=== PATIENT | male | born 1990 | race Caucasian/White ===

== ENCOUNTER 2016-08-05 19:54 | Emergency (ER) | payer MEDICARE ==
[~2016-08-05] VITALS: Ht 188 cm; Wt 111.1 kg
[2016-08-05] MEDS ORDERED: ACETAMINOPH W/CODEINE #3 TAB UD As Ordered ONE (20:20)
[2016-08-05] MEDS ORDERED: NEBIVOLOL 5 MG TAB (BYSTOLIC) PO SCH (20:30)
--- NOTE | 2016-08-05 21:33 | EDDOCDS ---
Physician Documentation [facility] Name: Yves Bentley Age: 26 yrs Sex: Male : 1990 Arrival Date: 08/05/2016 Time: 19:54 Bed PR Private MD: Disposition: 08/05/16 21:09 Discharged to Home/Self Care. Impression: Sprain of ankle - LEFT, Other sprain of foot - LEFT, Hypertension secondary to other renal disorders. - Condition is Stable. - Discharge Instructions: Foot Sprain, Hypertension. - Prescriptions for Tylenol- Codeine #3 300-30 mg Oral Tablet - take 2 tablets by ORAL route every 6 hours As needed MDD: 4 tabs; 20 tablet. - Medication Reconciliation, Local Pharmacy Hours form. - Follow up: Private Physician; When: Tomorrow; Reason: Recheck today's complaints, Continuance of care. Follow up: [facility]; When: 2 - 3 days; Reason: Recheck today's complaints, Continuance of care. - Problem is new. - Symptoms have improved. - Notes: USE MEDICATION INSTRUCTED, ADDRESS YOUR HYPERTENSION AT DIALYSIS TOMORROW, FOLLOW UP WITH [facility], RETURN TO THE ER IF THE SYMPTOMS WORSEN OR BECOME CONCERNING Historical: - Allergies: no known allergies; - Home Meds: 1. Bystolic 40 mg oral tab 1 tab twice a day 2. fluoxetine 10 mg Oral tab nightly 3. Headache Relief (CZB-yndm-yqx) 250-250-65 mg oral tab 4. losartan 50 mg oral tab three times a day 5. minoxidil 5 mg Oral tab 1 tab 2 times per day - PMHx: Headaches; Hypertension; Renal Failure with Dialysis; - PSHx: Left arm dialysis graft; Thyroidectomy; - Social history: Smoking status: Patient uses tobacco products, light tobacco smoker. No barriers to communication noted, The patient speaks fluent Maltese. - Family history: Not pertinent. - : The pt / caregiver states he / she is not on anticoagulants. Home medication list is obtained from the patient. - Exposure Risk Screening:: None identified. Vital Signs: 08/05 19:56 BP 215 / 98; Pulse 82; Resp 18; Temp 98.2; Pulse Ox 99% on R/A; Weight 111.13 kg / 245 bnb lbs; Height 6 ft. 2 in. (187.96 cm); Pain 9/10; 20:16 BP 196 / 98 RA (man/); kc3 21:27 Pulse 76; Resp 20; Temp 99.6(TE); Pulse Ox 98% on R/A; Pain 1/10; ar3 21:32 BP 190 / 96; kc3 21:32 kc3 19:56 Body Mass Index 31.46 (111.13 kg, 187.96 cm) bnb 21:32 provider aware of BP at discharge and approved. kc3 Procedures: 21:01 Fracture care/splinting: Splint applied to left lateral ankle and lateral aspect of ck7 left foot using nikko wrap, Air Cast, applied by nurse. Examined by me, post splint application: neurovascular intact, 2+ distal pulses palpable, brisk capillary refill noted, Patient tolerated well. MDM: 20:05 Recheck B/P ordered. ck7 20:18 Acetaminophen-Codeine 300 mg-30 mg 2 tabs PO once ordered. ck7 20:18 Bystolic 40 mg PO once ordered. ck7 20:19 Foot, Complete Ordered. EDMS 20:19 Ankle, Complete Ordered. EDMS 20:30 [facility] Payment Agreement was scanned into [employer] and attached to record. jp5 20:31 Financial registration complete. jp5 21:00 Nikko Wrap ordered. ck7 21:00 Apply Air Cast to Patient. ordered. ck7 21:00 Crutches ordered. ck7 Administered Medications: 20:29 Drug: Acetaminophen-Codeine 2 tabs [acetaminophen 300 mg-codeine 30 mg tablet (2 tabs)] 3 Route: PO; 21:01 Drug: Bystolic 40 mg Route: PO; kc3 Signatures: Dispatcher [employer] EDMS Courtney Robb,RN RN rs3 Quirino Lima, RPA-C RPA-Cck7 Raquel Alvarado jp5 Pat Madrigal,RN RN kc3 The chart was reviewed and I authenticate all verbal orders and agree with the evaluation and treatment provided.Attachments: 20:30 [facility] Payment Agreement jp5 MTDD
--- NOTE | 2016-08-05 21:33 | EDDOCDS ---
Nurse's Notes [facility] Name: Yves Bentley Age: 26 yrs Sex: Male : 1990 Arrival Date: 08/05/2016 Time: 19:54 Bed PR / Private MD: Diagnosis: Sprain of ankle-LEFT;Other sprain of foot-LEFT;Hypertension secondary to other renal disorders Presentation: 08/05 19:59 Presenting complaint: Patient states: twisted L foot last week, re injured it again rs3 yesterday coming down the stairs carrying weight. L foot swelling and pain. Adult Sepsis Screening: The patient does not have new or worsening altered mentation. Patient's respiratory rate is less than 22. Systolic blood pressure is greater than 100. Patient has a qSOFA score of 0- Negative Sepsis Screen. Suicide/Homicide risk assessment- the patient denies having any suicidal and/or homicidal ideations and does not present with any other emotional, behavioral or mental health complaints. 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 Transition of care: patient was not received from another setting of care. 19:59 Acuity: [place] Level 4 rs3 19:59 Method Of Arrival: Walkin/Carried/Asstd rs3 Triage Assessment: 20:02 General: Appears in no apparent distress. Pain: Location: left foot. HIV screening NA rs3 for this visit Offered previously. Musculoskeletal: Parent/caregiver report the patient having Pain is 8 out of 10 on a pain scale. Historical: - Allergies: no known allergies; - Home Meds: 1. Bystolic 40 mg oral tab 1 tab twice a day 2. fluoxetine 10 mg Oral tab nightly 3. Headache Relief (HBN-xtos-rmv) 250-250-65 mg oral tab 4. losartan 50 mg oral tab three times a day 5. minoxidil 5 mg Oral tab 1 tab 2 times per day - PMHx: Headaches; Hypertension; Renal Failure with Dialysis; - PSHx: Left arm dialysis graft; Thyroidectomy; - Social history: Smoking status: Patient uses tobacco products, light tobacco smoker. No barriers to communication noted, The patient speaks fluent Yoruba. - Family history: Not pertinent. - : The pt / caregiver states he / she is not on anticoagulants. Home medication list is obtained from the patient. - Exposure Risk Screening:: None identified. Screenin:31 Screening information is obtained from the patient. Fall risk: At risk due to injury, kc3 The following interventions are performed due to a positive Fall Risk Screen: Fall Risk is added to Special Handling on the patient Summary Screen. A Fall Risk Bracelet was applied to the patient. Side Rails are placed in the up position. A Call Syed is given with instruction to call for help when getting out of bed. Fall Alert bracelet is placed on the patient. Assistance ADL's: requires no assistance with activities of daily living. Abuse/DV Screen: The patient / caregiver reports he/she is: not in a situation that causes fear, pain or injury. Nutritional screening: No deficits noted. Advance Directives: Currently, there is no health care proxy. home support is adequate. Assessment: 20:29 General: Appears in no apparent distress, comfortable, Behavior is appropriate for age, kc3 cooperative. Pain: Location: left foot. Neurological: No deficits noted. Respiratory: Respiratory effort is even, unlabored. Derm: Swollen area noted on left foot. Musculoskeletal: Circulation, motion, and sensation intact. 21:31 General: Appears in no apparent distress, comfortable, Behavior is appropriate for age, kc3 cooperative. Pain: Denies pain. Neurological: No deficits noted. Respiratory: Respiratory effort is even, unlabored. Derm: Skin is pink, warm & dry. Vital Signs: 19:56 BP 215 / 98; Pulse 82; Resp 18; Temp 98.2; Pulse Ox 99% on R/A; Weight 111.13 kg; bnb Height 6 ft. 2 in. (187.96 cm); Pain 9/10; 20:16 BP 196 / 98 RA (man/); kc3 21:27 Pulse 76; Resp 20; Temp 99.6(TE); Pulse Ox 98% on R/A; Pain 1/10; ar3 21:32 BP 190 / 96; kc3 21:32 kc3 19:56 Body Mass Index 31.46 (111.13 kg, 187.96 cm) bnb 21:32 provider aware of BP at discharge and approved. kc3 Vitals: 19:56 Log In Time: August 05, 2016 at 19:55. bnb ED Course: 19:56 Patient visited by Roxanna Tineo PCA. bnb 19:56 Patient moved to Waiting bnb 19:57 Patient visited by Roxanna Tineo PCA. bnb 20:01 Triage Initiated rs3 20:03 Patient moved to Triage 2 rs3 20:11 Quirino Lima RPA-C is PHCP. ck7 20:11 Guicho Rivera DO is Attending Physician. ck7 20:14 Patient visited by Quirino Lima RPA-C. ck7 20:28 Patient moved to TR3 kc3 20:30 [facility] Payment Agreement was scanned into [employer] and attached to record. jp5 20:31 The patient / caregiver is instructed regarding the plan of care and ED course. kc3 20:36 Patient moved to Radiology jeimy 21:00 Patient moved to TR3 jeimy 21:01 Patient visited by Quirino Lima RPA-C. ck7 21:08 [facility] is Referral Physician. ck7 21:13 Pat Madrigal,CONCHA is Primary Nurse. kc3 21:13 Patient moved to PR1 / 25 ttb 21:27 Patient visited by Ratna Kennedy PCA. ar3 21:32 No IV's were initiated during this patient's visit. No procedures done that require kc3 assistance. Administered Medications: 20:29 Drug: Acetaminophen-Codeine 2 tabs [acetaminophen 300 mg-codeine 30 mg tablet (2 tabs)] kc3 Route: PO; 21:01 Drug: Bystolic 40 mg Route: PO; kc3 Order Results: There are currently no results for this order. Outcome: 21:09 Discharge ordered by Provider. ck7 21:32 Discharge Assessment: Patient awake, alert and oriented x 3. No cognitive and/or kc3 functional deficits noted. Patient verbalized understanding of disposition instructions. patient administered narcotics - yes. Pt provided with safe discharge. The following High Risk Discharge criteria are identified: None. Discharged to home ambulatory, with crutches. Condition: stable. Discharge instructions given to patient, Instructed on discharge instructions, follow up and referral plans. medication usage, crutch walking, Demonstrated understanding of instructions, crutch walking, medications, Pt was receptive of discharge instructions/ teaching. Prescriptions given X 1. No special radiology studies were completed. Property :Personal belongings accompany Pt. 21:33 Patient left the ED. kc3 Signatures: Link Youssef Rosemary, RN RN rs3 Ratna Kennedy, TOWER ERECTOR HELPER TOWER ERECTOR HELPER ar3 Janie, Quirino, RPA-C RPA-Cck7 Wilda Spaulding, RN RN ttb Raquel Alvarado jp5 Pat Madrigal,RN RN kc3 Roxanna Tineo, TOWER ERECTOR HELPER TOWER ERECTOR HELPER bnb MTDD
--- NOTE | 2016-08-06 07:53 | REP ---
Clinical: Trauma. Technique: AP, lateral, bilateral oblique views left foot . Findings: The osseous structures and joint spaces are intact and normal. There is no evidence for acute fracture or dislocation. Surrounding soft tissues are unremarkable. No subcutaneous emphysema or radiodense foreign body. Impression: Normal examination. No acute fracture or dislocation. Signed by Renny Zaragoza MD 08/06/2016 07:44 A
--- NOTE | 2016-08-06 07:57 | REP ---
Clinical: Deformity and swelling. Technique: AP, lateral, bilateral oblique views of the left ankle. Findings: Diffuse soft tissue swelling is appreciated. No obvious acute fracture or dislocation is appreciated. Widening along the lateral aspect of the ankle mortise may represent ligamentous injury. Impression: Mild widening to the lateral aspect of the ankle mortise may reflect injury to the lateral collateral ligament complex. No fracture or dislocation. Signed by Renny Zaragoza MD 08/06/2016 07:48 A
--- NOTE | 2016-08-07 22:34 | EDDOCDS ---
Physician Documentation [facility] Name: Yves Bentley Age: 26 yrs Sex: Male : 1990 Arrival Date: 08/05/2016 Time: 19:54 Bed PR Private MD: Disposition: 08/05/16 21:09 Discharged to Home/Self Care. Impression: Sprain of ankle - LEFT, Other sprain of foot - LEFT, Hypertension secondary to other renal disorders. - Condition is Stable. - Discharge Instructions: Foot Sprain, Hypertension. - Prescriptions for Tylenol- Codeine #3 300-30 mg Oral Tablet - take 2 tablets by ORAL route every 6 hours As needed MDD: 4 tabs; 20 tablet. - Medication Reconciliation, Local Pharmacy Hours form. - Follow up: Private Physician; When: Tomorrow; Reason: Recheck today's complaints, Continuance of care. Follow up: [facility]; When: 2 - 3 days; Reason: Recheck today's complaints, Continuance of care. - Problem is new. - Symptoms have improved. - Notes: USE MEDICATION INSTRUCTED, ADDRESS YOUR HYPERTENSION AT DIALYSIS TOMORROW, FOLLOW UP WITH [facility], RETURN TO THE ER IF THE SYMPTOMS WORSEN OR BECOME CONCERNING Historical: - Allergies: no known allergies; - Home Meds: 1. Bystolic 40 mg oral tab 1 tab twice a day 2. fluoxetine 10 mg Oral tab nightly 3. Headache Relief (NFE-nbon-sxa) 250-250-65 mg oral tab 4. losartan 50 mg oral tab three times a day 5. minoxidil 5 mg Oral tab 1 tab 2 times per day - PMHx: Headaches; Hypertension; Renal Failure with Dialysis; - PSHx: Left arm dialysis graft; Thyroidectomy; - Social history: Smoking status: Patient uses tobacco products, light tobacco smoker. No barriers to communication noted, The patient speaks fluent Vietnamese. - Family history: Not pertinent. - : The pt / caregiver states he / she is not on anticoagulants. Home medication list is obtained from the patient. - Exposure Risk Screening:: None identified. Vital Signs: 08/05 19:56 BP 215 / 98; Pulse 82; Resp 18; Temp 98.2; Pulse Ox 99% on R/A; Weight 111.13 kg / 245 bnb lbs; Height 6 ft. 2 in. (187.96 cm); Pain 9/10; 20:16 BP 196 / 98 RA (man/); kc3 21:27 Pulse 76; Resp 20; Temp 99.6(TE); Pulse Ox 98% on R/A; Pain 1/10; ar3 21:32 BP 190 / 96; kc3 21:32 kc3 19:56 Body Mass Index 31.46 (111.13 kg, 187.96 cm) bnb 21:32 provider aware of BP at discharge and approved. kc3 Procedures: 21:01 Fracture care/splinting: Splint applied to left lateral ankle and lateral aspect of ck7 left foot using nikko wrap, Air Cast, applied by nurse. Examined by me, post splint application: neurovascular intact, 2+ distal pulses palpable, brisk capillary refill noted, Patient tolerated well. MDM: 20:05 Recheck B/P ordered. ck7 20:18 Acetaminophen-Codeine 300 mg-30 mg 2 tabs PO once ordered. ck7 20:18 Bystolic 40 mg PO once ordered. ck7 20:19 Foot, Complete Ordered. EDMS 20:19 Ankle, Complete Ordered. EDMS 20:30 [facility] Payment Agreement was scanned into [employer] and attached to record. jp5 20:31 Financial registration complete. jp5 21:00 Nikko Wrap ordered. ck7 21:00 Apply Air Cast to Patient. ordered. ck7 21:00 Crutches ordered. ck7 08/06 14:11 T-Sheet-- Draft Copy was scanned into [employer] and attached to record. gb Administered Medications: 08/05 20:29 Drug: Acetaminophen-Codeine 2 tabs [acetaminophen 300 mg-codeine 30 mg tablet (2 tabs)] 3 Route: PO; 21:01 Drug: Bystolic 40 mg Route: PO; kc3 Signatures: Dispatcher [employer] EDMS Brigette Ames, Reg Reg gb Courtney Robb,RN RN rs3 Quirino Lima RPA-C RPA-Cck7 Raquel Alvarado jp5 Pat Madrigal,CONCHA RN kc3 The chart was reviewed and I authenticate all verbal orders and agree with the evaluation and treatment provided.Attachments: 20:30 [facility] Payment Agreement 5 08/06 14:11 T-Sheet-- Draft Copy gb Chart Complete MTDD
--- NOTE | 2016-08-07 22:34 | EDDOCDS ---
Physician Documentation [facility] Name: Yves Bentley Age: 26 yrs Sex: Male : 1990 Arrival Date: 08/05/2016 Time: 19:54 Bed PR Private MD: Disposition: 08/05/16 21:09 Discharged to Home/Self Care. Impression: Sprain of ankle - LEFT, Other sprain of foot - LEFT, Hypertension secondary to other renal disorders. - Condition is Stable. - Discharge Instructions: Foot Sprain, Hypertension. - Prescriptions for Tylenol- Codeine #3 300-30 mg Oral Tablet - take 2 tablets by ORAL route every 6 hours As needed MDD: 4 tabs; 20 tablet. - Medication Reconciliation, Local Pharmacy Hours form. - Follow up: Private Physician; When: Tomorrow; Reason: Recheck today's complaints, Continuance of care. Follow up: [facility]; When: 2 - 3 days; Reason: Recheck today's complaints, Continuance of care. - Problem is new. - Symptoms have improved. - Notes: USE MEDICATION INSTRUCTED, ADDRESS YOUR HYPERTENSION AT DIALYSIS TOMORROW, FOLLOW UP WITH [facility], RETURN TO THE ER IF THE SYMPTOMS WORSEN OR BECOME CONCERNING Historical: - Allergies: no known allergies; - Home Meds: 1. Bystolic 40 mg oral tab 1 tab twice a day 2. fluoxetine 10 mg Oral tab nightly 3. Headache Relief (ZOD-tnen-pcg) 250-250-65 mg oral tab 4. losartan 50 mg oral tab three times a day 5. minoxidil 5 mg Oral tab 1 tab 2 times per day - PMHx: Headaches; Hypertension; Renal Failure with Dialysis; - PSHx: Left arm dialysis graft; Thyroidectomy; - Social history: Smoking status: Patient uses tobacco products, light tobacco smoker. No barriers to communication noted, The patient speaks fluent Chinese. - Family history: Not pertinent. - : The pt / caregiver states he / she is not on anticoagulants. Home medication list is obtained from the patient. - Exposure Risk Screening:: None identified. Vital Signs: 08/05 19:56 BP 215 / 98; Pulse 82; Resp 18; Temp 98.2; Pulse Ox 99% on R/A; Weight 111.13 kg / 245 bnb lbs; Height 6 ft. 2 in. (187.96 cm); Pain 9/10; 20:16 BP 196 / 98 RA (man/); kc3 21:27 Pulse 76; Resp 20; Temp 99.6(TE); Pulse Ox 98% on R/A; Pain 1/10; ar3 21:32 BP 190 / 96; kc3 21:32 kc3 19:56 Body Mass Index 31.46 (111.13 kg, 187.96 cm) bnb 21:32 provider aware of BP at discharge and approved. kc3 Procedures: 21:01 Fracture care/splinting: Splint applied to left lateral ankle and lateral aspect of ck7 left foot using nikko wrap, Air Cast, applied by nurse. Examined by me, post splint application: neurovascular intact, 2+ distal pulses palpable, brisk capillary refill noted, Patient tolerated well. MDM: 20:05 Recheck B/P ordered. ck7 20:18 Acetaminophen-Codeine 300 mg-30 mg 2 tabs PO once ordered. ck7 20:18 Bystolic 40 mg PO once ordered. ck7 20:19 Foot, Complete Ordered. EDMS 20:19 Ankle, Complete Ordered. EDMS 20:30 [facility] Payment Agreement was scanned into [employer] and attached to record. jp5 20:31 Financial registration complete. jp5 21:00 Nikko Wrap ordered. ck7 21:00 Apply Air Cast to Patient. ordered. ck7 21:00 Crutches ordered. ck7 08/06 14:11 T-Sheet-- Draft Copy was scanned into [employer] and attached to record. gb Administered Medications: 08/05 20:29 Drug: Acetaminophen-Codeine 2 tabs [acetaminophen 300 mg-codeine 30 mg tablet (2 tabs)] 3 Route: PO; 21:01 Drug: Bystolic 40 mg Route: PO; kc3 Signatures: Dispatcher [employer] EDMS Brigette Ames, Reg Reg gb Courtney Robb,RN RN rs3 Quirino Lima RPA-C RPA-Cck7 Raquel Alvarado jp5 Pat Madrigal,CONCHA RN kc3 The chart was reviewed and I authenticate all verbal orders and agree with the evaluation and treatment provided.Attachments: 20:30 [facility] Payment Agreement 5 08/06 14:11 T-Sheet-- Draft Copy gb Chart Complete MTDD
--- NOTE | 2016-08-07 22:34 | EDDOCDS ---
Nurse's Notes [facility] Name: Yves Bentley Age: 26 yrs Sex: Male : 1990 Arrival Date: 08/05/2016 Time: 19:54 Bed PR / Private MD: Diagnosis: Sprain of ankle-LEFT;Other sprain of foot-LEFT;Hypertension secondary to other renal disorders Presentation: 08/05 19:59 Presenting complaint: Patient states: twisted L foot last week, re injured it again rs3 yesterday coming down the stairs carrying weight. L foot swelling and pain. Adult Sepsis Screening: The patient does not have new or worsening altered mentation. Patient's respiratory rate is less than 22. Systolic blood pressure is greater than 100. Patient has a qSOFA score of 0- Negative Sepsis Screen. Suicide/Homicide risk assessment- the patient denies having any suicidal and/or homicidal ideations and does not present with any other emotional, behavioral or mental health complaints. 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 Transition of care: patient was not received from another setting of care. 19:59 Acuity: [place] Level 4 rs3 19:59 Method Of Arrival: Walkin/Carried/Asstd rs3 Triage Assessment: 20:02 General: Appears in no apparent distress. Pain: Location: left foot. HIV screening NA rs3 for this visit Offered previously. Musculoskeletal: Parent/caregiver report the patient having Pain is 8 out of 10 on a pain scale. Historical: - Allergies: no known allergies; - Home Meds: 1. Bystolic 40 mg oral tab 1 tab twice a day 2. fluoxetine 10 mg Oral tab nightly 3. Headache Relief (JZU-lsfa-fjc) 250-250-65 mg oral tab 4. losartan 50 mg oral tab three times a day 5. minoxidil 5 mg Oral tab 1 tab 2 times per day - PMHx: Headaches; Hypertension; Renal Failure with Dialysis; - PSHx: Left arm dialysis graft; Thyroidectomy; - Social history: Smoking status: Patient uses tobacco products, light tobacco smoker. No barriers to communication noted, The patient speaks fluent Hebrew. - Family history: Not pertinent. - : The pt / caregiver states he / she is not on anticoagulants. Home medication list is obtained from the patient. - Exposure Risk Screening:: None identified. Screenin:31 Screening information is obtained from the patient. Fall risk: At risk due to injury, kc3 The following interventions are performed due to a positive Fall Risk Screen: Fall Risk is added to Special Handling on the patient Summary Screen. A Fall Risk Bracelet was applied to the patient. Side Rails are placed in the up position. A Call Syed is given with instruction to call for help when getting out of bed. Fall Alert bracelet is placed on the patient. Assistance ADL's: requires no assistance with activities of daily living. Abuse/DV Screen: The patient / caregiver reports he/she is: not in a situation that causes fear, pain or injury. Nutritional screening: No deficits noted. Advance Directives: Currently, there is no health care proxy. home support is adequate. Assessment: 20:29 General: Appears in no apparent distress, comfortable, Behavior is appropriate for age, kc3 cooperative. Pain: Location: left foot. Neurological: No deficits noted. Respiratory: Respiratory effort is even, unlabored. Derm: Swollen area noted on left foot. Musculoskeletal: Circulation, motion, and sensation intact. 21:31 General: Appears in no apparent distress, comfortable, Behavior is appropriate for age, kc3 cooperative. Pain: Denies pain. Neurological: No deficits noted. Respiratory: Respiratory effort is even, unlabored. Derm: Skin is pink, warm & dry. Vital Signs: 19:56 BP 215 / 98; Pulse 82; Resp 18; Temp 98.2; Pulse Ox 99% on R/A; Weight 111.13 kg; bnb Height 6 ft. 2 in. (187.96 cm); Pain 9/10; 20:16 BP 196 / 98 RA (man/); kc3 21:27 Pulse 76; Resp 20; Temp 99.6(TE); Pulse Ox 98% on R/A; Pain 1/10; ar3 21:32 BP 190 / 96; kc3 21:32 kc3 19:56 Body Mass Index 31.46 (111.13 kg, 187.96 cm) bnb 21:32 provider aware of BP at discharge and approved. kc3 Vitals: 19:56 Log In Time: August 05, 2016 at 19:55. bnb ED Course: 19:56 Patient visited by Roxanna Tineo PCA. bnb 19:56 Patient moved to Waiting bnb 19:57 Patient visited by Roxanna Tineo PCA. bnb 20:01 Triage Initiated rs3 20:03 Patient moved to Triage 2 rs3 20:11 Quirino Lima RPA-C is PHCP. ck7 20:11 Guicho Rivera DO is Attending Physician. ck7 20:14 Patient visited by Quirino Lima RPA-C. ck7 20:28 Patient moved to TR3 kc3 20:30 [facility] Payment Agreement was scanned into [employer] and attached to record. jp5 20:31 The patient / caregiver is instructed regarding the plan of care and ED course. kc3 20:36 Patient moved to Radiology jeimy 21:00 Patient moved to TR3 jeimy 21:01 Patient visited by Quirino Lima RPA-C. ck7 21:08 [facility] is Referral Physician. ck7 21:13 Pat Madrigal,RN is Primary Nurse. kc3 21:13 Patient moved to PR1 / 25 ttb 21:27 Patient visited by Ratna Kennedy PCA. ar3 21:32 No IV's were initiated during this patient's visit. No procedures done that require kc3 assistance. 23:05 Patient name changed from Yves\S\L\S\Tamblin\S\ to Yves\S\Mellissa\S\Tamblin. EDMS 0213 08:10 Foot, Complete Returned. EDMS 08:10 Ankle, Complete Returned. EDMS 14:11 T-Sheet-- Draft Copy was scanned into [employer] and attached to record. gb Administered Medications: 08/05 20:29 Drug: Acetaminophen-Codeine 2 tabs [acetaminophen 300 mg-codeine 30 mg tablet (2 tabs)] kc3 Route: PO; 21:01 Drug: Bystolic 40 mg Route: PO; kc3 Order Results: Radiology Order: Foot, Complete Test: Foot, Complete REASON FOR EXAMINATION: Deformity/Swelling; Clinical: Trauma.; ; Technique: AP, lateral, bilateral oblique views left foot .; ; Findings: The osseous structures and joint spaces are intact and normal. There; is no evidence for acute fracture or dislocation. Surrounding soft tissues are; unremarkable. No subcutaneous emphysema or radiodense foreign body.; ; Impression:; Normal examination. No acute fracture or dislocation.; ; ; Signed by; Renny Zaragoza MD 08/06/2016 07:44 A; Radiology Order: Ankle, Complete Test: Ankle, Complete REASON FOR EXAMINATION: Deformity/Swelling; Clinical: Deformity and swelling.; ; Technique: AP, lateral, bilateral oblique views of the left ankle.; ; Findings:; Diffuse soft tissue swelling is appreciated. No obvious acute fracture or; dislocation is appreciated. Widening along the lateral aspect of the ankle; mortise may represent ligamentous injury.; ; Impression:; Mild widening to the lateral aspect of the ankle mortise may reflect injury to; the lateral collateral ligament complex.; No fracture or dislocation.; ; ; Signed by; Renny Zaragoza MD 08/06/2016 07:48 A; Outcome: 21:09 Discharge ordered by Provider. ck7 21:32 Discharge Assessment: Patient awake, alert and oriented x 3. No cognitive and/or kc3 functional deficits noted. Patient verbalized understanding of disposition instructions. patient administered narcotics - yes. Pt provided with safe discharge. The following High Risk Discharge criteria are identified: None. Discharged to home ambulatory, with crutches. Condition: stable. Discharge instructions given to patient, Instructed on discharge instructions, follow up and referral plans. medication usage, crutch walking, Demonstrated understanding of instructions, crutch walking, medications, Pt was receptive of discharge instructions/ teaching. Prescriptions given X 1. No special radiology studies were completed. Property :Personal belongings accompany Pt. 21:33 Patient left the ED. kc3 Signatures: Dispatcher [employer] EDMS Link Youssef Gloria, Reg Reg Courtney DavidsonRN RN rs3 Ratna Kennedy, CYTOLOGY TECHNOLOGIST CYTOLOGY TECHNOLOGIST ar3 Quirino Lima, RPA-C RPA-Cck7 Wilda Spaulding RN RN ttb Raquel Alvarado jp5 Pat Madrigal,CONCHA RN kc3 Roxanna Tineo, CYTOLOGY TECHNOLOGIST CYTOLOGY TECHNOLOGIST bnb Chart Complete MTDD
--- NOTE | 2016-08-08 15:57 | EDDOCDS ---
Physician Documentation [facility] Name: Yves Bentley Age: 26 yrs Sex: Male : 1990 Arrival Date: 08/05/2016 Time: 19:54 Bed PR Private MD: Disposition: 08/05/16 21:09 Discharged to Home/Self Care. Impression: Sprain of ankle - LEFT, Other sprain of foot - LEFT, Hypertension secondary to other renal disorders. - Condition is Stable. - Discharge Instructions: Foot Sprain, Hypertension. - Prescriptions for Tylenol- Codeine #3 300-30 mg Oral Tablet - take 2 tablets by ORAL route every 6 hours As needed MDD: 4 tabs; 20 tablet. - Medication Reconciliation, Local Pharmacy Hours form. - Follow up: Private Physician; When: Tomorrow; Reason: Recheck today's complaints, Continuance of care. Follow up: [facility]; When: 2 - 3 days; Reason: Recheck today's complaints, Continuance of care. - Problem is new. - Symptoms have improved. - Notes: USE MEDICATION INSTRUCTED, ADDRESS YOUR HYPERTENSION AT DIALYSIS TOMORROW, FOLLOW UP WITH [facility], RETURN TO THE ER IF THE SYMPTOMS WORSEN OR BECOME CONCERNING Historical: - Allergies: no known allergies; - Home Meds: 1. Bystolic 40 mg oral tab 1 tab twice a day 2. fluoxetine 10 mg Oral tab nightly 3. Headache Relief (LEA-enss-zea) 250-250-65 mg oral tab 4. losartan 50 mg oral tab three times a day 5. minoxidil 5 mg Oral tab 1 tab 2 times per day - PMHx: Headaches; Hypertension; Renal Failure with Dialysis; - PSHx: Left arm dialysis graft; Thyroidectomy; - Social history: Smoking status: Patient uses tobacco products, light tobacco smoker. No barriers to communication noted, The patient speaks fluent Faroese. - Family history: Not pertinent. - : The pt / caregiver states he / she is not on anticoagulants. Home medication list is obtained from the patient. - Exposure Risk Screening:: None identified. Vital Signs: 08/05 19:56 BP 215 / 98; Pulse 82; Resp 18; Temp 98.2; Pulse Ox 99% on R/A; Weight 111.13 kg / 245 bnb lbs; Height 6 ft. 2 in. (187.96 cm); Pain 9/10; 20:16 BP 196 / 98 RA (man/); kc3 21:27 Pulse 76; Resp 20; Temp 99.6(TE); Pulse Ox 98% on R/A; Pain 1/10; ar3 21:32 BP 190 / 96; kc3 21:32 kc3 19:56 Body Mass Index 31.46 (111.13 kg, 187.96 cm) bnb 21:32 provider aware of BP at discharge and approved. kc3 Procedures: 21:01 Fracture care/splinting: Splint applied to left lateral ankle and lateral aspect of ck7 left foot using nikko wrap, Air Cast, applied by nurse. Examined by me, post splint application: neurovascular intact, 2+ distal pulses palpable, brisk capillary refill noted, Patient tolerated well. MDM: 20:05 Recheck B/P ordered. ck7 20:18 Acetaminophen-Codeine 300 mg-30 mg 2 tabs PO once ordered. ck7 20:18 Bystolic 40 mg PO once ordered. ck7 20:19 Foot, Complete Ordered. EDMS 20:19 Ankle, Complete Ordered. EDMS 20:30 [facility] Payment Agreement was scanned into [employer] and attached to record. jp5 20:31 Financial registration complete. jp5 21:00 Nikko Wrap ordered. ck7 21:00 Apply Air Cast to Patient. ordered. ck7 21:00 Crutches ordered. ck7 08/06 14:11 T-Sheet-- Draft Copy was scanned into [employer] and attached to record. gb Administered Medications: 08/05 20:29 Drug: Acetaminophen-Codeine 2 tabs [acetaminophen 300 mg-codeine 30 mg tablet (2 tabs)] kc3 Route: PO; 21:01 Drug: Bystolic 40 mg Route: PO; kc3 Addendum: 08/08/2016 15:56 Radiology Callback: Radiology results faxed to primary care physician/provider. ncog ml faxed formarl report of left ankle fiml for fu mlg. Signatures: Dispatcher [employer] EDMD Etta Lainez MD MD ml Brigette Ames, Reg Reg gb Courtney Robb RN RN rs3 Quirino Lima RPA-C RPA-Cck7 Raquel Alvarado jp5 Pat Madrigal,RN RN kc3 The chart was reviewed and I authenticate all verbal orders and agree with the evaluation and treatment provided.Attachments: 08/05 20:30 [facility] jp5 08/06 14:11 T-Sheet-- Draft Copy gb MTDD
--- NOTE | 2016-08-08 15:57 | EDDOCDS ---
Nurse's Notes [facility] Name: Yves Bentley Age: 26 yrs Sex: Male : 1990 Arrival Date: 08/05/2016 Time: 19:54 Bed PR / Private MD: Diagnosis: Sprain of ankle-LEFT;Other sprain of foot-LEFT;Hypertension secondary to other renal disorders Presentation: 08/05 19:59 Presenting complaint: Patient states: twisted L foot last week, re injured it again rs3 yesterday coming down the stairs carrying weight. L foot swelling and pain. Adult Sepsis Screening: The patient does not have new or worsening altered mentation. Patient's respiratory rate is less than 22. Systolic blood pressure is greater than 100. Patient has a qSOFA score of 0- Negative Sepsis Screen. Suicide/Homicide risk assessment- the patient denies having any suicidal and/or homicidal ideations and does not present with any other emotional, behavioral or mental health complaints. 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 Transition of care: patient was not received from another setting of care. 19:59 Acuity: [place] Level 4 rs3 19:59 Method Of Arrival: Walkin/Carried/Asstd rs3 Triage Assessment: 20:02 General: Appears in no apparent distress. Pain: Location: left foot. HIV screening NA rs3 for this visit Offered previously. Musculoskeletal: Parent/caregiver report the patient having Pain is 8 out of 10 on a pain scale. Historical: - Allergies: no known allergies; - Home Meds: 1. Bystolic 40 mg oral tab 1 tab twice a day 2. fluoxetine 10 mg Oral tab nightly 3. Headache Relief (HRN-gpjb-lds) 250-250-65 mg oral tab 4. losartan 50 mg oral tab three times a day 5. minoxidil 5 mg Oral tab 1 tab 2 times per day - PMHx: Headaches; Hypertension; Renal Failure with Dialysis; - PSHx: Left arm dialysis graft; Thyroidectomy; - Social history: Smoking status: Patient uses tobacco products, light tobacco smoker. No barriers to communication noted, The patient speaks fluent Kyrgyz. - Family history: Not pertinent. - : The pt / caregiver states he / she is not on anticoagulants. Home medication list is obtained from the patient. - Exposure Risk Screening:: None identified. Screenin:31 Screening information is obtained from the patient. Fall risk: At risk due to injury, kc3 The following interventions are performed due to a positive Fall Risk Screen: Fall Risk is added to Special Handling on the patient Summary Screen. A Fall Risk Bracelet was applied to the patient. Side Rails are placed in the up position. A Call Syed is given with instruction to call for help when getting out of bed. Fall Alert bracelet is placed on the patient. Assistance ADL's: requires no assistance with activities of daily living. Abuse/DV Screen: The patient / caregiver reports he/she is: not in a situation that causes fear, pain or injury. Nutritional screening: No deficits noted. Advance Directives: Currently, there is no health care proxy. home support is adequate. Assessment: 20:29 General: Appears in no apparent distress, comfortable, Behavior is appropriate for age, kc3 cooperative. Pain: Location: left foot. Neurological: No deficits noted. Respiratory: Respiratory effort is even, unlabored. Derm: Swollen area noted on left foot. Musculoskeletal: Circulation, motion, and sensation intact. 21:31 General: Appears in no apparent distress, comfortable, Behavior is appropriate for age, kc3 cooperative. Pain: Denies pain. Neurological: No deficits noted. Respiratory: Respiratory effort is even, unlabored. Derm: Skin is pink, warm & dry. Vital Signs: 19:56 BP 215 / 98; Pulse 82; Resp 18; Temp 98.2; Pulse Ox 99% on R/A; Weight 111.13 kg; bnb Height 6 ft. 2 in. (187.96 cm); Pain 9/10; 20:16 BP 196 / 98 RA (man/); kc3 21:27 Pulse 76; Resp 20; Temp 99.6(TE); Pulse Ox 98% on R/A; Pain 1/10; ar3 21:32 BP 190 / 96; kc3 21:32 kc3 19:56 Body Mass Index 31.46 (111.13 kg, 187.96 cm) bnb 21:32 provider aware of BP at discharge and approved. kc3 Vitals: 19:56 Log In Time: August 05, 2016 at 19:55. bnb ED Course: 19:56 Patient visited by Roxanna Tineo PCA. bnb 19:56 Patient moved to Waiting bnb 19:57 Patient visited by Roxanna Tineo PCA. bnb 20:01 Triage Initiated rs3 20:03 Patient moved to Triage 2 rs3 20:11 Quirino Lima RPA-C is PHCP. ck7 20:11 Guicho Rivera DO is Attending Physician. ck7 20:14 Patient visited by Quirino Lima RPA-C. ck7 20:28 Patient moved to TR3 kc3 20:30 [facility] [place] Agreement was scanned into [employer] and attached to record. jp5 20:31 The patient / caregiver is instructed regarding the plan of care and ED course. kc3 20:36 Patient moved to Radiology jeimy 21:00 Patient moved to TR3 jeimy 21:01 Patient visited by Quirino Lima RPA-C. ck7 21:08 [facility] is Referral Physician. ck7 21:13 Pat Madrigal,RN is Primary Nurse. kc3 21:13 Patient moved to PR1 / 25 ttb 21:27 Patient visited by Ratna Kennedy PCA. ar3 21:32 No IV's were initiated during this patient's visit. No procedures done that require kc3 assistance. 23:05 Patient name changed from Yves\S\L\S\Tamblin\S\ to Yves\S\Mellissa\S\Tamblin. EDMS 0213 08:10 Foot, Complete Returned. EDMS 08:10 Ankle, Complete Returned. EDMS 14:11 T-Sheet-- Draft Copy was scanned into [employer] and attached to record. gb Administered Medications: 08/05 20:29 Drug: Acetaminophen-Codeine 2 tabs [acetaminophen 300 mg-codeine 30 mg tablet (2 tabs)] kc3 Route: PO; 21:01 Drug: Bystolic 40 mg Route: PO; kc3 Order Results: Radiology Order: Foot, Complete Test: Foot, Complete REASON FOR EXAMINATION: Deformity/Swelling; Clinical: Trauma.; ; Technique: AP, lateral, bilateral oblique views left foot .; ; Findings: The osseous structures and joint spaces are intact and normal. There; is no evidence for acute fracture or dislocation. Surrounding soft tissues are; unremarkable. No subcutaneous emphysema or radiodense foreign body.; ; Impression:; Normal examination. No acute fracture or dislocation.; ; ; Signed by; Renny Zaragoza MD 08/06/2016 07:44 A; Radiology Order: Ankle, Complete Test: Ankle, Complete REASON FOR EXAMINATION: Deformity/Swelling; Clinical: Deformity and swelling.; ; Technique: AP, lateral, bilateral oblique views of the left ankle.; ; Findings:; Diffuse soft tissue swelling is appreciated. No obvious acute fracture or; dislocation is appreciated. Widening along the lateral aspect of the ankle; mortise may represent ligamentous injury.; ; Impression:; Mild widening to the lateral aspect of the ankle mortise may reflect injury to; the lateral collateral ligament complex.; No fracture or dislocation.; ; ; Signed by; Renny Zaragoza MD 08/06/2016 07:48 A; Outcome: 21:09 Discharge ordered by Provider. ck7 21:32 Discharge Assessment: Patient awake, alert and oriented x 3. No cognitive and/or kc3 functional deficits noted. Patient verbalized understanding of disposition instructions. patient administered narcotics - yes. Pt provided with safe discharge. The following High Risk Discharge criteria are identified: None. Discharged to home ambulatory, with crutches. Condition: stable. Discharge instructions given to patient, Instructed on discharge instructions, follow up and referral plans. medication usage, crutch walking, Demonstrated understanding of instructions, crutch walking, medications, Pt was receptive of discharge instructions/ teaching. Prescriptions given X 1. No special radiology studies were completed. Property :Personal belongings accompany Pt. 21:33 Patient left the ED. kc3 Signatures: Dispatcher [employer] EDMS Link Youssef Gloria, Reg Reg Courtney DavidsonRN RN rs3 Ratna Kennedy, MANAGER MBA MANAGER MBA ar3 Quirino Lima, RPA-C RPA-Cck7 Wilda Spaulding RN RN ttb Rqauel Alvarado jp5 Pat Madrigal,CONCHA RN kc3 Roxanna Tineo, MANAGER MBA MANAGER MBA bnb MTDD
--- NOTE | 2016-08-08 15:58 | EDDOCDS ---
Physician Documentation [facility] Name: Yves Bentley Age: 26 yrs Sex: Male : 1990 Arrival Date: 08/05/2016 Time: 19:54 Bed PR Private MD: Disposition: 08/05/16 21:09 Discharged to Home/Self Care. Impression: Sprain of ankle - LEFT, Other sprain of foot - LEFT, Hypertension secondary to other renal disorders. - Condition is Stable. - Discharge Instructions: Foot Sprain, Hypertension. - Prescriptions for Tylenol- Codeine #3 300-30 mg Oral Tablet - take 2 tablets by ORAL route every 6 hours As needed MDD: 4 tabs; 20 tablet. - Medication Reconciliation, Local Pharmacy Hours form. - Follow up: Private Physician; When: Tomorrow; Reason: Recheck today's complaints, Continuance of care. Follow up: [facility]; When: 2 - 3 days; Reason: Recheck today's complaints, Continuance of care. - Problem is new. - Symptoms have improved. - Notes: USE MEDICATION INSTRUCTED, ADDRESS YOUR HYPERTENSION AT DIALYSIS TOMORROW, FOLLOW UP WITH [facility], RETURN TO THE ER IF THE SYMPTOMS WORSEN OR BECOME CONCERNING Historical: - Allergies: no known allergies; - Home Meds: 1. Bystolic 40 mg oral tab 1 tab twice a day 2. fluoxetine 10 mg Oral tab nightly 3. Headache Relief (SOF-lrdq-fkt) 250-250-65 mg oral tab 4. losartan 50 mg oral tab three times a day 5. minoxidil 5 mg Oral tab 1 tab 2 times per day - PMHx: Headaches; Hypertension; Renal Failure with Dialysis; - PSHx: Left arm dialysis graft; Thyroidectomy; - Social history: Smoking status: Patient uses tobacco products, light tobacco smoker. No barriers to communication noted, The patient speaks fluent Nepali. - Family history: Not pertinent. - : The pt / caregiver states he / she is not on anticoagulants. Home medication list is obtained from the patient. - Exposure Risk Screening:: None identified. Vital Signs: 08/05 19:56 BP 215 / 98; Pulse 82; Resp 18; Temp 98.2; Pulse Ox 99% on R/A; Weight 111.13 kg / 245 bnb lbs; Height 6 ft. 2 in. (187.96 cm); Pain 9/10; 20:16 BP 196 / 98 RA (man/); kc3 21:27 Pulse 76; Resp 20; Temp 99.6(TE); Pulse Ox 98% on R/A; Pain 1/10; ar3 21:32 BP 190 / 96; kc3 21:32 kc3 19:56 Body Mass Index 31.46 (111.13 kg, 187.96 cm) bnb 21:32 provider aware of BP at discharge and approved. kc3 Procedures: 21:01 Fracture care/splinting: Splint applied to left lateral ankle and lateral aspect of ck7 left foot using nikko wrap, Air Cast, applied by nurse. Examined by me, post splint application: neurovascular intact, 2+ distal pulses palpable, brisk capillary refill noted, Patient tolerated well. MDM: 20:05 Recheck B/P ordered. ck7 20:18 Acetaminophen-Codeine 300 mg-30 mg 2 tabs PO once ordered. ck7 20:18 Bystolic 40 mg PO once ordered. ck7 20:19 Foot, Complete Ordered. EDMS 20:19 Ankle, Complete Ordered. EDMS 20:30 [facility] Payment Agreement was scanned into [employer] and attached to record. jp5 20:31 Financial registration complete. jp5 21:00 Nikko Wrap ordered. ck7 21:00 Apply Air Cast to Patient. ordered. ck7 21:00 Crutches ordered. ck7 08/06 14:11 T-Sheet-- Draft Copy was scanned into [employer] and attached to record. gb Administered Medications: 08/05 20:29 Drug: Acetaminophen-Codeine 2 tabs [acetaminophen 300 mg-codeine 30 mg tablet (2 tabs)] kc3 Route: PO; 21:01 Drug: Bystolic 40 mg Route: PO; kc3 Addendum: 08/08/2016 15:56 Radiology Callback: Radiology results faxed to primary care physician/provider. ncog ml faxed formarl report of left ankle fiml for fu mlg. Signatures: Dispatcher [employer] EDCA Etta Lainez MD MD ml Brigette Ames, Reg Reg gb Courtney Robb RN RN rs3 Quirino Lima RPA-C RPA-Cck7 Raquel Alvarado jp5 Pat Madrigal,RN RN kc3 The chart was reviewed and I authenticate all verbal orders and agree with the evaluation and treatment provided.Attachments: 08/05 20:30 [facility] [place] jp5 08/06 14:11 T-Sheet-- Draft Copy gb Chart Complete MTDD
--- NOTE | 2016-08-08 15:58 | EDDOCDS ---
Physician Documentation [employer] Name: Yves Bentley Age: 26 yrs Sex: Male : 1990 Arrival Date: 08/05/2016 Time: 19:54 Bed PR Private MD: Disposition: 08/05/16 21:09 Discharged to Home/Self Care. Impression: Sprain of ankle - LEFT, Other sprain of foot - LEFT, Hypertension secondary to other renal disorders. - Condition is Stable. - Discharge Instructions: Foot Sprain, Hypertension. - Prescriptions for Tylenol- Codeine #3 300-30 mg Oral Tablet - take 2 tablets by ORAL route every 6 hours As needed MDD: 4 tabs; 20 tablet. - Medication Reconciliation, Local Pharmacy Hours form. - Follow up: Private Physician; When: Tomorrow; Reason: Recheck today's complaints, Continuance of care. Follow up: [facility]; When: 2 - 3 days; Reason: Recheck today's complaints, Continuance of care. - Problem is new. - Symptoms have improved. - Notes: USE MEDICATION INSTRUCTED, ADDRESS YOUR HYPERTENSION AT DIALYSIS TOMORROW, FOLLOW UP WITH [facility], RETURN TO THE ER IF THE SYMPTOMS WORSEN OR BECOME CONCERNING Historical: - Allergies: no known allergies; - Home Meds: 1. Bystolic 40 mg oral tab 1 tab twice a day 2. fluoxetine 10 mg Oral tab nightly 3. Headache Relief (WHN-fvpl-pkl) 250-250-65 mg oral tab 4. losartan 50 mg oral tab three times a day 5. minoxidil 5 mg Oral tab 1 tab 2 times per day - PMHx: Headaches; Hypertension; Renal Failure with Dialysis; - PSHx: Left arm dialysis graft; Thyroidectomy; - Social history: Smoking status: Patient uses tobacco products, light tobacco smoker. No barriers to communication noted, The patient speaks fluent Turkish. - Family history: Not pertinent. - : The pt / caregiver states he / she is not on anticoagulants. Home medication list is obtained from the patient. - Exposure Risk Screening:: None identified. Vital Signs: 08/05 19:56 BP 215 / 98; Pulse 82; Resp 18; Temp 98.2; Pulse Ox 99% on R/A; Weight 111.13 kg / 245 bnb lbs; Height 6 ft. 2 in. (187.96 cm); Pain 9/10; 20:16 BP 196 / 98 RA (man/); kc3 21:27 Pulse 76; Resp 20; Temp 99.6(TE); Pulse Ox 98% on R/A; Pain 1/10; ar3 21:32 BP 190 / 96; kc3 21:32 kc3 19:56 Body Mass Index 31.46 (111.13 kg, 187.96 cm) bnb 21:32 provider aware of BP at discharge and approved. kc3 Procedures: 21:01 Fracture care/splinting: Splint applied to left lateral ankle and lateral aspect of ck7 left foot using nikko wrap, Air Cast, applied by nurse. Examined by me, post splint application: neurovascular intact, 2+ distal pulses palpable, brisk capillary refill noted, Patient tolerated well. MDM: 20:05 Recheck B/P ordered. ck7 20:18 Acetaminophen-Codeine 300 mg-30 mg 2 tabs PO once ordered. ck7 20:18 Bystolic 40 mg PO once ordered. ck7 20:19 Foot, Complete Ordered. EDMS 20:19 Ankle, Complete Ordered. EDMS 20:30 [facility] Payment Agreement was scanned into [employer] and attached to record. jp5 20:31 Financial registration complete. jp5 21:00 Nikko Wrap ordered. ck7 21:00 Apply Air Cast to Patient. ordered. ck7 21:00 Crutches ordered. ck7 08/06 14:11 T-Sheet-- Draft Copy was scanned into [employer] and attached to record. gb Administered Medications: 08/05 20:29 Drug: Acetaminophen-Codeine 2 tabs [acetaminophen 300 mg-codeine 30 mg tablet (2 tabs)] kc3 Route: PO; 21:01 Drug: Bystolic 40 mg Route: PO; kc3 Addendum: 08/08/2016 15:56 Radiology Callback: Radiology results faxed to primary care physician/provider. ncog ml faxed formarl report of left ankle fiml for fu mlg. Signatures: Dispatcher [employer] EDVT Etta Lainez MD MD ml Brigette Ames, Reg Reg gb Courtney Robb RN RN rs3 Quirino Lima RPA-C RPA-Cck7 Raquel Alvarado jp5 Pat Madrigal,RN RN kc3 The chart was reviewed and I authenticate all verbal orders and agree with the evaluation and treatment provided.Attachments: 08/05 20:30 [facility] Payment Agreement jp5 08/06 14:11 T-Sheet-- Draft Copy gb Chart Complete MTDD
--- NOTE | 2016-08-08 15:58 | EDDOCDS ---
Physician Documentation [facility] Name: Yves Bentley Age: 26 yrs Sex: Male : 1990 Arrival Date: 08/05/2016 Time: 19:54 Bed PR Private MD: Disposition: 08/05/16 21:09 Discharged to Home/Self Care. Impression: Sprain of ankle - LEFT, Other sprain of foot - LEFT, Hypertension secondary to other renal disorders. - Condition is Stable. - Discharge Instructions: Foot Sprain, Hypertension. - Prescriptions for Tylenol- Codeine #3 300-30 mg Oral Tablet - take 2 tablets by ORAL route every 6 hours As needed MDD: 4 tabs; 20 tablet. - Medication Reconciliation, Local Pharmacy Hours form. - Follow up: Private Physician; When: Tomorrow; Reason: Recheck today's complaints, Continuance of care. Follow up: [facility]; When: 2 - 3 days; Reason: Recheck today's complaints, Continuance of care. - Problem is new. - Symptoms have improved. - Notes: USE MEDICATION INSTRUCTED, ADDRESS YOUR HYPERTENSION AT DIALYSIS TOMORROW, FOLLOW UP WITH [facility], RETURN TO THE ER IF THE SYMPTOMS WORSEN OR BECOME CONCERNING Historical: - Allergies: no known allergies; - Home Meds: 1. Bystolic 40 mg oral tab 1 tab twice a day 2. fluoxetine 10 mg Oral tab nightly 3. Headache Relief (JQH-aqwx-ymf) 250-250-65 mg oral tab 4. losartan 50 mg oral tab three times a day 5. minoxidil 5 mg Oral tab 1 tab 2 times per day - PMHx: Headaches; Hypertension; Renal Failure with Dialysis; - PSHx: Left arm dialysis graft; Thyroidectomy; - Social history: Smoking status: Patient uses tobacco products, light tobacco smoker. No barriers to communication noted, The patient speaks fluent Ukrainian. - Family history: Not pertinent. - : The pt / caregiver states he / she is not on anticoagulants. Home medication list is obtained from the patient. - Exposure Risk Screening:: None identified. Vital Signs: 08/05 19:56 BP 215 / 98; Pulse 82; Resp 18; Temp 98.2; Pulse Ox 99% on R/A; Weight 111.13 kg / 245 bnb lbs; Height 6 ft. 2 in. (187.96 cm); Pain 9/10; 20:16 BP 196 / 98 RA (man/); kc3 21:27 Pulse 76; Resp 20; Temp 99.6(TE); Pulse Ox 98% on R/A; Pain 1/10; ar3 21:32 BP 190 / 96; kc3 21:32 kc3 19:56 Body Mass Index 31.46 (111.13 kg, 187.96 cm) bnb 21:32 provider aware of BP at discharge and approved. kc3 Procedures: 21:01 Fracture care/splinting: Splint applied to left lateral ankle and lateral aspect of ck7 left foot using nikko wrap, Air Cast, applied by nurse. Examined by me, post splint application: neurovascular intact, 2+ distal pulses palpable, brisk capillary refill noted, Patient tolerated well. MDM: 20:05 Recheck B/P ordered. ck7 20:18 Acetaminophen-Codeine 300 mg-30 mg 2 tabs PO once ordered. ck7 20:18 Bystolic 40 mg PO once ordered. ck7 20:19 Foot, Complete Ordered. EDMS 20:19 Ankle, Complete Ordered. EDMS 20:30 [facility] Payment Agreement was scanned into [employer] and attached to record. jp5 20:31 Financial registration complete. jp5 21:00 Nikko Wrap ordered. ck7 21:00 Apply Air Cast to Patient. ordered. ck7 21:00 Crutches ordered. ck7 08/06 14:11 T-Sheet-- Draft Copy was scanned into [employer] and attached to record. gb Administered Medications: 08/05 20:29 Drug: Acetaminophen-Codeine 2 tabs [acetaminophen 300 mg-codeine 30 mg tablet (2 tabs)] kc3 Route: PO; 21:01 Drug: Bystolic 40 mg Route: PO; kc3 Addendum: 08/08/2016 15:56 Radiology Callback: Radiology results faxed to primary care physician/provider. ncog ml faxed formarl report of left ankle fiml for fu mlg. Signatures: Dispatcher [employer] EDMD Etta Lainez MD MD ml Brigette Ames, Reg Reg gb Courtney Robb RN RN rs3 Quirino Lima RPA-C RPA-Cck7 Raquel Alvarado jp5 Pat Madrigal,RN RN kc3 The chart was reviewed and I authenticate all verbal orders and agree with the evaluation and treatment provided.Attachments: 08/05 20:30 [facility] [place] Payment Agreement jp5 08/06 14:11 T-Sheet-- Draft Copy gb MTDD
--- NOTE | 2016-08-08 15:59 | EDDOCDS ---
Nurse's Notes [facility] Name: Yves Bentley Age: 26 yrs Sex: Male : 1990 Arrival Date: 08/05/2016 Time: 19:54 Bed PR / Private MD: Diagnosis: Sprain of ankle-LEFT;Other sprain of foot-LEFT;Hypertension secondary to other renal disorders Presentation: 08/05 19:59 Presenting complaint: Patient states: twisted L foot last week, re injured it again rs3 yesterday coming down the stairs carrying weight. L foot swelling and pain. Adult Sepsis Screening: The patient does not have new or worsening altered mentation. Patient's respiratory rate is less than 22. Systolic blood pressure is greater than 100. Patient has a qSOFA score of 0- Negative Sepsis Screen. Suicide/Homicide risk assessment- the patient denies having any suicidal and/or homicidal ideations and does not present with any other emotional, behavioral or mental health complaints. 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 Transition of care: patient was not received from another setting of care. 19:59 Acuity: [place] Level 4 rs3 19:59 Method Of Arrival: Walkin/Carried/Asstd rs3 Triage Assessment: 20:02 General: Appears in no apparent distress. Pain: Location: left foot. HIV screening NA rs3 for this visit Offered previously. Musculoskeletal: Parent/caregiver report the patient having Pain is 8 out of 10 on a pain scale. Historical: - Allergies: no known allergies; - Home Meds: 1. Bystolic 40 mg oral tab 1 tab twice a day 2. fluoxetine 10 mg Oral tab nightly 3. Headache Relief (JVN-xyhk-dsm) 250-250-65 mg oral tab 4. losartan 50 mg oral tab three times a day 5. minoxidil 5 mg Oral tab 1 tab 2 times per day - PMHx: Headaches; Hypertension; Renal Failure with Dialysis; - PSHx: Left arm dialysis graft; Thyroidectomy; - Social history: Smoking status: Patient uses tobacco products, light tobacco smoker. No barriers to communication noted, The patient speaks fluent Sinhala. - Family history: Not pertinent. - : The pt / caregiver states he / she is not on anticoagulants. Home medication list is obtained from the patient. - Exposure Risk Screening:: None identified. Screenin:31 Screening information is obtained from the patient. Fall risk: At risk due to injury, kc3 The following interventions are performed due to a positive Fall Risk Screen: Fall Risk is added to Special Handling on the patient Summary Screen. A Fall Risk Bracelet was applied to the patient. Side Rails are placed in the up position. A Call Syed is given with instruction to call for help when getting out of bed. Fall Alert bracelet is placed on the patient. Assistance ADL's: requires no assistance with activities of daily living. Abuse/DV Screen: The patient / caregiver reports he/she is: not in a situation that causes fear, pain or injury. Nutritional screening: No deficits noted. Advance Directives: Currently, there is no health care proxy. home support is adequate. Assessment: 20:29 General: Appears in no apparent distress, comfortable, Behavior is appropriate for age, kc3 cooperative. Pain: Location: left foot. Neurological: No deficits noted. Respiratory: Respiratory effort is even, unlabored. Derm: Swollen area noted on left foot. Musculoskeletal: Circulation, motion, and sensation intact. 21:31 General: Appears in no apparent distress, comfortable, Behavior is appropriate for age, kc3 cooperative. Pain: Denies pain. Neurological: No deficits noted. Respiratory: Respiratory effort is even, unlabored. Derm: Skin is pink, warm & dry. Vital Signs: 19:56 BP 215 / 98; Pulse 82; Resp 18; Temp 98.2; Pulse Ox 99% on R/A; Weight 111.13 kg; bnb Height 6 ft. 2 in. (187.96 cm); Pain 9/10; 20:16 BP 196 / 98 RA (man/); kc3 21:27 Pulse 76; Resp 20; Temp 99.6(TE); Pulse Ox 98% on R/A; Pain 1/10; ar3 21:32 BP 190 / 96; kc3 21:32 kc3 19:56 Body Mass Index 31.46 (111.13 kg, 187.96 cm) bnb 21:32 provider aware of BP at discharge and approved. kc3 Vitals: 19:56 Log In Time: August 05, 2016 at 19:55. bnb ED Course: 19:56 Patient visited by Roxanna Tineo PCA. bnb 19:56 Patient moved to Waiting bnb 19:57 Patient visited by Roxanna Tineo PCA. bnb 20:01 Triage Initiated rs3 20:03 Patient moved to Triage 2 rs3 20:11 Quirino Lima RPA-C is PHCP. ck7 20:11 Guicho Rivera DO is Attending Physician. ck7 20:14 Patient visited by Quirino Lima RPA-C. ck7 20:28 Patient moved to TR3 kc3 20:30 [facility] Payment Agreement was scanned into [employer] and attached to record. jp5 20:31 The patient / caregiver is instructed regarding the plan of care and ED course. kc3 20:36 Patient moved to Radiology jeimy 21:00 Patient moved to TR3 jeimy 21:01 Patient visited by Quirino Lima RPA-C. ck7 21:08 [facility] is Referral Physician. ck7 21:13 Pat Madrigal,RN is Primary Nurse. kc3 21:13 Patient moved to PR1 / 25 ttb 21:27 Patient visited by Ratna Kennedy PCA. ar3 21:32 No IV's were initiated during this patient's visit. No procedures done that require kc3 assistance. 23:05 Patient name changed from Yves\S\L\S\Tamblin\S\ to Yves\S\Mellissa\S\Tamblin. EDMS 0213 08:10 Foot, Complete Returned. EDMS 08:10 Ankle, Complete Returned. EDMS 14:11 T-Sheet-- Draft Copy was scanned into [employer] and attached to record. gb Administered Medications: 08/05 20:29 Drug: Acetaminophen-Codeine 2 tabs [acetaminophen 300 mg-codeine 30 mg tablet (2 tabs)] kc3 Route: PO; 21:01 Drug: Bystolic 40 mg Route: PO; kc3 Order Results: Radiology Order: Foot, Complete Test: Foot, Complete REASON FOR EXAMINATION: Deformity/Swelling; Clinical: Trauma.; ; Technique: AP, lateral, bilateral oblique views left foot .; ; Findings: The osseous structures and joint spaces are intact and normal. There; is no evidence for acute fracture or dislocation. Surrounding soft tissues are; unremarkable. No subcutaneous emphysema or radiodense foreign body.; ; Impression:; Normal examination. No acute fracture or dislocation.; ; ; Signed by; Renny Zaragoza MD 08/06/2016 07:44 A; Radiology Order: Ankle, Complete Test: Ankle, Complete REASON FOR EXAMINATION: Deformity/Swelling; Clinical: Deformity and swelling.; ; Technique: AP, lateral, bilateral oblique views of the left ankle.; ; Findings:; Diffuse soft tissue swelling is appreciated. No obvious acute fracture or; dislocation is appreciated. Widening along the lateral aspect of the ankle; mortise may represent ligamentous injury.; ; Impression:; Mild widening to the lateral aspect of the ankle mortise may reflect injury to; the lateral collateral ligament complex.; No fracture or dislocation.; ; ; Signed by; Renny Zaragoza MD 08/06/2016 07:48 A; Outcome: 21:09 Discharge ordered by Provider. ck7 21:32 Discharge Assessment: Patient awake, alert and oriented x 3. No cognitive and/or kc3 functional deficits noted. Patient verbalized understanding of disposition instructions. patient administered narcotics - yes. Pt provided with safe discharge. The following High Risk Discharge criteria are identified: None. Discharged to home ambulatory, with crutches. Condition: stable. Discharge instructions given to patient, Instructed on discharge instructions, follow up and referral plans. medication usage, crutch walking, Demonstrated understanding of instructions, crutch walking, medications, Pt was receptive of discharge instructions/ teaching. Prescriptions given X 1. No special radiology studies were completed. Property :Personal belongings accompany Pt. 21:33 Patient left the ED. kc3 Signatures: Dispatcher [employer] EDMS Link Youssef Gloria, Reg Reg Courtney DavidsonRN RN rs3 Ratna Kennedy, HOSEMAN HOSEMAN ar3 Quirino Lima, RPA-C RPA-Cck7 Wilda Spaulding RN RN ttb Raquel Alvarado jp5 Pat Madrigal,CONCHA RN kc3 Roxanna Tineo, HOSEMAN HOSEMAN bnb Chart Complete MTDD
== END 2016-08-05 21:33 | disposition home or self-care (01) ==
LOC: M ED 19:54
DX: I12.9 Hypertensive chronic kidney disease with stage 1 through stage 4 chronic kidney disease, or unspecified chronic kidney disease (principal); S93.402A Sprain of unspecified ligament of left ankle, initial encounter; S93.602A Unspecified sprain of left foot, initial encounter; X58.XXXA Exposure to other specified factors, initial encounter; Y92.019 Unspecified place in single-family (private) house as the place of occurrence of the external cause; Y93.89 Activity, other specified; Y99.8 Other external cause status; N19 Unspecified kidney failure; R51 Headache; Z99.2 Dependence on renal dialysis; F17.200 Nicotine dependence, unspecified, uncomplicated; Z79.899 Other long term (current) drug therapy

== ENCOUNTER 2016-08-26 12:54 | Inpatient (IN) | payer MEDICARE ==
[2016-08-26] VITALS (18 sets, daily range): BP systolic 114–201; BP diastolic 61–116
[~2016-08-26] VITALS: Ht 188 cm; Wt 110.9 kg
[2016-08-26] MEDS ORDERED: FLUO10CA9 (13:12)
[2016-08-26] MEDS ORDERED: LOSA50TA20 (13:12)
[2016-08-26] MEDS ORDERED: METO50TA2 (13:12)
[2016-08-26] MEDS ORDERED: BYST20TA2 (13:12)
[2016-08-26] MEDS ORDERED: RENV2TAB (13:12)
[2016-08-26] MEDS ORDERED: CARV25TA (13:12)
[2016-08-26] MEDS ORDERED: ACETAMINOPHEN-COD (13:12)
[2016-08-26] MEDS ORDERED: MINO25TA (13:12)
[2016-08-26] MEDS ORDERED: LABETALOL HCL 100 MG/20 ML VIAL IV STA ×2 (13:21→15:01)
[2016-08-26 14:10] LABS: BASO % 0.6 % (0.0-1.0); EOS # 0.2 K/mm3 (0.0-0.50); EOS % 2.7 % (0.0-3.0); LARGE UNSTAINED CELL # 0.1 K/mm3 (0.0-0.4); LARGE UNSTAINED CELL % 1.1 % (0.0-4.0); LYMPH # 0.8 K/mm3 (1.5-6.5); LYMPH % 10.8 % (24.0-44.0); MEAN CORPUSCULAR HEMOGLOBIN 29.8 pg (27.0-33.0); MEAN CORPUSCULAR VOLUME 87.4 fl (80.0-96.0); MONO # 0.3 K/mm3 (0.0-0.8); MONO % 5.1 % (0.0-5.0); NEUTROPHILS # 5.2 K/mm3 (1.8-7.7); NEUTROPHILS % 79.8 % (36.0-66.0); PLATELET COUNT, AUTOMATED 161 k/mm3 (150-450); WHITE BLOOD COUNT 6.5 K/mm3 (4.0-10.0)
--- NOTE | 2016-08-26 14:21 | REP ---
CT BRAIN WITHOUT IV CONTRAST: CT brain is performed without IV contrast. Comparison 06/23/2016. The ventricular system is normal in size and configuration with no hydrocephalus. There is no midline shift or mass effect. Blood-white differentiation is well maintained. No abnormal densities are seen in the brain. There is no acute hemorrhage or extra-axial fluid collection. Bone window examination is unremarkable. IMPRESSION: Negative noncontrast CT brain. Signed by Robin Blood MD 08/26/2016 06:21 P
--- NOTE | 2016-08-26 14:22 | REP ---
CHEST, SINGLE VIEW: Single view of the chest is performed and compared to prior study of 04/15/2016. There is cardiomegaly with vascular congestion. There is a small right pleural effusion, with a small amount of fluid in the minor fissure. Infiltrate is seen in the right lower lobe. IMPRESSION: Cardiomegaly and vascular congestion. Right lower lobe infiltrate with small right effusion. Signed by Robin Blood MD 08/26/2016 06:21 P
[2016-08-26 14:28] LABS: ANION GAP 13 MEQ/L (8-16); BLOOD UREA NITROGEN 46 MG/DL (7-18); CALCIUM LEVEL 8.4 MG/DL (8.5-10.1); CARBON DIOXIDE LEVEL 27 MEQ/L (21-32); CHLORIDE LEVEL 100 MEQ/L (98-107); GLOMERULAR FILTRATION RATE 4.9 (>60); GLUCOSE, FASTING 90 MG/DL (70-105); POTASSIUM SERUM 4.3 MEQ/L (3.5-5.1); SODIUM LEVEL 140 MEQ/L (136-145)
[2016-08-26] MEDS ORDERED: LOSA100T36 PO (15:23)
[2016-08-26] MEDS ORDERED: FLUO10CA8 PO (15:23)
[2016-08-26] MEDS ORDERED: RENV2TAB PO (15:23)
[2016-08-26] MEDS ORDERED: METO50TA2 PO (15:23)
[2016-08-26] MEDS ORDERED: CARV25TA PO (15:23)
[2016-08-26] MEDS ORDERED: LOSA50TA20 PO (15:23)
[2016-08-26] MEDS ORDERED: MINO25TA PO (15:23)
[2016-08-26] MEDS ORDERED: MORPHINE 2 MG/ML 1ML SYRINGE IV ONE (16:15)
[2016-08-26] MEDS ORDERED: hydrALAZINE INJ 20 MG/ML VIAL IV STA (16:43)
--- NOTE | 2016-08-26 17:59 | HPE ---
DATE OF ADMISSION: 08/26/2016 This is a patient of Dr. Villanueva. CHIEF COMPLAINT: Trouble breathing. SUMMARY OF PRESENTATION: This is a 26-year-old who felt well until yesterday afternoon. Last night he started with increasing shortness of breath, some cough which is nonproductive. No pain. He has increasing dyspnea on exertion. He gets short of breath after walking appropriately [address] in from the parking garage to the emergency department, he had to stop several times to catch his breath. He did have one episode of diarrhea today. No abdominal pain. No fever, no chills. No cough. He says that he has a fluid restriction at home, but he is not aware of what it is. He has end-stage renal disease so he is on hemodialysis Saturday, Saturday, Saturday. PAST SURGICAL HISTORY: Notable for left arm fistula placement, peritoneal dialysis catheter remotely. In 2013, he had parathyroid surgery. He also has a history of a temporary dialysis catheter placed in the right chest remotely. PAST MEDICAL HISTORY: 1. Notable for dialysis status post end-stage renal disease. 2. Status post vesicoureteral reflux as a child. SOCIAL HISTORY: He is originally from [place]. He moved up here following his female partner who was at the time. He quit smoking two weeks ago as he has a preemie at home who was born at 33 weeks. He denies any alcohol use. FAMILY HISTORY: Notable for a mother who is 54 with asthma and bronchitis, a father who is 53 with hypertension and diabetes. REVIEW OF SYSTEMS: Notable for headache today. No visual changes. No runny nose. He did have some sore throat, cough which is nonproductive. No chest pain. He does not describe orthopnea or paroxysmal nocturnal dyspnea. He does have lower extremity swelling somewhat chronically. No abdominal pain. No change in bowel or bladder habits. No focal weakness. No history of seizures. Otherwise, unremarkable. PHYSICAL EXAMINATION: VITAL SIGNS: Blood pressure is 204/112 with a heart rate of 70, temperature most recently of 98, pulse oximetry 95% on room air. GENERAL: He is awake, appropriately interactive. Pleasantly conversant. HEENT: Head is normocephalic. Sinuses are nontender. Pupils equal, round, and reactive. Anicteric. Sclerae are injected. Mucous membranes moist. NECK: Thick, short, supple. LUNGS: Breathing is symmetrically diminished. I to E ratio of 1:4. There is relatively poor aeration. HEART: Distant sounding, normal S1, S2. Not tachycardic. Radial pulses are 2+. Capillary refill is less than two seconds. He does have a fistula noted in the left arm with a good bruit. ABDOMEN: Soft, doughy, nontender. EXTREMITIES: There is trace bilateral lower extremity edema. There is no sacral edema. Strength is symmetrical in the upper and lower extremities. NECK: Cranial nerves II through XII are grossly intact. He has a somewhat flattened affect. LABORATORY DATA: White cell count 6.5, hemoglobin 11.3, and platelets of 161. Sodium is 140, BUN 46, creatinine 13. Lactic acid is 0.5, calcium is 8.4. BNP is 3900. MICROBIOLOGY: Influenza swab is negative. Group B strep screen negative. Blood culture times one is pending. IMAGING: Chest x-ray shows right lower lobe infiltrate with small right-sided effusion. Chest CT is reviewed in person with the radiologist, shows evidence of vascular congestion, scattered patchy alveolar infiltrates and interstitial infiltrates, right greater than left, tiny left effusion, small right effusion, small pericardial fluid inferiorly, suspected pulmonary edema. Head CT was remarkably unremarkable. EKG shows sinus rhythm with left ventricular hypertrophy by aVL criteria, possible left atrial enlargement. ASSESSMENT: This is a 26-year-old with end-stage renal disease on hemodialysis with shortness of breath and hypertensive urgency, most likely as a result of pulmonary edema and need for dialysis. The patient will be admitted to the intensive care unit for renal consultation and likely dialysis. PLAN: 1. Hypertensive urgency. The patient has received hydralazine and labetalol in the emergency department. I believe the best overall therapy for this patient's hypertensive urgency is likely going to be dialysis, as he has evidence of pulmonary edema. I consulted Dr. Schmid, who will see the patient in consultation and arrange for dialysis if deemed clinically necessary. 2. The patient has anemia with normal mean corpuscular volume (MCV). This likely represents anemia of chronic kidney disease. 3. Deep venous thrombosis (DVT) prophylaxis will be ordered. 4. The patient has a recent left ankle sprain and still has some pain at that area.
[2016-08-26] MEDS ORDERED: METOPROLOL TART 25 MG TABLET PO SCH (18:00)
[2016-08-26] MEDS ORDERED: NITROGLYCERIN 0.2 MG/HR PATCH TD SCH (18:55)
[2016-08-26] MEDS ORDERED: HEPARIN SOD (PORCINE) 5000 UNITS/ML VIAL IV ONE (19:30)
[2016-08-26] MEDS ORDERED: SLF 3 ML SYR IV PRN (19:30)
[2016-08-26] MEDS ORDERED: LIDOCAINE 1% MDV 20ML VIAL SQ SCH (19:30)
[2016-08-26] MEDS: (RENVELA) SEVELAMER **CARBONate** 800 MG TAB PO SCH (19:36)
--- NOTE | 2016-08-26 20:20 | ECGEPIP ---
Stationary ECG Study [facility] - ED Test Date: 2016-08-26 Pat Name: MIRZA GRUBER Department: Room: - Gender: M [employer] Supervisor: kenya : 1990 Requested By: MICHAEL Díaz Order Number: [id number] Reading MD: Camilla Ervin Measurements Intervals [place] Rate: 72 P: 41 HI: 192 QRS: -10 QRSD: 90 T: 36 QT: 405 QTc: 444 Interpretive Statements SINUS RHYTHM POSSIBLE LEFT ATRIAL ENLARGEMENT POSSIBLE LEFT VENTRICULAR HYPERTROPHY SIMILAR 06/23/16 Electronically Signed On 08-26-2016 20:20:24 EST by Camilla Ervin
[2016-08-26] MEDS ORDERED: ACETAMINOPHEN TAB 650MG DOSE (2X325MG) PO ONE (21:30)
[2016-08-26] MEDS: hydrALAZINE INJ 20 MG/ML VIAL IV SCH (21:34)
[2016-08-26] MEDS: SLF 3 ML SYR IV SCH (21:35)
[2016-08-26] MEDS: LOSARTAN 50 MG TAB PO SCH (22:31)
[2016-08-26] MEDS: MINOXIDIL 2.5 MG TAB PO SCH (22:32)
[2016-08-26] MEDS: HEPARIN SOD (PORCINE) 5000 UNITS/ML VIAL SQ SCH ×2 (22:32→22:34)
[2016-08-26] MEDS: CARVedilol 12.5 MG TAB PO SCH (23:03)
--- NOTE | 2016-08-26 23:50 | CR ---
DATE OF CONSULTATION: 08/26/2016 REQUESTING PHYSICIAN: Huy Mendoza MD CONSULTING PHYSICIAN: South Schmid MD REASON FOR CONSULTATION: Management of end-stage renal disease and fluid overload. CHIEF COMPLAINT: Progressive shortness of breath. HISTORY OF PRESENT ILLNESS: Mr. Yves Bentley is a 26-year-old male with past medical history of end-stage renal disease on hemodialysis every Saturday, Saturday, Saturday, well known to nephrology service from previous admissions and from outpatient dialysis center. He was dialyzed on Saturday, but he admits to drinking excessively and from Saturday night he became short of breath with dyspnea on mild exertion, orthopnea. He could not sleep all night last night. He kept on having progressive shortness of breath, which did not improve by his medications. The patient reports that he does not make much urine. When his symptoms did not improve, he presented to the emergency room today in the afternoon. The patient was found to have elevated blood pressures with systolic blood pressures close to 200 and chest x-ray showed evidence of pulmonary edema. Nephrology service was called for further management of fluid overload, accelerated hypertension in a patient with history of end-stage renal disease. 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 PAST SURGICAL HISTORY: Status post left forearm arteriovenous (AV) fistula placement, status post PD catheter placement in the past, status post parathyroidectomy. ALLERGIES: No known drug allergies. CURRENT HOME MEDICATIONS: The patient's home medications include Coreg 25 mg by mouth twice a day, fluoxetine 10 mg by mouth daily, losartan 50 mg in the morning and 100 mg in the evening, metoprolol 50 mg by mouth twice a day, minoxidil 7.5 mg by mouth twice a day and Renvela 3.2 grams by mouth with meals. FAMILY HISTORY: No significant family history of end-stage renal disease requiring hemodialysis. There is a positive history of asthma and bronchitis in the mother and hypertension and diabetes in the father. SOCIAL HISTORY: The patient is currently unemployed. He reports that he quit smoking a few weeks ago. He denies any alcohol abuse or recreational drug abuse. The patient recently moved to [place], [place]. He is originally from [place]. He is living with a female partner at this time and they recently had a daughter one month ago. REVIEW OF SYSTEMS: CONSTITUTIONAL: The patient denies any fevers, chills, rigors. EYES: He denies any double vision or blurry vision. ENT: He denies any ear discharge, dysphagia, odynophagia, but he does complain of headache. CARDIOVASCULAR: He denies any chest pain or palpitations, but he does report orthopnea, lower extremity edema. RESPIRATORY: The patient reports progressive shortness of breath, dyspnea on mild exertion, some cough. GASTROINTESTINAL (GI): He denies any constipation, nausea, vomiting or diarrhea. GENITOURINARY: He denies any dysuria or hematuria. He reports history of urinary reflux nephropathy in the past. MUSCULOSKELETAL: He denies any muscle aches and pains. CENTRAL NERVOUS SYSTEM: He denies any history of seizures or strokes. PSYCHIATRIC: He reports depression in the past. SKIN: He denies any rashes or ulcers. ENDOCRINE: He reports history of hyperparathyroidism in the past, status post parathyroidectomy. He denies any history of diabetes. HEMATOLOGIC/ONCOLOGIC: He reports history of anemia secondary to end-stage renal disease. All other review of system is negative. PHYSICAL EXAMINATION: GENERAL: The patient is awake, alert, oriented times three, sitting in the bed in the intensive care unit (ICU) in moderate respiratory distress. VITAL SIGNS: Temperature is 98.2 degrees Fahrenheit. Blood pressure is 176/107 , pulse is 82, respiratory rate of 24, saturating 95% on nasal cannula at 4 liters. HEAD AND NECK EXAM: Extraocular muscles intact. Pupils equally round and reactive to light. Mucous membranes are moist. Neck is supple. There is mildly elevated jugular venous distension (JVD). CARDIOVASCULAR: S1, S2 regular rate. No murmur, rub or gallop. RESPIRATORY: Decreased breath sounds at the bases. Moderate expiratory rhonchi bilaterally at the bases and diffuse palpitations at the bases on deep inspiration. ABDOMEN: Soft, positive bowel sounds, nontender, no ascites, no organomegaly. EXTREMITIES: No clubbing or cyanosis. Pulses are 2+. He has 1+ pitting edema at the bilateral lower extremities. CENTRAL NERVOUS SYSTEM: No focal neurological deficits. Power is 5/5 in all extremities. SKIN: No rashes or ulcers. PSYCHIATRIC: Normal mood and affect. LYMPH NODES: There is no significant cervical, axillary or inguinal lymphadenopathy. LABORATORY REVIEW: Complete blood count (CBC) showed a white blood count (WBC) 6.5, hemoglobin 11.3, platelets are 161. Basic metabolic panel (BMP) showed sodium 140, potassium 4.3, chloride 100, bicarbonate 27, BUN 46, creatine is 13, lactic acid is 0.5, calcium is 8.4, BNP is 3900. MICROBIOLOGY: Influenza screening is negative. IMAGING: A chest x-ray done today afternoon showed cardiomegaly with vascular congestion and pulmonary edema. CURRENT INPATIENT MEDICATIONS: The patient is currently on Coreg 25 mg by mouth twice a day, fluoxetine 10 mg by mouth daily, hydralazine 10 mg IV every 4 hours , losartan 100 mg by mouth at bedtime (q.h.s.), 50 mg by mouth every morning, minoxidil 7.5 mg by mouth twice a day, Renvela 3.2 grams by mouth with meals. ASSESSMENT: 26-year-old male with past medical history of end-stage renal disease on hemodialysis admitted at this time with accelerated hypertension and acute pulmonary edema. PLAN: 1. Hypertensive urgency. It is secondary to fluid overload and acute pulmonary edema. The patient already got IV labetalol, IV hydralazine in the emergency room. Continue current antihypertensive regimen. I have stopped the metoprolol and I am going to start the patient on nitroglycerin 0.2 mg per hour patch as well. Continue hydralazine 10 mg IV every 4 hours as well. If the patient's blood pressure does improve, then we might have to start the patient on IV Cardene drip. 2. Acute pulmonary edema and fluid overload. It is secondary to the patient's noncompliance with fluid restriction. I have arranged the urgent hemodialysis. We shall try to remove 4 liters of fluid with hemodialysis today in the intensive care unit (ICU). 3. Chronic kidney disease, mineral bone disease. Continue current dose of Renvela 3.2 mg by mouth with meals. 4. Anemia and end-stage renal disease. The patient's hemoglobin is more than 11 at this time. No need of Aranesp at this time with hemodialysis. 5. History of anxiety and depression. Continue current dose of Prozac 10 mg by mouth daily. Thank you for involving us in the care of this patient. We shall be happy to follow the patient along with you tomorrow morning. Plan of care was discussed with the hospitalist team, Dr. Mendoza and with the patient's RN at the bedside. Emergency hemodialysis was arranged and was started in my presence in the intensive care unit (ICU). CHAYITO
[2016-08-27] VITALS (14 sets, daily range): BP systolic 131–195; BP diastolic 59–105
[2016-08-27] MEDS: hydrALAZINE INJ 20 MG/ML VIAL IV SCH ×3 (00:46→09:03)
[2016-08-27 04:39] LABS: MEAN CORPUSCULAR HEMOGLOBIN 29.5 pg (27.0-33.0); MEAN CORPUSCULAR HGB CONC 33.5 g/dl (32.0-36.5); MEAN CORPUSCULAR VOLUME 88.2 fl (80.0-96.0); RED CELL DISTRIBUTION WIDTH 15.2 % (11.5-14.5); WHITE BLOOD COUNT 7.8 K/mm3 (4.0-10.0)
[2016-08-27 05:02] LABS: ALBUMIN 3.5 GM/DL (3.2-5.2); CALCIUM LEVEL 8.7 MG/DL (8.5-10.1); CREATININE FOR GFR 8.87 MG/DL (0.70-1.30); GLOMERULAR FILTRATION RATE 7.7 (>60); PHOSPHORUS LEVEL 4.9 MG/DL (2.5-4.9); POTASSIUM SERUM 4.1 MEQ/L (3.5-5.1)
[2016-08-27] MEDS: SLF 3 ML SYR IV SCH ×3 (06:10→22:00)
[2016-08-27] MEDS ORDERED: **NOTE PATIENT COMMENT** MISC XX ONE (07:00)
--- NOTE | 2016-08-27 08:04 | REP ---
CT CHEST WITHOUT IV CONTRAST: CT chest is performed without IV contrast. Sagittal and coronal reconstruction images are performed. There are diffuse patchy alveolar infiltrates throughout the right lung. To a lesser extent, there are patchy alveolar infiltrates in the left lung mainly inferiorly. There are mild diffuse interstitial infiltrates. There appears to be mild cardiomegaly and vascular congestion. There is a small right effusion. There is a tiny left effusion. Findings are likely on the basis of congestive heart failure and pulmonary edema. Mildly enlarged subcarinal lymph node measures 1.4 cm in short axis dimension. There are other scattered subcentimeter mediastinal nodes present. There is no evidence of aneurysm of the thoracic aorta. Small amount of pericardial fluid is seen inferiorly. There are mild diffuse degenerative changes of the spine. IMPRESSION: Mild cardiomegaly. Scattered hazy and patchy alveolar infiltrates as well as scattered interstitial infiltrates and peribronchial thickening bilaterally, small right effusions, with all findings greater on the right side than on the left side. Findings are likely on the basis of congestive heart failure and pulmonary edema. There is mild pericardial fluid inferiorly. Signed by Robin Blood MD 08/27/2016 04:10 P
[2016-08-27] MEDS: HEPARIN SOD (PORCINE) 5000 UNITS/ML VIAL SQ SCH ×2 (09:00→20:57)
[2016-08-27] MEDS: MINOXIDIL 2.5 MG TAB PO SCH ×2 (09:01→20:56)
[2016-08-27] MEDS: FLUoxetine 10 MG CAP PO SCH (09:01)
[2016-08-27] MEDS: CARVedilol 12.5 MG TAB PO SCH ×2 (09:02→20:55)
[2016-08-27] MEDS: LOSARTAN 50 MG TAB PO SCH ×2 (09:02→20:56)
[2016-08-27] MEDS: (RENVELA) SEVELAMER **CARBONate** 800 MG TAB PO SCH ×3 (09:14→17:46)
[2016-08-27] MEDS ORDERED: LIDOCAINE 1% SDV 5 ML VIAL ONE (10:09)
[2016-08-27] MEDS ORDERED: HEPARIN 1,000 UNITS/ML 10ML VIAL (FOR RADIOLOGY& DIALYSIS ONLY) ONE (10:09)
--- NOTE | 2016-08-27 12:08 | REP ---
PORTABLE CHEST: AP portable view of the chest is performed and compared to the prior study of 08/26/2016. There is persistent cardiomegaly and vascular congestion. There is diffuse interstitial infiltrate and hazy alveolar infiltrate bilaterally. There is mild improvement in the right lung base. Previously noted fluid in the minor fissure is no longer visualized. IMPRESSION: Cardiomegaly, vascular congestion with mild diffuse interstitial and alveolar infiltrates. There is no change in the left lung. There is mild improvement in the right lung base. Signed by Robin Blood MD 08/27/2016 04:15 P
[2016-08-27] MEDS: LABETALOL HCL 100 MG/20 ML VIAL IV SCH ×2 (12:30→17:46)
[2016-08-27] MEDS: **hydrALAZINE** 10 MG TAB PO SCH ×3 (12:33→20:55)
--- NOTE | 2016-08-27 19:55 | IPN ---
DATE: 08/27/2016 SUBJECTIVE: The patient is seen and examined in the room today. The patient states his difficulty breathing has improved. He just feels tired because that was a very busy night yesterday. However, his symptoms show significant improvement. The patient had an urgent dialysis in the intensive care unit (ICU) yesterday evening time. No overnight events are reported. OBJECTIVE: VITAL SIGNS: Temperature is 97.8, pulse 96, respirations 18, blood pressure is 178/91, pulse oximetry 95% on room air. GENERAL: No sign of acute distress. Alert and oriented times three. HEENT: Normocephalic, atraumatic. Extraocular motor grossly intact. CARDIOVASCULAR: Positive S1, S2. Regular rate. LUNGS: Clear to auscultation bilaterally. Diminished breath sounds. ABDOMEN: Soft, nontender, nondistended. Bowel sounds present. EXTREMITIES: Trace edema. No sign of cyanosis. LABORATORY DATA: WBC is 7.8, hemoglobin 11.4, hematocrit 34, platelet count 185. Sodium is 139, potassium 4.1, chloride 102, carbon dioxide 26, BUN 22, creatinine 8.87, GFR is 7.7 , fasting glucose 87, lactic acid 0.5, calcium 8.7, phosphorus 4.9, albumin 3.5. ASSESSMENT AND PLAN: 1. End-stage renal disease on hemodialysis. 2. Noncompliant with fluid restriction. 3. Hypertensive urgency. 4. Acute pulmonary edema and fluid overload. 5. Anxiety/depression. PLAN: The patient has end-stage renal disease. The patient had four years of hemodialysis history. However, the patient has been very noncompliant. He does not know his fluid restriction limit. The patient continues being noncompliant with medical advice by drinking excessive fluid. The patient had urgent hemodialysis by Dr. Schmid yesterday evening. The patient may be brought back to dialysis suite for additional session of dialysis today. Will follow with nephrology recommendations. The patient has been evaluated. The patient does not require ICU level of care. Patient was downgraded to the progressive care unit (PCU) for now. The patient may be discharged in the next 1-2 days. At baseline, the patient has Cozaar, Coreg, and minoxidil for the blood pressure. In addition , the patient will also have IV labetalol and oral hydralazine for the patient's hypertensive urgency. The patient will have heparin for deep venous thrombosis (DVT) prophylaxis. MTDD
[2016-08-27] MEDS ORDERED: ONDANSETRON 4MG/2ML VIAL (J2405) IV PRN (20:45)
[2016-08-28] VITALS: BP 141/66
[2016-08-28 04:00] VITALS: BP 134/60
[2016-08-28 05:02] LABS: MEAN CORPUSCULAR HEMOGLOBIN 29.2 pg (27.0-33.0); MEAN CORPUSCULAR HGB CONC 33.1 g/dl (32.0-36.5); MEAN CORPUSCULAR VOLUME 88.3 fl (80.0-96.0); RED CELL DISTRIBUTION WIDTH 15.1 % (11.5-14.5); WHITE BLOOD COUNT 5.8 K/mm3 (4.0-10.0)
[2016-08-28 05:17] LABS: ALBUMIN 3.3 GM/DL (3.2-5.2); CALCIUM LEVEL 8.6 MG/DL (8.5-10.1); CREATININE FOR GFR 9.23 MG/DL (0.70-1.30); GLOMERULAR FILTRATION RATE 7.3 (>60); POTASSIUM SERUM 3.7 MEQ/L (3.5-5.1)
[2016-08-28] MEDS: LABETALOL HCL 100 MG/20 ML VIAL IV SCH ×2 (06:00)
[2016-08-28] MEDS: SLF 3 ML SYR IV SCH ×2 (06:00→12:14)
[2016-08-28 08:00] VITALS: BP 146/70
--- NOTE | 2016-08-28 08:55 | IPN ---
DATE: 08/28/2016 Patient seen and examined at the bedside. Chart has been reviewed. Per registered nurse (RN), no significant issues overnight. Patient's blood pressure has been maintained at 134-166. He currently denies any complaints of chest pain, pressure, or tightness, lightheadedness, dizziness, headaches, changes in vision. No trouble breathing or shortness of breath. No nausea, vomiting, epigastric pain, tolerating his diet well. Temperature 98.9, pulse 96, respiratory rate 18, blood pressure is 142/66, 94% on room air. Generally, alert, and oriented times three, answering questions appropriately. No respiratory distress or use of respiratory accessory muscles. LUNGS: Clear to auscultation. No wheezing, rales, or rhonchi. HEART: S1, S2, sinus rhythm. No murmurs, rubs, or gallops. ABDOMEN: Soft, nontender, nondistended. Positive bowel sounds. EXTREMITIES: No pitting edema. LABORATORY DATA: White count 5.8, hemoglobin 11, hematocrit 34, platelet count 166. Sodium 140, potassium 3.7, chloride 102, bicarbonate 29, BUN 24, creatinine 1.23, glucose of 86. ASSESSMENT AND PLAN: This is a 26-year-old male with history of end-stage renal disease on hemodialysis, history of medical noncompliance with his medications, reflux nephropathy, hypertension, obesity, hyperparathyroidism, status post left forearm AV fistula and peritoneal dialysis catheter in the past, status post parathyroidectomy, presents to the emergency room with worsening shortness of breath and fluid overload. Patient was seen by Dr. 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 He was being treated for hypertensive urgency with IV labetalol and hydralazine that was continued in the intensive care unit (ICU), nitroglycerin patch. CURRENT ISSUES: 1. Hypertensive urgency, controlled. Changed to oral medications. Will determine patient's oral beta blockade as an outpatient by calling his pharmacy, [facility]. I have instructed our inpatient pharmacy to resume his home medications. He is also on a new medicine, minoxidil. We will continue on losartan 50 and 100 as previously taken. 2. Acute pulmonary edema and fluid overload secondary to noncompliance with fluid restriction. Patient had an undergone hemodialysis with output of 3.8 liters by dialysis yesterday. Currently, has no signs of fluid overload and no complaints of shortness of breath. 3. End-stage renal disease on maintenance hemodialysis with mineral bone disease , currently continued on Renvela and maintenance hemodialysis needs per nephrology was consulted. Appreciate Dr. Schmid's management of patient's acute issues. 4. Anemia secondary to end-stage renal disease. No need for Aranesp for now. Hemoglobin is more than 11 at this time. 5. History of anxiety and depression on Prozac. Disposition: if stable on oral anti-hypertensive meds, may dc home later today or in am. GARCIAD
[2016-08-28] MEDS: HEPARIN SOD (PORCINE) 5000 UNITS/ML VIAL SQ SCH (09:00)
[2016-08-28] MEDS ORDERED: OMEPRAZOLE 20 MG CAP PO SCH (09:00)
[2016-08-28] MEDS ORDERED: CARVedilol 12.5 MG TAB PO SCH (09:00)
[2016-08-28] MEDS: FLUoxetine 10 MG CAP PO SCH (09:01)
[2016-08-28] MEDS: (RENVELA) SEVELAMER **CARBONate** 800 MG TAB PO SCH ×3 (09:02→17:02)
[2016-08-28] MEDS: **hydrALAZINE** 10 MG TAB PO SCH ×2 (09:02→17:03)
[2016-08-28] MEDS: MINOXIDIL 2.5 MG TAB PO SCH (09:03)
[2016-08-28] MEDS: LOSARTAN 50 MG TAB PO SCH (09:03)
--- NOTE | 2016-08-28 09:09 | IPN ---
DATE OF VISIT: 08/27/2016 SUBJECTIVE: This is a 26-year-old male who is seen and examined at bedside. Last night, he underwent urgent hemodialysis. His blood pressure was elevated and initially was placed on Nitrobid; however, this was later discontinued. Denies any chest pain, shortness of breath, nausea, vomiting, diarrhea. States that his baseline dry weight is usually 112 kg. Knows that he is supposed to be on fluid restriction but does not follow recommendations at home. REVIEW OF SYSTEMS: Denies dizziness, lightheadedness, fevers, chills, rigors, headaches, vomiting, chest pain, worsening of shortness of breath, abdominal pain, constipation, diarrhea. Has not gotten out of bed. The rest of the review of system is otherwise negative OBJECTIVE: VITAL SIGNS: Blood pressure 145/85, heart rate 99, temperature 97.6, respiration rate 17, pulse oximetry 98% on room air. Intake and output the last 24 hours 240 and 3800, net negative of 3560. His measured weight in the chair was 113.5 kg this morning. GENERAL: Patient was lying in bed, comfortable, obese, in no acute distress. He is alert, awake, oriented times three, pleasant, cooperative. HEENT: Normocephalic, atraumatic. NECK: Supple. Trachea midline. Large neck, could not appreciate JVD due to neck size. CHEST: Symmetric chest rise. No accessory muscle use. Breath sounds were clear sounding bilateral though somewhat diminished in the bases. Cardiovascular: Distant but regular rate and rhythm. Normal S1 and S2. Could not appreciate any murmurs, rubs or gallops. ABDOMEN: Is soft, obese, nontender, nondistended. Bowel sounds present. EXTREMITY: With trace pedal edema. Pedal pulses present bilaterally. SKIN: No obvious rashes appreciated. PSYCHIATRIC: Pleasant, cooperative. Normal affect. MEDICATION LIST: - Coreg 25 mg by mouth twice a day - hydralazine 10 every 4 IV - heparin 5000 unit twice a day - Renvela 3200 with meals - minoxidil 7.5 twice a day - Cozaar 50 mg in the morning and 100 nightly - Nitro-Dur was discontinued as mentioned. LABORATORY DATA: WBC 7.8, hemoglobin 11.4, hematocrit 34, unchanged from yesterday, platelets 185. Sodium 138, potassium 4.1, chloride 102, carbon dioxide 26, BUN 22, creatinine 8.87, yesterday 4.6 and 13. Glucose 87, calcium 8.7, phosphorus 12.9, albumin 3.5. Group A streptococcus negative for streptococcus pyogenes. Influenza negative. Blood culture: One set is pending. Chest x-ray on admission reported cardiomegaly and vascular congestion, right lower lobe infiltrate with small effusion. CT of head without contrast was negative. CT chest reported mild cardiomegaly, scattered hazy and patchy alveolar infiltrates as well as scattered interstitial infiltrates and peribronchial thickening, small right effusions likely on the basis of congestive heart failure (CHF) and pulmonary edema. Chest x-ray from this morning reported cardiovascular, vascular congestion with mild diffuse interstitial and alveolar infiltrates. No change in left lung. Mild improvement in the right lung base. IMPRESSION AND PLAN: Mr. Bentley is a 26-year-old male with history of end- stage renal dialysis admitted for hypertensive urgency and acute pulmonary edema. PLAN: 1. Hypertensive urgency. Secondary to fluid overload and pulmonary edema. His blood pressure remains somewhat high prior to dialysis but it improved after dialysis. However, upon evaluation this morning, his systolic was in the 180s, 190s. Therefore, we have added labetalol with hold parameters. We will switch his hydralazine from intravenous to oral. Continue Coreg, minoxidil. Chest x-ray still showed cardiomegaly with vascular congestion. He might require ultrafiltration later today, if not, early tomorrow. 2. Acute pulmonary edema and fluid overload. He does report a history of noncompliance with fluid restriction. He will be placed on 1.5 liters fluid restriction while in the hospital. Underwent urgent dialysis last night and tolerated that well. Recommend staff checking his weight using chair scale. 3. End stage renal disease on hemodialysis. Was emergently dialysed last night. 4. Mineral bone disease. He is on Renvela with meals. 5. Anemia of chronic disease. Hemoglobin does not show significant worsening compared to yesterday. No need for Aranesp at this time. 6. History of anxiety/depression. He is on Prozac daily. My preceptor for this patient encounter was South Schmid MD. The preceptor was physically present in the building during the encounter and was fully available. As needed, all aspects of the patient interview, examination, medical decision making process, and medical care plan development were reviewed and approved by the preceptor. The preceptor is aware and concurs with the plan as stated in the body of this note and will attest to such by his/her co-signature. CHAYITO
[2016-08-28] MEDS ORDERED: OMEP20CA3 PO (11:43)
[2016-08-28] MEDS ORDERED: MINO10TAB PO (11:43)
[2016-08-28] MEDS ORDERED: HYDR10TAB PO (11:43)
[2016-08-28 12:00] VITALS: BP 158/76
[2016-08-28] MEDS: CALCIUM ACETATE 667 MG GELCAP PO SCH ×2 (12:12→17:02)
[2016-08-28 14:00] VITALS: BP 142/67
[2016-08-28 17:03] VITALS: BP 142/67
[2016-08-28] MEDS ORDERED: MINOXIDIL 10 MG TAB PO SCH (21:00)
[2016-08-28] MEDS ORDERED: METOPROLOL TART 50 MG TAB PO SCH (21:00)
--- NOTE | 2016-08-28 21:04 | IPN ---
DATE: 08/28/2016 SUBJECTIVE: This is a 26-year-old male who is seen and examined at bedside. Overnight he had episodes of tachycardia with highest 104; therefore, he had Lopressor added overnight. He underwent ultrafiltration yesterday with approximately 3 liters removed. His Coreg was discontinued this morning. Otherwise feels well without any complaints this morning. REVIEW OF SYSTEMS: Denies any chest pain, shortness of breath, nausea, vomiting, diarrhea, constipation, fevers, chills, headache. Currently there is plan for him to be transferred to progressive care unit (PCU). The rest of the review of systems is otherwise negative. OBJECTIVE: VITAL SIGNS: Blood pressure 146/70, heart rate 86, temperature 97, respiration rate 18, pulse oximetry 94% on room air. Intake and output last 24 hours: 820 and 3940. Weight yesterday was 113.5 kg, however, this morning was documented as 110.9 kg; question accuracy. PHYSICAL EXAMINATION: GENERAL: Patient was sitting in bed comfortable in no acute distress. He is alert, awake, oriented times three. Pleasant cooperative. NECK: Supple. Trachea midline. Large neck. Could not appreciate neck vein distention due to size. CARDIOVASCULAR: Regular rate and rhythm, S1, S2, normal. Did not appreciate murmurs, rubs, or gallops. PULMONARY: Breath sounds are decreased in the lung bases without rhonchi or wheezing. ABDOMEN: Obese but nontender, nondistended. Bowel sounds present. Could not appreciate organomegaly secondary to body habitus. EXTREMITIES: Very trace edema. Pedal pulses present bilaterally. NEUROLOGIC: No focal deficits appreciated. SKIN: No obvious rashes. No lesions. PSYCHIATRIC: Normal mood and affect. MEDICATIONS: - Prozac 10 mg by mouth daily - Cozaar 50 mg morning and 100 at bedtime - Renvela 3200 with meals - heparin 5000 twice a day - hydralazine 20 mg three times a day - minoxidil 7.5 twice a day - Prilosec 20 mg daily - PhosLo LABORATORY DATA: WBC 5.8, hemoglobin 11.5, hematocrit 34.8, platelets 166. Sodium 140, potassium 3.7, chloride 102, carbon dioxide 29, BUN 24, creatinine 9.27, glucose 86, calcium 8.6, phosphorus 4, albumin 3.3. Streptococcus screen negative. IMPRESSION: Mr. Bentley is a 26-year-old male with end-stage renal disease, admitted for hypertensive urgency and acute pulmonary edema. PLAN: 1. Hypertensive urgency. Secondary to fluid overload and noncompliant to fluid restriction, leading him to have pulmonary edema. Blood pressure has been improving, though he had episodes of tachycardia last night, and Lopressor added and Coreg removed by primary team. His tachycardia could be due to hydralazine. We have increased minoxidil dose from 7.5 mg by mouth twice a day to 10 mg by mouth twice a day. Continue hydralazine current dose by mouth of 20 three times a day, losartan morning and nighttime, and Lopressor 50 twice a day. He will receive his first dose of Lopressor tonight. 2. Acute pulmonary edema, fluid overload. Unfortunately is not compliant with fluid restriction at home. Would recommend patient be continued with 1.5 liter fluid restriction whenever he is amenable to be discharged. Had an extra dose of ultrafiltration yesterday and since admission had approximately 6.3 liters removed. Again, discussed with patient the importance of following fluid restriction to prevent recurrence of fluid overload. 3. Chronic kidney disease (CKD) due to mineral bone disease. Continue Renvela with meals. 4. Anemia of chronic disease. Hemoglobin and hematocrit did not show significant drop compared to yesterday. No need for Aranesp at this time. 5. History of anxiety and depression. Continue Prozac. From a renal standpoint, if the patient continues to be doing well, he may be discharged sometime later today or early tomorrow. My preceptor for this patient encounter was Dr. South Schmid. The preceptor was physically present in the building during the encounter and was fully available as needed. All aspects of the patient interview, examination, medical decision making process, and medical care plan development were reviewed and approved by the preceptor. The preceptor is aware and concurs with the plan as stated in the body of this note and will attest to such by his/her co-signature. CHAYITO
--- NOTE | 2016-09-17 07:47 | DSES ---
DATE OF ADMISSION: 08/26/2016 DATE OF DISCHARGE: 08/28/2016 CONSULTANTS DURING ADMISSION: Nephrology, Dr. [place] Schmid. PRIMARY DISCHARGE DIAGNOSES: 1. Hypertensive urgency. 2. Acute pulmonary edema and fluid overload secondary to noncompliance with fluid restriction. 3. End stage renal disease on maintenance hemodialysis with mineral bone disease. 4. Anemia secondary to end stage renal disease. 5. History of anxiety and depression. DISCHARGE MEDICATIONS: - hydralazine 20 mg by mouth three times a day - minoxidil 10 mg twice a day - Prilosec 20 mg daily - fluoxetine 10 mg daily - losartan 50 mg every morning and 100 mg at bedtime - metoprolol 50 mg twice a day - Renvela 3200 mg by mouth with meals three times a day HOSPITAL COURSE: This is a 26-year-old male with history of end stage renal disease on hemodialysis, history of medical compliance with his medications, reflux, nephropathy, hypertension, obesity, hyperparathyroidism, status post left forearm AV fistula, peritoneal dialysis catheter and parathyroidectomy presented to the ER with worsening shortness of breath and fluid overload secondary to medical noncompliance. Newsroom Intern Dr. Schmid was consulted due to pulmonary edema and the patient was emergently dialyzed. He was being treated for hypertensive urgency with IV labetalol, hydralazine was continued in the ICU with nitroglycerin patch. The patient's Coreg was discontinued. The patient was started on minoxidil and hydralazine with significant improvement. He was dialyzed due to significant pulmonary edema and fluid overload secondary to noncompliance with fluid restriction with output of 3.8 liters via hemodialysis. Overnight, after dialysis, the patient had no significant respiratory complaints. The patient's anemia was stable at 11 and no intervention was required. He was continued on his home dose of Prozac. The patient passed a home safety evaluation and was safety discharged home with followup with Dr. Schmid for his dialysis needs. LABORATORIES ON DISCHARGE: White count 5.8, hemoglobin 11.5, hematocrit 34.8, platelet count 166, sodium 140, potassium 3.7, chloride 102, bicarb 29, BUN 24, creatinine 9.23, glucose of 86, BNP was 3900. Group A strep screen on 08/26 was negative. Influenza A and B were negative. Blood cultures showed no growth after five days. IMAGING STUDIES: Chest CT on 08/26/2016 mild cardiomegaly, patchy alveolar infiltrates and scattered infiltrates bilaterally, small right pleural effusions. Findings due to CHF and pulmonary edema with mild pericardial fluid inferiorly. CT of the head no acute cardiopulmonary process or intracranial process. Negative noncontrast CT of the brain. Repeat chest x-ray on 08/27/2016 showed mild improvement in the right lung base. No change in the left lung. Vascular congestion with mild diffuse interstitial alveolar infiltrates. Time spent on discharge 30 minutes. MTDD
== END 2016-08-28 18:46 | disposition home or self-care (01) | DRG 189 ==
LOC: M ED 13:45 → M ICU 17:44 → M MSPAV 08-28 11:40
PROVIDERS: ADMIT Internal Medicine; ATTEND General Practice
DX: J81.0 Acute pulmonary edema (principal); N18.6 End stage renal disease; N25.81 Secondary hyperparathyroidism of renal origin; I12.0 Hypertensive chronic kidney disease with stage 5 chronic kidney disease or end stage renal disease; F41.9 Anxiety disorder, unspecified; F32.9 Major depressive disorder, single episode, unspecified; D63.1 Anemia in chronic kidney disease; Z91.19 Patient's noncompliance with other medical treatment and regimen; Z79.899 Other long term (current) drug therapy; I16.0 Hypertensive urgency; E66.9 Obesity, unspecified

== ENCOUNTER 2016-10-09 14:49 | Inpatient (IN) | payer MEDICARE, MEDICAID ==
[~2016-10-09] VITALS: Ht 188 cm; Wt 115.9 kg
[~2016-10-09 14:49] MED LIST: ACETAMINOPHEN-COD; BYST20TA2; CARV25TA; CARV25TA PO; FLUO10CA8 PO; FLUO10CA9; HYDR10TAB PO; LOSA100T36 PO; LOSA50TA20; LOSA50TA20 PO; METO50TA2; METO50TA2 PO; MINO10TAB PO; MINO25TA; MINO25TA PO; OMEP20CA3 PO; RENV2TAB; RENV2TAB PO
[2016-10-09] MEDS ORDERED: MORPHINE 2 MG/ML 1ML SYRINGE IV ONE ×2 (15:45→18:00)
[2016-10-09] MEDS ORDERED: ONDANSETRON 4MG/2ML VIAL (J2405) IV ONE ×2 (15:45→22:45)
[2016-10-09] MEDS ORDERED: PANTOPRAZOLE 40MG INJ (PROTONIX) (C9113) IV ONE (15:45)
[2016-10-09 16:08] LABS: BASO % 0.9 % (0.0-1.0); EOS # 0.1 K/mm3 (0.0-0.50); EOS % 2.3 % (0.0-3.0); LARGE UNSTAINED CELL # 0.1 K/mm3 (0.0-0.4); LARGE UNSTAINED CELL % 1.2 % (0.0-4.0); LYMPH # 0.8 K/mm3 (1.5-6.5); LYMPH % 15.1 % (24.0-44.0); MEAN CORPUSCULAR HEMOGLOBIN 28.6 pg (27.0-33.0); MEAN CORPUSCULAR HGB CONC 33.1 g/dl (32.0-36.5); MEAN CORPUSCULAR VOLUME 86.5 fl (80.0-96.0); MONO # 0.3 K/mm3 (0.0-0.8); MONO % 7.3 % (0.0-5.0); NEUTROPHILS # 3.4 K/mm3 (1.8-7.7); NEUTROPHILS % 73.2 % (36.0-66.0); PLATELET COUNT, AUTOMATED 152 k/mm3 (150-450); RED CELL DISTRIBUTION WIDTH 14.6 % (11.5-14.5); WHITE BLOOD COUNT 4.7 K/mm3 (4.0-10.0)
[2016-10-09 16:20] LABS: ALBUMIN/GLOBULIN RATIO 1.25 (1.00-1.93); BILIRUBIN,DIRECT 0.1 MG/DL (0.0-0.2); BILIRUBIN,TOTAL 0.4 MG/DL (0.2-1.0); CALCIUM LEVEL 7.9 MG/DL (8.5-10.1); CREATININE FOR GFR 14.2 MG/DL (0.70-1.30); GLOMERULAR FILTRATION RATE 4.5 (>60); TOTAL PROTEIN 7.2 GM/DL (6.4-8.2)
--- NOTE | 2016-10-09 17:52 | REP ---
GALLBLADDER ULTRASOUND: HISTORY: Right upper quadrant pain. Sludge is present in the gallbladder. There is no cholelithiasis. The gallbladder wall is thickened measuring 6.1 mm. The common bile duct measures 3.4 mm. The liver is enlarged measuring 19.8 cm in cephalocaudal dimension. The liver is normal in echogenicity. The pancreas is not seen. The right kidney is atrophic. The right kidney measures 2.6 cm in transverse x 2.4 cm in AP x 8.5 cm in cephalocaudal dimensions. There is no hydronephrosis or mass. IMPRESSION: The gallbladder contains sludge with an associated thickened gallbladder wall. Atrophic right kidney. Signed by Bear Stallworth MD 10/09/2016 06:14 P
[2016-10-09] MEDS ORDERED: MORPHINE 4 MG/ML 1ML SYRINGE IV ONE (20:45)
[2016-10-09] MEDS ORDERED: ACETAMINOPHEN TAB 650MG DOSE (2X325MG) PO PRN (22:00)
[2016-10-09] MEDS ORDERED: AMPICILLIN SOD/SULBACTAM SOD 3 GM in D5W MINI-BAG PLUS 100 ML IV ONE (22:00)
--- NOTE | 2016-10-09 22:28 | HPE ---
DATE OF ADMISSION: 10/09/2016 ADMITTING DIAGNOSIS: Acute cholecystitis. HISTORY OF PRESENT ILLNESS: The patient is a pleasant 26-year-old man who is a chronic hemodialysis patient. He presented to the emergency department in the afternoon of October 09 complaining of abdominal pain, which had begun at about 3 o'clock in the morning. He described sudden onset with awakening of severe pain in the epigastrium. He had some associated nausea. The abdominal pain persisted during the course of the day and he presented at 14:49 for evaluation. He was found to have tenderness in the epigastrium. He had some lab work obtained that was not significantly abnormal other than showing elevated BUN and creatinine. He was medicated for pain. He did have a gallbladder ultrasound obtained which was interpreted by the radiologist as showing some sludge with a thickened gallbladder wall up to 6 mm in diameter. Because of his persistent pain, I was asked to evaluate the patient. He is now approximately 18 hours out from the onset of his pain with no resolution. He is still requiring doses of morphine periodically for discomfort. He continues to feel nauseated. On palpation, he has significant tenderness in the epigastrium and right subcostal area. His clinical picture is consistent with acute cholecystitis and he is now admitted for management of this, particularly in the face of his chronic renal failure at end-stage on dialysis. ALLERGIES: The patient denies any known drug allergies. MEDICATIONS: - hydralazine 20 mg by mouth three times daily - minoxidil 10 mg by mouth twice daily - omeprazole 20 mg by mouth daily - fluoxetine 10 mg by mouth daily - losartan 50 mg every morning and 100 mg by mouth daily at bedtime - metoprolol tartrate 50 mg by mouth twice daily - sevelamer carbonate 3200 mg by mouth with meals PAST SURGICAL HISTORY: Significant for placement of a CAPD catheter which was subsequently removed. He has a dialysis fistula in his left upper extremity. He is doing Saturday, Saturday, Saturday dialysis. PAST MEDICAL HISTORY: Significant only for his renal failure. This is apparently related to vesicoureteral reflux. He has been on dialysis for about 4 years. He reports that he had started with CAPD, but it did have some problems with infections and the CAPD catheter was removed. He now is doing hemodialysis via a fistula in the left upper extremity. He denies any other significant medical problems. SOCIAL HISTORY: The patient is accompanied to the emergency department by a significant other. He is a former smoker. He denies any alcohol use. Family history is noncontributory. REVIEW OF SYSTEMS: Reveals no history of chest pain or palpitations. He was apparently seen recently for significant hypertension and is currently on several medications for this. He denies any cough, wheezing or sputum production. He denies any melena or hematochezia. He denies any history of prior similar pains. He reports that he has had peptic ulcer disease in the distant past. He denies any history of hepatitis, pancreatitis or jaundice. He denies any history of deep venous thrombosis (DVT) or pulmonary embolus. He has no significant bone or joint issues. PHYSICAL EXAMINATION: Reveals a pleasant, perhaps mildly obese man sitting quietly on the hospital stretcher. He is alert, oriented and cooperative. His most recent vital signs show him to be afebrile with a pulse of 57, blood pressure of 168/102, respiratory rate of 18. Sclerae are anicteric. The mucous membranes are moist. Neck is supple. Heart: Exam shows a regular rate and rhythm. The lungs are clear. The abdomen is mildly obese. He has scars consistent with a previous peritoneal dialysis catheter. He has bowel sounds present. There is tenderness to percussion in the epigastrium, particularly centrally and also into the right subcostal area. There is moderate direct tenderness also across the upper abdomen from the mid epigastrium across the subcostal area on the right. No masses appreciated. No hernias identified. The extremities are without edema. He has palpable radial and pedal pulses with a fistula evident on the left. LABORATORY DATA: His laboratory studies include a CBC that shows a white count of 4.7 with a hemoglobin of 12, hematocrit of 35 and platelet count of 152,000. Differential count shows 73% neutrophils, 15% lymphocytes and 7% monocytes. Chemistry profile shows a sodium of 137, potassium 5.0, chloride 100, CO2 of 25, BUN of 47, creatinine 14.2 with a glucose of 104. His liver function tests are normal with a total protein of 7.2 and an albumin of 4.0. Amylase and lipase were normal. Gallbladder ultrasound was interpreted by the radiologist as showing sludge with associated gallbladder wall thickening up to 6.1 mm. The common bile duct was 3.4 mm. An atrophic right kidney was identified. IMPRESSION: 1. Acute cholecystitis. 2. End-stage renal disease on hemodialysis. 3. Hypertension. PLAN: The patient will be admitted to the hospital for management. I will try to contact the tea and spice supervisor on duty as the patient would be due for his usual dialysis tomorrow, that is SaturdayOctober 10. He will receive a dose of Unasyn 3 grams today and this can be adjusted by nephrology as necessary tomorrow. I would anticipate taking the patient for surgery tomorrow after dialysis has been accomplished. He was counseled regarding the need for treatment and desires to proceed. His antihypertensive medications will be continued. He will be kept nothing by mouth (npo) and will receive a minimal amount of IV fluid. He will also receive analgesic as necessary. CHAYITO
[2016-10-09] MEDS ORDERED: HYDR10TAB PO (23:04)
[2016-10-09] MEDS ORDERED: OMEP20CA3 PO (23:04)
[2016-10-09] MEDS ORDERED: MINO10TAB PO (23:04)
[2016-10-10] VITALS (7 sets, daily range): BP systolic 137–169; BP diastolic 68–95
[2016-10-10] MEDS: MORPHINE 4 MG/ML 1ML SYRINGE IV PRN ×5 (02:11→14:06)
[2016-10-10] MEDS: **hydrALAZINE** 10 MG TAB PO SCH ×4 (02:41→20:58)
[2016-10-10] MEDS: METOPROLOL TART 50 MG TAB PO SCH ×3 (02:41→20:59)
[2016-10-10] MEDS: NS 1,000 ML IV SCH ×2 (02:42→21:00)
[2016-10-10] MEDS: LOSARTAN 50 MG TAB PO SCH ×3 (02:42→20:59)
[2016-10-10] MEDS: MINOXIDIL 10 MG TAB PO SCH ×3 (02:43→20:59)
[2016-10-10 06:22] LABS: BASO % 0.6 % (0.0-1.0); EOS # 0.1 K/mm3 (0.0-0.50); EOS % 3.3 % (0.0-3.0); LARGE UNSTAINED CELL # 0.1 K/mm3 (0.0-0.4); LARGE UNSTAINED CELL % 1.5 % (0.0-4.0); LYMPH # 1.1 K/mm3 (1.5-6.5); LYMPH % 26.2 % (24.0-44.0); MEAN CORPUSCULAR HGB CONC 34.4 g/dl (32.0-36.5); MEAN CORPUSCULAR VOLUME 87.2 fl (80.0-96.0); MONO # 0.4 K/mm3 (0.0-0.8); MONO % 8.1 % (0.0-5.0); NEUTROPHILS # 2.6 K/mm3 (1.8-7.7); NEUTROPHILS % 60.2 % (36.0-66.0); PLATELET COUNT, AUTOMATED 109 k/mm3 (150-450); RED CELL DISTRIBUTION WIDTH 14.9 % (11.5-14.5); WHITE BLOOD COUNT 4.3 K/mm3 (4.0-10.0)
[2016-10-10] MEDS: OMEPRAZOLE 20 MG CAP PO SCH (08:18)
[2016-10-10] MEDS ORDERED: LIDOCAINE 1% SDV 5 ML VIAL SQ ONE (11:30)
--- NOTE | 2016-10-10 11:42 | CR ---
DATE OF CONSULTATION: 10/10/2016 CONSULTATION FOR TENZIN PERAZA MD REASON FOR CONSULTATION: To assist in the management of end-stage renal disease. HISTORY OF PRESENT ILLNESS: Mr. Bentley is a 26-year-old gentleman with known history of hypertension and end-stage renal disease. He presented to the emergency room yesterday with nausea and abdominal pain. He was diagnosed with acute cholecystitis and has been admitted. He has been receiving IV fluid and antibiotics. The patient is due for hemodialysis and Dr. Peraza called last evening for a nephrology consult. The patient is seen this morning. He is scheduled for a cholecystectomy later this afternoon. PAST MEDICAL HISTORY (Significant for): 1. Hypertension. 2. End-stage renal disease secondary to vesicoureteral reflux. 3. History of anemia of chronic renal failure. 4. Hyperlipidemia. PAST SURGICAL HISTORY (Significant for:) Continuous ambulatory peritoneal dialysis (CAPD) catheter placement and removal and AV fistula creation. MEDICATIONS (His home medications include:) - minoxidil 10 mg twice a day - losartan 50 mg in a.m. and 100 mg at bedtime - metoprolol 50 mg twice a day - Renvela 3200 mg three times a day with meals - omeprazole 20 mg daily - fluoxetine 10 mg daily - hydralazine 20 mg three times a day - Nephro-Bryce 1 tablet daily PERSONAL AND SOCIAL HISTORY: The patient lives with his significant other. He is a former smoker. He denies any alcohol or drug use. FAMILY HISTORY: Negative for end-stage renal disease. REVIEW OF SYSTEMS: The patient did not feel well for last 3 days. At present, he denies any shivering, chills, fever or headache. Ears, nose and throat are unremarkable. Cardiovascular system negative for dyspnea or chest pain. Respiratory system negative for cough or hemoptysis. Gastrointestinal (GI) system is significant for abdominal pain and nausea. He has been receiving morphine and symptoms are better now. He denies any rectal bleeding or black colored stools. Genitourinary () system is significant for end-stage renal disease secondary to ureteral reflux. There is no dysuria or hematuria. Endocrine system is negative for diabetes or thyroid problems. He does have secondary hyperparathyroidism. Hematological system is significant for anemia of chronic kidney disease. He is not on any long-term anticoagulation. Neurological system negative for seizures or stroke. Psychosocial system is significant for depression. Skin is negative for rash or ulcers. Other systems are reviewed and are unremarkable. PHYSICAL EXAMINATION: Temperature 98.9 degrees Fahrenheit, heart rate 52 per minute and respiratory rate 20 per minute. Blood pressure 159/95 mmHg earlier and now during dialysis his blood pressure is 120/68 mmHg. Oxygen saturation 96% on room air. Head is atraumatic. Ears, nose and throat are unremarkable. Neck is supple and without jugular venous distention (JVD) or thyroid enlargement. Pupils equal and reactive to light and sclera is anicteric. Heart sounds are regular and bradycardic. Lungs: Clear to auscultation. Abdomen: Soft and mildly tender in epigastric area. Bowel sounds are normal. Extremities have no cyanosis or clubbing. Left arm AV fistula is functioning well for dialysis. Neurologically: He is awake, alert and oriented times three. LABORATORY DATA: Today's WBC count is 4.3, hemoglobin 11.2 and hematocrit 32.6. Platelets 109. Sodium 137 and potassium 5.0 last evening. BUN 47 and creatinine 14.2. Calcium level was 7.9 and AST 10 with ALT 18 and total protein 7.2. Amylase level 53 and lipase 126. Urinalysis showed 2+ protein, 1+ glucose, only 15 WBCs and 2 RBCs noted. Gallbladder ultrasound showed sludge and thickened gallbladder wall with atrophic right kidney. PROBLEMS: 1. End-stage renal disease. The patient is dialyzed on Saturday, Saturday and Saturday schedule. He is due for dialysis and he is being dialyzed already this morning. I had given dialysis orders earlier and have signed them now. The patient is tolerating his dialysis treatment well. We are removing only 3 liters of fluid in view of later surgery today for his gallbladder. His volume status is reasonably well-compensated. 2. Hypertension. Blood pressure was high earlier; however, it is low now during dialysis. We have cut back on the ultrafiltration and also will put hold parameters on his antihypertensive meds. Blood pressure will need to be monitored closely. 3. Acute cholecystitis. The patient is scheduled for surgery later today. He is medically stable for the procedure. 4. Secondary hyperparathyroidism. At present, we will continue with Renvela 3200 mg with meals. He is currently nothing by mouth (n.p.o.), so we will hold his Renvela. Once his oral diet is resumed, then we can resume his phosphate binder. I thank you for involving me in the care of Mr. Dugan. I will follow him along with you.
--- NOTE | 2016-10-10 11:55 | IPN ---
DATE: 10/10/2016 Mr. Bentley is seen this morning during hemodialysis. He reports that his abdominal pain and nausea have improved since he was medicated. He is currently nothing by mouth and is receiving IV fluid. He is scheduled for cholecystectomy later today. He denies any dyspnea or chest pain. There is no fever or chills at present. PHYSICAL EXAMINATION: He is awake, alert and oriented times three. Temperature is 98.8 degrees Fahrenheit. Heart rate 50 per minute and respiratory rate of 16 per minute. Head is atraumatic. Ears, nose, throat unremarkable. Pupils are equal and reactive to light. Sclerae anicteric. Neck is supple and without jugular venous distention or thyroid enlargement. Heart sounds bradycardic and regular. Lungs are clear to auscultation. Abdomen is minimally tender in the epigastric area. Bowel sounds are normal. Extremities are without any cyanosis or clubbing. Skin has no rash or ulcers. Neurologically, he has no focal deficits. He is awake, alert and oriented times three. His laboratories have already been reviewed. PROBLEMS: 1. End stage renal disease. The patient is currently being dialyzed and he is tolerating dialysis treatment very well. No heparin is being used today as he is scheduled for surgery later today. We have removed only 3 liters of fluid out of 5 liters that he has gained since his last treatment. His volume status is reasonably well compensated and we are trying not to remove fluid aggressively due to risk of hypotension with anesthesia. He can be given another liter or two during surgery if needed. 2. Hypertension. Blood pressure is very well controlled and in fact it is on the low side during dialysis. We are putting hold parameters on his antihypertensive medications and they will be held for a systolic blood pressure less than 130 mmHg. 3. Anemia. His anemia is mild and stable and does not need any intervention at this point. 4. Acute cholecystitis. The patient is scheduled for surgery later today. He is medically stable for the procedure.
[2016-10-10] MEDS ORDERED: BUPIVACAINE HCL 0.25% 30 ML VIAL As Ordered ONE (15:21)
[2016-10-10] MEDS ORDERED: UNASYN 1.5 GM VIAL As Ordered ONE (15:51)
[2016-10-10] MEDS ORDERED: AMPICILLIN SOD/SULBACTAM SOD 3 GM in D5W MINI-BAG PLUS 100 ML IV ONE (16:00)
[2016-10-10] MEDS ORDERED: NEOSTIGMINE 1MG/ML 5 ML SYRINGE (J2710) As Ordered ONE (16:39)
[2016-10-10] MEDS ORDERED: ONDANSETRON 4MG/2ML VIAL (J2405) As Ordered ONE ×2 (16:39→18:58)
[2016-10-10] MEDS ORDERED: MIDAZOLAM INJ 2 MG/2 ML VIAL (J2250) As Ordered ONE (16:39)
[2016-10-10] MEDS ORDERED: GLYCOPYRROLATE INJ 0.2 MG/ML 2 ML VIAL As Ordered ONE (16:39)
[2016-10-10] MEDS ORDERED: dexameTHASONE 4 MG/ML 1ML VIAL (J1100) As Ordered ONE (16:39)
[2016-10-10] MEDS ORDERED: fentaNYL 250 MCG/5 ML INJECTION (J3010) As Ordered ONE (16:39)
[2016-10-10] MEDS ORDERED: PROPOFOL 200 MG/20 ML VIAL As Ordered ONE (16:39)
[2016-10-10] MEDS ORDERED: ePHEDrine SULFATE 25 MG/5 ML(5MG/ML) SYRINGE As Ordered ONE (16:49)
[2016-10-10] MEDS ORDERED: fentaNYL 100 MCG/2 ML INJECTION (J3010) As Ordered ONE (17:32)
[2016-10-10] MEDS ORDERED: ESMOLOL INJ 100MG/10ML VIAL As Ordered ONE (17:46)
[2016-10-10] MEDS ORDERED: HYDROmorphone HCL 1 MG/ML SYRINGE (J1170) IV PRN (18:00)
[2016-10-10] MEDS ORDERED: PERCOCET 5MG/325MG TAB PO PRN (18:00)
[2016-10-10] MEDS ORDERED: ONDANSETRON 4MG/2ML VIAL (J2405) IV PRN (18:00)
[2016-10-10] MEDS ORDERED: LR 1,000 ML IV SCH (18:00)
[2016-10-10] MEDS ORDERED: fentaNYL 100 MCG/2 ML INJECTION (J3010) IV PRN (18:00)
--- NOTE | 2016-10-10 23:13 | RO ---
DATE OF PROCEDURE: 10/10/2016 PREOPERATIVE DIAGNOSIS: Acute cholecystitis. POSTOPERATIVE DIAGNOSIS: Acute cholecystitis. OPERATIVE PROCEDURE: Laparoscopic cholecystectomy. SURGEON: Robert Peraza MD PASSENGER INTERLINE CLERK: ANESTHESIA: General. INDICATIONS FOR PROCEDURE: The patient is a 26-year-old man who presented to the emergency department with a severe epigastric and right upper quadrant pain that began at about 3 o'clock in the morning of the . It persisted during the morning and he presented to the emergency department for evaluation. His laboratory studies were without significant alteration and a gallbladder ultrasound was obtained, which showed some gallbladder wall thickening with some sludge. He remains tender in the right upper quadrant. His clinical picture was felt to be consistent with acute cholecystitis and he is now for a laparoscopic cholecystectomy. OPERATIVE PROCEDURE: The patient was placed under general endotracheal anesthesia. The patient's abdomen was prepped and draped in a sterile fashion. 0.25% Marcaine was infiltrated at the trocar sites as needed. A short incision was made in the left upper quadrant and a Veress needle was inserted without difficulty. The abdomen was insufflated with carbon dioxide gas. A 5-mm port was placed over a 5 mm scope and this was advanced through the abdominal wall without difficulty. Initial examination showed a normal-appearing liver. The gallbladder appeared fairly tensely distended and perhaps somewhat edematous. The visualized portions of the stomach and small and large bowel were normal. The patient did appear to have some stool within the colon. The patient was tilted to a reverse Trendelenburg position and rolled to the left. A Neeraj cannula was placed just above the umbilicus. Two 5 mm trocars were placed in the right upper quadrant. The gallbladder was aspirated to allow it to be grasped more easily. Clear dark bile was returned. The gallbladder was grasped and elevated. Dissection began in the area of the gallbladder neck. The peritoneum was opened widely. There appeared to be some inflammatory changes around the neck of the gallbladder with some edema. The cystic duct was clearly identified and this was doubly clipped with hemoclips and divided. The cholecystic artery was then identified and this was doubly clipped with hemoclips and divided. The gallbladder was then dissected free from the gallbladder bed using cautery dissection. The gallbladder was entered in the upper aspect of the fundus, but as the gallbladder had been drained, there was no spillage of bile. Once the gallbladder had been completely freed, it was placed in an Endopouch. The right upper quadrant was irrigated and inspected. Several small bleeding points in the gallbladder bed were controlled with electrocautery. Final inspection revealed no evidence of bleeding and no bile leak. The patient was returned to a flat position. The abdomen was deflated and the trocars were removed. The gallbladder was recovered through the Neeraj site. The fascia at the Neeraj site was closed with #2-0 Vicryl. The skin incisions were all closed with buried #5-0 Vicryl and Steri-Strips. Light dressings were applied. The patient tolerated the procedure well without apparent complication. He was awakened in the operating room, extubated and moved to the recovery room in stable condition.
[2016-10-11 00:08] VITALS: BP 147/69
[2016-10-11 04:08] VITALS: BP 134/64
[2016-10-11] MEDS: MORPHINE 2 MG/ML 1ML SYRINGE IV PRN ×3 (04:13→21:57)
[2016-10-11] MEDS: OMEPRAZOLE 20 MG CAP PO SCH (09:30)
[2016-10-11] MEDS: LOSARTAN 50 MG TAB PO SCH ×2 (09:30→20:55)
[2016-10-11] MEDS: MINOXIDIL 10 MG TAB PO SCH ×2 (09:31→20:57)
[2016-10-11] MEDS: METOPROLOL TART 50 MG TAB PO SCH ×2 (09:31→20:57)
[2016-10-11] MEDS: **hydrALAZINE** 10 MG TAB PO SCH ×3 (09:31→20:56)
[2016-10-11] MEDS: NORCO, ANEXSIA 5/325MG TABLET (HYDROcodone/ACETAMINOPHEN) PO PRN ×2 (09:32→16:13)
[2016-10-11 10:00] VITALS: BP 157/60
[2016-10-11] MEDS: MORPHINE 4 MG/ML 1ML SYRINGE IV PRN (11:49)
[2016-10-11] MEDS ORDERED: SENNA 8.6 MG TAB (SENOKOT) PO PRN (12:45)
[2016-10-11] MEDS: DOCUSATE SODIUM 100 MG CAP PO SCH ×2 (13:11→20:56)
[2016-10-11 14:00] VITALS: BP_SYST 119; BP_SYST 129; BP_DIAS 58; BP_DIAS 67
[2016-10-11] MEDS ORDERED: PERCOCET 5MG/325MG TAB PO PRN (17:15)
[2016-10-11] MEDS: PERCOCET 5MG/325MG TAB PO PRN (17:19)
[2016-10-11 18:00] VITALS: BP 144/68
[2016-10-11 20:25] VITALS: BP 137/68
[2016-10-12 02:00] VITALS: BP 119/55
[2016-10-12 05:15] VITALS: BP 128/62
[2016-10-12] MEDS: PERCOCET 5MG/325MG TAB PO PRN ×3 (05:20→21:24)
[2016-10-12 06:30] LABS: BASO % 0.6 % (0.0-1.0); EOS # 0.1 K/mm3 (0.0-0.50); LARGE UNSTAINED CELL % 0.7 % (0.0-4.0); LYMPH % 17.9 % (24.0-44.0); MEAN CORPUSCULAR HEMOGLOBIN 28.6 pg (27.0-33.0); MEAN CORPUSCULAR HGB CONC 33.4 g/dl (32.0-36.5); MEAN CORPUSCULAR VOLUME 85.7 fl (80.0-96.0); MONO # 0.4 K/mm3 (0.0-0.8); MONO % 6.3 % (0.0-5.0); NEUTROPHILS # 4.1 K/mm3 (1.8-7.7); NEUTROPHILS % 72.5 % (36.0-66.0); PLATELET COUNT, AUTOMATED 158 k/mm3 (150-450); RED CELL DISTRIBUTION WIDTH 14.6 % (11.5-14.5); WHITE BLOOD COUNT 5.6 K/mm3 (4.0-10.0)
[2016-10-12] MEDS: **hydrALAZINE** 10 MG TAB PO SCH ×3 (06:48→21:24)
[2016-10-12] MEDS: DOCUSATE SODIUM 100 MG CAP PO SCH ×2 (06:49→21:24)
[2016-10-12] MEDS: OMEPRAZOLE 20 MG CAP PO SCH (06:49)
[2016-10-12] MEDS: LOSARTAN 50 MG TAB PO SCH ×2 (06:52→21:25)
[2016-10-12] MEDS: MINOXIDIL 10 MG TAB PO SCH ×2 (06:52→21:25)
[2016-10-12] MEDS: METOPROLOL TART 50 MG TAB PO SCH ×2 (06:53→21:25)
[2016-10-12 06:57] LABS: ALBUMIN 3.5 GM/DL (3.2-5.2); ALBUMIN/GLOBULIN RATIO 1.13 (1.00-1.93); BILIRUBIN,TOTAL 0.3 MG/DL (0.2-1.0); CALCIUM LEVEL 8.5 MG/DL (8.5-10.1); CREATININE FOR GFR 14.2 MG/DL (0.70-1.30); GLOMERULAR FILTRATION RATE 4.5 (>60); POTASSIUM SERUM 4.4 MEQ/L (3.5-5.1); TOTAL PROTEIN 6.6 GM/DL (6.4-8.2)
[2016-10-12] MEDS: MORPHINE 2 MG/ML 1ML SYRINGE IV PRN ×2 (10:27→18:09)
--- NOTE | 2016-10-12 12:44 | IPN ---
DATE: 10/12/2016 Mr. Bentley is seen this morning on his bedside during hemodialysis. He underwent cholecystectomy on 10/10/2016. He is still sore and complains of severe pain at times. He denies any nausea or vomiting and is tolerating oral intake very well. There is no dyspnea or chest pain. On physical exam, temperature 98.7 degrees Fahrenheit, heart rate 64 per minute and respiratory rate 18 per minute. Blood pressure 128/62 mmHg and oxygen saturation 97% on room air. Head is atraumatic. Ears, nose and throat are unremarkable. Neck is supple and without jugular venous distention or thyroid enlargement. Heart sounds are regular and lungs clear to auscultation. Abdomen is minimally tender. Surgical dressings are intact. Bowel sounds are normal. Extremities have no cyanosis or clubbing. Skin has no rash or ulcers. Neurologically he has no focal deficit. He is awake, alert and oriented times three. Today's labs show WBC count 5.6, hemoglobin 10.8 and hematocrit 32.4. Platelets are normal at 158. Sodium 134 and potassium 4.4. BUN 51 and creatinine 14.2. PROBLEMS: 1. End-stage renal disease: The patient is being dialyzed today. He is tolerating dialysis treatment very well. We are removing only 2 liters of fluid today. 2. Hypertension: Blood pressure is very well controlled and his antihypertensives have been adjusted with holding parameters. At present we will continue to monitor closely. 3. Anemia: His anemia is stable and does not need any intervention. 4. Acute cholecystitis, status post cholecystectomy. The patient is improving gradually and is feeling much better today. I have advised him to walk in the hallway at least two three times a day. He is still requiring pain medications. Discharge plans are up to Dr. Peraza.
[2016-10-12 14:00] VITALS: BP_SYST 151; BP_SYST 156; BP_DIAS 72; BP_DIAS 78
[2016-10-12] MEDS: MIRALAX *UNIT DOSE* 17GM PACKET PO SCH (16:57)
[2016-10-12 20:50] VITALS: BP 150/64
[2016-10-13 02:00] VITALS: BP 162/70
[2016-10-13] MEDS: MORPHINE 2 MG/ML 1ML SYRINGE IV PRN (03:02)
[2016-10-13 06:30] VITALS: BP 137/72
[2016-10-13] MEDS: METOPROLOL TART 50 MG TAB PO SCH (09:00)
[2016-10-13] MEDS ORDERED: COLA100C3 PO (09:12)
[2016-10-13] MEDS ORDERED: PERCOCET PO (09:12)
[2016-10-13] MEDS: MIRALAX *UNIT DOSE* 17GM PACKET PO SCH (09:46)
[2016-10-13 09:47] VITALS: BP 137/62
[2016-10-13] MEDS: LOSARTAN 50 MG TAB PO SCH (09:47)
[2016-10-13] MEDS: **hydrALAZINE** 10 MG TAB PO SCH (09:48)
[2016-10-13] MEDS: MINOXIDIL 10 MG TAB PO SCH (09:48)
[2016-10-13] MEDS: DOCUSATE SODIUM 100 MG CAP PO SCH (09:48)
[2016-10-13] MEDS: OMEPRAZOLE 20 MG CAP PO SCH (09:49)
[2016-10-13] MEDS: PERCOCET 5MG/325MG TAB PO PRN (10:00)
--- NOTE | 2016-10-13 20:18 | IPN ---
DATE: 10/13/2016 Mr. Bentley is seen this morning on his bedside. He underwent hemodialysis yesterday, which he tolerated very well. He denies any nausea or vomiting; however, still has some pain at the surgical site. He had cholecystectomy on 10/10/2016. There is no dyspnea or chest pain. The patient has been ambulating well without any problems. PHYSICAL EXAMINATION: VITAL SIGNS: Temperature 100.5 degrees Fahrenheit, heart rate 88 per minute and respiratory rate 18 per minute. Blood pressure 137/62 mmHg and oxygen saturation 95% on room air. Head is atraumatic. Ears, nose and throat are unremarkable. Neck is supple and without jugular venous distention or thyroid enlargement. Heart sounds are regular and lungs clear to auscultation. Abdomen is soft and mild tenderness present. Bowel sounds are normal. Extremities have no cyanosis or clubbing. The patient has had no new laboratories done today. PROBLEMS: 1. Acute cholecystitis, status post cholecystectomy. The patient is doing well and the surgical service has decided to discharge him today. I agree for discharge plans. 2. End-stage renal disease. The patient is being dialyzed yesterday, which he tolerated very well. He will return for next hemodialysis treatment on Saturday at his usual scheduled time. 3. Hypertension: Blood pressure is very well controlled on current antihypertensives. The patient will continue with current medications at home. 4. Anemia. His anemia is mild and will be managed in dialysis. No intervention is indicated. DISPOSITION: The patient is cleared for discharge from a renal standpoint. I will followup next week in dialysis clinic.
[2016-10-14] MEDS ORDERED: OXYC1TAB23 PO (10:42)
== END 2016-10-13 13:25 | disposition home or self-care (01) | DRG 417 ==
LOC: M ED 16:26 → M ED INP 21:46 → M MSPAV 10-10 02:27
PROVIDERS: ADMIT Surgery; ATTEND Surgery
PROC: 5A1D00Z (ICD-10-PCS; 2016-10-10)
PROC: 0FT44ZZ Resection of Gallbladder, Percutaneous Endoscopic Approach (ICD-10-PCS; principal; 2016-10-10 18:00)
DX: K81.0 Acute cholecystitis (principal); N18.6 End stage renal disease; N25.81 Secondary hyperparathyroidism of renal origin; I12.0 Hypertensive chronic kidney disease with stage 5 chronic kidney disease or end stage renal disease; D64.9 Anemia, unspecified; Z79.899 Other long term (current) drug therapy; Z99.2 Dependence on renal dialysis; Z87.891 Personal history of nicotine dependence

== ENCOUNTER 2016-10-14 07:35 | Inpatient (IN) | payer MEDICARE, MEDICAID ==
[~2016-10-14] VITALS: Ht 188 cm; Wt 115.2 kg
[~2016-10-14 07:35] MED LIST changes: +COLA100C3 PO; +PERCOCET PO
[2016-10-14] MEDS ORDERED: ISOVUE-370 76% 100ML VIAL (Q9967) As Ordered ONE (08:07)
[2016-10-14] MEDS ORDERED: MORPHINE 4 MG/ML 1ML SYRINGE IV ONE ×2 (08:15→08:45)
[2016-10-14] MEDS ORDERED: ONDANSETRON 4MG/2ML VIAL (J2405) IV PRN (08:15)
[2016-10-14 08:29] LABS: BASO % 0.4 % (0.0-1.0); EOS # 0.1 K/mm3 (0.0-0.50); LARGE UNSTAINED CELL % 0.5 % (0.0-4.0); LYMPH # 0.5 K/mm3 (1.5-6.5); LYMPH % 9.7 % (24.0-44.0); MEAN CORPUSCULAR HGB CONC 32.4 g/dl (32.0-36.5); MEAN CORPUSCULAR VOLUME 86.4 fl (80.0-96.0); MONO # 0.2 K/mm3 (0.0-0.8); MONO % 5.2 % (0.0-5.0); NEUTROPHILS # 3.7 K/mm3 (1.8-7.7); NEUTROPHILS % 81.1 % (36.0-66.0); PLATELET COUNT, AUTOMATED 160 k/mm3 (150-450); RED CELL DISTRIBUTION WIDTH 14.8 % (11.5-14.5); WHITE BLOOD COUNT 4.5 K/mm3 (4.0-10.0)
[2016-10-14 08:36] LABS: INR 1.1
[2016-10-14] MEDS ORDERED: MORPHINE 10 MG/ML 1ML VIAL IV ONE (08:45)
[2016-10-14 08:49] LABS: ALBUMIN 3.7 GM/DL (3.2-5.2); BILIRUBIN,DIRECT 0.6 MG/DL (0.0-0.2); BILIRUBIN,TOTAL 1.1 MG/DL (0.2-1.0); CALCIUM LEVEL 8.5 MG/DL (8.5-10.1); CREATININE FOR GFR 13.5 MG/DL (0.70-1.30); GLOMERULAR FILTRATION RATE 4.7 (>60); POTASSIUM SERUM 4.9 MEQ/L (3.5-5.1); TOTAL PROTEIN 7.4 GM/DL (6.4-8.2)
--- NOTE | 2016-10-14 09:49 | REP ---
CT of the abdomen pelvis with IV contrast, without bowel contrast: The visualized lung peralta are unremarkable except for dependent atelectasis. The hepatic parenchyma is homogeneous. There is a surgical clip in the gallbladder fossa, however, there is a soft tissue mass-like density in the gallbladder fossa of uncertain significance. This could represent a hematoma or possibly residual gallbladder. There is no intrahepatic or extrahepatic biliary duct dilatation, the common duct measures 7 mm in diameter which is normal for post cholecystectomy patient. The pancreas is unremarkable. There is no CT evidence of pancreatitis. There is no CT evidence of common duct calculus. There are least three foci of induration in the anterior abdominal wall subcutaneous fat, likely postsurgical. The spleen is normal size, homogeneous and unremarkable. The adrenals are unremarkable. There is marked bilateral renal cortical atrophy. There is no bowel distension or obstruction. There are no inflammatory changes in the mesentery. Pelvis: There is a small volume of ascites. The appendix is unremarkable. There is a focal area of induration along the lateral margin of the distal ascending colon near the colonic hepatic flexure. There is no pneumoperitoneum. There is no pelvic adenopathy. The pelvic bowel loops are unremarkable. Impression: There is a surgical clip in the gallbladder fossa .There is a soft tissue density remaining in the gallbladder fossa of uncertain significance. The soft tissue density could represent residual gallbladder or hematoma. There is no biliary duct dilatation. No common duct dilatation. There is a small volume of ascites in the pelvis. There is a small focal area of induration along the lateral margin of distal ascending colon near the hepatic flexure. The appendix is unremarkable. There is no bowel distension or obstruction. There are at least three foci of induration in the subcutaneous fat of the anterior abdominal wall, likely postsurgical. There is marked bilateral renal atrophy. Signed by Robin Oneill MD 10/14/2016 09:41 A
[2016-10-14] MEDS ORDERED: CIPROFLOXACIN 400 MG in APPROPRIATE DILUENT 1 EA IV SCH (10:30)
[2016-10-14] MEDS ORDERED: NORCO, ANEXSIA 5/325MG TABLET (HYDROcodone/ACETAMINOPHEN) PO PRN (10:30)
[2016-10-14] MEDS ORDERED: OXYC1TAB23 PO (10:42)
[2016-10-14] MEDS: LR 1,000 ML IV SCH (11:00)
[2016-10-14] MEDS: MORPHINE 10 MG/ML 1ML VIAL IV PRN ×3 (11:23→22:08)
[2016-10-14] MEDS: metroNIDAZOLE 500 MG in APPROPRIATE DILUENT 1 EA IV SCH ×2 (12:00→17:53)
[2016-10-14] MEDS: NORCO, ANEXSIA 5/325MG TABLET (HYDROcodone/ACETAMINOPHEN) PO PRN (13:10)
[2016-10-14 13:35] VITALS: BP 140/60
[2016-10-14] MEDS: ONDANSETRON 4MG/2ML VIAL (J2405) IV PRN (13:56)
[2016-10-14] MEDS: KETOROLAC 30 MG/ML VIAL (J1885) IV SCH (17:52)
[2016-10-14] MEDS: CIPROFLOXACIN 200 MG in APPROPRIATE DILUENT 1 EA IV SCH (17:52)
[2016-10-14 22:00] VITALS: BP 139/72
[2016-10-14] MEDS: SENOKOT S TAB PO SCH (22:08)
[2016-10-15] MEDS: metroNIDAZOLE 500 MG in APPROPRIATE DILUENT 1 EA IV SCH ×4 (00:39→20:41)
[2016-10-15] MEDS: NORCO, ANEXSIA 5/325MG TABLET (HYDROcodone/ACETAMINOPHEN) PO PRN ×3 (00:42→18:17)
[2016-10-15] MEDS: ONDANSETRON 4MG/2ML VIAL (J2405) IV PRN ×2 (04:38→10:17)
[2016-10-15] MEDS: MORPHINE 10 MG/ML 1ML VIAL IV PRN ×3 (04:39→19:04)
[2016-10-15] MEDS: CIPROFLOXACIN 200 MG in APPROPRIATE DILUENT 1 EA IV SCH ×2 (04:42→18:17)
--- NOTE | 2016-10-15 05:09 | CR ---
DATE OF CONSULTATION: 10/14/2016 NEPHROLOGY CONSULTATION REPORT FOR: Volodymyr Agustin MD REASON FOR CONSULTATION: To assist in the management of end-stage renal disease. HISTORY OF PRESENT ILLNESS: Mr. Bentley is a 26-year-old male with known history of end-stage renal disease. He was recently admitted with acute cholecystitis and underwent cholecystectomy, I believe on 10/10/2016. He was discharged to home just yesterday, and at that time he was feeling well; however, later he developed severe abdominal pain and vomiting, due to which he came to the emergency room today and is being admitted by Dr. Agustin. Patient is regularly dialyzed on Saturday, Saturday, and Saturday schedule. He is due for hemodialysis tomorrow, due to which nephrology consultation was requested and patient is seen this afternoon. PAST MEDICAL AND SURGICAL HISTORY: Significant for: 1. End-stage renal disease secondary to vesicoureteral reflux, on maintenance hemodialysis three times a week. 2. Hypertension. 3. Hyperlipidemia. 4. Secondary hyperparathyroidism. 5. Depression. PAST SURGICAL HISTORY: Is significant for a history of peritoneal dialysis catheter placement and removal in the past and arteriovenous (AV) creation. He recently had cholecystectomy done, I believe on 10/10/2016. MEDICATIONS: His home medications include: - minoxidil 10 mg twice a day - losartan 50 mg in morning and 100 mg in evening - metoprolol 50 mg twice a day - Renvela 3200 mg three times a day with meals - omeprazole 20 mg daily - hydralazine 20 mg three times a day - Nephro-Bryce one tablet daily - fluoxetine 10 mg daily ALLERGIES: Patient has no known drug allergies. PERSONAL AND SOCIAL HISTORY: Patient denies any alcohol or drug use. He lives with his significant other. He is a former smoker. FAMILY HISTORY: Negative for end-stage renal disease. REVIEW OF SYSTEMS: Patient denies any fever or chills. He was feeling much better at the time of discharge. He developed sudden abdominal pain and vomiting. Head and neck is unremarkable. There is no history of nosebleeds or sinus problems. Cardiovascular system negative for dyspnea or chest pain. Respiratory system negative for cough or hemoptysis. Gastrointestinal (GI) system is as per history of present illness. Genitourinary () system is significant for end-stage renal disease. There is no history of kidney stones. Psychosocial system is significant for depression. Hematological system is significant for anemia due to acute blood loss and end-stage renal disease. Musculoskeletal system is unremarkable. Skin is negative for rash or ulcers. Neurological system is negative for seizures or stroke. PHYSICAL EXAM: Patient is awake and alert at the time of my visit. He is sitting in the bed. Temperature is 99.1 degrees Fahrenheit, heart rate 80 per minute, and respiratory rate 18 per minute. Blood pressure 140/60 mmHg, and oxygen saturation is 100% on room air. Head is atraumatic. Neck is supple and without jugular venous distention (JVD) or thyroid enlargement. Ears, nose, and throat are unremarkable. Pupils are equal and reactive to light, and sclerae are anicteric. Heart sounds are regular, and lungs clear to auscultation. Abdomen is somewhat tender. There is a large area of ecchymosis infraumbilical area. Surgical incision sites are covered with small dressings. Neurologically, he is awake, alert, and oriented times three. LAB DATA: WBC count is 4.5, hemoglobin 10.6, and hematocrit 32.7. INR is 1.10. Sodium 132 and potassium 4.9. BUN 46 and creatinine 13.5. Total bilirubin 1.1, AST 227, ALT 259, alkaline phosphatase 409, total protein 7.4, and albumin 3.7. Lipase level is 70. CAT scan of abdomen and pelvis done in the emergency room showed surgical clip in the gallbladder fossa. There is soft tissue density, possible hematoma. No evidence of a biliary duct stone. Kidneys are atrophic bilaterally. PROBLEMS: 1. End-stage renal disease. Patient has known history of end-stage renal disease and has been on maintenance hemodialysis three times a week. We will go ahead and schedule him for dialysis tomorrow. At present, his electrolytes are all within normal range and there is no evidence of volume overload. There is no emergent indication for dialysis today. 2. Abdominal pain and vomiting. This is most likely related to gallbladder surgery, and patient is likely to have another abdominal MRI or magnetic resonance cholangiopancreatography (MRCP). We will plan to dialyze him tomorrow , and we will coordinate with radiology about the procedure. 3. Anemia. Patient has some acute blood loss. However, anemia is mild and does not need any acute intervention. 4. Hypertension. At present, his blood pressure is very well controlled, and we will continue with current antihypertensive medications. 5. Depression. His chronic antidepressive medications should be continued. Thank you for involving me in the care of Mr. Bentley. I will follow him along with you. CHAYITO
[2016-10-15 06:00] VITALS: BP 161/76
[2016-10-15] MEDS: SENOKOT S TAB PO SCH ×2 (06:41→20:58)
[2016-10-15 06:53] LABS: BASO % 0.4 % (0.0-1.0); EOS # 0.2 K/mm3 (0.0-0.50); EOS % 4.1 % (0.0-3.0); LARGE UNSTAINED CELL # 0.1 K/mm3 (0.0-0.4); LARGE UNSTAINED CELL % 1.5 % (0.0-4.0); LYMPH # 0.6 K/mm3 (1.5-6.5); LYMPH % 15.5 % (24.0-44.0); MEAN CORPUSCULAR HEMOGLOBIN 28.6 pg (27.0-33.0); MEAN CORPUSCULAR HGB CONC 32.4 g/dl (32.0-36.5); MEAN CORPUSCULAR VOLUME 88.3 fl (80.0-96.0); MONO # 0.3 K/mm3 (0.0-0.8); MONO % 8.4 % (0.0-5.0); NEUTROPHILS # 2.5 K/mm3 (1.8-7.7); NEUTROPHILS % 70.1 % (36.0-66.0); PLATELET COUNT, AUTOMATED 128 k/mm3 (150-450); RED CELL DISTRIBUTION WIDTH 15.2 % (11.5-14.5); WHITE BLOOD COUNT 3.6 K/mm3 (4.0-10.0)
[2016-10-15 07:09] LABS: ALBUMIN 3.3 GM/DL (3.2-5.2); ALBUMIN/GLOBULIN RATIO 0.97 (1.00-1.93); BILIRUBIN,TOTAL 0.6 MG/DL (0.2-1.0); CALCIUM LEVEL 8.3 MG/DL (8.5-10.1); CREATININE FOR GFR 15.8 MG/DL (0.70-1.30); GLOMERULAR FILTRATION RATE 3.9 (>60); POTASSIUM SERUM 5.1 MEQ/L (3.5-5.1); TOTAL PROTEIN 6.7 GM/DL (6.4-8.2)
[2016-10-15] MEDS: (RENVELA) SEVELAMER **CARBONate** 800 MG TAB PO SCH ×4 (08:00→18:00)
[2016-10-15] MEDS ORDERED: FLUoxetine 10 MG CAP PO ONE (08:45)
--- NOTE | 2016-10-15 08:53 | REP ---
MRCP: MRCP is attempted. Limited coronal T2-weighted images are performed of the abdomen. The patient was in too much pain to complete the entire exam. The common bile duct could not be visualized. Incidental note is made of bilateral renal atrophy. Signed by Robin Blood MD 10/15/2016 08:05 P
[2016-10-15] MEDS: NEPHRO-VIT TAB (NEPHROCAPS) PO SCH (10:18)
[2016-10-15] MEDS: OMEPRAZOLE 20 MG CAP PO SCH (10:18)
[2016-10-15] MEDS: LOSARTAN 50 MG TAB PO SCH ×2 (10:18→20:59)
[2016-10-15] MEDS: MINOXIDIL 10 MG TAB PO SCH ×2 (10:19→20:59)
[2016-10-15] MEDS: LR 1,000 ML IV SCH (10:19)
[2016-10-15] MEDS: **hydrALAZINE** 10 MG TAB PO SCH ×3 (10:19→20:59)
--- NOTE | 2016-10-15 10:37 | REP ---
MRCP: MRCP exam is accomplished utilizing multiple heavily T2-weighted sequences in the axial and coronal planes. MIP reconstruction images are performed. Correlation made with prior CT 10/14/2016. The common hepatic and common bile duct are mildly dilated up to 8 mm. No definite intraluminal stone is seen. Pancreatic duct is normal in caliber. Patient has had a cholecystectomy. I do not see significant free fluid. Liver, spleen, adrenals and pancreas appear otherwise unremarkable. There is bilateral renal atrophy. IMPRESSION: Slight dilatation of the common bile duct at 8 mm. No definite evidence of common bile duct stone. Signed by Robin Blood MD 10/15/2016 08:07 P
[2016-10-15] MEDS: KETOROLAC 30 MG/ML VIAL (J1885) IV SCH (18:17)
--- NOTE | 2016-10-15 19:11 | IPN ---
DATE: 10/15/2016 Mr. Bentley is seen this afternoon during dialysis. He reports that he vomited three times during the day. He denies any dyspnea or chest pain. He continues to have abdominal pain. He did have his MRI of abdomen completed this morning which showed slight dilatation of the common bile duct at 8 mm. No evidence of on bile duct stone. PHYSICAL EXAMINATION: Temperature is 99 degrees Fahrenheit, heart rate 60 per minute and respiratory rate 18 per minute. Blood pressure 150/80 mmHg. Head is atraumatic. Ears, nose and throat are unremarkable. Pupils are equal and reactive to light and sclera is anicteric. Neck is supple and without jugular venous distension (JVD) or thyroid enlargement. Heart sounds are regular and lungs clear to auscultation. Abdomen soft. Bowel sounds are present. Tenderness is still noted. He has large area of ecchymosis anterior abdominal wall infraumbilical area. Extremities have no cyanosis or clubbing. Neurologically he is awake, alert and oriented times three. Today's labs show WBC count 3.6, hemoglobin 10.0, hematocrit 30.8. Platelets 128. Sodium 131 and potassium 5.1. BUN 54 and creatinine 15.8. AST 60, ALT 156 and alkaline phosphatase 316. Total protein 6.7 and albumin 3.3. PROBLEMS: 1. End-stage renal disease. The patient is dialyzed this afternoon. He has tolerated dialysis treatment very well. We removed about 2 liters of fluid. 2. Hyponatremia. This is related to ongoing gastrointestinal (GI) issues and end-stage renal disease. His sodium is expected to be improved after dialysis. His electrolytes will be checked again tomorrow morning. 3. Abdominal pain and recurrent vomiting. Most likely related to his recent gallbladder surgery and its complications. Plan as per surgical service. 4. Hypertension. Blood pressure is reasonably well-controlled. I suggest to continue with all his chronic antihypertensive meds. 5. Anemia. The patient just had gallbladder surgery last week. Anemia is related to end-stage renal disease and blood loss. We will monitor closely and treat him with Aranesp as needed. So far his hemoglobin has remained stable. CBC will be checked tomorrow morning.
[2016-10-15] MEDS ORDERED: FLUoxetine 10 MG CAP PO SCH (21:00)
[2016-10-15 22:00] VITALS: BP 135/56
[2016-10-16] MEDS: metroNIDAZOLE 500 MG in APPROPRIATE DILUENT 1 EA IV SCH ×3 (00:48→11:58)
[2016-10-16] MEDS: CIPROFLOXACIN 200 MG in APPROPRIATE DILUENT 1 EA IV SCH (05:24)
[2016-10-16] MEDS: LR 1,000 ML IV SCH (05:25)
[2016-10-16 06:00] VITALS: BP 128/60
[2016-10-16 07:26] LABS: BASO % 0.7 % (0.0-1.0); EOS # 0.1 K/mm3 (0.0-0.50); EOS % 2.9 % (0.0-3.0); LARGE UNSTAINED CELL % 1.1 % (0.0-4.0); LYMPH # 0.5 K/mm3 (1.5-6.5); LYMPH % 13.9 % (24.0-44.0); MEAN CORPUSCULAR HEMOGLOBIN 28.8 pg (27.0-33.0); MEAN CORPUSCULAR HGB CONC 33.3 g/dl (32.0-36.5); MEAN CORPUSCULAR VOLUME 86.6 fl (80.0-96.0); MONO # 0.3 K/mm3 (0.0-0.8); MONO % 7.9 % (0.0-5.0); NEUTROPHILS # 2.6 K/mm3 (1.8-7.7); NEUTROPHILS % 73.4 % (36.0-66.0); PLATELET COUNT, AUTOMATED 164 k/mm3 (150-450); RED CELL DISTRIBUTION WIDTH 14.6 % (11.5-14.5); WHITE BLOOD COUNT 3.6 K/mm3 (4.0-10.0)
[2016-10-16 07:45] LABS: ALBUMIN 3.3 GM/DL (3.2-5.2); ALBUMIN/GLOBULIN RATIO 1.1 (1.00-1.93); BILIRUBIN,TOTAL 0.7 MG/DL (0.2-1.0); CALCIUM LEVEL 8.4 MG/DL (8.5-10.1); CREATININE FOR GFR 10.2 MG/DL (0.70-1.30); GLOMERULAR FILTRATION RATE 6.5 (>60); POTASSIUM SERUM 4.4 MEQ/L (3.5-5.1); TOTAL PROTEIN 6.3 GM/DL (6.4-8.2)
[2016-10-16] MEDS: (RENVELA) SEVELAMER **CARBONate** 800 MG TAB PO SCH ×2 (08:00→11:59)
[2016-10-16 08:54] VITALS: BP 128/60
[2016-10-16] MEDS: LOSARTAN 50 MG TAB PO SCH (08:54)
[2016-10-16] MEDS: **hydrALAZINE** 10 MG TAB PO SCH ×2 (08:54→16:17)
[2016-10-16] MEDS: SENOKOT S TAB PO SCH (08:54)
[2016-10-16] MEDS: OMEPRAZOLE 20 MG CAP PO SCH (08:54)
[2016-10-16] MEDS: MINOXIDIL 10 MG TAB PO SCH (08:54)
[2016-10-16] MEDS: NEPHRO-VIT TAB (NEPHROCAPS) PO SCH (08:54)
[2016-10-16] MEDS ORDERED: BISACODYL 5 MG TAB PO ONE (11:45)
[2016-10-16] MEDS ORDERED: MOM 30ML SUSPENSION UDC PO ONE (11:45)
[2016-10-16] MEDS ORDERED: DARBEPOETIN 300 MCG/0.6 ML *DIALYSIS* SYRINGE (J0882) IV SCH (12:00)
--- NOTE | 2016-10-16 12:36 | IPN ---
DATE: 10/16/2016 Mr. Bentley is seen this morning on his bedside. He reports that he did not sleep well last night. He denies any abdominal pain or vomiting at present. He has no dyspnea or chest pain. He did have hemodialysis yesterday afternoon which he tolerated very well. He continues to receive IV fluids and antibiotics. PHYSICAL EXAMINATION: Temperature 98.5 degrees Fahrenheit, heart rate 78 per minute and respiratory rate 14 per minute. Blood pressure 128/60 mmHg and oxygen saturation 92% on room air. Head: Is atraumatic. Neck is supple and without JVD or thyroid enlargement. Heart: Sounds are regular and lungs clear to auscultation. Abdomen: Soft and bowel sounds are present. There is some tenderness present on deep palpation. Extremities: Have no cyanosis or clubbing. Skin has no rash or ulcers other than ecchymosis on his abdominal wall following his surgery. Neurologically he is awake, alert and oriented times three. Today's labs show WBC count 3.6, hemoglobin 10.0 and hematocrit 30.1. Platelets 164. Sodium 137 and potassium 4.4. BUN 28 and creatinine 10.20. AST is 36, ALT 107, alkaline phosphatase 276 and albumin 3.3. PROBLEMS: 1. End-stage renal disease: The patient had his regular hemodialysis treatment yesterday. We will schedule his next dialysis for tomorrow. His volume status is very well compensated and electrolytes are within normal range. There is no indication for further dialysis today. 2. Anemia: His anemia has been stable and will continue to monitor closely. We will give him a dose of Aranesp 100 mcg tomorrow with his hemodialysis. 3. Hypertension: Blood pressure is very well controlled on current antihypertensives. 4. Abdominal pain and vomiting: Most likely this is related to his operative procedure. He had and MRI of abdomen without IV contrast yesterday, which did not show any evidence of common bile duct stone. He remains on IV Cipro and Flagyl.
[2016-10-16 14:00] VITALS: BP 116/56
[2016-10-16] MEDS ORDERED: ZOFR4TAB3 PO (23:52)
--- NOTE | 2016-10-18 21:41 | IPN ---
DATE: 10/11/2016 Mr. Bentley is seen in the morning of 10/11/2016, on his bedside. He underwent laparoscopic cholecystectomy on 10/10/2016, by Dr. Robert Peraza. He feels quite sore and weak this morning. He denies any dyspnea or chest pain. He remains nothing by mouth except sips of clear liquids. Generally he is still not feeling very well. PHYSICAL EXAMINATION: Temperature 98.6 degrees Fahrenheit, heart rate 76 per minute and respiratory rate 18 per minute. Blood pressure 129/58 mmHg and oxygen saturation 94% on room air. Head is atraumatic. Pupils are equal and reactive to light and sclerae is anicteric. Ears, nose and throat are unremarkable. Heart exam reveals regular S1, S2. Lungs clear to auscultation. Abdomen is quite tender and bowel sounds are hypoactive. Surgical dressings intact and dry. Extremities have no cyanosis or clubbing. Neurologically he is awake, alert and oriented times three. He did not have any new labs drawn today. PROBLEMS: 1. End-stage renal disease. The patient underwent hemodialysis on 10/10/2016. We will schedule his next hemodialysis for 10/12/2016. At present his volume status is well-compensated and electrolytes are within normal range. There is no need for dialysis today. 2. Hypertension. Blood pressure has been very well controlled. All his antihypertensives should be continued at prior to admission home dose. 3. Anemia. He has mild anemia which does not need any intervention at present. 4. Recurrent vomiting and abdominal pain. The patient underwent laparoscopic cholecystectomy just yesterday. Now his vomiting has improved. His pain is being managed with analgesics.
--- NOTE | 2016-11-13 21:31 | DSES ---
DATE OF ADMISSION: 10/14/2016 DATE OF DISCHARGE: 10/16/2016 DISCHARGE DIAGNOSES: 1. Status post cholecystectomy for acute cholecystitis. 2. Acute elevation of his liver function tests (LFTs) probably transient passage of gallstone through the biliary tree, improved. 3. End-stage renal disease on dialysis. 4. Hypertension. 5. Anemia. DISCHARGE MEDICATIONS: Continued medications: - fluoxetine 10 mg by mouth nightly - hydralazine 20 mg by mouth three times a day - losartan 50 mg by mouth every morning, 100 mg by mouth nightly - metoprolol 50 mg twice a day - minoxidil 10 mg twice a day - omeprazole 20 mg twice a day - sevelamer 4800 mg three times a day - [place] 5/325 mg tablet 1-2 tablets every 4 hours as needed for pain DISCHARGE INSTRUCTIONS: 1. Diet renal diet. 2. Activity is light activity times 2 weeks. 3. Followup with Dr. Swanson in 2 weeks' time, scheduled. HOSPITAL COURSE: Mr. Bentley is a 26-year-old gentleman who underwent laparoscopic cholecystectomy on 10/10/2016, subsequently discharged on 10/13/2016. He had some significant postoperative pain mainly in the right upper quadrant area but his LFTs remained normal. This seems to have been getting better. On the day of discharge he did okay. On the morning after, which is on his day of readmission, he woke up with significant pain. He presented himself back to the emergency department. His white cell count is normal but his LFTs are elevated with AST of 227, ALT 259, total bilirubin of 1.1, direct fraction 0.6. CT of the abdomen and pelvis shows no real biliary ductal dilatation or colon duct dilatation. He continues to have significant pain. An MRCP was ordered but he could not stay still long enough due to the pain and discomfort. By the following morning he felt slightly better and MRCP was able to be done which did not show any evidence of bile duct stone nor evidence for bile leakage. His pain continues to get better. He received dialysis during the admission. He initially was placed on antibiotics. This was discontinued. It took a couple more days before his pain settled down enough that he can be discharged home. On discharge the patient was tolerating regular food, still has some bouts of nausea but has improved.
== END 2016-10-16 16:40 | disposition home or self-care (01) | DRG 947 ==
LOC: M ED 08:59 → M ED INP 10:21 → M MS5PR 13:24
PROVIDERS: ADMIT Surgery; ATTEND Surgery
DX: G89.18 Other acute postprocedural pain (principal); N18.6 End stage renal disease; N25.81 Secondary hyperparathyroidism of renal origin; E87.1 Hypo-osmolality and hyponatremia; D62 Acute posthemorrhagic anemia; R10.9 Unspecified abdominal pain; I12.9 Hypertensive chronic kidney disease with stage 1 through stage 4 chronic kidney disease, or unspecified chronic kidney disease; Z79.899 Other long term (current) drug therapy; R79.89 Other specified abnormal findings of blood chemistry; E78.5 Hyperlipidemia, unspecified; F32.9 Major depressive disorder, single episode, unspecified

== ENCOUNTER 2016-10-16 20:43 | Emergency (ER) | payer MEDICARE, MEDICAID ==
[~2016-10-16] VITALS: Ht 188 cm; Wt 112.0 kg
[~2016-10-16 20:43] MED LIST changes: +OXYC1TAB23 PO
[2016-10-16] MEDS ORDERED: MORPHINE 4 MG/ML 1ML SYRINGE IV PRN (21:15)
[2016-10-16] MEDS ORDERED: ONDANSETRON 4MG/2ML VIAL (J2405) IV ONE (21:15)
[2016-10-16 21:25] LABS: BASO % 0.4 % (0.0-1.0); EOS # 0.1 K/mm3 (0.0-0.50); EOS % 2.2 % (0.0-3.0); LARGE UNSTAINED CELL % 0.5 % (0.0-4.0); LYMPH # 0.5 K/mm3 (1.5-6.5); LYMPH % 9.5 % (24.0-44.0); MEAN CORPUSCULAR HEMOGLOBIN 29.1 pg (27.0-33.0); MEAN CORPUSCULAR HGB CONC 33.8 g/dl (32.0-36.5); MEAN CORPUSCULAR VOLUME 86.1 fl (80.0-96.0); MONO # 0.4 K/mm3 (0.0-0.8); MONO % 8.2 % (0.0-5.0); NEUTROPHILS # 4.1 K/mm3 (1.8-7.7); NEUTROPHILS % 79.2 % (36.0-66.0); PLATELET COUNT, AUTOMATED 197 k/mm3 (150-450); RED CELL DISTRIBUTION WIDTH 14.8 % (11.5-14.5); WHITE BLOOD COUNT 5.2 K/mm3 (4.0-10.0)
[2016-10-16 21:29] LABS: INR 1.25
[2016-10-16 21:50] LABS: ALBUMIN 3.6 GM/DL (3.2-5.2); ALBUMIN/GLOBULIN RATIO 1.03 (1.00-1.93); BILIRUBIN,DIRECT 0.2 MG/DL (0.0-0.2); BILIRUBIN,TOTAL 0.5 MG/DL (0.2-1.0); CALCIUM LEVEL 8.3 MG/DL (8.5-10.1); CREATININE FOR GFR 12.3 MG/DL (0.70-1.30); GLOMERULAR FILTRATION RATE 5.3 (>60); POTASSIUM SERUM 4.3 MEQ/L (3.5-5.1); TOTAL PROTEIN 7.1 GM/DL (6.4-8.2)
[2016-10-16] MEDS ORDERED: ISOVUE-370 76% 100ML VIAL (Q9967) As Ordered ONE (22:14)
--- NOTE | 2016-10-16 23:30 | REPUSA ---
CT of the abdomen and pelvis with contrast Clinical statement: Pain. Hematoma. Technique: Multiple axial CT images were obtained from the base of the lungs through the floor of the pelvis utilizing 5 mm axial slices after administration of nonionic intravenous contrast. Coronal an d sagittal reconstructions were also obtained. Comparison: 10/14/2016. Findings: Chest: The visualized lung bases are clear. Abdomen: The patient is status post recent cholecystectomy. The hyperdense material in the gallbladde r fossa is grossly unchanged since the prior study. This likely represents hematoma. Chronic atrophy of the kidneys is unchanged. There is no evidence of hydronephrosis or nephrolithiasis. The liver, sp haim, pancreas, and adrenal glands are unremarkable. The aorta is within normal limits. There is no e vidence of abdominal lymphadenopathy or ascites. A small hyperdense fluid density at the umbilicus at the surgical incision site is stable. Pelvis: The bowel is unremarkable, with no obstructive or inflammatory changes. The urinary bladder i s within normal limits. The other pelvic structures appear grossly intact. There is no evidence of pe lvic lymphadenopathy. Moderate amount of pelvic ascites is noted. Bones: There are no suspicious osseous abnormalities seen. Impression: 1. The hyperdense material in the gallbladder fossa is grossly stable, most consistent with postsurgi lia hematoma. 2. Moderate amount of pelvic ascites, slightly increased since the prior examination. 3. Small hematoma at the incision site at the umbilicus, grossly stable. 4. The other CT findings are grossly stable.
[2016-10-16 23:46] VITALS: BP 128/59
[2016-10-16] MEDS ORDERED: ZOFR4TAB3 PO (23:52)
== END 2016-10-16 23:59 | disposition home or self-care (01) ==
LOC: M ED 21:34
DX: R11.10 Vomiting, unspecified (principal); N18.6 End stage renal disease; L76.32 Postprocedural hematoma of skin and subcutaneous tissue following other procedure; R18.8 Other ascites; Z79.899 Other long term (current) drug therapy
CPT/HCPCS: 74177; 80048; 80076; 83690; 85025; 85610; 85730; 87040; 93041; 99284; J2405; Q9967

== ENCOUNTER 2016-10-27 16:24 | Emergency (ER) | payer MEDICARE, MEDICAID ==
[~2016-10-27] VITALS: Ht 188 cm; Wt 108.4 kg
[~2016-10-27 16:24] MED LIST changes: +ZOFR4TAB3 PO
[2016-10-27] MEDS ORDERED: NS 1,000 ML IV SCH (17:27)
[2016-10-27] MEDS ORDERED: MORPHINE 4 MG/ML 1ML SYRINGE IV ONE (17:30)
[2016-10-27] MEDS ORDERED: NS 500 ML IV ONE (17:30)
[2016-10-27] MEDS ORDERED: PROMETHAZINE INJ 25 MG/ML VIAL (J2550) IV ONE (17:30)
[2016-10-27 17:53] LABS: BASO % 1.3 % (0.0-1.0); EOS # 0.2 K/mm3 (0.0-0.50); EOS % 4.5 % (0.0-3.0); LARGE UNSTAINED CELL # 0.1 K/mm3 (0.0-0.4); LARGE UNSTAINED CELL % 1.3 % (0.0-4.0); LYMPH # 0.8 K/mm3 (1.5-6.5); LYMPH % 19.8 % (24.0-44.0); MEAN CORPUSCULAR HEMOGLOBIN 29.3 pg (27.0-33.0); MEAN CORPUSCULAR HGB CONC 33.5 g/dl (32.0-36.5); MEAN CORPUSCULAR VOLUME 87.5 fl (80.0-96.0); MONO # 0.3 K/mm3 (0.0-0.8); MONO % 7.6 % (0.0-5.0); NEUTROPHILS # 2.6 K/mm3 (1.8-7.7); NEUTROPHILS % 65.5 % (36.0-66.0); PLATELET COUNT, AUTOMATED 216 k/mm3 (150-450); RED CELL DISTRIBUTION WIDTH 15.4 % (11.5-14.5)
[2016-10-27] MEDS ORDERED: GASTROGRAFIN SOLUTION 30ML (Q9963) As Ordered ONE (17:54)
[2016-10-27 18:17] LABS: ALBUMIN 4.1 GM/DL (3.2-5.2); ALBUMIN/GLOBULIN RATIO 1.14 (1.00-1.93); BILIRUBIN,DIRECT 0.2 MG/DL (0.0-0.2); BILIRUBIN,TOTAL 0.7 MG/DL (0.2-1.0); CREATININE FOR GFR 10.7 MG/DL (0.70-1.30); GLOMERULAR FILTRATION RATE 6.2 (>60); POTASSIUM SERUM 4.1 MEQ/L (3.5-5.1); TOTAL PROTEIN 7.7 GM/DL (6.4-8.2)
--- NOTE | 2016-10-27 19:10 | REPUSA ---
CT of the abdomen and pelvis without contrast Clinical statement: Pain. Technique: Multiple axial CT images were obtained from the base of the lungs to the floor of the pelv is utilizing 5 mm axial slices without administration of contrast. Coronal and sagittal reconstructio ns were also obtained. Comparison: 10/16/2016. Findings: Chest: The visualized lung bases are clear. Abdomen: The kidneys are atrophic bilateral. There is no evidence of hydronephrosis or nephrolithias is. The patient is status post cholecystectomy. The hyperdense fluid collection in the gallbladder f roel slightly smaller in size when compared the prior study but does remain. The liver, spleen, pancr eas, and adrenal glands are unremarkable. The aorta demonstrates normal caliber and contour. There is no abdominal lymphadenopathy or ascites. Pelvis: The bowel is unremarkable, with no obstructive or inflammatory changes. The appendix is wallace l. The focal hematoma at the surgical site at the level the umbilicus has slightly decreased in size . The urinary bladder is within normal limits. There is no pelvic lymphadenopathy. Small amount of as cites remains in the pelvis, but has decreased. The other pelvic structures appear unremarkable. Bones: There are no suspicious osseous abnormalities seen. Impression: 1. Overall interval improvement. 2. Decreased volume of hyperdense material in the gallbladder fossa, likely representing postsurgical hemorrhage. 3. Decreasing pelvic ascites. 4. Diminished prominence of the postsurgical hematoma at the surgical site in the anterior abdominal wall.
[2016-10-27] MEDS ORDERED: PERCOCET 5MG/325MG TAB PO ONE (21:15)
[2016-10-27] MEDS ORDERED: REGL10TA6 PO (21:38)
[2016-10-27] MEDS ORDERED: PERC5TAB6 PO (21:38)
[2016-10-27 21:44] VITALS: BP 128/65
--- NOTE | 2016-10-28 09:19 | REP ---
CHEST, PA AND LATERAL: COMPARISON: Portable examination of 08/27/2016 obtained at 11:27 a.m. There is global cardiomegaly, status quo. The interstitial edema seen on the prior portable examination has cleared. The lung peralta are clear and the pleural angles are sharp. The osseous structures are within normal limits. IMPRESSION: Cardiomegaly without evidence of acute cardiopulmonary disease. Signed by Robert Roque DO 10/28/2016 09:59 A
--- NOTE | 2016-10-29 08:53 | ED PDOC ---
Post-Departure Follow-Up radiology report faxed to Dr. Meeks and Camilla Casper MD October 29, 2016 08:53
== END 2016-10-27 21:48 | disposition home or self-care (01) ==
LOC: M ED 17:08
DX: R10.11 Right upper quadrant pain (principal); R10.12 Left upper quadrant pain; I50.9 Heart failure, unspecified; I10 Essential (primary) hypertension; G43.909 Migraine, unspecified, not intractable, without status migrainosus; F41.9 Anxiety disorder, unspecified; F32.9 Major depressive disorder, single episode, unspecified; Z87.891 Personal history of nicotine dependence; I51.7 Cardiomegaly; Z79.899 Other long term (current) drug therapy

== ENCOUNTER → 2016-10-31 | Emergency (ER) | payer MEDICARE, MEDICAID ==
[~2016-10-31] VITALS: Ht 188 cm; Wt 108.4 kg
[~2016-10-31] MED LIST changes: +CLONI1TA PO; +ONDA4TAB6 PO; +PERC5TAB6 PO; +REGL10TA6 PO; +SERT50TA PO
[2016-10-31 21:54] VITALS: BP 141/63
== END | disposition left against medical advice (07) ==
LOC: M ED 22:56
DX: R50.9 Fever, unspecified (principal); Z53.21 Procedure and treatment not carried out due to patient leaving prior to being seen by health care provider

== ENCOUNTER 2016-11-09 18:26 | Inpatient (IN) | payer MEDICARE, MEDICAID ==
[~2016-11-09] VITALS: Ht 188 cm; Wt 99.8 kg
[~2016-11-09 18:26] MED LIST changes: -CLONI1TA PO; -ONDA4TAB6 PO; -SERT50TA PO
--- NOTE | 2016-11-09 19:33 | ECGEPIP ---
Stationary ECG Study [facility] - ED Test Date: 2016-11-09 Pat Name: MIRZA GRUBER Department: Room: - Gender: M [employer]: : 1990 Requested By: Etta Lainez Order Number: [id number] Reading MD: Braxton Rivera Measurements Intervals [place] Rate: 55 P: 49 AK: 192 QRS: -11 QRSD: 91 T: 50 QT: 439 QTc: 422 Interpretive Statements SINUS BRADYCARDIA POSSIBLE LEFT ATRIAL ENLARGEMENT POSSIBLE LEFT VENTRICULAR HYPERTROPHY SIMILAR TO 08/26/16 Electronically Signed On 11-09-2016 19:32:58 EDT by Braxton Rivera
[2016-11-09 19:37] LABS: EOS # 0.1 K/mm3 (0.0-0.50); EOS % 2.6 % (0.0-3.0); LARGE UNSTAINED CELL % 0.8 % (0.0-4.0); LYMPH # 0.7 K/mm3 (1.5-6.5); LYMPH % 13.1 % (24.0-44.0); MEAN CORPUSCULAR HEMOGLOBIN 29.8 pg (27.0-33.0); MEAN CORPUSCULAR HGB CONC 34.1 g/dl (32.0-36.5); MEAN CORPUSCULAR VOLUME 87.3 fl (80.0-96.0); MONO # 0.3 K/mm3 (0.0-0.8); MONO % 5.7 % (0.0-5.0); NEUTROPHILS % 76.9 % (36.0-66.0); PLATELET COUNT, AUTOMATED 164 k/mm3 (150-450); RED CELL DISTRIBUTION WIDTH 14.8 % (11.5-14.5); WHITE BLOOD COUNT 5.2 K/mm3 (4.0-10.0)
[2016-11-09 19:43] LABS: INR 1.26
[2016-11-09 19:57] LABS: ALBUMIN 3.7 GM/DL (3.2-5.2); CALCIUM LEVEL 8.8 MG/DL (8.5-10.1); CREATININE FOR GFR 7.56 MG/DL (0.70-1.30); GLOMERULAR FILTRATION RATE 9.2 (>60); PHOSPHORUS LEVEL 3.2 MG/DL (2.5-4.9); POTASSIUM SERUM 4.1 MEQ/L (3.5-5.1)
[2016-11-09] MEDS ORDERED: ONDANSETRON 4MG/2ML VIAL (J2405) As Ordered ONE (19:58)
[2016-11-09] MEDS ORDERED: MORPHINE 4 MG/ML 1ML SYRINGE IV ONE (20:00)
[2016-11-09 20:04] LABS: ALBUMIN 3.8 GM/DL (3.2-5.2); ALBUMIN/GLOBULIN RATIO 1.09 (1.00-1.93); ALKALINE PHOSPHATASE 122 U/L (45-117); ALT/SGPT 15 U/L (12-78); AMYLASE 63 U/L (25-115); AST/SGOT 9 U/L (15-37); BILIRUBIN,DIRECT 0.2 MG/DL (0.0-0.2); BILIRUBIN,TOTAL 0.7 MG/DL (0.2-1.0); TOTAL PROTEIN 7.3 GM/DL (6.4-8.2)
[2016-11-09] MEDS ORDERED: ONDANSETRON 4MG/2ML VIAL (J2405) IV ONE (20:30)
[2016-11-09] MEDS ORDERED: OMEPRAZOLE 20 MG CAP PO SCH (21:00)
[2016-11-09] MEDS ORDERED: hydrALAZINE INJ 20 MG/ML VIAL IV ONE (21:00)
[2016-11-09] MEDS ORDERED: MORPHINE 10 MG/ML 1ML VIAL IV ONE ×2 (21:30→22:30)
--- NOTE | 2016-11-09 22:00 | REPUSA ---
CT of the abdomen and pelvis without contrast Clinical statement: Pain. Technique: Multiple axial CT images were obtained from the base of the lungs to the floor of the pelv is utilizing 5 mm axial slices without administration of contrast. Coronal and sagittal reconstructio ns were also obtained. Comparison: 10/27/2016. Findings: Chest: The visualized lung bases are clear. Abdomen: The kidneys are atrophic bilaterally. There is no evidence of hydronephrosis or nephrolithi asis. The liver, spleen, pancreas, and adrenal glands are unremarkable. There is a new small amount o f perihepatic and perisplenic ascites appreciated. The aorta demonstrates normal caliber and contour. There is no abdominal lymphadenopathy. Pelvis: The bowel is unremarkable, with no obstructive or inflammatory changes. The appendix is wallace l. The urinary bladder is within normal limits. There is no pelvic lymphadenopathy. There is a modera te amount of ascites in the pelvis, which is new since the prior study. The other pelvic structures a ppear unremarkable. Bones: There are no suspicious osseous abnormalities seen. Impression: 1. Interval development of moderate amount of abdominal and pelvic ascites, of uncertain etiology, bu t likely are secondary to chronic end stage renal disease. 2. No obstructive or inflammatory bowel changes. 3. No evidence of hydronephrosis ornephrolithiasis. 4. The other CT findings are stable.
[2016-11-09] MEDS ORDERED: OMEPRAZOLE 20 MG CAP PO ONE (22:15)
[2016-11-09] MEDS: NITROGLYCERIN 2% OINT 1 GM *U/D* PKT TOP SCH (23:00)
[2016-11-09] MEDS ORDERED: ONDANSETRON 4MG/2ML VIAL (J2405) IV PRN (23:00)
[2016-11-09] MEDS ORDERED: PANTOPRAZOLE 40MG INJ (PROTONIX) (C9113) IV ONE (23:00)
[2016-11-09] MEDS ORDERED: METOCLOPRAMIDE INJ 10MG/2ML VIAL (J2765) IV ONE (23:00)
[2016-11-09] MEDS ORDERED: ONDA4TAB6 PO (23:14)
[2016-11-09] MEDS ORDERED: CARV25TA PO (23:16)
[2016-11-09] MEDS: SUCRALFATE 1 GM TAB PO SCH (23:38)
[2016-11-10] VITALS (10 sets, daily range): BP systolic 125–192; BP diastolic 56–98
[2016-11-10] MEDS ORDERED: LABETALOL HCL 100 MG/20 ML VIAL IV ONE (00:15)
[2016-11-10] MEDS ORDERED: hydrALAZINE INJ 20 MG/ML VIAL IV ONE ×2 (00:15)
[2016-11-10] MEDS ORDERED: MINOXIDIL 10 MG TAB PO ONE ×2 (00:15→06:45)
[2016-11-10] MEDS ORDERED: cloNIDine 0.1 MG TAB PO ONE (00:15)
[2016-11-10] MEDS ORDERED: METOPROLOL TART 50 MG TAB PO ONE (00:15)
[2016-11-10] MEDS: ONDANSETRON 4MG/2ML VIAL (J2405) IV SCH ×4 (00:51→21:30)
[2016-11-10] MEDS: FLUoxetine 10 MG CAP PO SCH ×2 (02:59→21:27)
[2016-11-10] MEDS: METOCLOPRAMIDE INJ 10MG/2ML VIAL (J2765) IV SCH ×4 (03:06→21:30)
[2016-11-10] MEDS: NITROGLYCERIN 2% OINT 1 GM *U/D* PKT TOP SCH (03:06)
--- NOTE | 2016-11-10 03:40 | REPUSA ---
CLINICAL HISTORY: Hypoxemia. COMMENTS: The cardiac silhouette is enlarged. There is evidence for pulmonary venous congestion compatible with CHF. There is no definite radiographic evidence for a lung mass or consolidation. Bony structures appear normal. IMPRESSION: 1. Enlarged cardiac silhouette. 2. Pulmonary venous congestion compatible with CHF. Thank you for your kind referral of this patient.
--- NOTE | 2016-11-10 04:46 | HPE ---
DATE OF ADMISSION: 11/09/2016 PRIMARY CARE PHYSICIAN: Dr. Villanueva. INPATIENT HOSPITALIST ATTENDING: Topher Flores MD. CHIEF COMPLAINT: Abdominal pain, intractable nausea, vomiting. HISTORY OF PRESENTING ILLNESS: 26-year-old male with history of end-stage renal disease on hemodialysis Saturday, Saturday, Saturday secondary to vesicoureteral reflux, hypertension, hyperlipidemia, secondary hyperparathyroidism, depression, history of peritoneal dialysis catheter placement, removal in the past, and arteriovenous (AV) creation with cholecystectomy done on 10/10/2016, presents to the emergency room with complaints of epigastric abdominal pain radiating to the back for the past 3 weeks with intractable nausea and vomiting and a 12-pound weight loss due to decrease in appetite. Patient had his usual dialysis on Saturday. Today, he developed severe pain prompting him to present to the emergency room. Lipase, amylase levels were within normal limits. Patient had intractable vomiting, but normal potassium and bicarbonate. Creatinine is unchanged. Hospitalist service was called for further evaluation of epigastric abdominal pain. No medications were taken at home. Aside from radiation to the back, patient has no other radiation. Described as sharp and crampy at times, constant and persistent. No diarrhea. No constipation. Some subjective fevers at home. Highest was 99 and complaints of chills. No dysuria, urgency, frequency, cough, shortness of breath. PAST MEDICAL HISTORY: 1. End-stage renal disease secondary to vesicoureteral reflux on maintenance dialysis three times a week. 2. Hypertension. 3. Hyperlipidemia. 4. Secondary hyperparathyroidism. 5. Depression. PAST SURGICAL HISTORY: 1. Laparoscopic cholecystectomy (LAP TONY) 10/10/2016. 2. Peritoneal dialysis catheter placement and removal in the past. 3. AV creation. HOME MEDICATIONS: - minoxidil 10 mg twice a day - losartan 50 mg every morning, 100 every evening - metoprolol 50 twice a day - Renvela 3200 mg three times a day with meals - omeprazole 20 daily - hydralazine 20 mg three times a day - Nephro-Bryce one tablet daily - fluoxetine 10 mg daily ALLERGIES: No known drug allergies. SOCIAL HISTORY: Denies alcohol, drug use. Lives with significant other. Former smoker, less than a pack a day, quit about 2 months ago. FAMILY HISTORY: Noncontributory. REVIEW OF SYSTEMS: 12-point systems negative except for positive findings in history of present illness (HPI). PHYSICAL EXAMINATION: VITAL SIGNS: Blood pressure 217/112, pulse 74 sinus, respiratory rate 18, 95% on room air, afebrile, temperature 99.1. GENERAL: Patient appears distressed. No use of respiratory accessory muscles. Able to speak in full sentences. HEENT: Face is symmetric. No jugular venous distention, thyromegaly. No cervical lymphadenopathy. LUNGS: Clear to auscultation. No wheezing, rales or rhonchi. HEART: S1, S2, sinus rhythm. ABDOMEN: Soft, tender in the epigastric region. No rebound, guarding. Positive bowel sounds times four quadrants. EXTREMITIES: Skin warm, dry, well perfused. Trace edema. LABORATORY DATA: White count 5.2, hemoglobin 10, hematocrit 30, platelet count 164. Sodium 139, potassium 4.1, chloride 99, bicarbonate 34, BUN 16, creatinine 0.56, glucose 84, calcium 8.8. Total bilirubin 0.7, direct bilirubin 0.2, AST 9, ALT 15, alkaline phosphatase 122, total CK 78, MB fraction 1, troponin less than 0.02, albumin of 3.7, amylase 63, lipase of 136. CT abdomen and pelvis 11/09/2016, moderate amount of abdominopelvic ascites, unknown etiology. Most likely secondary to chronic end-stage renal disease. No obstructive and inflammatory bowel changes. No evidence of hydronephrosis or nephrolithiasis. Other CT findings are stable. ASSESSMENT AND PLAN: 26-year-old male with history of end-stage renal disease on maintenance hemodialysis, status post laparoscopic cholecystectomy (LAP TONY) 10/10/2016, secondary hyperparathyroidism, hypertension, hyperlipidemia, depression, history of peritoneal dialysis catheter placement and removal, arteriovenous (AV) creation, presented to the emergency room with 3-week history of worsening abdominal pain, epigastric region, radiation to the back, being worked up for possible gastrointestinal (GI) etiology with upper GI series, with intractable nausea and vomiting and a 12-pound weight loss due to decrease in oral intake. The patient is admitted to the hospitalist service for observation for the following issues: 1. Intractable nausea, vomiting with epigastric abdominal pain. Rule out GI etiology with upper GI series. Nothing by mouth diet while patient is vomiting. Renal diet once upper GI series and vomiting subside. Symptomatic relief with Reglan and intravenous (IV) Zofran, Carafate and Protonix intravenously. 2. Uncontrolled hypertension, hypertensive urgency. Patient has severe pain and has not taken his oral medications due to intractable nausea and vomiting. Patient will be admitted to progressive care unit (PCU) for IV hydralazine, labetalol, nitroglycerin if needed. Once the patient's oral intake is resumed and patient has no vomiting, patient may be resumed on his home dose of metoprolol, minoxidil. 3. End-stage renal disease on maintenance hemodialysis Saturday, Saturday, Saturday. Dr. Schmid has been consulted. 4. Secondary hyperparathyroidism. Resume replacement. 5. Deep venous thrombosis (DVT) prophylaxis with compression stockings. MTDD
[2016-11-10] MEDS ORDERED: FUROSEMIDE 100 MG/10 ML VIAL (J1940) IV ONE (05:00)
[2016-11-10] MEDS: SUCRALFATE 1 GM TAB PO SCH ×4 (05:05→23:34)
[2016-11-10] MEDS: HEPARIN SOD (PORCINE) 5000 UNITS/ML VIAL SC SCH ×3 (05:05→21:30)
[2016-11-10 06:15] LABS: BASO % 0.7 % (0.0-1.0); EOS # 0.1 K/mm3 (0.0-0.50); EOS % 1.4 % (0.0-3.0); LARGE UNSTAINED CELL # 0.1 K/mm3 (0.0-0.4); LARGE UNSTAINED CELL % 0.9 % (0.0-4.0); LYMPH # 0.6 K/mm3 (1.5-6.5); MEAN CORPUSCULAR HEMOGLOBIN 29.7 pg (27.0-33.0); MEAN CORPUSCULAR HGB CONC 33.9 g/dl (32.0-36.5); MEAN CORPUSCULAR VOLUME 87.8 fl (80.0-96.0); MONO # 0.3 K/mm3 (0.0-0.8); MONO % 5.1 % (0.0-5.0); NEUTROPHILS # 5.3 K/mm3 (1.8-7.7); PLATELET COUNT, AUTOMATED 161 k/mm3 (150-450); RED CELL DISTRIBUTION WIDTH 15.1 % (11.5-14.5); WHITE BLOOD COUNT 6.2 K/mm3 (4.0-10.0)
[2016-11-10] MEDS: cloNIDine 0.1 MG TAB PO SCH ×4 (06:28→23:31)
[2016-11-10] MEDS ORDERED: **hydrALAZINE HCL** 25 MG TAB PO ONE (06:45)
[2016-11-10 06:54] LABS: ALBUMIN 3.5 GM/DL (3.2-5.2); ALBUMIN/GLOBULIN RATIO 0.97 (1.00-1.93); BILIRUBIN,TOTAL 0.6 MG/DL (0.2-1.0); CALCIUM LEVEL 8.4 MG/DL (8.5-10.1); CREATININE FOR GFR 8.89 MG/DL (0.70-1.30); GLOMERULAR FILTRATION RATE 7.7 (>60); TOTAL PROTEIN 7.1 GM/DL (6.4-8.2)
[2016-11-10] MEDS: **hydrALAZINE** 10 MG TAB PO SCH ×3 (07:02→21:27)
[2016-11-10] MEDS: MINOXIDIL 10 MG TAB PO SCH ×2 (07:02→21:27)
[2016-11-10] MEDS ORDERED: DARBEPOETIN 100 MCG/0.5 ML *DIALYSIS* SYRINGE (J0882) IV SCH (08:15)
[2016-11-10] MEDS: METOPROLOL TART 50 MG TAB PO SCH ×2 (08:44→21:27)
[2016-11-10] MEDS: CARVedilol 12.5 MG TAB PO SCH ×2 (08:45→21:28)
[2016-11-10] MEDS: ACETAMINOPHEN TAB 650MG DOSE (2X325MG) PO PRN (08:45)
[2016-11-10] MEDS ORDERED: (RENVELA) SEVELAMER **CARBONate** 800 MG TAB PO SCH (09:00)
[2016-11-10] MEDS ORDERED: LIDOCAINE 1% SDV 5 ML VIAL SQ ONE (13:30)
[2016-11-10] MEDS ORDERED: HEPARIN 1,000 UNITS/ML 10ML VIAL (FOR RADIOLOGY& DIALYSIS ONLY) IV ONE (13:30)
--- NOTE | 2016-11-10 17:00 | CR ---
DATE OF CONSULTATION: 11/10/2016 REQUESTING PHYSICIAN: Dr. Topher Flores. REASON FOR CONSULTATION: Management of end-stage renal disease and possible fluid overload. CHIEF COMPLAINT: The patient presented to the emergency room last night because of abdominal pain, intractable nausea and vomiting. HISTORY OF PRESENT ILLNESS: Mr. Yves Bentley is a 26-year-old male with past medical history of end-stage renal disease on hemodialysis every Saturday, Saturday, Saturday. His last hemodialysis session was yesterday. He also has a history of hypertension, congestive heart failure, multiple other comorbidities as mentioned below. He presented to the emergency room last night after epigastric abdominal pain radiating to his back which has been going on for almost three weeks. The patient also had severe nausea and vomiting. The patient also reports about 12-pound weight loss because of loss of appetite. The patient reports that he initially thought that hemodialysis and ultrafiltration would help with his abdominal pain, but after getting his hemodialysis, his pain did not improve, so he presented to the emergency room. Initial labs in the emergency room including lipase and amylase were found to be negative. The patient got a chest x-ray done in the emergency room which showed pulmonary venous congestion and possible congestive heart failure (CHF). Nephrology service was called for help in the management of end-stage renal disease and possible fluid overload. PAST MEDICAL HISTORY: 1. End-stage renal disease on hemodialysis. Cause of end-stage renal disease was vesicoureteral reflux. 2. Hypertension. 3. Hyperlipidemia. 4. Secondary hyperparathyroidism. 5. History of depression. PAST SURGICAL HISTORY: 1. Status post laparoscopic cholecystectomy in September 2016. 2. History of peritoneal dialysis catheter placement and removal in the past. 3. Status post placement of the left forearm arteriovenous (AV) fistula. ALLERGIES: The patient does not have any known allergies. HOME MEDICATIONS: The patient's home medications include: - minoxidil 10 mg by mouth twice a day - losartan 50 mg in the morning, 100 in the evening - metoprolol 50 mg by mouth twice a day - Renvela 3.2 grams by mouth three times a day with meals - omeprazole 20 mg by mouth daily - hydralazine 20 mg three times a day - Nephro-Bryce one tablet daily - fluoxetine 10 mg daily FAMILY HISTORY: No significant family history of end-stage renal disease requiring hemodialysis. SOCIAL HISTORY: The patient denies any alcohol abuse or drug abuse. He quit smoking about two months ago. REVIEW OF SYSTEMS: CONSTITUTIONAL: The patient denies any fevers, chills, rigors. He does report weight loss. EYES: Denies any double vision or blurry vision. ENT: He denies any dysphagia or odynophagia or ear discharge. CARDIOVASCULAR: He denies any chest pain or palpitations. RESPIRATORY: He denies any fever, cough, wheezing or shortness of breath. GASTROINTESTINAL (GI): The patient reports intractable abdominal pain and nausea and vomiting. GENITOURINARY: He denies any dysuria or hematuria. MUSCULOSKELETAL: He denies any muscle aches and pains. CENTRAL NERVOUS SYSTEM (FILM EXAMINER): He denies any seizures, strokes, or weakness. PSYCHIATRIC: The patient reports history of depression. SKIN: He denies any rashes or ulcers. All other review of systems is negative. PHYSICAL EXAMINATION: GENERAL: The patient is awake, alert, and oriented times three, sitting in the bed in no apparent distress. VITAL SIGNS: Blood pressure is 176/86, pulse is 67, respiratory rate of 14, saturating 94% on room air. Intake and output: Urine output is not recorded. Emesis output is 100 mL so far. HEAD/NECK: Extraocular muscles intact. Pupils equal, round, and reactive to light. Mucous membranes are moist. Neck is supple. There is no jugular venous distention (JVD). CARDIOVASCULAR: S1, S2, regular rate. No murmur, rub, or gallop. RESPIRATORY: Chest is clear to auscultation bilaterally. Bilateral equal air entry. No rales or rhonchi. ABDOMEN: Soft. Positive bowel sounds. Mild tenderness to deep palpation in the epigastric region. Otherwise there is no organomegaly. EXTREMITIES: No clubbing or cyanosis. Pulses are 2+. CENTRAL NERVOUS SYSTEM (FILM EXAMINER): No focal neurological deficit. Power is 5/5 in all extremities. AV ACCESS: The patient has a left forearm AV fistular with positive thrill and bruit. SKIN: No rashes or ulcers. LYMPHATIC: No cervical, axillary or inguinal lymphadenopathy. LABORATORY DATA: CBC showed a WBC of 6.2, hemoglobin 10.1, platelets of 161. BMP showed sodium 138, potassium 4, chloride 100, bicarbonate 30, BUN 23, creatinine 8.8, calcium 8.4. IMAGING: CT scan of the abdomen and pelvis done last night showed moderate amount of abdominal pelvic ascites. No obstructive or inflammatory bowel changes. A chest x-ray done today morning showed enlarged cardiac silhouette. Pulmonary venous congestion compatible with CHF. CURRENT INPATIENT MEDICATIONS: The patient's inpatient medications include: - Tylenol as needed - Coreg 25 mg by mouth twice a day - clonidine 0.3 mg by mouth every six hours - Aranesp 100 mcg intravenous (IV) with hemodialysis was started today - fluoxetine 10 mg at bedtime - Lasix 60 mg IV times one dose was give - hydralazine 25 mg by mouth three times a day - labetalol 10 mg IV one dose was given - losartan 100 mg by mouth at bedtime - metoprolol 10 mg IV one dose was also given last night - metoprolol 50 mg by mouth twice a day started - minoxidil 10 mg by mouth one dose was given, and he was also started on 10 mg by mouth twice a day - he was given morphine pain medication - he is on Prilosec 40 mg by mouth one dose - Zofran IV as needed - he was on Renvela 4.8 grams by mouth three times a day - Carafate 1 gram by mouth every six hours ASSESSMENT: A 26-year-old male with past medical history of end-stage renal disease on hemodialysis, status post laparoscopic cholecystectomy in the past, history of hypertension and depression, admitted this time with intractable abdominal pain and nausea and vomiting, along with weight loss. Nephrology service following the patient for management of end-stage renal disease. PLAN: 1. Intractable nausea and vomiting and epigastric abdominal pain. The patient has already been started on IV Zofran. He is on IV Protonix as patient gives history of peptic ulceration and gastrointestinal (GI) bleeding in the childhood. Continue current medications. I am going to hold Renvela. High-dose Renvela can sometimes cause abdominal pain and nausea and vomiting as well. The patient's phosphorus level is acceptable. If needed, the patient can be started on a lower dose or maybe alternative phosphorus binder. 2. Hypertensive urgency. The patient was found to have blood pressures in the 200s. Part of it might be secondary to intractable pain. The patient was given IV hydralazine, by mouth clonidine, and IV labetalol overnight. Blood pressures are acceptable at this time. Continue home dose of minoxidil, carvedilol, hydralazine, losartan, and metoprolol. 3. End-stage renal disease on hemodialysis. The patient's regular dialysis days are Saturday, Saturday, Saturday. He was dialyzed according to his regular schedule yesterday, but given high blood pressures and evidence of pulmonary venous congestion on the chest x-ray, the patient will be dialyzed again. We shall try to do an ultrafiltration of three liters as tolerated by his blood pressure. 4. Anemia in end-stage renal disease. The patient will be given a dose of Aranesp 100 mcg IV with hemodialysis. 5. Depression. Continue current dose of fluoxetine 10 mg by mouth at bedtime. 6. Chronic kidney disease , mineral bone disease. The is on Renvela for hyperphosphatemia. Phosphorus level is better now. He is having severe nausea and vomiting. Hold the phosphorus binders at this time. I would restart the phosphorus binders once the acute issues are over. Thank you for involving us in the care of this patient. We shall be happy to follow the patient along with you tomorrow morning.
[2016-11-10] MEDS: LOSARTAN 50 MG TAB PO SCH (21:26)
[2016-11-11] MEDS: METOCLOPRAMIDE INJ 10MG/2ML VIAL (J2765) IV SCH ×2 (03:42→08:42)
[2016-11-11] MEDS: ONDANSETRON 4MG/2ML VIAL (J2405) IV SCH ×2 (03:42→08:42)
[2016-11-11 06:00] VITALS: BP 132/60
[2016-11-11] MEDS: HEPARIN SOD (PORCINE) 5000 UNITS/ML VIAL SC SCH ×4 (06:00→20:15)
[2016-11-11] MEDS: cloNIDine 0.1 MG TAB PO SCH ×2 (06:09→21:39)
[2016-11-11] MEDS: SUCRALFATE 1 GM TAB PO SCH ×3 (06:09→17:37)
[2016-11-11 07:36] LABS: MEAN CORPUSCULAR HEMOGLOBIN 29.9 pg (27.0-33.0); MEAN CORPUSCULAR HGB CONC 33.6 g/dl (32.0-36.5); MEAN CORPUSCULAR VOLUME 88.9 fl (80.0-96.0); RED CELL DISTRIBUTION WIDTH 14.9 % (11.5-14.5); WHITE BLOOD COUNT 4.4 K/mm3 (4.0-10.0)
[2016-11-11 08:03] LABS: CALCIUM LEVEL 8.5 MG/DL (8.5-10.1); CREATININE FOR GFR 7.12 MG/DL (0.70-1.30); GLOMERULAR FILTRATION RATE 9.9 (>60)
[2016-11-11] MEDS: ACETAMINOPHEN TAB 650MG DOSE (2X325MG) PO PRN (08:42)
[2016-11-11] MEDS: METOPROLOL TART 50 MG TAB PO SCH ×2 (08:42→20:15)
[2016-11-11] MEDS: **hydrALAZINE** 10 MG TAB PO SCH ×3 (08:43→20:14)
[2016-11-11] MEDS: CARVedilol 12.5 MG TAB PO SCH ×2 (08:43→20:14)
[2016-11-11] MEDS: MINOXIDIL 10 MG TAB PO SCH ×2 (08:43→20:14)
[2016-11-11] MEDS ORDERED: MAALOX 30 ML SUSP *UDC PO PRN (10:30)
--- NOTE | 2016-11-11 11:38 | MHIPNPDOC ---
[facility] Progress Note Progress Note DATE OF SERVICE: 11/11/16 HISTORY: Evaluated pt. with with history of ESRD secondary to vesicoureteral reflux, hypertension, hyperlipidemia, secondary hyperparathyroidism, depression , history of peritoneal dialysis catheter placement and who according to his Attending Physician, stated that he wanted to . The patient states that " I'm fed up of telling everybody that I want to kill myself, I'm not gonna hang myself from the ceiling" and says: "I said that I felt I wanted to because I'm sick of coming into this hospital. I've been here 6 times in the last month, I've been throwing up, I can't hold any food in my stomach and they can't figure out what's wrong with me" The patient was evaluated in his room, sitting on his bed, with poor eye contact , normal speech, irritable/depressed mood and sad affect. His thought process is intact, his thought content is positive for hopelessness and helplessness. He is frustrated and angry but is not suicidal. He doesn't have any homicidal thoughts and he is not psychotic. His attention and concentration are poor, his abstract thinking and computation are fair, his recent and remote memory are intact. His judgment, insight and impulse control are fair. Assessment: The patient is depressed due to his medical condition but he is not suicidal. He is positive for symptoms of anxiety too and he has had episodes of pannick attacks in the past. He needs an SSRI to take care of his depression and anxiety. He could be started on Zoloft 50 mgs. PO QD and Ativan 1 mg.PO PRN for anxiety/agitation. He doesn't need to be on suicide precautions at this time. DIAGNOSES: 1. . 2. . 3. . ASSESSMENT: MANAGEMENT PLAN: . TIME SPENT: minutes. Vital Signs Vital Signs Date Time Temp Pulse Resp B/P (MAP) Pulse Ox O2 Delivery O2 Flow Rate FiO2 11/11/16 09:00 Room Air 11/11/16 08:43 113/54 11/11/16 08:43 72 11/11/16 06:00 98.5 18 95 11/10/16 09:00 Laboratory Data 24H Labs Laboratory Tests 2 11/11/16 07:25: Anion Gap 9, Glomerular Filtration Rate 9.9L, Blood Urea Nitrogen 14, Creatinine 7.12H, Sodium Level 137, Potassium Level 4.0, Chloride Level 98, Carbon Dioxide Level 30, Calcium Level 8.5 CBC/BMP Laboratory Tests 11/11/16 07:25 Red Blood Count 3.58 L, Mean Corpuscular Volume 88.9, Mean Corpuscular Hemoglobin 29.9, Mean Corpuscular Hemoglobin Concent 33.6, Red Cell Distribution Width 14.9 H, Calcium Level 8.5 Current Medications Current Medications Acetaminophen (Tylenol Tab) 650 mg Q4HP PRN PO MILD PAIN OR FEVER Last administered on 11/11/16 08:42; Start 11/09/16 at 23:00; Stop 12/09/16 at 22:59 Al Hydrox/Mg Hydrox/Simethicone (Mylanta) 30 ml Q4HP PRN PO HEARTBURN; Start at 10:30; Stop 12/11/16 at 10:29 Carvedilol (COReg) 25 mg BID PO Last administered on 11/10/16 21:28; Start at 09:00; Stop 12/10/16 at 08:59 Clonidine HCl (Catapres) 0.1 mg BID PO ; Start 11/11/16 at 21:00; Stop 12/11/16 at 20:59 Clonidine HCl (Catapres) 0.3 mg Q6H PO Last administered on 11/11/16 06:09; Start 11/10/16 at 06:00; Stop 11/11/16 at 11:08; Status DC Darbepoetin Aries (Aranesp (Dialysis Use)) 100 mcg HD IV ; Start 11/10/16 at 08: 15; Stop 12/10/16 at 08:14 Fluoxetine HCl (PROzac) 10 mg QHS PO Last administered on 11/10/16 21:27; Start 11/09/16 at 21:00; Stop 12/09/16 at 20:59 Heparin Sodium (Porcine) (Heparin) 5,000 units Q8H SC Last administered on 11/10 21:30; Start 11/10/16 at 06:00; Stop 11/15/16 at 05:59 Home Med (Med Rec Complete!) ASDIRECTED XX ; Start 11/09/16 at 23:30; Stop at 23:30; Status DC Hydralazine HCl (Apresoline) 20 mg TID PO Last administered on 11/10/16 21:27 ; Start 11/10/16 at 16:00; Stop 12/10/16 at 15:59 Losartan Potassium (Cozaar) 100 mg QHS PO Last administered on 11/10/16 21:26 ; Start 11/10/16 at 21:00; Stop 12/10/16 at 20:59 Metoclopramide HCl (REGLAN INJection) 10 mg Q6H IV Last administered on 08:42; Start 11/10/16 at 03:00; Stop 11/11/16 at 10:33; Status DC Metoclopramide HCl (REGLAN INJection) 10 mg Q6H PRN IV NAUSEA OR VOMITING; Start 11/11/16 at 15:00; Stop 12/11/16 at 14:59 Metoprolol Tartrate (Lopressor) 50 mg BID PO Last administered on 11/10/16 21: 27; Start 11/10/16 at 09:00; Stop 12/10/16 at 08:59 Minoxidil (Loniten) 10 mg BID PO Last administered on 11/10/16 21:27; Start at 21:00; Stop 12/10/16 at 20:59 Nitroglycerin (Nitrobid 2%) 1 INCH TOPICALLY Q4H H... DAILY@0300,1900,2300 TOP Last administered on 11/10/16 03:06; Start 11/09/16 at 23:00; Stop 11/10/16 at 17:35; Status DC Omeprazole (PriLOSEC) 20 mg BID PO ; Start 11/09/16 at 21:00; Stop 11/10/16 at 00:30; Status DC Ondansetron HCl (ZOFRAN INJection) 4 mg Q6HP PRN IV NAUSEA OR VOMITING; Start 11/09/16 at 23:00; Stop 11/10/16 at 00:30; Status DC Ondansetron HCl (ZOFRAN INJection) 8 mg Q6H IV Last administered on 11/11/16 08:42; Start 11/10/16 at 03:00; Stop 11/11/16 at 10:33; Status DC Ondansetron HCl (ZOFRAN INJection) 8 mg Q6H PRN IV NAUSEA OR VOMITING; Start at 15:00; Stop 12/11/16 at 14:59 Sevelamer Carbonate (Renvela) 4,800 mg TID PO ; Start 11/10/16 at 09:00; Stop at 11:33; Status DC Sucralfate (Carafate) 1 gm Q6H PO Last administered on 11/11/16t 06:09; Start 11/10/16 at 00:00; Stop 11/11/16 at 23:59 Allergies Coded Allergies: No Known Drug Allergy (Verified Allergy, Unknown, 04/15/16) NITHIN PANG MD November 11, 2016 11:38
[2016-11-11 14:00] VITALS: BP 138/65
[2016-11-11 14:01] VITALS: BP 141/68
[2016-11-11 14:02] VITALS: BP 147/67
[2016-11-11] MEDS ORDERED: ONDANSETRON 4MG/2ML VIAL (J2405) IV PRN (15:00)
[2016-11-11] MEDS ORDERED: METOCLOPRAMIDE INJ 10MG/2ML VIAL (J2765) IV PRN ×2 (15:00→16:45)
[2016-11-11] MEDS: SERTRALINE HCL 50 MG TAB PO SCH (15:45)
--- NOTE | 2016-11-11 16:34 | IPNPDOC ---
Subjective Date Seen The patient was seen on 11/11/16. Subjective Chief Complaint/HPI The patient is a 26-year-old male admitted with a reason for visit of Abd Pain. General: Denies: Chills, Night Sweats Constitutional: Denies: Chills, Fever Eyes: Denies: Pain, Vision change ENT: Denies: Head Aches, Ear Pain Skin: Denies: Rash, Lesions Pulmonary: Denies: Dyspnea, Cough Cardiovascular: Denies: Chest Pain, Palpitations Gastrointestinal: Reports: Nausea, Other Symptoms (epigastric pain), Denies: Vomiting Genitourinary: Denies: Dysuria, Frequency Hematologic: Denies: Bruising, Bleeding Excessively Endocrine: Denies: Polydipsia, Polyphagia Objective Physical Examination General Exam: Positive: Alert, Cooperative, No Acute Distress ENT Exam: Positive: Atraumatic, Mucous membr. moist/pink Neck Exam: Negative: JVD Chest Exam: Positive: Clear to auscultation, Normal air movement Heart Exam: Positive: Rate Normal, Normal S1, Normal S2 Abdomen Exam: Positive: Soft, Negative: Tenderness Extremity Exam: Negative: Tenderness, Swelling Assessment /Plan Plan/VTE VTE Prophylaxis Ordered?: Yes Plan Intractable nausea, vomiting with epigastric abdominal pain Possibly secondary to Renvela which can sometimes cause GI upset CT scan of the abdomen with no evidence of infectious or inflammatory process Continue Reglan, intravenous (IV) Zofran, Carafate and Protonix Mylanta when necessary Patient notes improvement of epigastric pain Patient advanced to a renal diet today We will continue to monitor the patient's progress Hypertensive urgency, resolved Continue current regimen as prescribed End-stage renal disease on Hemodialysis Saturday, Saturday, Saturday The patient did have an additional dialysis session on 11/10/16 for fluid overload, at which time 3.5 L of fluid was taken off Dr. Schmid of nephrology on board History of depression The patient did voice to one of our staff members that he "felt like dying because he is so sick of being in the hospital." The patient was then placed on suicidal precautions with a one-to-one sitter. Upon further questioning, the patient states that he has just been frustrated about being in the hospital and did not actually want to kill himself or or anyone else and he did not have any ideas of doing so. Psychiatry was consulted and has cleared the patient of having any suicidal precautions. The patient's Prozac has been discontinued, and he has been started on Zoloft as per the recommendations of our psychiatry team. We will continue to monitor the patient's progress Secondary hyperparathyroidism Deep venous thrombosis (DVT) prophylaxis Compression stockings. Disposition-we will continue to monitor the patient's progress and see how he tolerates a diet today. We will check orthostatics as well as the patient was complaining of dizziness today. Anticipate discharge in the next 24-48 hours. VS, I&O, 24H, Fishbone Vital Signs/I&O Vital Signs Date Time Temp Pulse Resp B/P (MAP) Pulse Ox O2 Delivery O2 Flow Rate FiO2 11/11/16 15:46 131/62 11/11/16 14:02 77 11/11/16 14:00 97.9 18 97 Room Air 11/10/16 09:00 I&O- Last 24 Hours up to 6 AM 11/11/16 05:59 Intake Total 660 ml Output Total 3500 ml Balance -2840 ml Laboratory Data 24H LABS Laboratory Tests 2 11/11/16 07:25: Anion Gap 9, Glomerular Filtration Rate 9.9L, Blood Urea Nitrogen 14, Creatinine 7.12H, Sodium Level 137, Potassium Level 4.0, Chloride Level 98, Carbon Dioxide Level 30, Calcium Level 8.5 CBC/BMP Laboratory Tests 11/11/16 07:25 Red Blood Count 3.58 L, Mean Corpuscular Volume 88.9, Mean Corpuscular Hemoglobin 29.9, Mean Corpuscular Hemoglobin Concent 33.6, Red Cell Distribution Width 14.9 H, Calcium Level 8.5 ZEV MARQUEZ MD November 11, 2016 16:34
--- NOTE | 2016-11-11 18:49 | IPN ---
DATE: 11/11/2016 SUBJECTIVE: The patient was seen and examined at the bedside today. He was actually getting ready to go to the restroom when I saw him, and the patient reported that he feels very dizzy when he stands up. He still is having upper abdominal pain. He is nauseated. The patient does not feel good. Otherwise, he tolerated the hemodialysis procedure well, and ultrafiltration was done. REVIEW OF SYSTEMS: The patient denies any fevers, chills, rigors, headaches, nausea, vomiting, or chest pain. He does report dizziness and lightheadedness. He does report pain epigastrium and decreased appetite. Rest of review of systems is negative. OBJECTIVE: VITAL SIGNS: Temperature is 97.9 degrees Fahrenheit, blood pressure 138/65, pulse 71, respiratory rate of 18, saturating 97% on room air. INTAKE AND OUTPUT: The patient got hemodialysis done yesterday, 3.5 liters of fluid was removed. Weight in the bed scale is 101.6 kg. PHYSICAL EXAMINATION: GENERAL: The patient is awake, alert, and oriented times three, sitting in the bed, mild painful distress. HEAD/NECK: Extraocular muscles intact. Pupils equal, round, and reactive to light. Mucous membranes are moist. Neck is supple. There is no jugular venous distention (JVD). CARDIOVASCULAR: S1, S2. Regular rate. No murmur, rub, or gallop. RESPIRATORY: Chest is clear to auscultation bilaterally. Bilateral equal air entry. No rales or rhonchi. ABDOMEN: Soft. Positive bowel sounds. Mild tenderness to deep palpation in the epigastrium. No organomegaly. EXTREMITIES: No clubbing or cyanosis. Pulses are 2+. CENTRAL NERVOUS SYSTEM (HEMODIALYSIS PATIENT CARE SPECIALIST): No focal neurological deficit. Power is 5/5 in all extremities. ARTERIOVENOUS (AV) ACCESS: The patient has a left forearm AV fistula with positive thrill and bruit. LABORATORY DATA: CBC showed a WBC of 4.4, hemoglobin is 10.7, platelets 175. BMP shows sodium 137, potassium 4, chloride 98, bicarbonate 30, BUN 14, creatinine 7.1. Calcium is 8.5. IMAGING: There is no new imaging available at this time. CURRENT MEDICATIONS: The patient's medications were all reviewed by me. Because the patient is complaining of dizziness and lightheadedness, I have decreased his clonidine dose to 0.1 mg by mouth twice a day. His fluoxetine has been stopped. Reglan has also been stopped, and dose will be decreased because of end-stage renal disease. The patient has been started on Mylanta every four hours for heartburn. ASSESSMENT: A 26-year-old male with past medical history of end-stage renal disease on hemodialysis, hypertension, and depression, admitted this time with intractable abdominal pain and nausea and vomiting, along with weight loss. Nephrology service following the patient for management of end-stage renal disease. PLAN: 1. Intractable nausea and vomiting and epigastric pain. The patient is already on intravenous (IV) Zofran. He was started on IV Reglan as well. I have decreased the dose of Reglan because of end-stage renal disease. Continue IV Protonix. I have held his Renvela because sometimes phosphorus binders can cause nausea, vomiting and pain abdomen as well. 2. Hypertensive urgency. The patient is on multiple antihypertensives. He was dialyzed yesterday as well, and fluid was removed even though yesterday was not his dialysis day. Blood pressure is acceptable now. He is actually feeling dizzy and lightheaded. I have decreased the dose of clonidine to 0.1 mg by mouth twice a day. 3. End-stage renal disease on hemodialysis. The patient's regular dialysis days are Saturday, Saturday, Saturday. He got extra session of dialysis yesterday. Next session of hemodialysis will be done tomorrow morning. 4. Anemia in end-stage renal disease. The patient's hemoglobin is 10.7 which is acceptable at this time. He got a dose of Aranesp 100 mcg IV with hemodialysis yesterday. 5. Depression. Management is as per psychiatry recommendations. 6. Chronic kidney disease, mineral bone disease. Patient came in with pain abdomen, nausea and vomiting. He was on high dose of Renvela which is being held at this time. Once his pain abdomen improves, he will be started on a lower dose of phosphorus binder. I will check the phosphorus level again tomorrow morning. His phosphorus level yesterday was within the acceptable limits. The patient will be given a low-phosphorus diet as well. The patient is not ready to be discharged at this time because he is still symptomatic. Plan of care was discussed with the hospitalist team, Dr. Topher Flores.
[2016-11-11 20:13] VITALS: BP 118/54
[2016-11-11] MEDS: LOSARTAN 50 MG TAB PO SCH (20:14)
[2016-11-11 21:40] VITALS: BP_SYST 123; BP_SYST 128; BP_DIAS 54; BP_DIAS 56; BP_DIAS 59
[2016-11-12 05:36] LABS: MEAN CORPUSCULAR HEMOGLOBIN 30.2 pg (27.0-33.0); RED CELL DISTRIBUTION WIDTH 14.9 % (11.5-14.5)
[2016-11-12 05:50] LABS: CALCIUM LEVEL 8.4 MG/DL (8.5-10.1); CREATININE FOR GFR 10.2 MG/DL (0.70-1.30); GLOMERULAR FILTRATION RATE 6.5 (>60); PHOSPHORUS LEVEL 3.3 MG/DL (2.5-4.9); POTASSIUM SERUM 3.7 MEQ/L (3.5-5.1)
[2016-11-12 06:00] VITALS: BP_SYST 135; BP_SYST 150; BP_SYST 151; BP_SYST 159; BP_DIAS 60; BP_DIAS 62; BP_DIAS 67; BP_DIAS 69
[2016-11-12] MEDS: HEPARIN SOD (PORCINE) 5000 UNITS/ML VIAL SC SCH ×3 (06:00→21:03)
[2016-11-12] MEDS: SERTRALINE HCL 50 MG TAB PO SCH (06:00)
[2016-11-12] MEDS: **hydrALAZINE** 10 MG TAB PO SCH ×3 (06:01→21:01)
[2016-11-12] MEDS: MINOXIDIL 10 MG TAB PO SCH ×2 (06:02→21:01)
[2016-11-12] MEDS: CARVedilol 12.5 MG TAB PO SCH ×2 (06:02→21:02)
[2016-11-12] MEDS: cloNIDine 0.1 MG TAB PO SCH ×2 (06:02→21:02)
[2016-11-12] MEDS: METOPROLOL TART 50 MG TAB PO SCH ×2 (06:03→21:03)
--- NOTE | 2016-11-12 07:18 | NOCOX ---
DATE OF PROCEDURE: ORDERED BY: Dr. Flores Nocturnal recording oximetry was performed on room air. The baseline saturation was 92%. Lowest oxygen saturation reliably recorded 90%. There was no significant pattern identified. IMPRESSION: Normal nocturnal recording oximetry on room air.
[2016-11-12] MEDS ORDERED: HEPARIN 1,000 UNITS/ML 10ML VIAL (FOR RADIOLOGY& DIALYSIS ONLY) IV ONE (12:30)
[2016-11-12] MEDS ORDERED: LIDOCAINE 1% SDV 5 ML VIAL SQ ONE (12:30)
--- NOTE | 2016-11-12 13:20 | IPN ---
DATE: 11/12/2016 Mr. Bentley is seen this morning during hemodialysis on his bedside. He is feeling better and denies any further vomiting or abdominal pain. He has been n.p.o. since last evening and is scheduled for upper GI series later this afternoon. The patient has no dyspnea or chest pain at present. PHYSICAL EXAMINATION: Temperature 99.1 degrees Fahrenheit, heart rate 65 per minute and respiratory rate 20 per minute. Blood pressure 150/70 mmHg and oxygen saturation 95% on room air. Head is atraumatic. Ears, nose and throat are unremarkable. Neck is supple and without JVD or thyroid enlargement at this time. Heart sounds are regular. Lungs sound clear to auscultation. Abdomen is soft, nondistended and nontender. Bowel sounds are present. Extremities have no cyanosis or clubbing. Skin has no rash or ulcers. Neurologically, he is awake, alert and oriented times three. Today's labs show WBC count 4.0, hemoglobin 10.6 and hematocrit 31.2. Platelets 195. Sodium 136 and potassium 3.7. BUN 23 and creatinine 10.20. Calcium level was 8.4 and phosphorus 3.3. PROBLEMS: 1. End-stage renal disease. The patient is being dialyzed today and he is tolerating his dialysis treatment very well. 2. Ascites. He was noticed to have some ascites on his CAT scan. We are trying to remove about 3 liters of fluid today. He has been n.p.o. 3. Recurrent vomiting. The patient is scheduled for upper GI series later this afternoone. His abdomen is nontender at this point. He has been seen by Dr. Peraza previously following his gallbladder surgery and will follow up with Dr. Peraza. 4. Anemia. His anemia is stable and does not need any intervention at this point. 5. Hypertension. Blood pressure seems to be reasonably well-controlled on current antihypertensive medications.
[2016-11-12 14:00] VITALS: BP 170/58
--- NOTE | 2016-11-12 16:28 | IPNPDOC ---
Subjective Date Seen The patient was seen on 11/12/16. Subjective Chief Complaint/HPI The patient is a 26-year-old male admitted with a reason for visit of Abd Pain. General: Denies: Chills, Night Sweats Constitutional: Denies: Chills, Fever Eyes: Denies: Pain, Vision change ENT: Denies: Head Aches, Ear Pain Skin: Denies: Rash, Lesions Pulmonary: Denies: Dyspnea, Cough Cardiovascular: Denies: Chest Pain, Palpitations Gastrointestinal: Reports: Nausea, Abdominal Pain, Denies: Vomiting Genitourinary: Denies: Dysuria, Frequency Hematologic: Denies: Bruising, Bleeding Excessively Objective Physical Examination General Exam: Positive: Alert, Cooperative, No Acute Distress ENT Exam: Positive: Atraumatic, Mucous membr. moist/pink Neck Exam: Negative: JVD Chest Exam: Positive: Clear to auscultation, Normal air movement Heart Exam: Positive: Rate Normal, Normal S1, Normal S2 Abdomen Exam: Positive: Soft, Negative: Tenderness Extremity Exam: Negative: Tenderness, Swelling Assessment /Plan Plan/VTE VTE Prophylaxis Ordered?: Yes Plan Intractable nausea, vomiting with epigastric abdominal pain Possibly secondary to Renvela which can sometimes cause GI upset CT scan of the abdomen with no evidence of infectious or inflammatory process Continue Reglan, intravenous (IV) Zofran, Carafate and Protonix Mylanta when necessary Patient notes improvement of epigastric pain Patient advanced to a renal diet today Upper GI Series scheduled for the AM We will continue to monitor the patient's progress Hypertensive urgency, resolved Continue current regimen as prescribed End-stage renal disease on Hemodialysis Saturday, Saturday, Saturday The patient did have an additional dialysis session on 11/10/16 for fluid overload, at which time 3.5 L of fluid was taken off Dr. Schmid of nephrology on board History of depression The patient did voice to one of our staff members that he "felt like dying because he is so sick of being in the hospital." The patient was then placed on suicidal precautions with a one-to-one sitter. Upon further questioning, the patient states that he has just been frustrated about being in the hospital and did not actually want to kill himself or or anyone else and he did not have any ideas of doing so. Psychiatry was consulted and has cleared the patient of having any suicidal precautions. The patient's Prozac has been discontinued, and he has been started on Zoloft as per the recommendations of our psychiatry team. We will continue to monitor the patient's progress Secondary hyperparathyroidism Deep venous thrombosis (DVT) prophylaxis Compression stockings. Disposition-we will continue to monitor the patient's progress and see how he tolerates a diet today. Upper GI Series scheduled for the AM. Anticipate D/C in the next 24-48hrs pending clinical improvement. VS, I&O, 24H, Fishbone Vital Signs/I&O Vital Signs Date Time Temp Pulse Resp B/P (MAP) Pulse Ox O2 Delivery O2 Flow Rate FiO2 11/12/16 14:54 170/58 11/12/16 14:00 97.7 81 20 96 Room Air 11/10/16 09:00 I&O- Last 24 Hours up to 6 AM 11/12/16 05:59 Intake Total 640 ml Output Total 0 ml Balance 640 ml Laboratory Data 24H LABS Laboratory Tests 2 11/12/16 05:17: Anion Gap 10, Glomerular Filtration Rate 6.5L, Blood Urea Nitrogen 23#H, Creatinine 10.20H, Sodium Level 136, Potassium Level 3.7, Chloride Level 98, Carbon Dioxide Level 28, Calcium Level 8.4L, Whole Blood Ionized Calcium 4.3L, Phosphorus Level 3.3 CBC/BMP Laboratory Tests 11/12/16 05:17 Red Blood Count 3.51 L, Mean Corpuscular Volume 89.0, Mean Corpuscular Hemoglobin 30.2, Mean Corpuscular Hemoglobin Concent 34.0, Red Cell Distribution Width 14.9 H, Calcium Level 8.4 L ZEV MARQUEZ MD November 12, 2016 16:28
[2016-11-12 18:27] VITALS: BP 142/58
[2016-11-12] MEDS ORDERED: diphenhydrAMINE 25 MG CAP PO PRN (18:45)
[2016-11-12] MEDS: LOSARTAN 50 MG TAB PO SCH (21:03)
[2016-11-12 22:00] VITALS: BP 130/59
[2016-11-13] MEDS: HEPARIN SOD (PORCINE) 5000 UNITS/ML VIAL SC SCH ×2 (05:00→13:43)
[2016-11-13 06:00] VITALS: BP 118/54
[2016-11-13 07:05] LABS: MEAN CORPUSCULAR HEMOGLOBIN 30.1 pg (27.0-33.0); MEAN CORPUSCULAR HGB CONC 34.2 g/dl (32.0-36.5); MEAN CORPUSCULAR VOLUME 87.9 fl (80.0-96.0); RED CELL DISTRIBUTION WIDTH 15.7 % (11.5-14.5); WHITE BLOOD COUNT 4.3 K/mm3 (4.0-10.0)
[2016-11-13 07:08] LABS: CALCIUM LEVEL 8.9 MG/DL (8.5-10.1); CREATININE FOR GFR 7.9 MG/DL (0.70-1.30); GLOMERULAR FILTRATION RATE 8.8 (>60); POTASSIUM SERUM 3.6 MEQ/L (3.5-5.1)
[2016-11-13] MEDS ORDERED: E-Z-HD 98% w/w 340GM SUSP BTL As Ordered ONE (08:12)
[2016-11-13] MEDS ORDERED: E-Z-PAQUE 96% w/w SUSP 176GM BTL As Ordered ONE (08:12)
[2016-11-13] MEDS ORDERED: E-Z-GAS II EFFERVESCENT PACKET (SODIUM BICARB./CITRIC ACID/SIMETHICONE) As Ordered ONE (08:12)
[2016-11-13] MEDS: cloNIDine 0.1 MG TAB PO SCH (08:58)
[2016-11-13] MEDS: METOPROLOL TART 50 MG TAB PO SCH (08:58)
[2016-11-13] MEDS: CARVedilol 12.5 MG TAB PO SCH (08:58)
[2016-11-13] MEDS: MINOXIDIL 10 MG TAB PO SCH (08:59)
[2016-11-13] MEDS: **hydrALAZINE** 10 MG TAB PO SCH ×2 (08:59→15:59)
[2016-11-13] MEDS: SERTRALINE HCL 50 MG TAB PO SCH (08:59)
[2016-11-13 14:00] VITALS: BP 119/56
[2016-11-13] MEDS ORDERED: SERT50TA PO (14:23)
[2016-11-13] MEDS ORDERED: CLONI1TA PO (14:23)
[2016-11-13] MEDS ORDERED: LOSA50TA20 PO (14:23)
--- NOTE | 2016-11-13 14:41 | DS.PDOC ---
Discharge Summary General Date of Admission November 09, 2016 at 22:48 Date of Discharge 11/13/16 Specialist/Consultants Involve Dr. Schmid, Dr. Villanueva of Nephrology Discharge Summary PROCEDURES PERFORMED DURING STAY: None. ADMITTING DIAGNOSES: 1. . Intractable nausea/vomiting with a epigastric/abdominal pain 2. . End-stage renal disease on hemodialysis 3. . Hypertensive urgency DISCHARGE DIAGNOSES: 1. . Intractable nausea/vomiting with a epigastric/abdominal pain 2. . End-stage renal disease on hemodialysis 3. . Hypertensive urgency COMPLICATIONS/CHIEF COMPLAINT: Abd Pain. HISTORY OF PRESENT ILLNESS: . 26-year-old male with history of end-stage renal disease on hemodialysis Saturday , Saturday, Saturday secondary to vesicoureteral reflux, hypertension, hyperlipidemia, secondary hyperparathyroidism, depression, history of peritoneal dialysis catheter placement, removal in the past, and arteriovenous ( AV) creation with cholecystectomy done on 10/10/2016, presented to the emergency room with complaints of epigastric abdominal pain radiating to the back for the past 3 weeks with intractable nausea and vomiting. Of note, the patient had followed up with surgery as an outpatient following the cholecystectomy and there were no acute findings noted. During this time, the patient states that he has had sharp and crampy pain which is constant and persistent in the epigastric area. He denies any constipation or associated diarrhea. In the ER, a CT scan of the abdomen revealed development of a moderate amount of abdominal and pelvic ascites attributable to the patient's underlying ESRD with no obstructive or inflammatory bowel changes noted. The patient was admitted to the hospitalist service for further evaluation and management. After his admission overnight the patient was noted to be increasingly short of breath and was noted to be desaturating into the 80s on room air with some respiratory distress. A Chest x-ray was done and revealed an increase in pulmonary venous congestion compatible with CHF. Nephrology was consulted and the patient did receive an extra session of dialysis on Saturday11/10/16. Following dialysis the patient appears to be breathing more comfortably and denies any respiratory complaints. The patient was also noted to be in hypertensive urgency with an elevated blood pressure. The patient's blood pressure medications were adjusted and his blood pressure has been reasonably controlled here on his new regimen. As for the patient's abdominal/epigastric pain. The patient's lab work including LFTs and amylase/lipase levels were noted to be within normal limits. An upper GI series was also ordered and revealed no acute findings. The patient was advanced to a renal diet and has been able to tolerate that without any episodes of vomiting. Of note, it appears that the patient's epigastric pain might have been triggered by the patient's phosphate binder Renvela, as that does have a side effect profile of GI discomfort. This has been discontinued for the time being, and will be restarted at a lower dose as an outpatient as per the patient's clinical professor. At this time, patient notes that he is feeling better and is eager to return home. I've advised the patient to follow-up with his primary care physician within 7 days. He has been advised to return to the ER if his symptoms return or persist. DISCHARGE MEDICATIONS: Please see below. ALLERGIES: Please see below. PHYSICAL EXAMINATION ON DISCHARGE: VITAL SIGNS: Please see below. General Exam: Positive: Alert, Cooperative, No Acute Distress ENT Exam: Positive: Atraumatic, Mucous membr. moist/pink Neck Exam: Negative: JVD Chest Exam: Positive: Clear to auscultation, Normal air movement Heart Exam: Positive: Rate Normal, Normal S1, Normal S2 Abdomen Exam: Positive: Soft, Negative: Tenderness Extremity Exam: Negative: Tenderness, Swelling LABORATORY DATA: Please see below. IMAGING: CLINICAL HISTORY: Hypoxemia. COMMENTS: The cardiac silhouette is enlarged. There is evidence for pulmonary venous congestion compatible with CHF. There is no definite radiographic evidence for a lung mass or consolidation. Bony structures appear normal. IMPRESSION: 1. Enlarged cardiac silhouette. 2. Pulmonary venous congestion compatible with CHF. CT of the abdomen and pelvis without contrast Clinical statement: Pain. Technique: Multiple axial CT images were obtained from the base of the lungs to the floor of the pelvis utilizing 5 mm axial slices without administration of contrast. Coronal and sagittal reconstructions were also obtained. Comparison: 10/27/2016. Findings: Chest: The visualized lung bases are clear. Abdomen: The kidneys are atrophic bilaterally. There is no evidence of hydronephrosis or nephrolithiasis. The liver, spleen, pancreas, and adrenal glands are unremarkable. There is a new small amount of perihepatic and perisplenic ascites appreciated. The aorta demonstrates normal caliber and contour. There is no abdominal lymphadenopathy. Pelvis: The bowel is unremarkable, with no obstructive or inflammatory changes. The appendix is normal. The urinary bladder is within normal limits. There is no pelvic lymphadenopathy. There is a moderate amount of ascites in the pelvis, which is new since the prior study. The other pelvic structures appear unremarkable. Bones: There are no suspicious osseous abnormalities seen. Impression: 1. Interval development of moderate amount of abdominal and pelvic ascites, of uncertain etiology, but likely are secondary to chronic end stage renal disease. 2. No obstructive or inflammatory bowel changes. 3. No evidence of hydronephrosis ornephrolithiasis. PROGNOSIS: Medically stable ACTIVITY: As tolerated. DIET: . Renal diet DISCHARGE PLAN: DISPOSITION: . Home DISCHARGE INSTRUCTIONS: 1. . Follow-up with primary care physician within one week 2. . Follow up with nephrology for dialysis on Mondays, Wednesdays, and Fridays 3. . Return to ER if symptoms return or worsen DISCHARGE CONDITION: Stable. TIME SPENT ON DISCHARGE: Greater than 30 minutes. Vital Signs/I&Os Vital Signs Date Time Temp Pulse Resp B/P (MAP) Pulse Ox O2 Delivery O2 Flow Rate FiO2 11/13/16 08:58 74 135/60 11/13/16 06:00 98.6 17 95 Room Air 11/10/16 09:00 I&O- Last 24 Hours up to 6 AM 11/13/16 06:00 Intake Total 840 ml Output Total 3000 ml Balance -2160 ml Laboratory Data Labs 24H Laboratory Tests 2 11/13/16 06:16: Anion Gap 8, Glomerular Filtration Rate 8.8L, Blood Urea Nitrogen 17, Creatinine 7.90H, Sodium Level 135L, Potassium Level 3.6, Chloride Level 98, Carbon Dioxide Level 29, Calcium Level 8.9 CBC/BMP Laboratory Tests 11/13/16 06:16 Red Blood Count 3.62 L, Mean Corpuscular Volume 87.9, Mean Corpuscular Hemoglobin 30.1, Mean Corpuscular Hemoglobin Concent 34.2, Red Cell Distribution Width 15.7 H, Calcium Level 8.9 Discharge Medications Scheduled Carvedilol (Carvedilol) 25 Mg Tab, 25 MG PO BID, (Reported) Clonidine Hcl (Catapres) 0.1 Mg Tab, 0.1 MG PO BID Fluoxetine Hcl (Fluoxetine) 10 Mg Cap, 10 MG PO QHS, (Reported) Hydralazine HCl (Hydralazine HCl) 10 Mg Tab, 20 MG PO TID, (Reported) Losartan Potassium (Losartan Potassium) 50 Mg Tab, 50 MG PO QAM, (Reported) Losartan Potassium (Losartan Potassium) 100 Mg Tab, 100 MG PO QHS, (Reported) Losartan Potassium (Losartan Potassium) 50 Mg Tab, 100 MG PO QHS Metoprolol Tartrate (Metoprolol Tartrate) 50 Mg Tab, 50 MG PO BID, (Reported) Minoxidil (Minoxidil) 10 Mg Tab, 10 MG PO BID, (Reported) Omeprazole (Omeprazole) 20 Mg Cap, 20 MG PO BID, (Reported) Sertraline Hcl (Sertraline HCl) 50 Mg Tab, 50 MG PO DAILY Sevelamer Carbonate (Renvela) 800 Mg Tab, 4,800 MG PO TID, (Reported) Scheduled PRN Ondansetron (Ondansetron Odt) 4 Mg Tab, 4 MG PO Q4H PRN for NAUSEA, (Reported) Allergies Coded Allergies: No Known Drug Allergy (Verified Allergy, Unknown, 04/15/16) ZEV MARQUEZ MD November 13, 2016 14:41
[2016-11-13 15:59] VITALS: BP 130/59
--- NOTE | 2016-11-13 16:19 | REP ---
UPPER GI, AIR CONTRAST: The procedure was performed under the direct supervision of Dr. Wayne. The images were reviewed with Dr. Wayne. The fire marshal refinery film shows no organomegaly or pathological masses. The intestinal gas pattern is nonspecific. Liquid barium and gas-producing granules were given in the erect position as well as liquid barium in the prone oblique position in order to perform a double contrast upper GI examination. The oral and pharyngeal stages of deglutition are unremarkable. Esophageal transport is prompt and efficient and there is no esophagitis, stricture or mucosal ring. There is a small sliding type hiatal hernia present. Gastroesophageal reflux is not demonstrated on this examination. The stomach montaño are normally outlined. The rugal folds are smooth and regular. There is no gastritis, neoplasm or ulcer disease. In the postbulbar duodenum there are thickened folds, which may represent duodenitis. There is no isrrael ulcer identified. The visualized portion of the proximal small bowel appears normal in course and caliber. IMPRESSION: 1. There is a small sliding type hiatal hernia. 2. There are thickened folds in the post bulbar duodenum which may represent duodenitis. 2 minutes and 26 second of fluoroscopy time was utilized for this procedure. Reviewed by HAIDER Ramos 11/14/2016 12:17 PEdited and Signed by Enrike Wayne MD 11/14/2016 03:48 P
[2016-11-13] MEDS ORDERED: OMEP20CA3 PO (16:26)
--- NOTE | 2016-11-13 20:31 | IPN ---
DATE: 11/13/2016 Mr. Bentley is seen this morning on his bedside. He reports that today he had some abdominal pain again. Yesterday he did not have any pain. However, did not eat much. He underwent hemodialysis yesterday and upper gastrointestinal (GI) series was postponed which is scheduled for 10 a.m. today. The patient denies any fever, chills, diarrhea or vomiting. PHYSICAL EXAMINATION: Temperature 98.6 degrees Fahrenheit, heart rate 68 per minute and respiratory rate 18 per minute. Blood pressure 118/54 mmHg and oxygen saturation 95% on room air. Head is atraumatic. Ears, nose and throat are unremarkable. Pupils are equal and reactive to light and sclerae is anicteric. Neck is supple and without jugular venous distention (JVD) or thyroid enlargement. Heart sounds are regular and lungs clear to auscultation. Abdomen soft and nontender and without a palpable organomegaly. Bowel sounds are normal. Extremities have no cyanosis or clubbing. Skin has no rash or ulcers. Neurologically he is awake, alert and oriented times three. Today's labs show WBC count 4.3, hemoglobin 10.9 and hematocrit 31.8. Platelets 205. Sodium 135, potassium 3.6. BUN is 17 and creatinine 7.90. Calcium level 8.9. PROBLEMS: 1. End-stage renal disease. The patient was dialyzed yesterday and will schedule his next dialysis tomorrow. At present his volume status is well-compensated and his labs are appropriate. There is no need for dialysis today. 2. Abnormal electrolytes. He has slightly low sodium and borderline potassium level due to his GI symptoms and poor oral intake. At present no intervention is indicated as it is likely to improve once his oral intake improves. 3. Abdominal pain and history of recurrent vomiting. The patient is scheduled for upper GI series later today. He has been afebrile. At present he is being treated symptomatically. 4. Anemia. His anemia is stable and does not need any intervention. 5. Hypertension. Blood pressure is also well controlled on current medications. No changes are indicated.
--- NOTE | 2016-11-15 22:24 | IPN ---
DATE: 11/10/2016 With medications, the patient's blood pressure of 201/108 has improved to 156/77. Therefore, the patient will be transferred from progressive care unit (PCU) to medical/surgical floor. Continue with oral medications for now. Discontinue nitroglycerin topical ointment once the blood pressure is maintained on his home dose of medications.
== END 2016-11-13 19:00 | disposition home or self-care (01) | DRG 391 ==
LOC: M ED 19:31 → OBSVTOIN 22:48 → M ED INP 22:48 → INTOOBSV 22:48 → M MSPAV 11-10 01:52
PROVIDERS: ADMIT General Practice; ATTEND Internal Medicine
DX: R11.2 Nausea with vomiting, unspecified (principal); N18.6 End stage renal disease; N25.81 Secondary hyperparathyroidism of renal origin; R18.8 Other ascites; R10.13 Epigastric pain; I16.0 Hypertensive urgency; E78.5 Hyperlipidemia, unspecified; N13.70 Vesicoureteral-reflux, unspecified; Z79.899 Other long term (current) drug therapy; D63.1 Anemia in chronic kidney disease; F32.9 Major depressive disorder, single episode, unspecified

== ENCOUNTER 2016-11-14 17:42 | Emergency (ER) | payer MEDICARE, MEDICAID ==
[~2016-11-14] VITALS: Ht 188 cm; Wt 103.0 kg
[~2016-11-14 17:42] MED LIST changes: +CLONI1TA PO; +ONDA4TAB6 PO; +SERT50TA PO
[2016-11-14] MEDS ORDERED: NORCO, ANEXSIA 5/325MG TABLET (HYDROcodone/ACETAMINOPHEN) PO ONE (18:45)
[2016-11-14] MEDS ORDERED: ONDANSETRON 4MG/2ML VIAL (J2405) IV ONE (18:45)
[2016-11-14] MEDS ORDERED: ONDANSETRON 4 MG ORAL DISINTEGRATING TAB (S0181) PO ONE (18:45)
[2016-11-14] MEDS ORDERED: PANTOPRAZOLE 40MG TAB (PROTONIX) PO ONE (18:45)
[2016-11-14 18:50] LABS: BASO % 0.8 % (0.0-1.0); EOS # 0.2 K/mm3 (0.0-0.50); EOS % 2.9 % (0.0-3.0); LARGE UNSTAINED CELL # 0.1 K/mm3 (0.0-0.4); LARGE UNSTAINED CELL % 1.3 % (0.0-4.0); LYMPH # 1.1 K/mm3 (1.5-6.5); LYMPH % 21.2 % (24.0-44.0); MEAN CORPUSCULAR HEMOGLOBIN 30.2 pg (27.0-33.0); MEAN CORPUSCULAR HGB CONC 34.4 g/dl (32.0-36.5); MEAN CORPUSCULAR VOLUME 87.7 fl (80.0-96.0); MONO # 0.4 K/mm3 (0.0-0.8); MONO % 8.1 % (0.0-5.0); NEUTROPHILS # 3.3 K/mm3 (1.8-7.7); NEUTROPHILS % 65.6 % (36.0-66.0); PLATELET COUNT, AUTOMATED 256 k/mm3 (150-450); RED CELL DISTRIBUTION WIDTH 16.1 % (11.5-14.5); WHITE BLOOD COUNT 5.1 K/mm3 (4.0-10.0)
[2016-11-14 19:12] LABS: ALBUMIN 4.1 GM/DL (3.2-5.2); ALBUMIN/GLOBULIN RATIO 1.08 (1.00-1.93); BILIRUBIN,DIRECT 0.1 MG/DL (0.0-0.2); BILIRUBIN,TOTAL 0.6 MG/DL (0.2-1.0); CALCIUM LEVEL 9.5 MG/DL (8.5-10.1); CREATININE FOR GFR 6.27 MG/DL (0.70-1.30); GLOMERULAR FILTRATION RATE 11.5 (>60); POTASSIUM SERUM 3.8 MEQ/L (3.5-5.1); TOTAL PROTEIN 7.9 GM/DL (6.4-8.2)
== END 2016-11-14 21:10 | disposition home or self-care (01) ==
LOC: M ED 19:21
DX: R10.9 Unspecified abdominal pain (principal); I10 Essential (primary) hypertension; K27.9 Peptic ulcer, site unspecified, unspecified as acute or chronic, without hemorrhage or perforation; F17.200 Nicotine dependence, unspecified, uncomplicated; Z79.899 Other long term (current) drug therapy

== ENCOUNTER 2016-11-16 18:29 | Emergency (ER) | payer MEDICARE, MEDICAID ==
[~2016-11-16] VITALS: Ht 188 cm; Wt 102.1 kg
[2016-11-16] MEDS ORDERED: GI COCKTAIL 50ML BTL(HYOSCYAMINE/MAALOX/LIDOCAINE VISCOUS)(1:3:1) PO ONE (19:00)
[2016-11-16] MEDS ORDERED: ASPIRIN 81 MG CHEW TABLET PO ONE (19:00)
[2016-11-16] MEDS ORDERED: LABETALOL HCL 100 MG/20 ML VIAL IV STA (19:09)
[2016-11-16] MEDS ORDERED: KETOROLAC 30 MG/ML VIAL (J1885) IV ONE (19:15)
[2016-11-16] MEDS ORDERED: diphenhydrAMINE INJ 50MG/ML VIAL (J1200) IV ONE (19:15)
[2016-11-16] MEDS ORDERED: METOCLOPRAMIDE INJ 10MG/2ML VIAL (J2765) IV ONE (19:15)
[2016-11-16] MEDS ORDERED: NS 1,000 ML IV ONE (19:15)
[2016-11-16 19:29] VITALS: BP 195/100
[2016-11-16 19:37] LABS: BASO % 0.9 % (0.0-1.0); EOS # 0.2 K/mm3 (0.0-0.50); EOS % 3.1 % (0.0-3.0); LARGE UNSTAINED CELL # 0.1 K/mm3 (0.0-0.4); LYMPH # 1.3 K/mm3 (1.5-6.5); LYMPH % 23.8 % (24.0-44.0); MEAN CORPUSCULAR HEMOGLOBIN 29.7 pg (27.0-33.0); MEAN CORPUSCULAR VOLUME 87.3 fl (80.0-96.0); MONO # 0.4 K/mm3 (0.0-0.8); MONO % 7.1 % (0.0-5.0); NEUTROPHILS # 3.4 K/mm3 (1.8-7.7); NEUTROPHILS % 63.1 % (36.0-66.0); PLATELET COUNT, AUTOMATED 207 k/mm3 (150-450); RED CELL DISTRIBUTION WIDTH 16.1 % (11.5-14.5); WHITE BLOOD COUNT 5.4 K/mm3 (4.0-10.0)
[2016-11-16 19:43] LABS: INR 1.13
--- NOTE | 2016-11-16 19:54 | REP ---
Clinical: Chest pain . Comparison: 11/10/2016 . Findings: The mediastinum and cardiac silhouette are stable and mild cardiomegaly cannot be excluded. The lung peralta are clear without acute consolidation, effusion, or pneumothorax. Skeletal structures are intact. Impression: Cardiomegaly suggested. No acute obvious pleuroparenchymal process. Signed by Renny Zaragoza MD 11/16/2016 07:46 P
[2016-11-16] MEDS ORDERED: NS 500 ML IV ONE (20:00)
[2016-11-16 20:29] LABS: ALBUMIN 3.7 GM/DL (3.2-5.2); ALBUMIN/GLOBULIN RATIO 0.95 (1.00-1.93); ALKALINE PHOSPHATASE 101 U/L (45-117); ALT/SGPT 19 U/L (12-78); ANION GAP 9 MEQ/L (8-16); AST/SGOT 17 U/L (15-37); BILIRUBIN,DIRECT 0.1 MG/DL (0.0-0.2); BILIRUBIN,TOTAL 0.5 MG/DL (0.2-1.0); BLOOD UREA NITROGEN 12 MG/DL (7-18); CALCIUM LEVEL 8.9 MG/DL (8.5-10.1); CARBON DIOXIDE LEVEL 28 MEQ/L (21-32); CHLORIDE LEVEL 102 MEQ/L (98-107); CREATININE FOR GFR 6.41 MG/DL (0.70-1.30); GLOMERULAR FILTRATION RATE 11.2 (>60); GLUCOSE, FASTING 91 MG/DL (70-105); POTASSIUM SERUM 3.2 MEQ/L (3.5-5.1); SODIUM LEVEL 139 MEQ/L (136-145); TOTAL PROTEIN 7.6 GM/DL (6.4-8.2)
[2016-11-16 21:04] VITALS: BP 166/89
--- NOTE | 2016-11-17 07:22 | ECGEPIP ---
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
== END 2016-11-16 21:14 | disposition home or self-care (01) ==
LOC: M ED 19:34
DX: R07.9 Chest pain, unspecified (principal); Z79.899 Other long term (current) drug therapy; G43.909 Migraine, unspecified, not intractable, without status migrainosus; I12.0 Hypertensive chronic kidney disease with stage 5 chronic kidney disease or end stage renal disease; N18.6 End stage renal disease; Z99.2 Dependence on renal dialysis; F41.9 Anxiety disorder, unspecified; F32.9 Major depressive disorder, single episode, unspecified; Z87.891 Personal history of nicotine dependence
CPT/HCPCS: 36415; 71010; 80048; 80076; 82550; 82553; 83690; 84484; 85025; 85610; 93005; 93041; 94760; 96361; 96374; 96375; 99285; J1200; J1885; J2765

== ENCOUNTER 2017-01-03 19:19 | Emergency (ER) | payer MEDICARE, MEDICAID ==
[~2017-01-03] VITALS: Ht 188 cm; Wt 108.3 kg
[~2017-01-03 19:19] MED LIST changes: -COLA100C3 PO; +COLA100C5 PO; -METO50TA2; -METO50TA2 PO; +METO50TA7; +METO50TA7 PO; +MINO10TA PO; -MINO10TAB PO; +MINO2.5T; +MINO2.5T PO; -MINO25TA; -MINO25TA PO; +PERC5TAB12 PO; -PERC5TAB6 PO
[2017-01-03 20:29] VITALS: BP 138/70
--- NOTE | 2017-01-04 09:03 | REP ---
RIGHT WRIST, FOUR VIEWS: There is no evidence of an acute fracture, dislocation or intrinsic bone disease. IMPRESSION: No fracture or dislocation. Signed by Robin Blood MD 01/04/2017 05:20 P
== END 2017-01-03 20:35 | disposition home or self-care (01) ==
LOC: M ED 19:19
DX: S63.501A Unspecified sprain of right wrist, initial encounter (principal); X50.1XXA Overexertion from prolonged static or awkward postures, initial encounter; Y92.9 Unspecified place or not applicable; Y93.9 Activity, unspecified; Y99.9 Unspecified external cause status; I10 Essential (primary) hypertension; G43.909 Migraine, unspecified, not intractable, without status migrainosus; F41.9 Anxiety disorder, unspecified; F32.9 Major depressive disorder, single episode, unspecified; D64.9 Anemia, unspecified; N18.6 End stage renal disease; F17.200 Nicotine dependence, unspecified, uncomplicated; Z79.899 Other long term (current) drug therapy

== ENCOUNTER → 2017-01-11 | Outpatient (CLI) | payer MEDICARE, MEDICAID ==
[2017-01-11 15:01] LABS: ALBUMIN 4.6 GM/DL (3.2-5.2); ALBUMIN/GLOBULIN RATIO 1.28 (1.00-1.93); BILIRUBIN,DIRECT 0.1 MG/DL (0.0-0.2); BILIRUBIN,TOTAL 0.5 MG/DL (0.2-1.0); TOTAL PROTEIN 8.2 GM/DL (6.4-8.2)
== END ==
LOC: M WUC 12:46
PROVIDERS: ATTEND Registered Nurse Psychiatric/Mental Health
DX: F33.1 Major depressive disorder, recurrent, moderate (principal)

== ENCOUNTER → 2017-01-15 | Outpatient (CLI) | payer MEDICARE, MEDICAID ==
--- NOTE | 2017-01-15 14:15 | REP ---
Left ankle four views: Comparison is 08/05/2016. There is a transverse fracture of the medial malleolus. Additionally, there is a fracture of the distal tibia at the medial base of the medial malleolus. There additionally is an avulsion fracture of the lateral cortex of the distal tibia. There is circumferential soft tissue edema. The mortise is symmetric. The lateral malleolus is unremarkable. The posterior malleolus is unremarkable. There is a small calcaneal plantar spur incidentally identified. The Signed by Robin Oneill MD 01/15/2017 02:07 P
== END ==
LOC: M WUC 13:22
PROVIDERS: ATTEND Physician Assistant
DX: S82.55XA Nondisplaced fracture of medial malleolus of left tibia, initial encounter for closed fracture (principal); X58.XXXA Exposure to other specified factors, initial encounter; Y92.89 Other specified places as the place of occurrence of the external cause; Y93.89 Activity, other specified; Y99.8 Other external cause status

== ENCOUNTER → 2017-01-25 | Outpatient (CLI) | payer MEDICARE, MEDICAID | LOC: M SMT 11:27 | PROVIDERS: ATTEND Registered Nurse Psychiatric/Mental Health | DX: F33.1 Major depressive disorder, recurrent, moderate (principal) ==

== ENCOUNTER 2017-02-03 18:50 | Emergency (ER) | payer MEDICARE, MEDICAID ==
[~2017-02-03] VITALS: Ht 188 cm; Wt 107.7 kg
[2017-02-03 18:50] VITALS: BP 154/79
[2017-02-03] MEDS ORDERED: ONDANSETRON 4MG/2ML VIAL (J2405) IV ONE (20:00)
[2017-02-03] MEDS ORDERED: NS 500 ML IV ONE (20:00)
[2017-02-03 20:18] LABS: BASO # 0.1 K/mm3 (0.0-0.2); EOS # 0.2 K/mm3 (0.0-0.50); EOS % 2.7 % (0.0-3.0); LARGE UNSTAINED CELL % 0.5 % (0.0-4.0); LYMPH # 0.7 K/mm3 (1.5-6.5); LYMPH % 10.9 % (24.0-44.0); MEAN CORPUSCULAR HEMOGLOBIN 30.8 pg (27.0-33.0); MEAN CORPUSCULAR HGB CONC 33.7 g/dl (32.0-36.5); MEAN CORPUSCULAR VOLUME 91.4 fl (80.0-96.0); MONO # 0.4 K/mm3 (0.0-0.8); NEUTROPHILS # 4.5 K/mm3 (1.8-7.7); NEUTROPHILS % 77.9 % (36.0-66.0); PLATELET COUNT, AUTOMATED 264 k/mm3 (150-450); RED CELL DISTRIBUTION WIDTH 13.9 % (11.5-14.5); WHITE BLOOD COUNT 5.7 K/mm3 (4.0-10.0)
[2017-02-03 20:42] LABS: ALBUMIN 4.1 GM/DL (3.2-5.2); ALBUMIN/GLOBULIN RATIO 1.14 (1.00-1.93); BILIRUBIN,DIRECT 0.2 MG/DL (0.0-0.2); BILIRUBIN,TOTAL 0.5 MG/DL (0.2-1.0); CALCIUM LEVEL 9.2 MG/DL (8.5-10.1); CREATININE FOR GFR 13.7 MG/DL (0.70-1.30); GLOMERULAR FILTRATION RATE 4.7 (>60); MAGNESIUM LEVEL 2.7 MG/DL (1.8-2.4); PHOSPHORUS LEVEL 6.6 MG/DL (2.5-4.9); TOTAL PROTEIN 7.7 GM/DL (6.4-8.2)
== END 2017-02-03 20:54 | disposition home or self-care (01) ==
LOC: M ED 18:50
DX: R11.2 Nausea with vomiting, unspecified (principal); N18.6 End stage renal disease; Z99.2 Dependence on renal dialysis; D64.9 Anemia, unspecified; F32.9 Major depressive disorder, single episode, unspecified; G43.909 Migraine, unspecified, not intractable, without status migrainosus; F17.200 Nicotine dependence, unspecified, uncomplicated; Z79.899 Other long term (current) drug therapy
CPT/HCPCS: 80048; 80076; 81001; 82150; 83690; 83735; 84100; 85025; 96374; 99283; J2405

== ENCOUNTER → 2017-02-05 | Outpatient (REF) | payer MEDICARE, MEDICAID | LOC: M LABDRAW1 17:05 | PROVIDERS: ATTEND Transplant Surgery | DX: Z01.812 Encounter for preprocedural laboratory examination (principal) ==

== ENCOUNTER → 2017-03-19 | Outpatient (CLI) | payer MEDICARE, MEDICAID ==
[~2017-03-19] MED LIST changes: +HYDR-3363 PO
== END ==
LOC: M WUC 17:31
PROVIDERS: ATTEND Registered Nurse Psychiatric/Mental Health
DX: Z79.899 Other long term (current) drug therapy (principal)

== ENCOUNTER 2017-04-02 17:28 | Emergency (ER) | payer MEDICARE, MEDICAID ==
[~2017-04-02] VITALS: Ht 188 cm; Wt 107.0 kg
[~2017-04-02 17:28] MED LIST changes: -HYDR-3363 PO
[2017-04-02] MEDS ORDERED: PERCOCET 5MG/325MG TAB PO ONE (19:30)
--- NOTE | 2017-04-02 20:21 | REP ---
LEFT ANKLE, FOUR VIEWS: HISTORY: Injury. COMPARISON: 01/15/2017 There is an old healed fracture of the medial malleolus. There is no acute fracture or dislocation. There is minimal narrowing of the medial joint space. Soft tissue swelling is present. IMPRESSION: There is no acute fracture or dislocation. Signed by Bear Stallworth MD 04/03/2017 08:27 A
[2017-04-02] MEDS ORDERED: PERC5TAB12 PO (20:25)
[2017-04-02 20:38] VITALS: BP 122/56
== END 2017-04-02 20:39 | disposition home or self-care (01) ==
LOC: M ED 17:28
DX: M65.272 Calcific tendinitis, left ankle and foot (principal); I10 Essential (primary) hypertension; G43.909 Migraine, unspecified, not intractable, without status migrainosus; N18.6 End stage renal disease; Z99.2 Dependence on renal dialysis; G89.29 Other chronic pain; M54.9 Dorsalgia, unspecified; D64.9 Anemia, unspecified; F41.9 Anxiety disorder, unspecified; F32.9 Major depressive disorder, single episode, unspecified; F17.200 Nicotine dependence, unspecified, uncomplicated; Z79.899 Other long term (current) drug therapy

== ENCOUNTER 2017-05-03 18:38 | Emergency (ER) | payer MEDICARE, MEDICAID ==
[~2017-05-03] VITALS: Ht 188 cm; Wt 105.2 kg
[2017-05-03] MEDS ORDERED: LORazepam 2 MG/ML VIAL (J2060) IV STA (19:06)
[2017-05-03] MEDS ORDERED: METOCLOPRAMIDE INJ 10MG/2ML VIAL (J2765) IV ONE (19:15)
[2017-05-03 19:29] LABS: MEAN CORPUSCULAR HEMOGLOBIN 30.7 pg (27.0-33.0); MEAN CORPUSCULAR HGB CONC 33.5 g/dl (32.0-36.5); MEAN CORPUSCULAR VOLUME 91.6 fl (80.0-96.0); PLATELET COUNT, AUTOMATED 185 10^3/uL (150-450); RED CELL DISTRIBUTION WIDTH 13.2 % (11.5-14.5); WHITE BLOOD COUNT 4.9 10^3/uL (4.0-10.0)
[2017-05-03 19:44] LABS: ANION GAP 8 MEQ/L (8-16); BLOOD UREA NITROGEN 21 MG/DL (7-18); CARBON DIOXIDE LEVEL 29 MEQ/L (21-32); CHLORIDE LEVEL 101 MEQ/L (98-107); GLOMERULAR FILTRATION RATE 9.3 (>60); GLUCOSE, FASTING 104 MG/DL (70-105); POTASSIUM SERUM 4.7 MEQ/L (3.5-5.1); SODIUM LEVEL 138 MEQ/L (136-145)
[2017-05-03] MEDS ORDERED: HYDR-3363 PO (20:06)
[2017-05-03 20:19] VITALS: BP 176/85
--- NOTE | 2017-05-04 07:20 | ECGEPIP ---
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
== END 2017-05-03 20:26 | disposition home or self-care (01) ==
LOC: M ED 18:38
DX: F41.9 Anxiety disorder, unspecified (principal); R94.31 Abnormal electrocardiogram [ECG] [EKG]; G43.909 Migraine, unspecified, not intractable, without status migrainosus; N28.9 Disorder of kidney and ureter, unspecified; Z79.899 Other long term (current) drug therapy
CPT/HCPCS: 80048; 82550; 82553; 84484; 85027; 93005; 96374; 96375; 99284; J2060; J2765

== ENCOUNTER 2017-05-19 16:51 | Emergency (ER) | payer MEDICARE, MEDICAID ==
[~2017-05-19] VITALS: Ht 188 cm; Wt 106.8 kg
[~2017-05-19 16:51] MED LIST changes: +HYDR-3363 PO
[2017-05-19] MEDS ORDERED: MORPHINE 4 MG/ML 1ML SYRINGE IV ONE (17:45)
[2017-05-19] MEDS ORDERED: PROMETHAZINE INJ 25 MG/ML VIAL (J2550) IV ONE (17:45)
[2017-05-19 18:16] LABS: BASO % 0.5 % (0.0-1.0); EOS # 0.1 10^3/uL (0.0-0.50); EOS % 2.1 % (0.0-3.0); IMMATURE GRANULOCYTE % 0.5 % (0-0); LYMPH # 1.1 10^3/uL (1.5-6.5); LYMPH % 19.6 % (24.0-44.0); MEAN CORPUSCULAR HEMOGLOBIN 31.1 pg (27.0-33.0); MEAN CORPUSCULAR HGB CONC 35.3 g/dl (32.0-36.5); MEAN CORPUSCULAR VOLUME 88.2 fl (80.0-96.0); MONO # 0.5 10^3/uL (0.0-0.8); MONO % 8.2 % (0.0-5.0); NEUTROPHILS % 69.1 % (36.0-66.0); PLATELET COUNT, AUTOMATED 145 10^3/uL (150-450); WHITE BLOOD COUNT 5.8 10^3/uL (4.0-10.0)
[2017-05-19 18:24] LABS: CALCIUM LEVEL 8.7 MG/DL (8.5-10.1); GLOMERULAR FILTRATION RATE 4.2 (>60); POTASSIUM SERUM 4.9 MEQ/L (3.5-5.1)
--- NOTE | 2017-05-19 19:21 | REP ---
Clinical: Shortness of breath . Comparison: 11/16/2016 . Findings: The mediastinum and cardiac silhouette are stable and within normal limits for portable technique. The lung peralta are clear without acute consolidation, effusion, or pneumothorax. Skeletal structures are intact. Impression: No acute cardiopulmonary process appreciated. Signed by Renny Zaragoza MD 05/19/2017 07:13 P
[2017-05-19] MEDS ORDERED: ACETAMINOPHEN TAB 650MG DOSE (2X325MG) PO ONE (19:45)
[2017-05-19] MEDS ORDERED: IBUPROFEN 600 MG TAB PO ONE (19:45)
[2017-05-19] MEDS ORDERED: **hydrALAZINE** 10 MG TAB PO ONE (20:15)
[2017-05-19] MEDS ORDERED: cloNIDine 0.1 MG TAB PO ONE (20:15)
[2017-05-19 20:43] VITALS: BP 217/113
[2017-05-19 21:31] VITALS: BP 162/80
[2017-05-20] MEDS ORDERED: MINOXIDIL 10 MG TAB PO ONE (09:00)
== END 2017-05-19 21:39 | disposition home or self-care (01) ==
LOC: M ED 16:51
DX: I10 Essential (primary) hypertension (principal); G43.909 Migraine, unspecified, not intractable, without status migrainosus; I50.9 Heart failure, unspecified; Z99.2 Dependence on renal dialysis; Z79.899 Other long term (current) drug therapy

== ENCOUNTER 2017-05-23 22:12 | Emergency (ER) | payer MEDICARE, MEDICAID ==
[~2017-05-23] VITALS: Ht 188 cm; Wt 106.8 kg
[2017-05-23] MEDS ORDERED: ACETAMINOPHEN TAB 650MG DOSE (2X325MG) PO ONE (22:30)
[2017-05-23 22:34] VITALS: BP 181/76
[2017-05-23 23:05] LABS: BASO % 0.4 % (0.0-1.0); EOS # 0.1 10^3/uL (0.0-0.50); EOS % 2.8 % (0.0-3.0); IMMATURE GRANULOCYTE % 0.2 % (0-0); LYMPH # 1.3 10^3/uL (1.5-6.5); LYMPH % 27.3 % (24.0-44.0); MEAN CORPUSCULAR HEMOGLOBIN 30.7 pg (27.0-33.0); MEAN CORPUSCULAR HGB CONC 34.7 g/dl (32.0-36.5); MEAN CORPUSCULAR VOLUME 88.4 fl (80.0-96.0); MONO # 0.3 10^3/uL (0.0-0.8); MONO % 7.4 % (0.0-5.0); NEUTROPHILS # 2.8 10^3/uL (1.8-7.7); NEUTROPHILS % 61.9 % (36.0-66.0); PLATELET COUNT, AUTOMATED 117 10^3/uL (150-450); WHITE BLOOD COUNT 4.6 10^3/uL (4.0-10.0)
[2017-05-23 23:35] LABS: ANION GAP 12 MEQ/L (8-16); BLOOD UREA NITROGEN 77 MG/DL (7-18); CALCIUM LEVEL 8.3 MG/DL (8.5-10.1); CARBON DIOXIDE LEVEL 26 MEQ/L (21-32); CHLORIDE LEVEL 95 MEQ/L (98-107); FREE T4 0.75 NG/DL (0.76-1.46); GLOMERULAR FILTRATION RATE 3.3 (>60); GLUCOSE, FASTING 88 MG/DL (70-105); SODIUM LEVEL 133 MEQ/L (136-145)
[2017-05-23 23:45] LABS: INR 1.11; POTASSIUM SERUM 5.3 MEQ/L (3.5-5.1)
[2017-05-24 00:50] VITALS: O2SAT 98
--- NOTE | 2017-05-24 02:45 | REP ---
Clinical: Shortness of breath Comparison: 05/19/2017 . Technique: PA and lateral. Findings: The mediastinum and cardiac silhouette are stable and cardiomegaly is again suggested. Cephalization and mild pulmonary vascular congestion cannot be excluded. No focal consolidation, effusion, or pneumothorax. The skeletal structures are intact and normal. Impression: 1. Cardiomegaly and suggestions for pulmonary vascular congestion. Signed by Renny Zaragoza MD 05/24/2017 02:37 A
--- NOTE | 2017-05-24 09:36 | ECGEPIP ---
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
== END 2017-05-24 00:56 | disposition home or self-care (01) ==
LOC: M ED 22:12 → EDBD 22:12 → M ED 05-24 00:56
DX: R06.02 Shortness of breath (principal); R00.1 Bradycardia, unspecified; I50.9 Heart failure, unspecified; I10 Essential (primary) hypertension; E78.5 Hyperlipidemia, unspecified; N18.6 End stage renal disease; Z99.2 Dependence on renal dialysis; F17.200 Nicotine dependence, unspecified, uncomplicated; I51.7 Cardiomegaly; Z79.899 Other long term (current) drug therapy

== ENCOUNTER 2017-07-01 19:13 | Emergency (ER) | payer MEDICARE, MEDICAID ==
[2017-07-01] MEDS: methylPREDNISolone INJ 125 MG/2 ML VIAL (J2930) IV (20:00)
[2017-07-01] MEDS: GI COCKTAIL 50ML BTL(HYOSCYAMINE/MAALOX/LIDOCAINE VISCOUS)(1:3:1) PO (20:00)
[2017-07-01 20:20] LABS: BASO # 0.1 10^3/uL (0.0-0.2); BASO % 0.7 % (0.0-1.0); EOS # 0.1 10^3/uL (0.0-0.50); EOS % 1.6 % (0.0-3.0); HEMOGLOBIN 12.1 g/dl (14.0-18.0); IMMATURE GRANULOCYTE # 0.1 10^3/uL (0-0); IMMATURE GRANULOCYTE % 0.8 % (0-0); LYMPH # 1.2 10^3/uL (1.5-6.5); LYMPH % 15.5 % (24.0-44.0); MEAN CORPUSCULAR HEMOGLOBIN 30.5 pg (27.0-33.0); MEAN CORPUSCULAR HGB CONC 35.6 g/dl (32.0-36.5); MEAN CORPUSCULAR VOLUME 85.6 fl (80.0-96.0); MONO # 0.5 10^3/uL (0.0-0.8); MONO % 6.7 % (0.0-5.0); NEUTROPHILS # 5.6 10^3/uL (1.8-7.7); NEUTROPHILS % 74.7 % (36.0-66.0); PLATELET COUNT, AUTOMATED 205 10^3/uL (150-450); RED BLOOD COUNT 3.97 10^6/uL (4.30-6.10); RED CELL DISTRIBUTION WIDTH 12.2 % (11.5-14.5); WHITE BLOOD COUNT 7.4 10^3/uL (4.0-10.0)
[2017-07-01 20:46] LABS: ANION GAP 8 MEQ/L (8-16); BLOOD UREA NITROGEN 30 MG/DL (7-18); CARBON DIOXIDE LEVEL 28 MEQ/L (21-32); CHLORIDE LEVEL 98 MEQ/L (98-107); CPK CREATINE PHOSPHOKINASE 235 U/L (39-308); GLOMERULAR FILTRATION RATE 6.5 (>60); GLUCOSE, FASTING 113 MG/DL (70-105); POTASSIUM SERUM 4.4 MEQ/L (3.5-5.1); SODIUM LEVEL 134 MEQ/L (136-145); TROPONIN I < 0.02 NG/ML (< 0.10)
[2017-07-01 20:47] LABS: MB/CK RELATIVE INDEX 0.42 (< OR =4)
[2017-07-01] MEDS: ONDANSETRON 4MG/2ML VIAL (J2405) IV (21:30)
[2017-07-01] MEDS ORDERED: ISOVUE-370 76% 100ML VIAL (Q9967) As Ordered (21:49)
[2017-07-01] MEDS: MORPHINE 4 MG/ML 1ML SYRINGE IV (21:52)
[2017-07-01 21:55] LABS: D-DIMER QUANT < 270.0 ng/ml (<500)
[2017-07-01] MEDS ORDERED: NORCO 5/325MG TABLET (BULK FOR ED) PO (23:15)
== END 2017-07-01 23:15 | disposition home or self-care (01) ==
LOC: M ED 19:13
DX: R07.89 Other chest pain (principal); I50.9 Heart failure, unspecified; F17.200 Nicotine dependence, unspecified, uncomplicated; Z99.2 Dependence on renal dialysis; I12.0 Hypertensive chronic kidney disease with stage 5 chronic kidney disease or end stage renal disease; N18.6 End stage renal disease
CPT/HCPCS: J2405

== ENCOUNTER 2017-07-07 18:12 | Emergency (ER) | payer MEDICARE, MEDICAID | END 2017-07-08 00:30 | disposition left against medical advice (07) | LOC: M ED 07-08 00:30 | DX: R07.9 Chest pain, unspecified (principal); Z53.21 Procedure and treatment not carried out due to patient leaving prior to being seen by health care provider | CPT/HCPCS: 93005 ==

== ENCOUNTER 2017-07-13 12:26 | Emergency (ER) | payer MEDICARE, MEDICAID ==
[2017-07-13] MEDS: IPRATROPIUM 0.5MG/ALBUTEROL 2.5MG INH SOL UD 3ML (DUONEB)(J7620) NEB (13:27)
[2017-07-13] MEDS: ALBUTEROL SULFATE 2.5 MG/0.5 ML INH NEB SOLN INH (13:27)
[2017-07-13 13:49] LABS: BASO % 0.3 % (0.0-1.0); EOS # 0.1 10^3/uL (0.0-0.50); HEMATOCRIT 33.1 % (42.0-52.0); HEMOGLOBIN 11.5 g/dl (14.0-18.0); IMMATURE GRANULOCYTE # 0.1 10^3/uL (0-0); IMMATURE GRANULOCYTE % 0.8 % (0-0); LYMPH # 1.2 10^3/uL (1.5-6.5); LYMPH % 18.9 % (24.0-44.0); MEAN CORPUSCULAR HEMOGLOBIN 30.6 pg (27.0-33.0); MEAN CORPUSCULAR HGB CONC 34.7 g/dl (32.0-36.5); MONO # 0.6 10^3/uL (0.0-0.8); MONO % 8.9 % (0.0-5.0); NEUTROPHILS # 4.4 10^3/uL (1.8-7.7); NEUTROPHILS % 70.1 % (36.0-66.0); PLATELET COUNT, AUTOMATED 181 10^3/uL (150-450); RED BLOOD COUNT 3.76 10^6/uL (4.30-6.10); RED CELL DISTRIBUTION WIDTH 13.9 % (11.5-14.5); WHITE BLOOD COUNT 6.2 10^3/uL (4.0-10.0)
[2017-07-13 14:13] LABS: LACTIC ACID SEPSIS PROTOCOL 0.6 MMOL/L (0.4-2.0)
[2017-07-13 14:14] LABS: ALBUMIN 4.2 GM/DL (3.2-5.2); ALBUMIN/GLOBULIN RATIO 1.14 (1.00-1.93); ALKALINE PHOSPHATASE 77 U/L (45-117); ALT/SGPT 19 U/L (12-78); ANION GAP 12 MEQ/L (8-16); AST/SGOT 9 U/L (7-37); BILIRUBIN,DIRECT < 0.1 MG/DL (0.0-0.2); BILIRUBIN,TOTAL 0.4 MG/DL (0.2-1.0); BLOOD UREA NITROGEN 38 MG/DL (7-18); CALCIUM LEVEL 9.1 MG/DL (8.5-10.1); CARBON DIOXIDE LEVEL 27 MEQ/L (21-32); CHLORIDE LEVEL 98 MEQ/L (98-107); GLOMERULAR FILTRATION RATE 5.6 (>60); GLUCOSE, FASTING 103 MG/DL (70-105); POTASSIUM SERUM 4.8 MEQ/L (3.5-5.1); SODIUM LEVEL 137 MEQ/L (136-145); TOTAL PROTEIN 7.9 GM/DL (6.4-8.2)
[2017-07-13] MEDS: ONDANSETRON 4MG/2ML VIAL (J2405) IV (15:00)
[2017-07-13] MEDS: MORPHINE 4 MG/ML 1ML SYRINGE IV (15:00)
[2017-07-13] MEDS: AZITHROMYCIN 250 MG TAB PO (15:45)
== END 2017-07-13 16:37 | disposition home or self-care (01) ==
LOC: M ED 12:26
DX: J20.9 Acute bronchitis, unspecified (principal); G43.909 Migraine, unspecified, not intractable, without status migrainosus; I50.9 Heart failure, unspecified; I10 Essential (primary) hypertension; K21.9 Gastro-esophageal reflux disease without esophagitis; N18.6 End stage renal disease; Z99.2 Dependence on renal dialysis; F17.200 Nicotine dependence, unspecified, uncomplicated; M54.9 Dorsalgia, unspecified; F41.9 Anxiety disorder, unspecified; F32.9 Major depressive disorder, single episode, unspecified; Z79.899 Other long term (current) drug therapy
CPT/HCPCS: J2405

== ENCOUNTER 2017-10-06 18:38 | Emergency (ER) | payer MEDICARE, MEDICAID ==
[2017-10-06] MEDS: ACETAMINOPHEN 325 MG TAB PO (21:06)
[2017-10-06 21:07] LABS: BASO # 0.1 10^3/uL (0.0-0.2); BASO % 0.7 % (0.0-1.0); EOS # 0.1 10^3/uL (0.0-0.50); EOS % 1.9 % (0.0-3.0); HEMATOCRIT 33.7 % (42.0-52.0); HEMOGLOBIN 12.3 g/dl (13.5-17.5); IMMATURE GRANULOCYTE % 0.3 % (0-3.0); LYMPH # 1.9 10^3/uL (1.5-6.5); LYMPH % 24.9 % (24.0-44.0); MEAN CORPUSCULAR HEMOGLOBIN 31.6 pg (27.0-33.0); MEAN CORPUSCULAR HGB CONC 36.5 g/dl (32.0-36.5); MEAN CORPUSCULAR VOLUME 86.6 fl (80.0-96.0); MONO # 0.5 10^3/uL (0.0-0.8); MONO % 6.8 % (0.0-5.0); NEUTROPHILS # 4.9 10^3/uL (1.8-7.7); NEUTROPHILS % 65.4 % (36.0-66.0); PLATELET COUNT, AUTOMATED 169 10^3/uL (150-450); RED BLOOD COUNT 3.89 10^6/uL (4.30-6.10); RED CELL DISTRIBUTION WIDTH 12.5 % (11.5-14.5); WHITE BLOOD COUNT 7.5 10^3/uL (4.0-10.0)
[2017-10-06 21:52] LABS: ALBUMIN/GLOBULIN RATIO 1.14 (1.00-1.93); ALKALINE PHOSPHATASE 103 U/L (45-117); ALT/SGPT 22 U/L (12-78); ANION GAP 18 MEQ/L (8-16); AST/SGOT 10 U/L (7-37); BILIRUBIN,DIRECT < 0.1 MG/DL (0.0-0.2); BILIRUBIN,TOTAL 0.3 MG/DL (0.2-1.0); CALCIUM LEVEL 7.8 MG/DL (8.5-10.1); CARBON DIOXIDE LEVEL 21 MEQ/L (21-32); CHLORIDE LEVEL 92 MEQ/L (98-107); CPK CREATINE PHOSPHOKINASE 117 U/L (39-308); GLOMERULAR FILTRATION RATE 3.8 (>60); GLUCOSE, FASTING 92 MG/DL (70-100); LIPASE 142 U/L (73-393); MAGNESIUM LEVEL 2.7 MG/DL (1.8-2.4); POTASSIUM SERUM 4.9 MEQ/L (3.5-5.1); SODIUM LEVEL 131 MEQ/L (136-145); TOTAL PROTEIN 7.5 GM/DL (6.4-8.2); TROPONIN I < 0.02 NG/ML (< 0.10)
[2017-10-06 21:55] LABS: BLOOD UREA NITROGEN 66 MG/DL (7-18); CK-MB VALUE MASS < 1.0 NG/ML (<3.6); MB/CK RELATIVE INDEX 0.85 (< OR =4); PHOSPHORUS LEVEL 10.2 MG/DL (2.5-4.9)
== END 2017-10-06 22:52 | disposition home or self-care (01) ==
LOC: M ED 18:38
DX: R51 Headache (principal); R07.89 Other chest pain; R11.0 Nausea; N18.6 End stage renal disease; Z99.2 Dependence on renal dialysis; Z79.899 Other long term (current) drug therapy; F17.210 Nicotine dependence, cigarettes, uncomplicated
CPT/HCPCS: 71046

== ENCOUNTER 2017-10-31 15:04 | Emergency (ER) | payer MEDICARE, MEDICAID | END 2017-10-31 17:16 | disposition home or self-care (01) | LOC: M ED 15:04 | DX: S93.409A Sprain of unspecified ligament of unspecified ankle, initial encounter (principal); S92.422A Displaced fracture of distal phalanx of left great toe, initial encounter for closed fracture; W10.1XXA Fall (on)(from) sidewalk curb, initial encounter; Y92.410 Unspecified street and highway as the place of occurrence of the external cause; I11.0 Hypertensive heart disease with heart failure; I50.9 Heart failure, unspecified; Z79.899 Other long term (current) drug therapy; Z87.448 Personal history of other diseases of urinary system; Z86.69 Personal history of other diseases of the nervous system and sense organs | CPT/HCPCS: 73610 ==

== ENCOUNTER → 2017-11-19 | Outpatient (CLI) | payer MEDICARE, MEDICAID ==
[~2017-11-19] MED LIST changes: -ACETAMINOPHEN-COD; -BYST20TA2; -CARV25TA; -CARV25TA PO; -CLONI1TA PO; -COLA100C5 PO; -FLUO10CA8 PO; -FLUO10CA9; -HYDR-3363 PO; -HYDR10TAB PO; +ISOVUE-370 76% 100ML VIAL (Q9967) As Ordered; -LOSA100T36 PO; -LOSA50TA20; -LOSA50TA20 PO; -METO50TA7; -METO50TA7 PO; -MINO10TA PO; -MINO2.5T; -MINO2.5T PO; -OMEP20CA3 PO; -ONDA4TAB6 PO; -OXYC1TAB23 PO; -PERC5TAB12 PO; -PERCOCET PO; -REGL10TA6 PO; -RENV2TAB; -RENV2TAB PO; -SERT50TA PO; -ZOFR4TAB3 PO
== END ==
LOC: M RAD 14:10
DX: S92.325A Nondisplaced fracture of second metatarsal bone, left foot, initial encounter for closed fracture (principal); S92.425A Nondisplaced fracture of distal phalanx of left great toe, initial encounter for closed fracture; F40.240 Claustrophobia; X58.XXXA Exposure to other specified factors, initial encounter; Y92.9 Unspecified place or not applicable; Y93.9 Activity, unspecified
CPT/HCPCS: Q9967

== ENCOUNTER → 2017-11-19 | Outpatient (CLI) | payer MEDICARE, MEDICAID | LOC: M RAD 14:07 | DX: R31.9 Hematuria, unspecified (principal); N28.89 Other specified disorders of kidney and ureter; S92.325A Nondisplaced fracture of second metatarsal bone, left foot, initial encounter for closed fracture; S92.425A Nondisplaced fracture of distal phalanx of left great toe, initial encounter for closed fracture; F40.240 Claustrophobia; X58.XXXA Exposure to other specified factors, initial encounter; Y92.9 Unspecified place or not applicable; Y93.9 Activity, unspecified; Z90.49 Acquired absence of other specified parts of digestive tract | CPT/HCPCS: Q9967 ==

== ENCOUNTER 2018-02-15 14:19 | Emergency (ER) | payer MEDICARE, MEDICAID | END 2018-02-15 15:12 | disposition home or self-care (01) | LOC: M ED 14:19 | DX: S76.111A Strain of right quadriceps muscle, fascia and tendon, initial encounter (principal); X58.XXXA Exposure to other specified factors, initial encounter; Y92.098 Other place in other non-institutional residence as the place of occurrence of the external cause; N18.6 End stage renal disease; I50.9 Heart failure, unspecified; I13.2 Hypertensive heart and chronic kidney disease with heart failure and with stage 5 chronic kidney disease, or end stage renal disease; K21.9 Gastro-esophageal reflux disease without esophagitis; G43.909 Migraine, unspecified, not intractable, without status migrainosus; M54.9 Dorsalgia, unspecified; D64.9 Anemia, unspecified; F32.9 Major depressive disorder, single episode, unspecified; F41.9 Anxiety disorder, unspecified; Z99.2 Dependence on renal dialysis; Z79.899 Other long term (current) drug therapy | CPT/HCPCS: 99284 ==

== ENCOUNTER 2018-03-17 08:22 | Emergency (ER) | payer MEDICARE, MEDICAID ==
[2018-03-17] MEDS: methylPREDNISolone INJ 125 MG/2 ML VIAL (J2930) IV (09:00)
[2018-03-17] MEDS: ALBUTEROL SULFATE 2.5 MG/0.5 ML INH NEB SOLN INH (09:18)
[2018-03-17] MEDS: IPRATROPIUM 0.5MG/ALBUTEROL 2.5MG INH SOL UD 3ML (DUONEB)(J7620) NEB ×2 (09:18→10:52)
[2018-03-17 09:22] LABS: BASO # 0.1 10^3/uL (0.0-0.2); BASO % 1.1 % (0.0-1.0); EOS # 0.3 10^3/uL (0.0-0.50); EOS % 5.5 % (0.0-3.0); HEMATOCRIT 30.3 % (42.0-52.0); HEMOGLOBIN 10.2 g/dl (13.5-17.5); IMMATURE GRANULOCYTE % 0.4 % (0-3.0); LYMPH # 0.9 10^3/uL (1.5-6.5); LYMPH % 18.9 % (24.0-44.0); MEAN CORPUSCULAR HEMOGLOBIN 30.1 pg (27.0-33.0); MEAN CORPUSCULAR HGB CONC 33.7 g/dl (32.0-36.5); MEAN CORPUSCULAR VOLUME 89.4 fl (80.0-96.0); MONO # 0.4 10^3/uL (0.0-0.8); MONO % 8.6 % (0.0-5.0); NEUTROPHILS # 3.1 10^3/uL (1.8-7.7); NEUTROPHILS % 65.5 % (36.0-66.0); PLATELET COUNT, AUTOMATED 167 10^3/uL (150-450); RED BLOOD COUNT 3.39 10^6/uL (4.30-6.10); RED CELL DISTRIBUTION WIDTH 12.7 % (11.5-14.5); WHITE BLOOD COUNT 4.8 10^3/uL (4.0-10.0)
[2018-03-17 09:32] LABS: ABG BASE EXCESS 2.3 (-2.0-2.0); ABG HCO3 26.5 MEQ/L (22.0-26.0); ABG O2 SATURATION 97.7 % (95.0-99.0); ABG PARTIAL PRESSURE CO2 39.4 mmHg (35.0-45.0); ABG PARTIAL PRESSURE O2 99.9 mmHg (75.0-100.0); ABG STANDARD HCO3 26.5 MEQ/L (22.0-26.0); ABG TOTAL CO2 27.7 MEQ/L (22.0-29.0); ABG pH (ARTERIAL) 7.445 UNITS (7.350-7.450)
[2018-03-17 09:51] LABS: INFLUENZA A AMPLIFICATION NEGATIVE (NEGATIVE); INFLUENZA B AMPLIFICATION NEGATIVE (NEGATIVE)
[2018-03-17 09:52] LABS: LACTIC ACID SEPSIS PROTOCOL 0.7 MMOL/L (0.4-2.0)
[2018-03-17 09:58] LABS: ALBUMIN 3.7 GM/DL (3.2-5.2); ALBUMIN/GLOBULIN RATIO 1.16 (1.00-1.93); ALKALINE PHOSPHATASE 91 U/L (45-117); ALT/SGPT 13 U/L (12-78); ANION GAP 11 MEQ/L (8-16); AST/SGOT 6 U/L (7-37); BILIRUBIN,DIRECT 0.2 MG/DL (0.0-0.2); BILIRUBIN,TOTAL 0.5 MG/DL (0.2-1.0); BLOOD UREA NITROGEN 36 MG/DL (7-18); CALCIUM LEVEL 8.5 MG/DL (8.5-10.1); CARBON DIOXIDE LEVEL 28 MEQ/L (21-32); CHLORIDE LEVEL 100 MEQ/L (98-107); CK-MB VALUE MASS < 1.0 NG/ML (<3.6); CPK CREATINE PHOSPHOKINASE 107 U/L (39-308); GLOMERULAR FILTRATION RATE 5.4 (>60); GLUCOSE, FASTING 72 MG/DL (70-100); MB/CK RELATIVE INDEX 0.93 (< OR =4); POTASSIUM SERUM 4.3 MEQ/L (3.5-5.1); SODIUM LEVEL 139 MEQ/L (136-145); THYROID STIMULATING HORMONE 0.996 uIU/ML (0.358-3.740); THYROXINE (T4) 10.2 UG/DL (4.5-12.0); TOTAL PROTEIN 6.9 GM/DL (6.4-8.2); TROPONIN I < 0.02 NG/ML (< 0.10)
[2018-03-17] MEDS: MOXIFLOXACIN 400 MG TAB PO (11:13)
== END 2018-03-17 11:45 | disposition home or self-care (01) ==
LOC: M ED 08:22
DX: J20.9 Acute bronchitis, unspecified (principal); J45.909 Unspecified asthma, uncomplicated; I10 Essential (primary) hypertension; N18.6 End stage renal disease; Z99.2 Dependence on renal dialysis; Z79.899 Other long term (current) drug therapy
CPT/HCPCS: J2930

== ENCOUNTER 2018-05-08 04:57 | Inpatient (IN) | payer MEDICARE, MEDICAID ==
[2018-05-08] MEDS ORDERED: LORazepam 2 MG/ML VIAL (J2060) As Ordered (05:03)
[2018-05-08] MEDS ORDERED: PROPOFOL 1,000 MG/100 ML VIAL As Ordered (05:09)
[2018-05-08] MEDS: LORazepam 2 MG/ML VIAL (J2060) IM (05:10)
[2018-05-08] MEDS: ETOMIDATE INJ 20MG/10ML VIAL IV (05:20)
[2018-05-08] MEDS ORDERED: ISOVUE-370 76% 100ML VIAL (Q9967) As Ordered (05:29)
[2018-05-08] MEDS: levETIRAcetam INJection 1,000 MG in D5W 100 ML IV (05:30)
[2018-05-08] MEDS: ROCURONIUM BROMIDE 50 MG/5 ML VIAL IV (05:38)
[2018-05-08 05:45] LABS: HEMOGLOBIN 12.6 g/dl (13.5-17.5); MEAN CORPUSCULAR HEMOGLOBIN 29.9 pg (27.0-33.0); MEAN CORPUSCULAR HGB CONC 30.7 g/dl (32.0-36.5); MEAN CORPUSCULAR VOLUME 97.2 fl (80.0-96.0); PLATELET COUNT, AUTOMATED 328 10^3/uL (150-450); RED BLOOD COUNT 4.22 10^6/uL (4.30-6.10); RED CELL DISTRIBUTION WIDTH 14.3 % (11.5-14.5); WHITE BLOOD COUNT 24.6 10^3/uL (4.0-10.0)
[2018-05-08 05:51] LABS: ADD MANUAL DIFFER YES; DIFF SLIDE NUMBER 123; POSITIVE DIFF POS FLAG
[2018-05-08] MEDS: HEPARIN SOD (PORCINE) 5000 UNITS/ML VIAL SC ×3 (06:00→22:01)
[2018-05-08] MEDS: PROPOFOL 1,000 MG in APPROPRIATE DILUENT 1 EA IV ×6 (06:05→19:24)
[2018-05-08 06:06] LABS: AMMONIA 232 uMOL/L (<32)
[2018-05-08 06:14] LABS: ABG BASE EXCESS -14.4 (-2.0-2.0); ABG HCO3 16.5 MEQ/L (22.0-26.0); ABG PARTIAL PRESSURE O2 100.2 mmHg (75.0-100.0); ABG STANDARD HCO3 13.4 MEQ/L (22.0-26.0); ABG TOTAL CO2 18.5 MEQ/L (22.0-29.0)
[2018-05-08 06:17] LABS: ABG PARTIAL PRESSURE CO2 62.3 mmHg (35.0-45.0); ABG pH (ARTERIAL) 7.042 UNITS (7.350-7.450)
[2018-05-08 06:21] LABS: ALBUMIN 4.4 GM/DL (3.2-5.2); ALBUMIN/GLOBULIN RATIO 1.29 (1.00-1.93); ALKALINE PHOSPHATASE 111 U/L (45-117); ALT/SGPT 13 U/L (12-78); ANION GAP 27 MEQ/L (8-16); AST/SGOT 13 U/L (7-37); BILIRUBIN,DIRECT 0.1 MG/DL (0.0-0.2); BILIRUBIN,TOTAL 0.5 MG/DL (0.2-1.0); BLOOD UREA NITROGEN 18 MG/DL (7-18); CALCIUM LEVEL 9.2 MG/DL (8.5-10.1); CARBON DIOXIDE LEVEL 13 MEQ/L (21-32); CHLORIDE LEVEL 101 MEQ/L (98-107); CPK CREATINE PHOSPHOKINASE 223 U/L (39-308); ETHYL ALCOHOL (ETHANOL) < 0.003 % (0.000-0.010); GLOMERULAR FILTRATION RATE 7.5 (>60); GLUCOSE, FASTING 190 MG/DL (70-100); MB/CK RELATIVE INDEX 0.54 (< OR =4); POTASSIUM SERUM 3.9 MEQ/L (3.5-5.1); SALICYLATE LEVEL 6.6 MG/DL (5.0-30.0); SODIUM LEVEL 141 MEQ/L (136-145); TOTAL PROTEIN 7.8 GM/DL (6.4-8.2); TROPONIN I < 0.02 NG/ML (< 0.10)
[2018-05-08 06:23] LABS: LACTIC ACID SEPSIS PROTOCOL 18.8 MMOL/L (0.4-2.0)
[2018-05-08 06:27] LABS: BANDS 1 % (< 11); BASOPHILS 3 % (0-4); EOSINOPHILS 3 % (0-5); LYMPHOCYTES 22 % (16-52); MONOCYTES 4 % (0-8); NEUTROPHILS 67 % (35-75); PLATELET ESTIMATE NORMAL (NORMAL)
[2018-05-08] MEDS: NS IV (06:27)
[2018-05-08] MEDS: DILUENT IV (06:27)
[2018-05-08 06:29] LABS: ANISOCYTOSIS 1+; POLYCHROMASIA 1+
[2018-05-08] MEDS: LACTULOSE 20 GM/30 ML SYRUP UD PO ×2 (06:30→19:23)
[2018-05-08] MEDS: LABETALOL HCL 100 MG/20 ML VIAL IV (06:30)
[2018-05-08] MEDS: PIPERACILLIN/TAZOBACTAM SOD 3.375 GM in D5W MINI-BAG PLUS 50 ML IV (06:37)
[2018-05-08] MEDS: LORazepam 2 MG/ML VIAL (J2060) IV (07:20)
[2018-05-08] MEDS ORDERED: NS 1,000 ML IV (08:05)
[2018-05-08 09:06] LABS: ABG BASE EXCESS -2.8 (-2.0-2.0); ABG HCO3 22.4 MEQ/L (22.0-26.0); ABG O2 SATURATION 98.9 % (95.0-99.0); ABG PARTIAL PRESSURE CO2 40.4 mmHg (35.0-45.0); ABG PARTIAL PRESSURE O2 154.2 mmHg (75.0-100.0); ABG STANDARD HCO3 22.2 MEQ/L (22.0-26.0); ABG TOTAL CO2 23.7 MEQ/L (22.0-29.0); ABG pH (ARTERIAL) 7.362 UNITS (7.350-7.450)
[2018-05-08 09:15] LABS: AMPHETAMINES LEVEL URINE NEGATIVE (NEGATIVE); BARBITURATES URINE NEGATIVE (NEGATIVE); BENZODIAZEPINES URINE NEGATIVE (NEGATIVE); CANNABINOIDS URINE NEGATIVE (NEGATIVE); COCAINE METABOLITE URINE NEGATIVE (NEGATIVE); METHADONE URINE NEGATIVE (NEGATIVE); OPIATES URINE NEGATIVE (NEGATIVE); PHENCYCLIDINE URINE NEGATIVE (NEGATIVE)
[2018-05-08 09:39] LABS: MAGNESIUM LEVEL 2.9 MG/DL (1.8-2.4); PHOSPHORUS LEVEL 4.8 MG/DL (2.5-4.9)
[2018-05-08] MEDS: VALPROATE SOD INJ 500 MG in D5W 50 ML IV ×2 (09:43→22:02)
[2018-05-08] MEDS ORDERED: VALPROATE SOD INJ 500 MG in D5W 50 ML IV (10:00)
[2018-05-08 11:04] LABS: BEDSIDE GLUCOSE 203 MG/DL (70-105)
[2018-05-08 11:10] LABS: LACTIC ACID SEPSIS PROTOCOL 1.6 MMOL/L (0.4-2.0)
[2018-05-08] MEDS: PANTOPRAZOLE 40MG INJ (PROTONIX) (C9113) IV (11:13)
[2018-05-08] MEDS: D5W/0.45% SODIUM CHLORIDE 1,000 ML IV (12:58)
[2018-05-08] MEDS: dexmedeTOMidine 200 MCG in APPROPRIATE DILUENT 1 EA IV ×2 (13:16→19:25)
[2018-05-08] MEDS: CHLORHEXIDINE ORAL RINSE 0.12%/15ML 120ML BOTTLE MT ×2 (15:13→22:01)
[2018-05-08 17:56] LABS: ACETAMINOPHEN LEVEL 3.8 UG/ML (10.0-30.0); ALBUMIN 2.9 GM/DL (3.2-5.2); ALBUMIN/GLOBULIN RATIO 1.12 (1.00-1.93); ALKALINE PHOSPHATASE 78 U/L (45-117); ALT/SGPT 15 U/L (12-78); ANION GAP 11 MEQ/L (8-16); AST/SGOT 14 U/L (7-37); BILIRUBIN,TOTAL 0.4 MG/DL (0.2-1.0); BLOOD UREA NITROGEN 22 MG/DL (7-18); CALCIUM LEVEL 7.7 MG/DL (8.5-10.1); CARBON DIOXIDE LEVEL 25 MEQ/L (21-32); CHLORIDE LEVEL 105 MEQ/L (98-107); CREATININE FOR GFR 9.34 MG/DL (0.70-1.30); GLOMERULAR FILTRATION RATE 7.2 (>60); GLUCOSE, FASTING 83 MG/DL (70-100); POTASSIUM SERUM 3.8 MEQ/L (3.5-5.1); SODIUM LEVEL 141 MEQ/L (136-145); TOTAL PROTEIN 5.5 GM/DL (6.4-8.2)
[2018-05-09] MEDS: PROPOFOL 1,000 MG in APPROPRIATE DILUENT 1 EA IV ×4 (02:36→12:07)
[2018-05-09 04:37] LABS: HEMATOCRIT 26.2 % (42.0-52.0); MEAN CORPUSCULAR HEMOGLOBIN 29.8 pg (27.0-33.0); MEAN CORPUSCULAR HGB CONC 33.2 g/dl (32.0-36.5); MEAN CORPUSCULAR VOLUME 89.7 fl (80.0-96.0); RED BLOOD COUNT 2.92 10^6/uL (4.30-6.10); RED CELL DISTRIBUTION WIDTH 14.9 % (11.5-14.5)
[2018-05-09 04:40] LABS: HEMOGLOBIN 8.7 g/dl (13.5-17.5); PLATELET COUNT, AUTOMATED 126 10^3/uL (150-450)
[2018-05-09] MEDS: dexmedeTOMidine 200 MCG in APPROPRIATE DILUENT 1 EA IV ×3 (04:48→12:33)
[2018-05-09 05:03] LABS: AMMONIA 29 uMOL/L (<32)
[2018-05-09] MEDS: HEPARIN SOD (PORCINE) 5000 UNITS/ML VIAL SC (05:06)
[2018-05-09 05:11] LABS: ALBUMIN/GLOBULIN RATIO 1.07 (1.00-1.93); ALKALINE PHOSPHATASE 76 U/L (45-117); ALT/SGPT 11 U/L (12-78); ANION GAP 12 MEQ/L (8-16); AST/SGOT 18 U/L (7-37); BILIRUBIN,TOTAL 0.4 MG/DL (0.2-1.0); BLOOD UREA NITROGEN 24 MG/DL (7-18); CALCIUM LEVEL 7.7 MG/DL (8.5-10.1); CARBON DIOXIDE LEVEL 23 MEQ/L (21-32); CHLORIDE LEVEL 104 MEQ/L (98-107); CPK CREATINE PHOSPHOKINASE 570 U/L (39-308); GLOMERULAR FILTRATION RATE 6.3 (>60); GLUCOSE, FASTING 85 MG/DL (70-100); POTASSIUM SERUM 3.5 MEQ/L (3.5-5.1); SODIUM LEVEL 139 MEQ/L (136-145); TOTAL PROTEIN 5.8 GM/DL (6.4-8.2)
[2018-05-09 05:57] LABS: ABG HCO3 19.8 MEQ/L (22.0-26.0); ABG O2 SATURATION 98.9 % (95.0-99.0); ABG PARTIAL PRESSURE CO2 31.2 mmHg (35.0-45.0); ABG PARTIAL PRESSURE O2 141.5 mmHg (75.0-100.0); ABG STANDARD HCO3 21.1 MEQ/L (22.0-26.0); ABG TOTAL CO2 20.7 MEQ/L (22.0-29.0)
[2018-05-09] MEDS: PANTOPRAZOLE 40MG INJ (PROTONIX) (C9113) IV (08:53)
[2018-05-09] MEDS: CHLORHEXIDINE ORAL RINSE 0.12%/15ML 120ML BOTTLE MT ×2 (08:56→20:11)
[2018-05-09] MEDS: D5W/0.45% SODIUM CHLORIDE 1,000 ML IV (08:56)
[2018-05-09] MEDS: VALPROATE SOD INJ 500 MG in D5W 50 ML IV (10:05)
[2018-05-09 10:24] LABS: CSF RBC < 2 10^3/uL (<2); CSF WBC 1 /uL (0-10)
[2018-05-09 10:25] LABS: APPEARANCE, CSF CLEAR (CLEAR); COLOR, CSF COLORLESS (COLORLESS); CSF DIFF IF INDICATED? NO (NO); CSF TUBE# CELL CNT TUBE 1
[2018-05-09 10:41] LABS: CSF TUBE# GLU TUBE 2; CSF TUBE# TP TUBE 2; GLUCOSE CSF 47 MG/DL (40-75); TOTAL PROTEIN,CSF 26 MG/DL (15-45)
[2018-05-09] MEDS: MIDAZOLAM INJ 2 MG/2 ML VIAL (J2250) IV (10:58)
[2018-05-09 14:09] LABS: HEMATOCRIT 28.7 % (42.0-52.0); HEMOGLOBIN 9.6 g/dl (13.5-17.5); MEAN CORPUSCULAR HEMOGLOBIN 29.6 pg (27.0-33.0); MEAN CORPUSCULAR HGB CONC 33.4 g/dl (32.0-36.5); MEAN CORPUSCULAR VOLUME 88.6 fl (80.0-96.0); PLATELET COUNT, AUTOMATED 154 10^3/uL (150-450); RED BLOOD COUNT 3.24 10^6/uL (4.30-6.10); RED CELL DISTRIBUTION WIDTH 14.9 % (11.5-14.5); WHITE BLOOD COUNT 6.6 10^3/uL (4.0-10.0)
[2018-05-09 14:25] LABS: INR 1.16; PARTIAL THROMBOPLASTIN TIME 34.1 SECONDS (25.4-37.6)
[2018-05-09] MEDS: PERCOCET 5MG/325MG TAB PO (14:35)
[2018-05-09] MEDS: LOSARTAN 50 MG TAB PO (14:36)
[2018-05-09] MEDS: METOPROLOL TART 50 MG TAB PO ×2 (14:36→20:11)
[2018-05-09] MEDS: DIVALPROEX 500 MG TAB PO (20:10)
[2018-05-09] MEDS: ACETAMINOPHEN TAB 650MG DOSE (2X325MG) PO (20:12)
[2018-05-10] MEDS: METOPROLOL TART 50 MG TAB PO ×2 (03:37→21:57)
[2018-05-10] MEDS: LOSARTAN 50 MG TAB PO (03:38)
[2018-05-10 04:50] LABS: HEMATOCRIT 25.4 % (42.0-52.0); HEMOGLOBIN 8.3 g/dl (13.5-17.5); MEAN CORPUSCULAR HEMOGLOBIN 29.4 pg (27.0-33.0); MEAN CORPUSCULAR HGB CONC 32.7 g/dl (32.0-36.5); MEAN CORPUSCULAR VOLUME 90.1 fl (80.0-96.0); PLATELET COUNT, AUTOMATED 123 10^3/uL (150-450); RED BLOOD COUNT 2.82 10^6/uL (4.30-6.10); RED CELL DISTRIBUTION WIDTH 14.9 % (11.5-14.5); WHITE BLOOD COUNT 6.1 10^3/uL (4.0-10.0)
[2018-05-10] MEDS: cloNIDine 0.1 MG TAB PO ×2 (05:08→18:32)
[2018-05-10 05:25] LABS: AMMONIA 39 uMOL/L (<32)
[2018-05-10 06:19] LABS: ABG BASE EXCESS 1.4 (-2.0-2.0); ABG HCO3 24.9 MEQ/L (22.0-26.0); ABG O2 SATURATION 98.4 % (95.0-99.0); ABG PARTIAL PRESSURE CO2 34.5 mmHg (35.0-45.0); ABG PARTIAL PRESSURE O2 114.1 mmHg (75.0-100.0); ABG STANDARD HCO3 25.8 MEQ/L (22.0-26.0); ABG TOTAL CO2 25.9 MEQ/L (22.0-29.0); ABG pH (ARTERIAL) 7.476 UNITS (7.350-7.450)
[2018-05-10 08:59] LABS: ALBUMIN/GLOBULIN RATIO 1.15 (1.00-1.93); ALKALINE PHOSPHATASE 91 U/L (45-117); ALT/SGPT 33 U/L (12-78); ANION GAP 10 MEQ/L (8-16); AST/SGOT 136 U/L (7-37); BILIRUBIN,TOTAL 0.7 MG/DL (0.2-1.0); BLOOD UREA NITROGEN 15 MG/DL (7-18); CALCIUM LEVEL 7.7 MG/DL (8.5-10.1); CARBON DIOXIDE LEVEL 27 MEQ/L (21-32); CHLORIDE LEVEL 104 MEQ/L (98-107); CREATININE FOR GFR 7.81 MG/DL (0.70-1.30); GLOMERULAR FILTRATION RATE 8.8 (>60); GLUCOSE, FASTING 74 MG/DL (70-100); POTASSIUM SERUM 3.8 MEQ/L (3.5-5.1); SODIUM LEVEL 141 MEQ/L (136-145); TOTAL PROTEIN 5.6 GM/DL (6.4-8.2); VALPROIC ACID (DEPAKOTE) 32.7 UG/ML (50.0-100.0)
[2018-05-10] MEDS: DIVALPROEX 500 MG TAB PO ×2 (09:54→21:56)
[2018-05-10] MEDS: CHLORHEXIDINE ORAL RINSE 0.12%/15ML 120ML BOTTLE MT ×2 (10:02→22:14)
[2018-05-10 10:20] LABS: CPK CREATINE PHOSPHOKINASE 20803 U/L (39-308)
[2018-05-10] MEDS: LIDOCAINE 1% SDV 5 ML VIAL SQ (12:15)
[2018-05-10] MEDS: HEPARIN SOD (PORCINE) 5000 UNITS/ML VIAL SC ×2 (14:00→21:57)
[2018-05-10] MEDS ORDERED: SLF 3 ML SYR IV (17:30)
[2018-05-10] MEDS ORDERED: SODIUM CHLORIDE 0.9% INJ 10 ML SYR IV (17:30)
[2018-05-10 19:21] LABS: CPK CREATINE PHOSPHOKINASE 28660 U/L (39-308); MB/CK RELATIVE INDEX 0.01 (< OR =4); TROPONIN I 1.11 NG/ML (< 0.10)
[2018-05-10] MEDS: SODIUM CHLORIDE 0.9% INJ 10 ML SYR IV (21:58)
[2018-05-10] MEDS: SLF 3 ML SYR IV (21:58)
[2018-05-11] MEDS: ACETAMINOPHEN TAB 650MG DOSE (2X325MG) PO (00:36)
[2018-05-11] MEDS: MINOXIDIL 10 MG TAB PO ×3 (01:07→20:43)
[2018-05-11] MEDS: SODIUM CHLORIDE 0.9% INJ 10 ML SYR IV ×3 (05:09→22:00)
[2018-05-11] MEDS: SLF 3 ML SYR IV ×3 (05:09→22:00)
[2018-05-11] MEDS: HEPARIN SOD (PORCINE) 5000 UNITS/ML VIAL SC ×3 (05:10→22:00)
[2018-05-11 05:24] LABS: HEMATOCRIT 26.9 % (42.0-52.0); HEMOGLOBIN 8.9 g/dl (13.5-17.5); MEAN CORPUSCULAR HEMOGLOBIN 29.6 pg (27.0-33.0); MEAN CORPUSCULAR HGB CONC 33.1 g/dl (32.0-36.5); MEAN CORPUSCULAR VOLUME 89.4 fl (80.0-96.0); PLATELET COUNT, AUTOMATED 135 10^3/uL (150-450); RED BLOOD COUNT 3.01 10^6/uL (4.30-6.10); RED CELL DISTRIBUTION WIDTH 14.6 % (11.5-14.5); WHITE BLOOD COUNT 5.6 10^3/uL (4.0-10.0)
[2018-05-11 06:00] LABS: ALBUMIN 3.3 GM/DL (3.2-5.2); ALKALINE PHOSPHATASE 99 U/L (45-117); ALT/SGPT 95 U/L (12-78); ANION GAP 10 MEQ/L (8-16); AST/SGOT 405 U/L (7-37); BILIRUBIN,TOTAL 0.8 MG/DL (0.2-1.0); BLOOD UREA NITROGEN 14 MG/DL (7-18); CALCIUM LEVEL 8.4 MG/DL (8.5-10.1); CARBON DIOXIDE LEVEL 29 MEQ/L (21-32); CHLORIDE LEVEL 102 MEQ/L (98-107); CREATININE FOR GFR 6.75 MG/DL (0.70-1.30); GLOMERULAR FILTRATION RATE 10.5 (>60); GLUCOSE, FASTING 83 MG/DL (70-100); POTASSIUM SERUM 3.7 MEQ/L (3.5-5.1); SODIUM LEVEL 141 MEQ/L (136-145); TOTAL PROTEIN 6.6 GM/DL (6.4-8.2); TROPONIN I 1.46 NG/ML (< 0.10)
[2018-05-11 06:42] LABS: CPK CREATINE PHOSPHOKINASE 45534 U/L (39-308)
[2018-05-11] MEDS: CHLORHEXIDINE ORAL RINSE 0.12%/15ML 120ML BOTTLE MT ×2 (09:00→20:44)
[2018-05-11] MEDS: LOSARTAN 50 MG TAB PO (09:04)
[2018-05-11] MEDS: METOPROLOL TART 50 MG TAB PO ×2 (09:04→20:43)
[2018-05-11] MEDS: cloNIDine 0.2 MG TAB PO ×2 (09:05→20:43)
[2018-05-11] MEDS: DIVALPROEX 500 MG TAB PO ×2 (09:05→20:43)
[2018-05-11 13:37] LABS: TROPONIN I 1.49 NG/ML (< 0.10)
[2018-05-11 13:38] LABS: CPK CREATINE PHOSPHOKINASE 56001 U/L (39-308)
[2018-05-11 18:30] LABS: TROPONIN I 2.09 NG/ML (< 0.10)
[2018-05-11 20:40] LABS: CPK CREATINE PHOSPHOKINASE 321000 U/L (39-308)
[2018-05-11] MEDS: ASPIRIN 81 MG ENTERIC TAB PO (20:43)
[2018-05-11] MEDS: TICAGRELOR 90 MG TABLET (BRILINTA) PO (21:57)
[2018-05-12 00:33] LABS: CPK CREATINE PHOSPHOKINASE 205200 U/L (39-308); TROPONIN I 2.84 NG/ML (< 0.10)
[2018-05-12 04:40] LABS: HEMATOCRIT 32.2 % (42.0-52.0); HEMOGLOBIN 10.7 g/dl (13.5-17.5); MEAN CORPUSCULAR HEMOGLOBIN 29.6 pg (27.0-33.0); MEAN CORPUSCULAR HGB CONC 33.2 g/dl (32.0-36.5); PLATELET COUNT, AUTOMATED 171 10^3/uL (150-450); RED BLOOD COUNT 3.62 10^6/uL (4.30-6.10); RED CELL DISTRIBUTION WIDTH 14.4 % (11.5-14.5); WHITE BLOOD COUNT 6.4 10^3/uL (4.0-10.0)
[2018-05-12] MEDS: HEPARIN SOD (PORCINE) 5000 UNITS/ML VIAL SC ×3 (05:02→21:23)
[2018-05-12] MEDS: SLF 3 ML SYR IV ×3 (05:03→21:15)
[2018-05-12] MEDS: SODIUM CHLORIDE 0.9% INJ 10 ML SYR IV (05:03)
[2018-05-12 06:00] LABS: ALBUMIN 3.1 GM/DL (3.2-5.2); ALBUMIN/GLOBULIN RATIO 0.94 (1.00-1.93); ALKALINE PHOSPHATASE 99 U/L (45-117); ALT/SGPT 117 U/L (12-78); ANION GAP 10 MEQ/L (8-16); AST/SGOT 424 U/L (7-37); BLOOD UREA NITROGEN 26 MG/DL (7-18); CALCIUM LEVEL 8.4 MG/DL (8.5-10.1); CARBON DIOXIDE LEVEL 27 MEQ/L (21-32); CHLORIDE LEVEL 101 MEQ/L (98-107); CHOLESTEROL LEVEL 133 MG/DL (<200); CHOLESTEROL RISK RATIO 7.388 (<5); CPK CREATINE PHOSPHOKINASE 46089 U/L (39-308); CREATININE FOR GFR 9.33 MG/DL (0.70-1.30); GLOMERULAR FILTRATION RATE 7.2 (>60); GLUCOSE, FASTING 74 MG/DL (70-100); HDL CHOLESTEROL 18 MG/DL (>40); LDL CHOLESTEROL 38 MG/DL (<100); NON-HDL-C 115 MG/DL; POTASSIUM SERUM 4.2 MEQ/L (3.5-5.1); SODIUM LEVEL 138 MEQ/L (136-145); TOTAL PROTEIN 6.4 GM/DL (6.4-8.2); TRIGLYCERIDES LEVEL 387 MG/DL (<150); TROPONIN I 2.94 NG/ML (< 0.10)
[2018-05-12] MEDS: LOSARTAN 50 MG TAB PO (06:02)
[2018-05-12] MEDS: TICAGRELOR 90 MG TABLET (BRILINTA) PO ×2 (06:02→21:22)
[2018-05-12] MEDS: DIVALPROEX 500 MG TAB PO ×2 (06:03→21:22)
[2018-05-12] MEDS: cloNIDine 0.2 MG TAB PO ×2 (06:03→21:26)
[2018-05-12] MEDS: CHLORHEXIDINE ORAL RINSE 0.12%/15ML 120ML BOTTLE MT ×2 (09:42→21:00)
[2018-05-12] MEDS: MINOXIDIL 10 MG TAB PO ×2 (09:43→21:22)
[2018-05-12] MEDS: ASPIRIN 81 MG ENTERIC TAB PO (09:43)
[2018-05-12] MEDS: METOPROLOL TART 50 MG TAB PO ×2 (09:44→21:22)
[2018-05-12] MEDS: ONDANSETRON 4MG/2ML VIAL (J2405) IV (18:46)
[2018-05-13] MEDS: SLF 3 ML SYR IV ×3 (05:04→21:40)
[2018-05-13] MEDS: HEPARIN SOD (PORCINE) 5000 UNITS/ML VIAL SC ×3 (05:04→21:38)
[2018-05-13 05:44] LABS: HEMATOCRIT 33.7 % (42.0-52.0); HEMOGLOBIN 11.2 g/dl (13.5-17.5); MEAN CORPUSCULAR HEMOGLOBIN 29.1 pg (27.0-33.0); MEAN CORPUSCULAR HGB CONC 33.2 g/dl (32.0-36.5); MEAN CORPUSCULAR VOLUME 87.5 fl (80.0-96.0); PLATELET COUNT, AUTOMATED 215 10^3/uL (150-450); RED BLOOD COUNT 3.85 10^6/uL (4.30-6.10); RED CELL DISTRIBUTION WIDTH 14.3 % (11.5-14.5); WHITE BLOOD COUNT 8.3 10^3/uL (4.0-10.0)
[2018-05-13 08:10] LABS: ALBUMIN 3.5 GM/DL (3.2-5.2); ALKALINE PHOSPHATASE 95 U/L (45-117); ALT/SGPT 127 U/L (12-78); ANION GAP 8 MEQ/L (8-16); AST/SGOT 375 U/L (7-37); BLOOD UREA NITROGEN 22 MG/DL (7-18); CALCIUM LEVEL 9.1 MG/DL (8.5-10.1); CARBON DIOXIDE LEVEL 30 MEQ/L (21-32); CHLORIDE LEVEL 96 MEQ/L (98-107); CPK CREATINE PHOSPHOKINASE 17486 U/L (39-308); CREATININE FOR GFR 7.46 MG/DL (0.70-1.30); GLOMERULAR FILTRATION RATE 9.3 (>60); GLUCOSE, FASTING 88 MG/DL (70-100); MB/CK RELATIVE INDEX 0.01 (< OR =4); POTASSIUM SERUM 4.2 MEQ/L (3.5-5.1); SODIUM LEVEL 134 MEQ/L (136-145); TROPONIN I 3.51 NG/ML (< 0.10)
[2018-05-13] MEDS: CHLORHEXIDINE ORAL RINSE 0.12%/15ML 120ML BOTTLE MT ×3 (09:00→21:38)
[2018-05-13] MEDS: LOSARTAN 50 MG TAB PO (09:39)
[2018-05-13] MEDS: TICAGRELOR 90 MG TABLET (BRILINTA) PO ×2 (09:39→21:36)
[2018-05-13] MEDS: METOPROLOL TART 50 MG TAB PO ×2 (09:40→21:37)
[2018-05-13] MEDS: MINOXIDIL 10 MG TAB PO ×2 (09:40→21:36)
[2018-05-13] MEDS: DIVALPROEX 500 MG TAB PO ×2 (09:40→21:38)
[2018-05-13] MEDS: ASPIRIN 81 MG ENTERIC TAB PO (09:40)
[2018-05-13] MEDS: cloNIDine 0.2 MG TAB PO ×2 (09:40→21:36)
[2018-05-14] MEDS: SLF 3 ML SYR IV ×3 (05:35→20:11)
[2018-05-14 05:48] LABS: HEMOGLOBIN 9.5 g/dl (13.5-17.5); MEAN CORPUSCULAR HGB CONC 32.8 g/dl (32.0-36.5); MEAN CORPUSCULAR VOLUME 88.4 fl (80.0-96.0); PLATELET COUNT, AUTOMATED 194 10^3/uL (150-450); RED BLOOD COUNT 3.28 10^6/uL (4.30-6.10); WHITE BLOOD COUNT 6.3 10^3/uL (4.0-10.0)
[2018-05-14] MEDS: HEPARIN SOD (PORCINE) 5000 UNITS/ML VIAL SC ×3 (06:00→20:11)
[2018-05-14 06:45] LABS: ALBUMIN 3.1 GM/DL (3.2-5.2); ALBUMIN/GLOBULIN RATIO 0.97 (1.00-1.93); ALKALINE PHOSPHATASE 81 U/L (45-117); ALT/SGPT 116 U/L (12-78); ANION GAP 8 MEQ/L (8-16); AST/SGOT 271 U/L (7-37); BILIRUBIN,TOTAL 0.9 MG/DL (0.2-1.0); BLOOD UREA NITROGEN 41 MG/DL (7-18); CALCIUM LEVEL 8.3 MG/DL (8.5-10.1); CARBON DIOXIDE LEVEL 29 MEQ/L (21-32); CHLORIDE LEVEL 98 MEQ/L (98-107); CPK CREATINE PHOSPHOKINASE 12540 U/L (39-308); GLOMERULAR FILTRATION RATE 6.4 (>60); GLUCOSE, FASTING 77 MG/DL (70-100); MB/CK RELATIVE INDEX 0.01 (< OR =4); POTASSIUM SERUM 4.1 MEQ/L (3.5-5.1); SODIUM LEVEL 135 MEQ/L (136-145); TOTAL PROTEIN 6.3 GM/DL (6.4-8.2); TROPONIN I 1.96 NG/ML (< 0.10)
[2018-05-14] MEDS: TICAGRELOR 90 MG TABLET (BRILINTA) PO (06:53)
[2018-05-14] MEDS: MINOXIDIL 10 MG TAB PO ×2 (06:53→20:10)
[2018-05-14] MEDS: DIVALPROEX 500 MG TAB PO ×2 (06:54→20:10)
[2018-05-14] MEDS: cloNIDine 0.2 MG TAB PO ×2 (06:54→20:10)
[2018-05-14] MEDS: ASPIRIN 81 MG ENTERIC TAB PO (06:54)
[2018-05-14] MEDS: METOPROLOL TART 50 MG TAB PO ×2 (06:54→20:10)
[2018-05-14] MEDS: LOSARTAN 50 MG TAB PO (06:55)
[2018-05-14] MEDS: CHLORHEXIDINE ORAL RINSE 0.12%/15ML 120ML BOTTLE MT ×2 (06:55→20:10)
[2018-05-14] MEDS ORDERED: CLOPIDOGREL 75 MG TAB PO (09:00)
[2018-05-14] MEDS: CLOPIDOGREL 75 MG TAB PO (20:10)
[2018-05-15] MEDS: SLF 3 ML SYR IV (06:00)
[2018-05-15] MEDS: HEPARIN SOD (PORCINE) 5000 UNITS/ML VIAL SC (06:00)
[2018-05-15 06:07] LABS: HEMATOCRIT 27.7 % (42.0-52.0); HEMOGLOBIN 9.2 g/dl (13.5-17.5); MEAN CORPUSCULAR HEMOGLOBIN 29.4 pg (27.0-33.0); MEAN CORPUSCULAR HGB CONC 33.2 g/dl (32.0-36.5); MEAN CORPUSCULAR VOLUME 88.5 fl (80.0-96.0); PLATELET COUNT, AUTOMATED 206 10^3/uL (150-450); RED BLOOD COUNT 3.13 10^6/uL (4.30-6.10); RED CELL DISTRIBUTION WIDTH 14.2 % (11.5-14.5); WHITE BLOOD COUNT 6.4 10^3/uL (4.0-10.0)
[2018-05-15 06:43] LABS: ALBUMIN 3.2 GM/DL (3.2-5.2); ALBUMIN/GLOBULIN RATIO 0.94 (1.00-1.93); ALKALINE PHOSPHATASE 75 U/L (45-117); ALT/SGPT 108 U/L (12-78); ANION GAP 9 MEQ/L (8-16); AST/SGOT 195 U/L (7-37); BILIRUBIN,TOTAL 0.8 MG/DL (0.2-1.0); BLOOD UREA NITROGEN 31 MG/DL (7-18); CALCIUM LEVEL 8.6 MG/DL (8.5-10.1); CARBON DIOXIDE LEVEL 29 MEQ/L (21-32); CHLORIDE LEVEL 99 MEQ/L (98-107); GLUCOSE, FASTING 75 MG/DL (70-100); POTASSIUM SERUM 4.1 MEQ/L (3.5-5.1); SODIUM LEVEL 137 MEQ/L (136-145); TOTAL PROTEIN 6.6 GM/DL (6.4-8.2)
[2018-05-15 06:44] LABS: CREATININE FOR GFR 8.04 MG/DL (0.70-1.30); GLOMERULAR FILTRATION RATE 8.5 (>60)
[2018-05-15] MEDS: LOSARTAN 50 MG TAB PO (08:04)
[2018-05-15] MEDS: DIVALPROEX 500 MG TAB PO (08:05)
[2018-05-15] MEDS: cloNIDine 0.2 MG TAB PO (08:05)
[2018-05-15] MEDS: MINOXIDIL 10 MG TAB PO (08:05)
[2018-05-15] MEDS: CHLORHEXIDINE ORAL RINSE 0.12%/15ML 120ML BOTTLE MT (08:06)
[2018-05-15] MEDS: METOPROLOL TART 50 MG TAB PO (08:06)
[2018-05-15] MEDS: ASPIRIN 81 MG ENTERIC TAB PO (08:06)
[2018-05-15] MEDS: PERCOCET 5MG/325MG TAB PO (08:07)
[2018-05-15] MEDS ORDERED: ASPIRIN 81 MG ENTERIC TAB PO (10:00)
[2018-05-15] MEDS ORDERED: DIVALPROEX 500 MG TAB PO (10:00)
[2018-05-15] MEDS ORDERED: cloNIDine 0.2 MG TAB PO (10:00)
[2018-05-15] MEDS ORDERED: CLOPIDOGREL 75 MG TAB PO (10:00)
== END 2018-05-15 11:32 | disposition home or self-care (01) | DRG 100 ==
LOC: M PCU 05-10 06:41 → M ED 04:57 → M ED INP 08:50 → M ICU 10:13
PROVIDERS: Internal Medicine Pulmonary Disease
PROC: 5A1945Z Respiratory Ventilation, 24-96 Consecutive Hours (ICD-10-PCS; principal; 2018-05-08)
PROC: 02HV33Z Insertion of Infusion Device into Superior Vena Cava, Percutaneous Approach (ICD-10-PCS; 2018-05-08)
PROC: 5A1D70Z Performance of Urinary Filtration, Intermittent, Less than 6 Hours Per Day (ICD-10-PCS; 2018-05-09)
PROC: 009U3ZX Drainage of Spinal Canal, Percutaneous Approach, Diagnostic (ICD-10-PCS; 2018-05-09)
DX: G40.409 Other generalized epilepsy and epileptic syndromes, not intractable, without status epilepticus (principal); N18.6 End stage renal disease; J96.00 Acute respiratory failure, unspecified whether with hypoxia or hypercapnia; E87.2 Acidosis; M62.82 Rhabdomyolysis; N25.81 Secondary hyperparathyroidism of renal origin; I12.0 Hypertensive chronic kidney disease with stage 5 chronic kidney disease or end stage renal disease; D63.1 Anemia in chronic kidney disease; Z79.82 Long term (current) use of aspirin; Z79.899 Other long term (current) drug therapy; N13.70 Vesicoureteral-reflux, unspecified; F41.9 Anxiety disorder, unspecified; F32.9 Major depressive disorder, single episode, unspecified; F17.200 Nicotine dependence, unspecified, uncomplicated; R31.9 Hematuria, unspecified; I15.0 Renovascular hypertension; D69.6 Thrombocytopenia, unspecified

== ENCOUNTER 2018-05-22 20:00 | Inpatient (IN) | payer MEDICARE, MEDICAID ==
[2018-05-22] MEDS: hydrALAZINE INJ 20 MG/ML VIAL IV (20:32)
[2018-05-22] MEDS: SENOKOT S TAB PO (21:00)
[2018-05-22 21:10] LABS: BASO # 0.1 10^3/uL (0.0-0.2); BASO % 1.1 % (0.0-1.0); EOS # 0.2 10^3/uL (0.0-0.50); EOS % 3.8 % (0.0-3.0); HEMOGLOBIN 9.1 g/dl (13.5-17.5); IMMATURE GRANULOCYTE % 1.1 % (0-3.0); LYMPH # 1.4 10^3/uL (1.5-6.5); LYMPH % 24.4 % (24.0-44.0); MEAN CORPUSCULAR HGB CONC 33.7 g/dl (32.0-36.5); MEAN CORPUSCULAR VOLUME 91.8 fl (80.0-96.0); MONO # 0.5 10^3/uL (0.0-0.8); MONO % 8.6 % (0.0-5.0); NEUTROPHILS # 3.4 10^3/uL (1.8-7.7); PLATELET COUNT, AUTOMATED 273 10^3/uL (150-450); RED BLOOD COUNT 2.94 10^6/uL (4.30-6.10); RED CELL DISTRIBUTION WIDTH 14.9 % (11.5-14.5); WHITE BLOOD COUNT 5.6 10^3/uL (4.0-10.0)
[2018-05-22 21:22] LABS: INR 1.13; PROTHROMBIN TIME 14.7 SECONDS (12.1-14.4)
[2018-05-22 21:23] LABS: PARTIAL THROMBOPLASTIN TIME 35.2 SECONDS (25.4-37.6)
[2018-05-22] MEDS: cloNIDine 0.2 MG TAB PO (21:36)
[2018-05-22 21:38] LABS: VALPROIC ACID (DEPAKOTE) 64.5 UG/ML (50.0-100.0)
[2018-05-22 21:43] LABS: ALBUMIN 3.5 GM/DL (3.2-5.2); ALBUMIN/GLOBULIN RATIO 1.03 (1.00-1.93); ALKALINE PHOSPHATASE 76 U/L (45-117); ALT/SGPT 37 U/L (12-78); ANION GAP 9 MEQ/L (8-16); AST/SGOT 32 U/L (7-37); BILIRUBIN,DIRECT 0.1 MG/DL (0.0-0.2); BILIRUBIN,TOTAL 0.5 MG/DL (0.2-1.0); BLOOD UREA NITROGEN 37 MG/DL (7-18); CALCIUM LEVEL 8.3 MG/DL (8.5-10.1); CARBON DIOXIDE LEVEL 28 MEQ/L (21-32); CHLORIDE LEVEL 101 MEQ/L (98-107); CPK CREATINE PHOSPHOKINASE 440 U/L (39-308); CREATININE FOR GFR 9.02 MG/DL (0.70-1.30); GLOMERULAR FILTRATION RATE 7.5 (>60); GLUCOSE, FASTING 78 MG/DL (70-100); MB/CK RELATIVE INDEX 1.05 (< OR =4); POTASSIUM SERUM 5.4 MEQ/L (3.5-5.1); SODIUM LEVEL 138 MEQ/L (136-145); TOTAL PROTEIN 6.9 GM/DL (6.4-8.2); TROPONIN I 0.02 NG/ML (< 0.10)
[2018-05-22] MEDS ORDERED: hydrOXYzine 25 MG TAB PO (23:45)
[2018-05-22] MEDS ORDERED: ALBUTEROL 90 MCG/ACT 8GM HFA INHALER INH (23:45)
[2018-05-22] MEDS ORDERED: tiZANidine 4 MG TAB PO (23:45)
[2018-05-23] MEDS ORDERED: ONDANSETRON 4MG/2ML VIAL (J2405) IV
[2018-05-23] MEDS: DIVALPROEX 500MG *ER* TAB PO ×3 (01:17→20:36)
[2018-05-23] MEDS: METOPROLOL TART 50 MG TAB PO ×3 (01:17→20:36)
[2018-05-23] MEDS: traZODone 50 MG TAB PO ×2 (01:18→20:34)
[2018-05-23] MEDS: MINOXIDIL 2.5 MG TAB PO ×3 (01:18→20:35)
[2018-05-23] MEDS: HEPARIN SOD (PORCINE) 5000 UNITS/ML VIAL SC ×3 (01:19→20:35)
[2018-05-23 07:30] LABS: HEMATOCRIT 25.5 % (42.0-52.0); HEMOGLOBIN 8.4 g/dl (13.5-17.5); MEAN CORPUSCULAR HEMOGLOBIN 30.3 pg (27.0-33.0); MEAN CORPUSCULAR HGB CONC 32.9 g/dl (32.0-36.5); MEAN CORPUSCULAR VOLUME 92.1 fl (80.0-96.0); PLATELET COUNT, AUTOMATED 240 10^3/uL (150-450); RED BLOOD COUNT 2.77 10^6/uL (4.30-6.10); WHITE BLOOD COUNT 4.9 10^3/uL (4.0-10.0)
[2018-05-23 07:49] LABS: PROTHROMBIN TIME 14.3 SECONDS (12.1-14.4)
[2018-05-23 07:50] LABS: AMMONIA 24 uMOL/L (<32)
[2018-05-23 08:06] LABS: ALBUMIN/GLOBULIN RATIO 1.07 (1.00-1.93); ALKALINE PHOSPHATASE 65 U/L (45-117); ALT/SGPT 25 U/L (12-78); ANION GAP 10 MEQ/L (8-16); AST/SGOT 13 U/L (7-37); BILIRUBIN,TOTAL 0.4 MG/DL (0.2-1.0); BLOOD UREA NITROGEN 46 MG/DL (7-18); CALCIUM LEVEL 8.5 MG/DL (8.5-10.1); CARBON DIOXIDE LEVEL 26 MEQ/L (21-32); CHLORIDE LEVEL 103 MEQ/L (98-107); CPK CREATINE PHOSPHOKINASE 297 U/L (39-308); CREATININE FOR GFR 9.81 MG/DL (0.70-1.30); GLOMERULAR FILTRATION RATE 6.8 (>60); GLUCOSE, FASTING 79 MG/DL (70-100); MAGNESIUM LEVEL 2.2 MG/DL (1.8-2.4); MB/CK RELATIVE INDEX 1.38 (< OR =4); PHOSPHORUS LEVEL 3.3 MG/DL (2.5-4.9); POTASSIUM SERUM 4.3 MEQ/L (3.5-5.1); SODIUM LEVEL 139 MEQ/L (136-145); TOTAL PROTEIN 5.8 GM/DL (6.4-8.2); TROPONIN I 0.04 NG/ML (< 0.10)
[2018-05-23] MEDS: SERTRALINE HCL 50 MG TAB PO (08:44)
[2018-05-23] MEDS: LOSARTAN 50 MG TAB PO (08:44)
[2018-05-23] MEDS: cloNIDine 0.2 MG TAB PO ×2 (08:44→20:36)
[2018-05-23] MEDS: ASPIRIN 81 MG ENTERIC TAB PO (08:44)
[2018-05-23] MEDS: CLOPIDOGREL 75 MG TAB PO (08:44)
[2018-05-23] MEDS: OMEPRAZOLE 20 MG CAP PO (08:44)
[2018-05-23] MEDS: SENOKOT S TAB PO ×2 (08:45→20:35)
[2018-05-23] MEDS: VITAMIN D 1,000 INTERNATIONAL UNITS TABLET PO (08:45)
[2018-05-23] MEDS: LANTHANUM CARBONATE 500 MG CHEW TABLET PO ×2 (12:30→18:00)
[2018-05-24 05:20] LABS: HEMATOCRIT 27.3 % (42.0-52.0); MEAN CORPUSCULAR HEMOGLOBIN 30.1 pg (27.0-33.0); MEAN CORPUSCULAR VOLUME 91.3 fl (80.0-96.0); PLATELET COUNT, AUTOMATED 231 10^3/uL (150-450); RED BLOOD COUNT 2.99 10^6/uL (4.30-6.10); RED CELL DISTRIBUTION WIDTH 15.1 % (11.5-14.5); WHITE BLOOD COUNT 3.7 10^3/uL (4.0-10.0)
[2018-05-24 05:31] LABS: INR 1.09; PROTHROMBIN TIME 14.2 SECONDS (12.1-14.4)
[2018-05-24 05:33] LABS: AMMONIA 16 uMOL/L (<32)
[2018-05-24 05:43] LABS: ALBUMIN/GLOBULIN RATIO 1.11 (1.00-1.93); ALKALINE PHOSPHATASE 69 U/L (45-117); ALT/SGPT 23 U/L (12-78); ANION GAP 8 MEQ/L (8-16); AST/SGOT 13 U/L (7-37); BILIRUBIN,TOTAL 0.5 MG/DL (0.2-1.0); BLOOD UREA NITROGEN 28 MG/DL (7-18); CALCIUM LEVEL 8.2 MG/DL (8.5-10.1); CARBON DIOXIDE LEVEL 31 MEQ/L (21-32); CHLORIDE LEVEL 102 MEQ/L (98-107); CREATININE FOR GFR 6.95 MG/DL (0.70-1.30); FERRITIN 1279 NG/ML (26-388); GLOMERULAR FILTRATION RATE 10.1 (>60); GLUCOSE, FASTING 87 MG/DL (70-100); IRON (FE) 68 UG/DL (65-175); POTASSIUM SERUM 3.9 MEQ/L (3.5-5.1); SODIUM LEVEL 141 MEQ/L (136-145); TOTAL IRON BINDING CAPACITY 206 UG/DL (250-450); TOTAL PROTEIN 5.7 GM/DL (6.4-8.2)
[2018-05-24] MEDS ORDERED: DARBEPOETIN 100 MCG/0.5 ML *DIALYSIS* SYRINGE (J0882) IV (09:45)
[2018-05-24] MEDS: LANTHANUM CARBONATE 500 MG CHEW TABLET PO ×3 (10:05→17:09)
[2018-05-24] MEDS: ASPIRIN 81 MG ENTERIC TAB PO (10:06)
[2018-05-24] MEDS: METOPROLOL TART 50 MG TAB PO ×2 (10:06→20:42)
[2018-05-24] MEDS: DIVALPROEX 500MG *ER* TAB PO ×2 (10:07→20:42)
[2018-05-24] MEDS: MINOXIDIL 2.5 MG TAB PO ×2 (10:07→20:43)
[2018-05-24] MEDS: SENOKOT S TAB PO ×2 (10:07→20:42)
[2018-05-24] MEDS: LOSARTAN 50 MG TAB PO (10:08)
[2018-05-24] MEDS: SERTRALINE HCL 50 MG TAB PO (10:08)
[2018-05-24] MEDS: CLOPIDOGREL 75 MG TAB PO (10:08)
[2018-05-24] MEDS: VITAMIN D 1,000 INTERNATIONAL UNITS TABLET PO (10:08)
[2018-05-24] MEDS: OMEPRAZOLE 20 MG CAP PO (10:08)
[2018-05-24] MEDS: HEPARIN SOD (PORCINE) 5000 UNITS/ML VIAL SC ×2 (10:09→20:43)
[2018-05-24] MEDS: cloNIDine 0.2 MG TAB PO ×3 (10:09→20:42)
[2018-05-24] MEDS: traZODone 50 MG TAB PO (20:41)
[2018-05-25] MEDS ORDERED: SLF 3 ML SYR IV (03:00)
[2018-05-25] MEDS: SLF 3 ML SYR IV ×3 (03:58→22:00)
[2018-05-25 05:29] LABS: HEMOGLOBIN 9.1 g/dl (13.5-17.5); MEAN CORPUSCULAR HEMOGLOBIN 29.6 pg (27.0-33.0); MEAN CORPUSCULAR HGB CONC 32.5 g/dl (32.0-36.5); MEAN CORPUSCULAR VOLUME 91.2 fl (80.0-96.0); PLATELET COUNT, AUTOMATED 219 10^3/uL (150-450); RED BLOOD COUNT 3.07 10^6/uL (4.30-6.10); RED CELL DISTRIBUTION WIDTH 14.7 % (11.5-14.5); WHITE BLOOD COUNT 3.7 10^3/uL (4.0-10.0)
[2018-05-25 05:39] LABS: INR 1.13; PROTHROMBIN TIME 14.7 SECONDS (12.1-14.4)
[2018-05-25 05:48] LABS: ALBUMIN 3.1 GM/DL (3.2-5.2); ALBUMIN/GLOBULIN RATIO 1.11 (1.00-1.93); ALKALINE PHOSPHATASE 65 U/L (45-117); ALT/SGPT 21 U/L (12-78); ANION GAP 8 MEQ/L (8-16); AST/SGOT 10 U/L (7-37); BILIRUBIN,TOTAL 0.4 MG/DL (0.2-1.0); BLOOD UREA NITROGEN 43 MG/DL (7-18); CALCIUM LEVEL 8.4 MG/DL (8.5-10.1); CARBON DIOXIDE LEVEL 29 MEQ/L (21-32); CHLORIDE LEVEL 101 MEQ/L (98-107); CREATININE FOR GFR 9.75 MG/DL (0.70-1.30); GLOMERULAR FILTRATION RATE 6.8 (>60); GLUCOSE, FASTING 82 MG/DL (70-100); MAGNESIUM LEVEL 2.1 MG/DL (1.8-2.4); POTASSIUM SERUM 4.3 MEQ/L (3.5-5.1); SODIUM LEVEL 138 MEQ/L (136-145); TOTAL PROTEIN 5.9 GM/DL (6.4-8.2)
[2018-05-25 08:06] LABS: TRANSFERRIN 177 mg/dL (200-370)
[2018-05-25] MEDS: DIVALPROEX 500MG *ER* TAB PO ×2 (10:01→20:38)
[2018-05-25] MEDS: LOSARTAN 50 MG TAB PO (10:02)
[2018-05-25] MEDS: cloNIDine 0.2 MG TAB PO ×3 (10:02→20:39)
[2018-05-25] MEDS: OMEPRAZOLE 20 MG CAP PO (10:02)
[2018-05-25] MEDS: VITAMIN D 1,000 INTERNATIONAL UNITS TABLET PO (10:02)
[2018-05-25] MEDS: METOPROLOL TART 50 MG TAB PO ×2 (10:03→20:37)
[2018-05-25] MEDS: SERTRALINE HCL 50 MG TAB PO (10:03)
[2018-05-25] MEDS: SENOKOT S TAB PO ×2 (10:03→20:38)
[2018-05-25] MEDS: ASPIRIN 81 MG ENTERIC TAB PO (10:03)
[2018-05-25] MEDS: CLOPIDOGREL 75 MG TAB PO (10:03)
[2018-05-25] MEDS: LANTHANUM CARBONATE 500 MG CHEW TABLET PO ×3 (10:04→16:53)
[2018-05-25] MEDS: MINOXIDIL 2.5 MG TAB PO ×2 (10:04→20:37)
[2018-05-25] MEDS: HEPARIN SOD (PORCINE) 5000 UNITS/ML VIAL SC ×2 (10:04→20:40)
[2018-05-25] MEDS: traZODone 50 MG TAB PO (20:39)
[2018-05-26 05:21] LABS: HEMATOCRIT 26.2 % (42.0-52.0); HEMOGLOBIN 8.8 g/dl (13.5-17.5); MEAN CORPUSCULAR HEMOGLOBIN 30.1 pg (27.0-33.0); MEAN CORPUSCULAR HGB CONC 33.6 g/dl (32.0-36.5); MEAN CORPUSCULAR VOLUME 89.7 fl (80.0-96.0); PLATELET COUNT, AUTOMATED 175 10^3/uL (150-450); RED BLOOD COUNT 2.92 10^6/uL (4.30-6.10); RED CELL DISTRIBUTION WIDTH 14.4 % (11.5-14.5); WHITE BLOOD COUNT 3.3 10^3/uL (4.0-10.0)
[2018-05-26 05:36] LABS: INR 1.14; PROTHROMBIN TIME 14.8 SECONDS (12.1-14.4)
[2018-05-26] MEDS: SLF 3 ML SYR IV ×3 (06:00→22:00)
[2018-05-26 06:04] LABS: ALBUMIN 2.9 GM/DL (3.2-5.2); ALKALINE PHOSPHATASE 67 U/L (45-117); ALT/SGPT 17 U/L (12-78); ANION GAP 12 MEQ/L (8-16); AST/SGOT 10 U/L (7-37); BILIRUBIN,TOTAL 0.3 MG/DL (0.2-1.0); BLOOD UREA NITROGEN 58 MG/DL (7-18); CALCIUM LEVEL 7.7 MG/DL (8.5-10.1); CARBON DIOXIDE LEVEL 26 MEQ/L (21-32); CHLORIDE LEVEL 100 MEQ/L (98-107); GLOMERULAR FILTRATION RATE 5.2 (>60); GLUCOSE, FASTING 81 MG/DL (70-100); MAGNESIUM LEVEL 2.2 MG/DL (1.8-2.4); POTASSIUM SERUM 4.3 MEQ/L (3.5-5.1); SODIUM LEVEL 138 MEQ/L (136-145); TOTAL PROTEIN 5.8 GM/DL (6.4-8.2)
[2018-05-26] MEDS: ASPIRIN 81 MG ENTERIC TAB PO (06:27)
[2018-05-26] MEDS: MINOXIDIL 2.5 MG TAB PO ×2 (06:27→22:10)
[2018-05-26] MEDS: LANTHANUM CARBONATE 500 MG CHEW TABLET PO ×3 (09:03→16:29)
[2018-05-26] MEDS: cloNIDine 0.2 MG TAB PO ×3 (09:06→22:11)
[2018-05-26] MEDS: METOPROLOL TART 50 MG TAB PO ×2 (09:08→22:10)
[2018-05-26] MEDS: DIVALPROEX 500MG *ER* TAB PO ×2 (09:08→22:11)
[2018-05-26] MEDS: HEPARIN SOD (PORCINE) 5000 UNITS/ML VIAL SC ×3 (09:28→22:10)
[2018-05-26] MEDS: HEPARIN 1,000 UNITS/ML 10ML VIAL (FOR RADIOLOGY& DIALYSIS ONLY) IV ×2 (16:27)
[2018-05-26] MEDS: LIDOCAINE 1% SDV 5 ML VIAL SQ ×2 (16:27)
[2018-05-26] MEDS: SENOKOT S TAB PO ×2 (16:28→21:00)
[2018-05-26] MEDS: VITAMIN D 1,000 INTERNATIONAL UNITS TABLET PO (16:30)
[2018-05-26] MEDS: LOSARTAN 50 MG TAB PO (16:33)
[2018-05-26] MEDS: OMEPRAZOLE 20 MG CAP PO (16:34)
[2018-05-26] MEDS: FOLIC ACID 1 MG TAB PO (16:34)
[2018-05-26] MEDS: SERTRALINE HCL 50 MG TAB PO (16:35)
[2018-05-26] MEDS: CLOPIDOGREL 75 MG TAB PO (16:35)
[2018-05-26] MEDS: traZODone 50 MG TAB PO (22:09)
[2018-05-27 06:02] LABS: BASO % 1.2 % (0.0-1.0); EOS # 0.1 10^3/uL (0.0-0.50); EOS % 2.4 % (0.0-3.0); HEMATOCRIT 27.5 % (42.0-52.0); IMMATURE GRANULOCYTE % 0.9 % (0-3.0); LYMPH # 1.1 10^3/uL (1.5-6.5); LYMPH % 32.4 % (24.0-44.0); MEAN CORPUSCULAR HEMOGLOBIN 29.8 pg (27.0-33.0); MEAN CORPUSCULAR HGB CONC 32.7 g/dl (32.0-36.5); MEAN CORPUSCULAR VOLUME 91.1 fl (80.0-96.0); MONO # 0.4 10^3/uL (0.0-0.8); MONO % 11.1 % (0.0-5.0); NEUTROPHILS # 1.7 10^3/uL (1.8-7.7); PLATELET COUNT, AUTOMATED 154 10^3/uL (150-450); RED BLOOD COUNT 3.02 10^6/uL (4.30-6.10); RED CELL DISTRIBUTION WIDTH 14.5 % (11.5-14.5); WHITE BLOOD COUNT 3.3 10^3/uL (4.0-10.0)
[2018-05-27 06:15] LABS: INR 1.15; PROTHROMBIN TIME 14.8 SECONDS (12.1-14.4)
[2018-05-27 06:22] LABS: ALBUMIN 3.2 GM/DL (3.2-5.2); ALBUMIN/GLOBULIN RATIO 1.33 (1.00-1.93); ALKALINE PHOSPHATASE 64 U/L (45-117); ALT/SGPT 17 U/L (12-78); ANION GAP 8 MEQ/L (8-16); AST/SGOT 10 U/L (7-37); BILIRUBIN,TOTAL 0.4 MG/DL (0.2-1.0); BLOOD UREA NITROGEN 31 MG/DL (7-18); CALCIUM LEVEL 8.2 MG/DL (8.5-10.1); CARBON DIOXIDE LEVEL 29 MEQ/L (21-32); CHLORIDE LEVEL 102 MEQ/L (98-107); GLOMERULAR FILTRATION RATE 8.6 (>60); GLUCOSE, FASTING 79 MG/DL (70-100); MAGNESIUM LEVEL 1.9 MG/DL (1.8-2.4); POTASSIUM SERUM 4.3 MEQ/L (3.5-5.1); SODIUM LEVEL 139 MEQ/L (136-145); TOTAL PROTEIN 5.6 GM/DL (6.4-8.2)
[2018-05-27] MEDS: SLF 3 ML SYR IV (07:48)
[2018-05-27] MEDS: LANTHANUM CARBONATE 500 MG CHEW TABLET PO ×2 (08:18→11:58)
[2018-05-27] MEDS: VITAMIN D 1,000 INTERNATIONAL UNITS TABLET PO (08:19)
[2018-05-27] MEDS: ASPIRIN 81 MG ENTERIC TAB PO (08:20)
[2018-05-27] MEDS: LOSARTAN 50 MG TAB PO (08:22)
[2018-05-27] MEDS: FOLIC ACID 1 MG TAB PO (08:23)
[2018-05-27] MEDS: MINOXIDIL 2.5 MG TAB PO (08:23)
[2018-05-27] MEDS: METOPROLOL TART 50 MG TAB PO (08:25)
[2018-05-27] MEDS: DIVALPROEX 500MG *ER* TAB PO (08:26)
[2018-05-27] MEDS: cloNIDine 0.2 MG TAB PO (08:26)
[2018-05-27] MEDS: OMEPRAZOLE 20 MG CAP PO (08:27)
[2018-05-27] MEDS: SERTRALINE HCL 50 MG TAB PO (08:28)
[2018-05-27] MEDS: CLOPIDOGREL 75 MG TAB PO (08:28)
[2018-05-27] MEDS: SENOKOT S TAB PO (08:30)
[2018-05-27] MEDS: HEPARIN SOD (PORCINE) 5000 UNITS/ML VIAL SC (08:30)
== END 2018-05-27 14:32 | disposition home or self-care (01) | DRG 77 ==
LOC: M ED 20:00 → M ED INP 23:47 → M PCU 05-23 16:15
PROC: 5A1D70Z Performance of Urinary Filtration, Intermittent, Less than 6 Hours Per Day (ICD-10-PCS; principal; 2018-05-23)
DX: I67.4 Hypertensive encephalopathy (principal); N18.6 End stage renal disease; I16.1 Hypertensive emergency; I50.32 Chronic diastolic (congestive) heart failure; N25.81 Secondary hyperparathyroidism of renal origin; G40.409 Other generalized epilepsy and epileptic syndromes, not intractable, without status epilepticus; D70.9 Neutropenia, unspecified; Z79.82 Long term (current) use of aspirin; Z79.899 Other long term (current) drug therapy; F32.9 Major depressive disorder, single episode, unspecified; F41.9 Anxiety disorder, unspecified; G43.909 Migraine, unspecified, not intractable, without status migrainosus; I15.0 Renovascular hypertension

== ENCOUNTER 2018-05-30 22:37 | Emergency (ER) | payer MEDICARE, MEDICAID ==
[2018-05-30] MEDS: cloNIDine 0.2 MG TAB PO (23:06)
[2018-05-30] MEDS: MINOXIDIL 2.5 MG TAB PO (23:12)
[2018-05-31] MEDS: MINOXIDIL 2.5 MG TAB PO (00:22)
[2018-05-31] MEDS ORDERED: **hydrALAZINE HCL** 25 MG TAB As Ordered (00:52)
[2018-05-31] MEDS: **hydrALAZINE** 50 MG TAB PO (00:54)
[2018-05-31] MEDS: MINOXIDIL 10 MG TAB PO (02:49)
[2018-05-31] MEDS: cloNIDine 0.2 MG TAB PO (03:59)
== END 2018-05-31 04:35 | disposition home or self-care (01) ==
LOC: M ED 05-31 04:35
DX: I12.9 Hypertensive chronic kidney disease with stage 1 through stage 4 chronic kidney disease, or unspecified chronic kidney disease (principal); N18.9 Chronic kidney disease, unspecified; Z99.2 Dependence on renal dialysis; J45.909 Unspecified asthma, uncomplicated; F17.210 Nicotine dependence, cigarettes, uncomplicated
CPT/HCPCS: 93005

== ENCOUNTER 2018-06-01 10:50 | Emergency (ER) | payer MEDICARE, MEDICAID ==
[2018-06-01 11:34] LABS: GLUCOSE, URINE (UA) MANUAL TRACE(50 MG/DL) mg/dL (NEGATIVE); PROTEIN, URINE MANUAL REFLEX 3+ mg/dL (NEGATIVE)
[2018-06-01 11:36] LABS: BILIRUBIN, URINE MANUAL NEGATIVE (NEGATIVE); BLOOD URINE MANUAL RFX POSITIVE (NEGATIVE); KETONE, URINE MANUAL NEGATIVE (NEGATIVE); MICROSCOPIC INDICATED? RFX YES (NO); NITRITE, URINE MANUAL RFX NEGATIVE (NEGATIVE); UROBILINOGEN, URINE MANUAL NORMAL (NORMAL)
[2018-06-01 11:37] LABS: BACTERIA, URINE NONE SEEN; HYALINE CAST, URINE NONE SEEN /lpf (0-1); MICROSCOPIC EXAM UNSPUN; RBC, URINE TNTC /hpf (0-3); SQUAMOUS EPITHELIAL CELL URINE SMALL AMOUNT /hpf (SMALL AMT)
[2018-06-01] MEDS: MORPHINE 2 MG/ML 1ML SYRINGE (J2270) IV ×2 (12:01→13:18)
[2018-06-01 12:08] LABS: HEMATOCRIT 31.8 % (42.0-52.0); HEMOGLOBIN 10.6 g/dl (13.5-17.5); MEAN CORPUSCULAR HEMOGLOBIN 30.8 pg (27.0-33.0); MEAN CORPUSCULAR HGB CONC 33.3 g/dl (32.0-36.5); MEAN CORPUSCULAR VOLUME 92.4 fl (80.0-96.0); PLATELET COUNT, AUTOMATED 142 10^3/uL (150-450); RED BLOOD COUNT 3.44 10^6/uL (4.30-6.10); RED CELL DISTRIBUTION WIDTH 15.2 % (11.5-14.5); WHITE BLOOD COUNT 4.1 10^3/uL (4.0-10.0)
[2018-06-01 12:36] LABS: ALBUMIN 3.5 GM/DL (3.2-5.2); ANION GAP 12 MEQ/L (8-16); BLOOD UREA NITROGEN 34 MG/DL (7-18); CALCIUM LEVEL 8.3 MG/DL (8.5-10.1); CARBON DIOXIDE LEVEL 27 MEQ/L (21-32); CHLORIDE LEVEL 99 MEQ/L (98-107); GLOMERULAR FILTRATION RATE 6.4 (>60); GLUCOSE, FASTING 77 MG/DL (70-100); MAGNESIUM LEVEL 2.2 MG/DL (1.8-2.4); PHOSPHORUS LEVEL 4.2 MG/DL (2.5-4.9); POTASSIUM SERUM 4.4 MEQ/L (3.5-5.1); SODIUM LEVEL 138 MEQ/L (136-145)
[2018-06-01] MEDS ORDERED: ISOVUE-370 76% 100ML VIAL (Q9967) As Ordered (12:59)
[2018-06-01 13:26] LABS: ALBUMIN/GLOBULIN RATIO 1.09 (1.00-1.93); ALKALINE PHOSPHATASE 76 U/L (45-117); ALT/SGPT 14 U/L (12-78); AST/SGOT 12 U/L (7-37); BILIRUBIN,DIRECT 0.1 MG/DL (0.0-0.2); BILIRUBIN,TOTAL 0.5 MG/DL (0.2-1.0); TOTAL PROTEIN 6.7 GM/DL (6.4-8.2)
[2018-06-01] MEDS: HYDROmorphone 2 MG TAB PO (15:37)
[2018-06-01 15:48] LABS: HEMATOCRIT 32.6 % (42.0-52.0); HEMOGLOBIN 10.8 g/dl (13.5-17.5)
[2018-06-01 15:59] LABS: AMMONIA < 10 uMOL/L (<32)
== END 2018-06-01 16:23 | disposition short-term general hospital (02) ==
LOC: M ED 10:50
DX: N43.3 Hydrocele, unspecified (principal); S37.22XA Contusion of bladder, initial encounter; S37.011A Minor contusion of right kidney, initial encounter; X58.XXXA Exposure to other specified factors, initial encounter; Y92.89 Other specified places as the place of occurrence of the external cause; I12.0 Hypertensive chronic kidney disease with stage 5 chronic kidney disease or end stage renal disease; N18.6 End stage renal disease; Z99.2 Dependence on renal dialysis; Z79.899 Other long term (current) drug therapy; Z79.82 Long term (current) use of aspirin; F17.210 Nicotine dependence, cigarettes, uncomplicated
CPT/HCPCS: Q9967

== ENCOUNTER 2018-06-29 19:56 | Emergency (ER) | payer MEDICARE, MEDICAID ==
[~2018-06-29] VITALS: Ht 188 cm; Wt 92.3 kg
[~2018-06-29 19:56] MED LIST changes: +ACETAMINOPHEN-COD; +ALBU83IN NEB; +ARIP1TAB10 PO; +ASPI81TAEC PO; +AVEL1TAB3 PO; +BYST20TA2; +CARV25TA; +CARV25TA PO; +CATA0.2T PO; +CLON-412 PO; +CLON0.2T PO; +CLONI1TA PO; +CLOP75TA2 PO; +COLA100C5 PO; +COMMENT; +D 50CAP PO; +DEPA500T2 PO; +DIVA500T9 PO; +DIVA500T94 PO; +FLUO10CA8 PO; +FLUO10CA9; +HYDR-3363 PO; +HYDR10TAB PO; -ISOVUE-370 76% 100ML VIAL (Q9967) As Ordered; +LANT500C PO; +LOSA100T50 PO; +LOSA50TA88; +LOSA50TA88 PO; +METO1TAB7 PO; +METO50TA7; +METO50TA7 PO; +MINO10TA PO; +MINO2.5T; +MINO2.5T PO; +NORCOTAB PO; +OMEP20CA3 PO; +OMEP40CA2 PO; +ONDA4TAB6 PO; +OXYC1TAB23 PO; +PERC5TAB12 PO; +PERCOCET PO; +PRED20TA PO; +PROAAER10 INH; +REGL10TA6 PO; +RENATAB5 PO; +RENV2TAB; +RENV2TAB PO; +SERT50TA PO; +TIZA2TA PO; +TRAZ1TAB14 PO; +ZITHTAB PO; +ZOFR4TAB14 PO; +ZOLO50TA PO
[2018-06-29] MEDS ORDERED: ARIP1TAB10 PO (20:10)
[2018-06-29] MEDS ORDERED: SERT-155 PO (20:10)
[2018-06-29] MEDS ORDERED: MINOXIDIL 2.5 MG TAB PO ONE (20:30)
[2018-06-29] MEDS ORDERED: hydrALAZINE INJ 20 MG/ML VIAL IV PRN (20:30)
[2018-06-29 21:06] LABS: BASO % 0.4 % (0.0-1.0); EOS # 0.1 10^3/uL (0.0-0.50); HEMATOCRIT 32.9 % (42.0-52.0); HEMOGLOBIN 10.7 g/dl (13.5-17.5); LYMPH # 0.6 10^3/uL (1.5-6.5); LYMPH % 7.6 % (24.0-44.0); MEAN CORPUSCULAR HEMOGLOBIN 29.2 pg (27.0-33.0); MEAN CORPUSCULAR HGB CONC 32.5 g/dl (32.0-36.5); MEAN CORPUSCULAR VOLUME 89.9 fl (80.0-96.0); MONO # 0.3 10^3/uL (0.0-0.8); MONO % 4.4 % (0.0-5.0); NEUTROPHILS # 6.3 10^3/uL (1.8-7.7); NEUTROPHILS % 86.1 % (36.0-66.0); PLATELET COUNT, AUTOMATED 132 10^3/uL (150-450); RED BLOOD COUNT 3.66 10^6/uL (4.30-6.10); WHITE BLOOD COUNT 7.3 10^3/uL (4.0-10.0)
--- NOTE | 2018-06-29 21:19 | REPVR ---
EXAM: CT Head Without Contrast EXAM DATE/TIME: 06/29/2018 8:41 PM CLINICAL HISTORY: 27 years old, male; Pain; Headache; Headache not specified TECHNIQUE: Axial computed tomography images of the head/brain without contrast. All CT scans at this facility use at least one of these dose optimization techniques: automated exposure control; mA and/or kV adjustment per patient size (includes targeted exams where dose is matched to clinical indication); or iterative reconstruction. COMPARISON: CT Head without contrast 05/22/2018 10:01 PM FINDINGS: Brain: Normal. No hemorrhage. No significant white matter disease. No edema. Ventricles: Normal. No ventriculomegaly. Bones/joints: Normal. No acute fracture. Sinuses: Normal as visualized. No acute sinusitis. Mastoid air cells: Normal as visualized. No mastoid effusion. Soft tissues: Normal. IMPRESSION: Negative noncontrast head CT without change from 05/22/2018. Electronically signed by: Bahman Aaron On 06/29/2018 21:19:42 PM
[2018-06-29 21:36] LABS: BLOOD UREA NITROGEN 35 MG/DL (7-18); CALCIUM LEVEL 8.6 MG/DL (8.5-10.1); CARBON DIOXIDE LEVEL 26 MEQ/L (21-32); CHLORIDE LEVEL 102 MEQ/L (98-107); CPK CREATINE PHOSPHOKINASE 65 U/L (39-308); GLOMERULAR FILTRATION RATE 5.8 (>60); GLUCOSE, FASTING 85 MG/DL (70-100); MB/CK RELATIVE INDEX 2.46 (< OR =4); POTASSIUM SERUM 4.4 MEQ/L (3.5-5.1); SODIUM LEVEL 138 MEQ/L (136-145); TROPONIN I < 0.02 NG/ML (< 0.10)
[2018-06-29] MEDS ORDERED: hydrALAZINE INJ 20 MG/ML VIAL IV ONE (21:45)
[2018-06-29] MEDS ORDERED: ACETAMINOPHEN TAB 650MG DOSE (2X325MG) As Ordered ONE (21:48)
[2018-06-29] MEDS ORDERED: ACETAMINOPHEN TAB 650MG DOSE (2X325MG) PO ONE (22:00)
[2018-06-29 22:30] VITALS: BP 141/70
--- NOTE | 2018-06-30 08:13 | REP ---
Portable chest x-ray: Single view. History: Cough. Comparison study: May 22, 2018. Findings: EKG monitoring electrodes overlie the chest. Heart is felt to be mildly prominent. Pulmonary vasculature is cephalized. There is no evidence of infiltrate or pleural effusion. No pulmonary edema is seen. Impression: Mild cardiomegaly. Vascular cephalization. No infiltrate seen. Electronically Signed by Enrike Wayne MD 06/30/2018 10:53 A
--- NOTE | 2018-06-30 13:44 | ECGEPIP ---
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
--- NOTE | 2018-07-01 12:38 | ED PDOC ---
Post-Departure Follow-Up dr almendarez faxed formal report of cxr for fu Etta Anguiano MD Jul 01, 2018 12:38
== END 2018-06-29 22:37 | disposition home or self-care (01) ==
LOC: M ED 19:56
DX: N18.6 End stage renal disease (principal); Z99.2 Dependence on renal dialysis; I12.0 Hypertensive chronic kidney disease with stage 5 chronic kidney disease or end stage renal disease; Z79.899 Other long term (current) drug therapy; F17.210 Nicotine dependence, cigarettes, uncomplicated

== ENCOUNTER 2018-08-23 18:56 | Emergency (ER) | payer MEDICARE, MEDICAID ==
[~2018-08-23] VITALS: Ht 188 cm; Wt 90.0 kg
[~2018-08-23 18:56] MED LIST changes: +HYDR-3715 PO; -NORCOTAB PO; +SERT-141 PO; +SERT-155 PO; -SERT50TA PO
[2018-08-23] MEDS ORDERED: hydrALAZINE INJ 20 MG/ML VIAL IV STA ×3 (19:15→20:54)
[2018-08-23 19:36] LABS: BASO % 0.7 % (0.0-1.0); EOS # 0.2 10^3/uL (0.0-0.50); EOS % 4.1 % (0.0-3.0); HEMOGLOBIN 10.5 g/dl (13.5-17.5); LYMPH # 0.9 10^3/uL (1.5-6.5); LYMPH % 20.7 % (24.0-44.0); MEAN CORPUSCULAR HEMOGLOBIN 29.5 pg (27.0-33.0); MEAN CORPUSCULAR HGB CONC 33.9 g/dl (32.0-36.5); MEAN CORPUSCULAR VOLUME 87.1 fl (80.0-96.0); MONO # 0.5 10^3/uL (0.0-0.8); MONO % 10.4 % (0.0-5.0); NEUTROPHILS # 2.8 10^3/uL (1.8-7.7); NEUTROPHILS % 63.9 % (36.0-66.0); PLATELET COUNT, AUTOMATED 102 10^3/uL (150-450); RED BLOOD COUNT 3.56 10^6/uL (4.30-6.10); WHITE BLOOD COUNT 4.3 10^3/uL (4.0-10.0)
--- NOTE | 2018-08-23 19:45 | REP ---
Clinical: Chest pain . Comparison: 06/29/2018 . Findings: The mediastinum and cardiac silhouette are stable and within normal limits for portable technique. The lung peralta are clear without acute consolidation, effusion, or pneumothorax. Skeletal structures are intact. Impression: No acute cardiopulmonary process appreciated. Electronically Signed by Renny Zaragoza MD 08/23/2018 07:36 P
[2018-08-23 19:47] LABS: INR 1.18; PROTHROMBIN TIME 15.2 SECONDS (12.1-14.4)
[2018-08-23 19:48] LABS: PARTIAL THROMBOPLASTIN TIME 37.2 SECONDS (25.4-37.6)
[2018-08-23 20:00] LABS: ERYTHROCYTE SEDIMENTATION RATE 17 mm/hr (0-15)
--- NOTE | 2018-08-23 20:14 | REP ---
Clinical: Hypertension and headache . Comparison: 06/29/2018 . Findings: The ventricles, sulci, and cisterns are normal in position and appearance. Blood-white differentiation is maintained. No acute intracranial hemorrhage, mass/mass effect, pathology or trauma/injury. No evidence for acute infarction. No extra-axial fluid collection. Calvarium is intact. Paranasal sinuses and mastoid air cells are clear. Impression: Normal noncontrast head CT. No evidence for acute intracranial pathology or trauma/injury. Electronically Signed by Renny Zaragoza MD 08/23/2018 08:05 P
[2018-08-23 20:21] LABS: ALBUMIN 3.7 GM/DL (3.2-5.2); ALT/SGPT 20 U/L (12-78); BILIRUBIN,DIRECT 0.1 MG/DL (0.0-0.2); BILIRUBIN,TOTAL 0.4 MG/DL (0.2-1.0); BLOOD UREA NITROGEN 36 MG/DL (7-18); C REACTIVE PROTEIN QUANTITATIV 1.96 MG/DL (0.00-0.30); CARBON DIOXIDE LEVEL 29 MEQ/L (21-32); CHLORIDE LEVEL 99 MEQ/L (98-107); CPK CREATINE PHOSPHOKINASE 195 U/L (39-308); CREATININE FOR GFR 8.99 MG/DL (0.70-1.30); GLOMERULAR FILTRATION RATE 7.5 (>60); GLUCOSE, FASTING 87 MG/DL (70-100); MB/CK RELATIVE INDEX 0.72 (< OR =4); POTASSIUM SERUM 4.6 MEQ/L (3.5-5.1); SODIUM LEVEL 138 MEQ/L (136-145); TOTAL PROTEIN 6.8 GM/DL (6.4-8.2); TROPONIN I < 0.02 NG/ML (< 0.10)
[2018-08-23] MEDS ORDERED: PERCOCET 5MG/325MG TAB PO ONE (20:45)
[2018-08-23] MEDS ORDERED: MINOXIDIL 2.5 MG TAB PO ONE (21:15)
[2018-08-23 21:35] VITALS: BP 154/82
[2018-08-23 21:45] VITALS: BP 157/85
--- NOTE | 2018-08-24 20:02 | ECGEPIP ---
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
[2018-10-09] MEDS ORDERED: OMEP-221 (10:48)
[2018-10-09] MEDS ORDERED: HYDR-4571 (10:48)
[2018-10-09] MEDS ORDERED: DIVA500T94 PO (10:48)
[2018-10-09] MEDS ORDERED: CLON0.2T PO (13:10)
[2018-10-11] MEDS ORDERED: DOXY100T PO (09:12)
[2018-10-11] MEDS ORDERED: MINO10TA PO (09:12)
== END 2018-08-23 21:57 | disposition home or self-care (01) ==
LOC: M ED 18:56
DX: I12.0 Hypertensive chronic kidney disease with stage 5 chronic kidney disease or end stage renal disease (principal); R51 Headache; N18.6 End stage renal disease; F32.9 Major depressive disorder, single episode, unspecified; R56.9 Unspecified convulsions; Z79.899 Other long term (current) drug therapy; Z79.02 Long term (current) use of antithrombotics/antiplatelets

== ENCOUNTER 2018-12-25 23:30 | Inpatient (IN) | payer MEDICARE, MEDICAID ==
[~2018-12-25] VITALS: Ht 188 cm; Wt 86.7 kg
[~2018-12-25 23:30] MED LIST changes: +DOXY100T PO; +HYDR-4571; +OMEP-221
[2018-12-26] VITALS (8 sets, daily range): BP systolic 159–192; BP diastolic 83–100
[2018-12-26 00:22] LABS: BASO % 0.3 % (0.0-1.0); EOS # 0.1 10^3/uL (0.0-0.50); EOS % 1.2 % (0.0-3.0); HEMATOCRIT 34.9 % (42.0-52.0); HEMOGLOBIN 11.6 g/dl (13.5-17.5); LYMPH # 0.7 10^3/uL (1.5-6.5); LYMPH % 7.3 % (24.0-44.0); MEAN CORPUSCULAR HEMOGLOBIN 30.4 pg (27.0-33.0); MEAN CORPUSCULAR HGB CONC 33.2 g/dl (32.0-36.5); MEAN CORPUSCULAR VOLUME 91.6 fl (80.0-96.0); MONO # 0.6 10^3/uL (0.0-0.8); MONO % 6.2 % (0.0-5.0); NEUTROPHILS # 7.7 10^3/uL (1.8-7.7); NEUTROPHILS % 84.7 % (36.0-66.0); RED BLOOD COUNT 3.81 10^6/uL (4.30-6.10); WHITE BLOOD COUNT 9.1 10^3/uL (4.0-10.0)
[2018-12-26] MEDS ORDERED: METOCLOPRAMIDE INJ 10MG/2ML VIAL (J2765) IV ONE (00:30)
[2018-12-26] MEDS ORDERED: diphenhydrAMINE INJ 50MG/ML VIAL (J1200) IV ONE (00:30)
[2018-12-26] MEDS ORDERED: methylPREDNISolone INJ 125 MG/2 ML VIAL (J2930) IV ONE (00:30)
[2018-12-26] MEDS ORDERED: hydrALAZINE INJ 20 MG/ML VIAL IV ONE (00:30)
[2018-12-26 00:35] LABS: PLATELET COUNT, AUTOMATED 92 10^3/uL (150-450)
[2018-12-26 00:56] LABS: CALCIUM LEVEL 8.4 MG/DL (8.5-10.1); CREATININE FOR GFR 11.9 MG/DL (0.70-1.30); GLOMERULAR FILTRATION RATE 5.4 (>60); POTASSIUM SERUM 4.8 MEQ/L (3.5-5.1)
[2018-12-26] MEDS ORDERED: IPRATROPIUM 0.5MG/ALBUTEROL 2.5MG INH SOL UD 3ML (DUONEB)(J7620) NEB ONE (01:00)
--- NOTE | 2018-12-26 01:11 | REPVR ---
EXAM: CT Head Without Contrast EXAM DATE/TIME: 12/26/2018 12:26 AM CLINICAL HISTORY: 28 years old, male; Pain; Headache not specified; Additional info: Headache, HTN TECHNIQUE: Imaging protocol: Axial computed tomography images of the head without contrast. Radiation optimization: All CT scans at this facility use at least one of these dose optimization techniques: automated exposure control; mA and/or kV adjustment per patient size (includes targeted exams where dose is matched to clinical indication); or iterative reconstruction. COMPARISON: CT Head without contrast 10/09/2018 4:30 PM FINDINGS: Brain: Artifact limits evaluation of the posterior fossa and anterior temporal lobes. Additional mild artifact is identified in the region of the right occipital cortex. Aside from the areas of artifact, the white-workman differentiation is preserved demonstrating no acute territorial type infarct. Although limited by artifact, no definitive acute intracranial hemorrhage is seen. No intracranial mass effect. Midline shift: There is no midline shift. Ventricles: No ventriculomegaly. Bones/joints: The calvarium demonstrates no evidence for a depressed fracture. Sinuses: Visualized sinuses are unremarkable. No fluid levels. Mastoid air cells: No mastoid effusion. Soft tissues: The left posterior scalp extends out of the field of view of this study. IMPRESSION: 1. No definite acute intracranial abnormality. Artifact limits this study. 2. If further evaluation is clinically indicated, an MRI of the brain is recommended. Electronically signed by: Dylan Cowan On 12/26/2018 01:10:32 AM
[2018-12-26] MEDS ORDERED: cloNIDine 0.2 MG TAB PO ONE (01:30)
[2018-12-26] MEDS ORDERED: ONDANSETRON 4MG/2ML VIAL (J2405) IV ONE (02:45)
[2018-12-26] MEDS: MORPHINE 4 MG/ML 1ML VIAL/SYRINGE (J2270) IV PRN ×2 (02:48→06:08)
[2018-12-26] MEDS ORDERED: niCARdipine IV 40 MG in APPROPRIATE DILUENT 1 EA IV SCH ×3 (03:00→03:30)
[2018-12-26] MEDS ORDERED: MINO10TA PO (03:38)
--- NOTE | 2018-12-26 03:45 | HPEPDOC ---
General Date of Admission 12/26/18 Date of Service: Dec 26, 2018 Other Providers no PCP; follows with nephrology Chief Complaint The patient is a 28-year-old male admitted with a reason for visit of Head Pain/Sob. Source: Patient Exam Limitations: No limitations Timing/Duration: 24 hours Associated Symptoms: Headaches History of Present Illness 28 yo male with ESRD and HTN present to ED with increasing BP and throbbing intense YARBROUGH. Patient states YARBROUGH started at 130pm on 12/25 , no relief with OTC tylenol and continued to worsen. He states YARBROUGH is now improving after treated with solumedrol, reglan,benadryl, morphine and blood pressure control. His blood pressure was treated in ED with clonidine/hydralazine (no improvement) and started on cardene drip with improvement. patient states on dialysis because of kidney reflux. He states no vision changes, no N,V,no altered mental status, lethargy or confusion, no dyarthria, no CP, no dyspnea. Home Medications Scheduled Cholecalciferol (Vitamin D3) (Vitamin D3) 5,000 Unit Cap, 5,000 UNIT PO DAILY, (Reported) Clonidine HCl (Clonidine HCl) 0.2 Mg Tablet, 0.2 MG PO TID, (Reported) Divalproex Sodium (Divalproex Sodium) 500 Mg Tablet.dr, 500 MG PO BID, (Reported) Lanthanum Carbonate (Lanthanum Carbonate) 500 Mg Chw, 1,500 MG PO WM, (Reported) Losartan Potassium (Losartan Potassium) 100 Mg Tab, 100 MG PO DAILY, (Reported) Metoprolol Tartrate (Metoprolol Tartrate) 50 Mg Tab, 50 MG PO BID, (Reported) Minoxidil (Minoxidil) 10 Mg Tablet, 10 MG PO BID, (Reported) Scheduled PRN Hydroxyzine HCl (Hydroxyzine HCl) 25 Mg Tab, 25 MG PO BID PRN for ANXIETY, (Reported) COULD TAKE UP TO 50MG BID Allergies Coded Allergies: No Known Allergies (Unverified , 10/09/18) Past Medical History Medical History Vesicoureteral reflux and resultant end-stage renal disease with failed peritoneal dialysis now on hemodialysis and Saturday, depression, anxiety, anger issues, previous grand mal seizure, hypertension, congestive heart failurediastolic, secondary hyperparathyroidism Surgical History Previous temporary hemodialysis catheter, previous peritoneal dialysis catheter, left upper extremities fistula, thyroid nodule removal, bilateral wrist, ankle and 2 rib fractures Family History Father: Hypertension Social History Smoker: other (reports smoking 5 cigarettes per day for 13 years. declines nicotene patch Alcohol: Denies Drugs: denies A-FIB/CHADSVASC A-FIB History Current/History of A-Fib/PAF?: No Current PO Anticoag Therapy: No Review of Systems Other systems 10 systems reviewed and negative except as per HPI Physical Examination General Exam: Positive: Alert, Cooperative, No Acute Distress Eye Exam: Positive: PERRLA, Conjunctiva & lids normal, EOMI ENT Exam: Positive: Atraumatic, Mucous membr. moist/pink Neck Exam: Positive: Supple, +2 carotid pulse wo bruit Chest Exam: Positive: Clear to auscultation, Normal air movement, Rales, Rhonchi, Wheezing Heart Exam: Positive: Rate Normal, Regular Rhythm, Normal S1, Normal S2 Telemetry: Positive: No significant arrhythmia, Sinus Abdomen Exam: Positive: Normal bowel sounds, Soft (NT ND) Extremity Exam: Positive: Normal pulses; Negative: Clubbing, Cyanosis, Edema, Tenderness Skin Exam: Positive: Nl turgor and temperature Neuro Exam: Positive: Normal Speech, Strength at 5/5 X4 ext, Normal Tone, Sensation Intact Psych Exam: Positive: Mental status NL, Mood NL, Oriented x 3 Vital Signs Vital Signs Date Time Temp Pulse Resp B/P (MAP) Pulse Ox O2 Delivery O2 Flow Rate FiO2 12/26/18 03:00 79 26 166/95 (118) 93 Room Air 12/26/18 01:00 6.0 12/25/18 23:30 99.8 Vital Signs Label Value Date Time Blood Pressure Assessment 215/134 (161) 12/25/18 2330 Location Left Arm Source Automatic Cuff (NIBP) Position Supine Blood Pressure Assessment 212/120 (150) 12/25/18 2359 Location Right Arm Source Manual Cuff/Auscultation Position Sitting Blood Pressure Assessment 205/150 (168) 12/26/18 0100 Blood Pressure Assessment 174/104 (127) 12/26/18 0245 Laboratory Data Labs 24H Laboratory Tests 2 12/25/18 23:58: Immature Granulocyte % (Auto) 0.3, White Blood Count 9.1, Red Blood Count 3.81L, Hemoglobin 11.6L, Hematocrit 34.9L, Mean Corpuscular Volume 91.6, Mean Corpuscular Hemoglobin 30.4, Mean Corpuscular Hemoglobin Concent 33.2, Red Cell Distribution Width 13.9, Platelet Count 92L, Neutrophils (%) (Auto) 84.7H, Lymph ocytes (%) (Auto) 7.3L, Monocytes (%) (Auto) 6.2H, Eosinophils (%) (Auto) 1.2, Basophils (%) (Auto) 0.3, Neutrophils # (Auto) 7.7, Lymphocytes # (Auto) 0.7L, Monocytes # (Auto) 0.6, Eosinophils # (Auto) 0.1, Basophils # (Auto) 0.0, Nucleated Red Blood Cells % (auto) 0.0, Immature Platelet Fraction 2.4, Anion Gap 14, Glomerular Filtration Rate 5.4L, Blood Urea Nitrogen 60H, Creatinine 11.90*H, Sodium Level 138, Potassium Level 4.8, Chloride Level 99, Carbon Dioxide Level 25, Calcium Level 8.4L CBC/BMP Laboratory Tests 12/25/18 23:58 Red Blood Count 3.81 L, Mean Corpuscular Volume 91.6, Mean Corpuscular Hemoglobin 30.4, Mean Corpuscular Hemoglobin Concent 33.2, Red Cell Distribution Width 13.9, Neutrophils (%) (Auto) 84.7 H, Lymphocytes (%) (Auto) 7.3 L, Monocytes (%) (Auto) 6.2 H, Eosinophils (%) (Auto) 1.2, Basophils (%) (Auto) 0.3, Neutrophils # (Auto) 7.7, Lymphocytes # (Auto) 0.7 L, Monocytes # (Auto) 0.6, Eosinophils # (Auto) 0.1, Basophils # (Auto) 0.0, Calcium Level 8.4 L Assessment/Plan 1) hypertensive urgency - no end organ damage treated in ED with clonidine, hydralazine with minimal improvement. started and titrating on cardene drip and admitted to ICU. Avoid decreasing SBP below 160 until seen by nephrology. Goal of MAP is 20% from initial (130). Patient was taken off cardene drip at 0340 because of SBP 130s. will admit to PCU instead of ICU. 2) ESRD on dialysis - consult nephrology for dialysis today. CODE: FULL DVT PROPHYLAXIS: SCD Plan / VTE VTE Prophylaxis Ordered?: Yes FANTASMA GONZALEZ DO Dec 26, 2018 03:42
[2018-12-26] MEDS ORDERED: METOPROLOL TART 50 MG TAB PO ONE (04:45)
--- NOTE | 2018-12-26 07:52 | REP ---
Clinical: Cough and dyspnea. Comparison: 10/10/2018. Findings: Cardiomegaly is appreciated along with increased interstitial markings, indistinct pulmonary vasculature and cephalization. Findings raise the possibility of pulmonary vascular congestion and early interstitial edema. No focal consolidation. No effusion. No pneumothorax. Impression: Cardiomegaly and chronic changes. Superimposed early pulmonary vascular congestion and interstitial edema cannot be excluded. No focal consolidation or effusion. Electronically Signed by Renny Zaragoza MD 12/26/2018 07:45 A
[2018-12-26] MEDS: LANTHANUM CARBONATE 500 MG CHEW TABLET PO SCH ×4 (08:57→17:21)
[2018-12-26] MEDS: CHLORHEXIDINE GLUCONATE 0.12 % 15ML UDC (PERIDEX ORAL RINSE) MT SCH ×2 (09:00→21:00)
[2018-12-26] MEDS ORDERED: PILL CUTTER 1 EACH XX PRN (09:15)
--- NOTE | 2018-12-26 13:35 | CR ---
DATE OF CONSULTATION: 12/26/2018 REQUESTING PHYSICIAN: Dr. Nugent REASON FOR CONSULTATION: Management of end-stage renal disease, hemodialysis and hypertensive emergency. CHIEF COMPLAINT: The patient presented to the hospital overnight with a headache and shortness of breath, HISTORY OF PRESENT ILLNESS: Mr. Bentley is a 28 years of male with past medical history of end-stage renal disease on hemodialysis every Saturday, Saturday, Saturday, history of hypertension on multiple antihypertensive medications, admitted to the hospital overnight with throbbing headache, persistent shortness of breath. He reports that he was compliant with all of his antihypertensive medications and despite that his blood pressure was high. In the emergency room he was found to have elevated blood pressures. He was given clonidine and hydralazine initially and he did not improve and he was started on Cardene drip. He was admitted under the hospitalist service and nephrology service was called construction cost estimator for further help in the management of this patient's hypertension and management of end-stage renal disease and dialysis. I saw and evaluated the patient today morning at the bedside. The patient reported that he was feeling slightly better today as compared with last night. His blood pressures are better. He still reports some shortness of breath but he was able to sit up and eat his food. OBJECTIVE: Vital signs: Temperature is 97.5 degrees Fahrenheit, blood pressure 175/92, pulse is 58, respiratory of 18, saturating 95% on room air. Head and neck exam: Extraocular muscles intact. Pupils are equal, round and reactive to light. Mucous membranes are moist. Neck is supple. There is mildly elevated jugular venous distention (JVD). Cardiovascular: S1, S2. Regular rate. Trace edema of the bilateral lower extremities. Respiratory: Mild respiratory crackles and wheezing bilaterally at the bases. Abdomen: Soft. Positive bowel sounds. Nontender. No organomegaly. Musculoskeletal: No clubbing or cyanosis. Pulses are 2+. He has a left forearm AV fistula. CENTRAL NERVOUS SYSTEM (INSPECTOR REPAIRER): No focal deficit. Power is 5/5 in all extremities. LABORATORY REVIEW: CBC showed WBC 9.1, hemoglobin 11.6, platelets are 92. BMP showed sodium 138, potassium 4.8, chloride 99, bicarbonate 25, BUN 60, creatinine is 11.9. IMAGING STUDIES: Chest x-ray was done yesterday, which showed cardiomegaly, superimposed early pulmonary vascular congestion and interstitial edema. CURRENT INPATIENT MEDICATIONS: The patient's medications were all reviewed by me. He was on IV Cardene drip overnight, which has been weaned off now. He is on: - clonidine 0.2 mg three times a day - Benadryl one dose was given - DuoNeb nebulizations - hydralazine IV was given yesterday - lanthanum 1500 mg by mouth with meals - losartan 100 mg by mouth daily - Solu-Medrol 125 mg IV times one dose was given overnight - Lopressor 50 mg by mouth twice a day - minoxidil 10 mg by mouth twice a day - Zofran as needed - vitamin D 5000 units by mouth daily ASSESSMENT: 28-year-old male with past medical history of end-stage renal disease on hemodialysis, history of hypertension admitted this time with hypertensive urgency and pulmonary edema. PLAN: 1. End-stage renal disease on hemodialysis. Today is the patient's regular day of dialysis. The patient will be dialyzed in the afternoon. I will try to remove at least 3 kg of fluid as tolerated by his blood pressure. 2. Hypertensive urgency. The patient has very resistant hypertension. He is on multiple antihypertensive medications. Restart the home medications. Optimization of fluid status would also help improve blood pressure. 3. Pulmonary edema and decompensated diastolic congestive heart failure. Fluid status optimization will be done with dialysis today. Continue the current antihypertensive 4. Chronic kidney disease and mineral bone disease. Continue current dose of lanthanum 1.5 grams by mouth with meals. Thank you for involving me in the care of this patient, I should be happy to follow the patient along with you tomorrow morning.
[2018-12-26] MEDS: VITAMIN D 1,000 INTERNATIONAL UNITS TABLET PO SCH (14:43)
[2018-12-26] MEDS: HYDROmorphone 2 MG TAB PO PRN ×2 (14:44→18:44)
[2018-12-26] MEDS: cloNIDine 0.2 MG TAB PO SCH ×3 (14:48→19:55)
[2018-12-26] MEDS: LOSARTAN 50 MG TAB PO SCH (14:48)
[2018-12-26] MEDS: hydrOXYzine 25 MG TAB PO PRN ×2 (14:48→19:56)
[2018-12-26] MEDS: DIVALPROEX 500 MG TAB PO SCH ×2 (14:49→19:57)
[2018-12-26] MEDS: MINOXIDIL 10 MG TAB PO SCH ×2 (14:49→19:57)
--- NOTE | 2018-12-26 17:34 | ECGEPIP ---
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
[2018-12-26] MEDS: METOPROLOL TART 50 MG TAB PO SCH (20:02)
[2018-12-26] MEDS ORDERED: PROMETHAZINE INJ 25 MG/ML VIAL (J2550) IV ONE (21:15)
[2018-12-26] MEDS ORDERED: ACETAMINOPHEN 500 MG TAB PO PRN (21:15)
[2018-12-26] MEDS ORDERED: oxyCODONE 5MG TAB PO PRN (21:15)
[2018-12-27] VITALS: BP 177/98
[2018-12-27 04:00] VITALS: BP 161/88
[2018-12-27 07:52] VITALS: BP 160/78
[2018-12-27] MEDS: METOPROLOL TART 50 MG TAB PO SCH (09:00)
[2018-12-27] MEDS: CHLORHEXIDINE GLUCONATE 0.12 % 15ML UDC (PERIDEX ORAL RINSE) MT SCH (09:00)
[2018-12-27] MEDS: LANTHANUM CARBONATE 500 MG CHEW TABLET PO SCH ×2 (09:31→13:22)
[2018-12-27] MEDS: VITAMIN D 1,000 INTERNATIONAL UNITS TABLET PO SCH (09:32)
[2018-12-27] MEDS: DIVALPROEX 500 MG TAB PO SCH (09:32)
[2018-12-27] MEDS: MINOXIDIL 10 MG TAB PO SCH (09:32)
[2018-12-27] MEDS: LOSARTAN 50 MG TAB PO SCH (09:33)
[2018-12-27] MEDS: cloNIDine 0.2 MG TAB PO SCH ×2 (09:33→15:19)
[2018-12-27 10:08] LABS: BASO % 0.2 % (0.0-1.0); EOS # 0.1 10^3/uL (0.0-0.50); EOS % 1.1 % (0.0-3.0); HEMATOCRIT 34.4 % (42.0-52.0); HEMOGLOBIN 11.5 g/dl (13.5-17.5); LYMPH # 1.2 10^3/uL (1.5-6.5); LYMPH % 18.2 % (24.0-44.0); MEAN CORPUSCULAR HEMOGLOBIN 31.7 pg (27.0-33.0); MEAN CORPUSCULAR HGB CONC 33.4 g/dl (32.0-36.5); MEAN CORPUSCULAR VOLUME 94.8 fl (80.0-96.0); MONO # 0.5 10^3/uL (0.0-0.8); MONO % 6.9 % (0.0-5.0); NEUTROPHILS # 4.8 10^3/uL (1.8-7.7); PLATELET COUNT, AUTOMATED 113 10^3/uL (150-450); RED BLOOD COUNT 3.63 10^6/uL (4.30-6.10); WHITE BLOOD COUNT 6.5 10^3/uL (4.0-10.0)
[2018-12-27 10:50] LABS: ALBUMIN 3.3 GM/DL (3.2-5.2); BILIRUBIN,TOTAL 0.8 MG/DL (0.2-1.0); CALCIUM LEVEL 9.1 MG/DL (8.5-10.1); CREATININE FOR GFR 10.3 MG/DL (0.70-1.30); GLOMERULAR FILTRATION RATE 6.4 (>60); POTASSIUM SERUM 4.8 MEQ/L (3.5-5.1); TOTAL PROTEIN 6.5 GM/DL (6.4-8.2)
[2018-12-27] MEDS ORDERED: SLF 3 ML SYR IV PRN (11:45)
[2018-12-27 12:00] VITALS: BP 157/83
[2018-12-27] MEDS ORDERED: SLF 3 ML SYR IV SCH (14:00)
[2018-12-27 15:19] VITALS: BP 149/72
--- NOTE | 2018-12-28 02:28 | DS.PDOC ---
Discharge Summary General Date of Admission Dec 26, 2018 at 03:09 Date of Discharge December 27, 2018 Attending Physician: REMY TIM MD Specialist/Consultants Involve: Jean Villanueva MD Specialist/Consultants Involve Nephrology Consult: 1. End-stage renal disease. The patient has been dialyzed and last dialysis was done yesterday. He will be scheduled for next hemodialysis as an outpatient on Saturday. Volume status is well-compensated at present. 2. Shortness of breath. Most likely related to uncontrolled hypertension in the setting of end-stage renal disease and volume overload. His volume status has improved and blood pressure is now much better controlled. The patient will continue with current antihypertensive meds. 3. Anemia. His anemia is very mild and stable and does not need any urgent intervention. 4. Disposition. From a renal standpoint, the patient can be discharged to home today and he will follow up in the outpatient dialysis clinic. Discharge Summary PROCEDURES PERFORMED DURING STAY: Hemodialysis. ADMITTING DIAGNOSES: 1. HTN Urgency 2. Dyspnea secondary to Volume overload 3. ESRD 4. headaches DISCHARGE DIAGNOSES: As above COMPLICATIONS/CHIEF COMPLAINT: Esrd, Hypertensive Emergency. HISTORY OF PRESENT ILLNESS: (As per initial H&P) 28 yo male with ESRD and HTN present to ED with increasing BP and throbbing intense YARBROUGH. Patient states YARBROUGH started at 130pm on 12/25 , no relief with OTC tylenol and continued to worsen. He states YARBROUGH is now improving after treated with solumedrol, reglan, benadryl, morphine and blood pressure control. His blood pressure was treated in ED with clonidine/hydralazine (no improvement) and started on Cardene drip with improvement. Patient states on dialysis because of kidney reflux. He states no vision changes, no N,V,no altered mental status, lethargy or confusion, no dysarthria, no CP, no dyspnea. HOSPITAL COURSE: Pt was admiteed for headacehds, dyspnea and HTN Urgency. He was initially on Cardene gtt and had HD with fluid removal. His condition improved, denied any headaches or dyspnea. BP was better controlled. DISCHARGE MEDICATIONS: Please see below. ALLERGIES: Please see below. PHYSICAL EXAMINATION ON DISCHARGE: VITAL SIGNS: Please see below. General Exam: Positive: Alert, Cooperative, No Acute Distress Eye Exam: Positive: PERRLA, Conjunctiva & lids normal, EOMI ENT Exam: Positive: Atraumatic, Mucous membr. moist/pink Neck Exam: Positive: Supple, +2 carotid pulse wo bruit Chest Exam: Positive: Clear to auscultation, Normal air movement, Rales, Rhonchi, Wheezing Heart Exam: Positive: Rate Normal, Regular Rhythm, Normal S1, Normal S2 Telemetry: Positive: No significant arrhythmia, Sinus Abdomen Exam: Positive: Normal bowel sounds, Soft (NT ND) Extremity Exam: Positive: Normal pulses; Negative: Clubbing, Cyanosis, Edema, Tenderness Skin Exam: Positive: Nl turgor and temperature Neuro Exam: Positive: Normal Speech, Strength at 5/5 X4 ext, Normal Tone, Sensation Intact Psych Exam: Positive: Mental status NL, Mood NL, Oriented x 3 LABORATORY DATA: Please see below. IMAGING: Head CT 12/26/18 IMPRESSION: 1. No definite acute intracranial abnormality. Artifact limits this study. 2. If further evaluation is clinically indicated, an MRI of the brain is recommended. CXR 12/28/18 Impression: Cardiomegaly and chronic changes. Superimposed early pulmonary vascular congestion and interstitial edema cannot be excluded. No focal consolidation or effusion. PROGNOSIS: Fair ACTIVITY: As tolerated. DIET: Renal, Low salt DISCHARGE PLAN: Follow with HD center DISPOSITION: 01 Home, Self-Care. DISCHARGE INSTRUCTIONS: Home BP monitoring Return to ED with any warning signs as explained ITEMS TO FOLLOWUP ON ON OUTPATIENT: 1. Follow with PCP 2. Follow with Nephrology at HD center DISCHARGE CONDITION: No headaches, BP better controlled, no fluid overload. TIME SPENT ON DISCHARGE: Greater than 15 minutes. Vital Signs/I&Os Vital Signs Date Time Temp Pulse Resp B/P (MAP) Pulse Ox O2 Delivery O2 Flow Rate FiO2 12/27/18 15:19 149/72 12/27/18 12:00 99.5 69 20 96 12/26/18 16:00 2.0 12/26/18 04:00 Nasal Cannula I&O- Last 24 Hours up to 6 AM 12/28/18 06:00 Intake Total 360 ml Balance 360 ml Laboratory Data Labs 24H Laboratory Tests 2 12/27/18 09:50: Immature Granulocyte % (Auto) 0.6, White Blood Count 6.5, Red Blood Count 3.63L, Hemoglobin 11.5L, Hematocrit 34.4L, Mean Corpuscular Volume 94.8, Mean Corpuscular Hemoglobin 31.7, Mean Corpuscular Hemoglobin Concent 33.4, Red Cell Distribution Width 13.6, Platelet Count 113L, Neutrophils (%) (Auto) 73.0H, Lymphocytes (%) (Auto) 18.2L, Monocytes (%) (Auto) 6.9H, Eosinophils (%) (Auto) 1.1, Basophils (%) (Auto) 0.2, Neutrophils # (Auto) 4.8, Lymphocytes # (Auto) 1.2L, Monocytes # (Auto) 0.5, Eosinophils # (Auto) 0.1, Basophils # (Auto) 0.0, Nucleated Red Blood Cells % (auto) 0.0, Anion Gap 9, Glomerular Filtration Rate 6.4L, Blood Urea Nitrogen 57H, Creatinine 10.30*H, Sodium Level 140, Potassium Level 4.8, Chloride Level 99, Carbon Dioxide Level 32, Calcium Level 9.1, Aspartate Amino Transf (AST/SGOT) 5L, Alanine Aminotransferase (ALT/SGPT) 11L, Alkaline Phosphatase 63, Total Bilirubin 0.8, Total Protein 6.5, Albumin 3.3, Albumin/Globulin Ratio 1.03 CBC/BMP Laboratory Tests 12/27/18 09:50 Red Blood Count 3.63 L, Mean Corpuscular Volume 94.8, Mean Corpuscular Hemoglobin 31.7, Mean Corpuscular Hemoglobin Concent 33.4, Red Cell Distribution Width 13.6, Neutrophils (%) (Auto) 73.0 H, Lymphocytes (%) (Auto) 18.2 L, Monocytes (%) (Auto) 6.9 H, Eosinophils (%) (Auto) 1.1, Basophils (%) (Auto) 0.2, Neutrophils # (Auto) 4.8, Lymphocytes # (Auto) 1.2 L, Monocytes # (Auto) 0.5, Eosinophils # (Auto) 0.1, Basophils # (Auto) 0.0, Calcium Level 9.1, Aspartate Amino Transf (AST/SGOT) 5 L, Alanine Aminotransferase (ALT/SGPT) 11 L, Alkaline Phosphatase 63, Total Bilirubin 0.8, Total Protein 6.5, Albumin 3.3 Discharge Medications Scheduled Cholecalciferol (Vitamin D3) (Vitamin D3) 5,000 Unit Cap, 5,000 UNIT PO DAILY, (Reported) Clonidine HCl (Clonidine HCl) 0.2 Mg Tablet, 0.2 MG PO TID, (Reported) Divalproex Sodium (Divalproex Sodium) 500 Mg Tablet.dr, 500 MG PO BID, (Reported) Lanthanum Carbonate (Lanthanum Carbonate) 500 Mg Chw, 1,500 MG PO WM, (Reported) Losartan Potassium (Losartan Potassium) 100 Mg Tab, 100 MG PO DAILY, (Reported) Metoprolol Tartrate (Metoprolol Tartrate) 50 Mg Tab, 50 MG PO BID, (Reported) Minoxidil (Minoxidil) 10 Mg Tablet, 10 MG PO BID, (Reported) Scheduled PRN Hydroxyzine HCl (Hydroxyzine HCl) 25 Mg Tab, 25 MG PO BID PRN for ANXIETY, (Reported) COULD TAKE UP TO 50MG BID Allergies Coded Allergies: No Known Allergies (Unverified , 10/09/18) REMY TIM MD Dec 28, 2018 01:31
--- NOTE | 2018-12-28 14:03 | IPN ---
DATE: 12/27/2018 Mr. Bentley is seen this morning on his bedside. He is feeling well and is eating lunch at the time of my visit. He was admitted with shortness of breath and was found to have hypertensive urgency. He was also volume overloaded. He has been dialyzed and his volume status has improved and blood pressure is now much better controlled. The patient denies any dyspnea, chest pain, headache, nausea or vomiting at this point. On physical examination, temperature 99.5 degrees Fahrenheit, heart rate 70 per minute and respiratory rate 20 per minute. Blood pressure 157/83 mmHg and oxygen saturation is 96% on room air. His head is atraumatic. Neck is supple and without jugular venous distention (JVD) or thyroid enlargement. Heart sounds are regular and lungs clear to auscultation. Abdomen soft and nontender and bowel sounds are normal. Extremities without any cyanosis or clubbing. Neurologically he is awake, alert and oriented times three. Today's labs show WBC count 6.5, hemoglobin 11.5 and hematocrit 34.4. Platelets 113. Sodium 140, potassium 4.8, CO2 32, BUN 57 and creatinine 10.3. PROBLEMS: 1. End-stage renal disease. The patient has been dialyzed and last dialysis was done yesterday. He will be scheduled for next hemodialysis as an outpatient on Saturday. Volume status is well-compensated at present. 2. Shortness of breath. Most likely related to uncontrolled hypertension in the setting of end-stage renal disease and volume overload. His volume status has improved and blood pressure is now much better controlled. The patient will continue with current antihypertensive meds. 3. Anemia. His anemia is very mild and stable and does not need any urgent intervention. 4. Disposition. From a renal standpoint, the patient can be discharged to home today and he will follow up in the outpatient dialysis clinic.
== END 2018-12-27 15:37 | disposition home or self-care (01) | DRG 304 ==
LOC: M ED 23:30 → M ED INP 12-26 03:09 → M PCU 12-26 04:47
PROVIDERS: ADMIT Family Medicine; ATTEND Hospitalist
PROC: 5A1D70Z Performance of Urinary Filtration, Intermittent, Less than 6 Hours Per Day (ICD-10-PCS; principal; 2018-12-26)
DX: I16.0 Hypertensive urgency (principal); N18.6 End stage renal disease; I50.33 Acute on chronic diastolic (congestive) heart failure; N25.81 Secondary hyperparathyroidism of renal origin; I13.2 Hypertensive heart and chronic kidney disease with heart failure and with stage 5 chronic kidney disease, or end stage renal disease; Z79.899 Other long term (current) drug therapy; F32.9 Major depressive disorder, single episode, unspecified; F41.9 Anxiety disorder, unspecified; F17.210 Nicotine dependence, cigarettes, uncomplicated

== ENCOUNTER 2019-01-05 10:30 | Inpatient (IN) | payer MEDICARE, MEDICAID ==
[2019-01-05] VITALS (18 sets, daily range): BP systolic 127–168; BP diastolic 60–94
[~2019-01-05] VITALS: Ht 188 cm; Wt 77.6 kg
[~2019-01-05 10:30] MED LIST changes: -OMEP20CA3 PO; +OMEP20CA4 PO
[2019-01-05] MEDS ORDERED: diphenhydrAMINE INJ 50MG/ML VIAL (J1200) IV STA (10:54)
[2019-01-05] MEDS ORDERED: METOCLOPRAMIDE INJ 10MG/2ML VIAL (J2765) IV ONE (11:00)
[2019-01-05] MEDS ORDERED: dexameTHASONE 20 MG/5 ML VIAL (J1100) IV ONE (11:00)
[2019-01-05] MEDS ORDERED: KETOROLAC 30 MG/ML VIAL (J1885) IV ONE (11:00)
[2019-01-05] MEDS ORDERED: cloNIDine 0.2 MG TAB PO ONE (11:45)
[2019-01-05] MEDS ORDERED: MINOXIDIL 10 MG TAB PO ONE (11:45)
[2019-01-05] MEDS ORDERED: METOPROLOL TART 50 MG TAB PO ONE (11:45)
[2019-01-05 11:58] LABS: BASO % 0.5 % (0.0-1.0); EOS # 0.1 10^3/uL (0.0-0.50); EOS % 1.1 % (0.0-3.0); HEMATOCRIT 30.2 % (42.0-52.0); HEMOGLOBIN 10.3 g/dl (13.5-17.5); LYMPH # 0.9 10^3/uL (1.5-6.5); LYMPH % 15.4 % (24.0-44.0); MEAN CORPUSCULAR HEMOGLOBIN 30.1 pg (27.0-33.0); MEAN CORPUSCULAR HGB CONC 34.1 g/dl (32.0-36.5); MEAN CORPUSCULAR VOLUME 88.3 fl (80.0-96.0); MONO # 0.3 10^3/uL (0.0-0.8); MONO % 5.3 % (0.0-5.0); NEUTROPHILS # 4.3 10^3/uL (1.8-7.7); NEUTROPHILS % 77.3 % (36.0-66.0); RED BLOOD COUNT 3.42 10^6/uL (4.30-6.10); WHITE BLOOD COUNT 5.5 10^3/uL (4.0-10.0)
[2019-01-05 12:00] LABS: PLATELET COUNT, AUTOMATED 94 10^3/uL (150-450)
[2019-01-05 12:14] LABS: CALCIUM LEVEL 8.6 MG/DL (8.5-10.1); CREATININE FOR GFR 7.59 MG/DL (0.70-1.30); GLOMERULAR FILTRATION RATE 9.1 (>60); POTASSIUM SERUM 3.8 MEQ/L (3.5-5.1)
[2019-01-05] MEDS ORDERED: diltiaZEM 125 MG in NS 100 ML IV SCH (12:45)
[2019-01-05] MEDS ORDERED: ACET-683 PO (13:09)
[2019-01-05] MEDS ORDERED: niCARdipine IV 40 MG in APPROPRIATE DILUENT 1 EA IV SCH ×2 (13:15→14:12)
--- NOTE | 2019-01-05 13:52 | REP ---
Portable chest x-ray: AP semiupright view. History: Dyspnea. Comparison study: December 26, 2018. Findings: Oxygen delivery tubing and EKG monitoring electrodes are seen overlying the chest. There is moderate cardiac enlargement. Pulmonary vasculature is cephalized and indistinct. Interstitial markings are prominent with Génesis lines in the bases and mid lung peralta consistent with CHF and interstitial pulmonary edema. No pleural effusion is seen. There is some fissural thickening in the minor fissure. No focal infiltrate. Impression: Cardiomegaly vascular congestion and cephalization. Interstitial pulmonary edema. Electronically Signed by Enrkie Wayne MD 01/05/2019 01:43 P
[2019-01-05] MEDS ORDERED: MOM 30ML SUSPENSION UDC PO PRN (15:00)
[2019-01-05] MEDS ORDERED: ACETAMINOPHEN TAB 650MG DOSE (2X325MG) PO PRN (15:00)
[2019-01-05 15:40] LABS: MAGNESIUM LEVEL 2.2 MG/DL (1.8-2.4)
[2019-01-05] MEDS ORDERED: hydrOXYzine 25 MG TAB PO PRN (16:00)
[2019-01-05] MEDS: cloNIDine 0.1 MG TAB PO SCH ×2 (16:51→22:09)
[2019-01-05] MEDS: VITAMIN D 1,000 INTERNATIONAL UNITS TABLET PO SCH (17:37)
--- NOTE | 2019-01-05 17:49 | HPEPDOC ---
[facility] Medical History & Physical Date of Admission Jan 05, 2019 Date of Service: Jan 05, 2019 Attending Physician: ARMANI SHIN MD History and Physical CHIEF COMPLAINT: Headache due to hypertension HISTORY OF PRESENT ILLNESS: A 28 year old male with a past medical history of end stage renal disease on hemodialysis, congestive heart failure, seizures, hypertension, migraine headaches presented to the ER with headache and hypertensive urgency. Patient states that he woke up at 11:30 last night due to nausea that was followed by an episode of vomiting. A few hours later he reports experiencing an intense headache that was rated as a 10/10. The pain was bilateral and began behind his eyes and extended into his jaw, neck, and shoulders. He has had a total of three migraines in his life and reports seeing lights prior to the migraine. He states that his migraines are preceded by episodes of hypertension. The patient took four tablets of Tylenol in hopes of lessening the pain will little relief. He reports having a presyncopal episode this am during dialysis and chose to stop dialysis and present to the ER. He denies any current photophobia, numbness, tingling, or paralysis after this episode. This episode was associated with shortness of breath, photophobia, and chest tightness. Patient currently rates his pain as a 5/10 and is on 2L of oxygen via nasal cannula. The patient denies doing anything out of the ordinary in the past few days except for exerting himself yesterday while swimming. PAST MEDICAL HISTORY: 1. ESRD 2. Hypertension 3. Congestive Heart failure 4. Seizure 5. Migraine headache PAST SURGICAL HISTORY: 1. cholecystectomy 2. Left AV fistula 3. Parathyroidectomy 4. Catheter insertion for peritoneal dialysis SOCIAL HISTORY: Marital status: Not known Resides in: [place] Children: 2 year old daughter Employment: On disability for last 12 years Tobacco use: 1/2 pack of cigarettes per day smoking on and off since age 15 ETOH: Denies use Illicit drug use: Denies use IV drug use: Denies use FAMILY HISTORY: Father: Hypertension, prediabetic Mother: Hypertension, prediabetic Siblings: Not known Children: Not known Hereditary Diseases: Patient is not aware Unexpected deaths due to medical reasons: Patient is not aware ALLERGIES: Please see below. HOME MEDICATIONS: Please see below. PHYSICAL EXAMINATION: VITAL SIGNS: See below GENERAL APPEARANCE: Patient is tired but alert and cooperative HEENT: Poor dental hygiene, NC AT CARDIOVASCULAR: 3/6 pansystolic murmur heard in Left 2nd ICS, regular rate and rhythm, No gallop or rub. LUNGS: faint bibasilar rales heard bilaterally in lower lobes ABDOMEN: soft, nontender to palpation, normal bowel sounds MUSCULOSKELETAL: no tenderness to palpation of calves EXTREMITIES: 1+ edema noted b/l lower extremities with right is greater than left, no cyanosis or rash noted. NEUROLOGICAL: no focal deficits PSYCHIATRIC: Normal affect LABORATORY DATA: See below. IMAGING: Chest X-ray 01/05/19: Cardiomegaly vascular congestion and cephalization. Interstitial pulmonary edema. Echocardiogram: Pending MICROBIOLOGY: Please see below. ASSESSMENT: Patient is a 28 year old male with a past medical history of seiz ures, congestive heart failure, hypertension, migraine headaches and ESRD who presented to the ER with hypertensive urgency and a migraine headache. PLAN: 1. Hypertensive urgency -due severe migraine episode, fluid overload -patient was given IV nicardipine in ER; plan to titrate down nicardipine while starting patient's antihypertensive home medications and increasing their frequency until taking patient off of nicardipine. -Patient's SBP was reported to be 269 this am in dialysis; current blood pressure is 151/75 2. Headache 2/2 to Migraine vs hypertensive urgency. -patient given IV toradol and dexamethasone in ED -begin patient on Excedrin prn for pain. 3. ESRD -Patient did not complete dialysis this am; had one hour left when he decided to stop due to headache -May Have to go on dialysis tomorrow and clinically fluid overloaded. -Consult nephrology 4. Decompensated CHF -Echocardiogram ordered -Begin patient on strict I/Os, fluid restriction, daily weighs, and bed elevation -hemodialysis will aid in diuresing patient -patient on 2L oxygen nasal cannula 5. Seizure -c/w valproic acid 6. DVT prophylaxis -Heparin Vital Signs Vital Signs Date Time Temp Pulse Resp B/P (MAP) Pulse Ox O2 Delivery O2 Flow Rate FiO2 01/05/19 16:51 161/74 (103) 01/05/19 16:50 96.8 01/05/19 16:45 68 94 Nasal Cannula 2.0 01/05/19 14:48 20 Laboratory Data Labs 24H Laboratory Tests 2 01/05/19 11:42: Immature Granulocyte % (Auto) 0.4, White Blood Count 5.5, Red Blood Count 3.42L, Hemoglobin 10.3L, Hematocrit 30.2L, Mean Corpuscular Volume 88.3, Mean Corpuscular Hemoglobin 30.1, Mean Corpuscular Hemoglobin Concent 34.1, Red Cell Distribution Width 12.9, Platelet Count 94L, Neutrophils (%) (Auto) 77.3H, Lymphocytes (%) (Auto) 15.4L, Monocytes (%) (Auto) 5.3H, Eosinophils (%) (Auto) 1.1, Basophils (%) (Auto) 0.5, Neutrophils # (Auto) 4.3, Lymphocytes # (Auto) 0.9L, Monocytes # (Auto) 0.3, Eosinophils # (Auto) 0.1, Basophils # (Auto) 0.0, Nucleated Red Blood Cells % (auto) 0.0, Immature Platelet Fraction 2.2, Anion Gap 9, Glomerular Filtration Rate 9.1L, Blood Urea Nitrogen 27H, Creatinine 7.59H, Sodium Level 141, Potassium Level 3.8, Chloride Level 103, Carbon Dioxide Level 29, Calcium Level 8.6, Magnesium Level 2.2 CBC/BMP Laboratory Tests 01/05/19 11:42 Red Blood Count 3.42 L, Mean Corpuscular Volume 88.3, Mean Corpuscular H emoglobin 30.1, Mean Corpuscular Hemoglobin Concent 34.1, Red Cell Distribution Width 12.9, Neutrophils (%) (Auto) 77.3 H, Lymphocytes (%) (Auto) 15.4 L, Monocytes (%) (Auto) 5.3 H, Eosinophils (%) (Auto) 1.1, Basophils (%) (Auto) 0.5, Neutrophils # (Auto) 4.3, Lymphocytes # (Auto) 0.9 L, Monocytes # (Auto) 0.3, Eosinophils # (Auto) 0.1, Basophils # (Auto) 0.0, Calcium Level 8.6 Home Medications Scheduled Cholecalciferol (Vitamin D3) (Vitamin D3) 5,000 Unit Cap, 5,000 UNIT PO DAILY Clonidine HCl (Clonidine HCl) 0.2 Mg Tablet, 0.2 MG PO TID Divalproex Sodium (Divalproex Sodium) 500 Mg Tablet.dr, 500 MG PO BID Lanthanum Carbonate (Lanthanum Carbonate) 500 Mg Chw, 1,500 MG PO WM Losartan Potassium (Losartan Potassium) 100 Mg Tab, 100 MG PO QHS Metoprolol Tartrate (Metoprolol Tartrate) 50 Mg Tab, 50 MG PO BID Minoxidil (Minoxidil) 10 Mg Tablet, 10 MG PO BID Scheduled PRN Acetaminophen (Acetaminophen) 500 Mg Tablet, 1,000 MG PO Q6H PRN for PAIN Hydroxyzine HCl (Hydroxyzine HCl) 25 Mg Tab, 25 MG PO BID PRN for ANXIETY COULD TAKE UP TO 50MG BID Allergies Coded Allergies: No Known Allergies (Unverified , 10/09/18) A-FIB/CHADSVASC A-FIB History Current/History of A-Fib/PAF?: No Attending Note Attending Note I performed a history and physical examination and discussed the management with the resident and medical student. I reviewed the medical student's note and agree with the documented findings and plan of care with following addendum/ amendments. The patient has been on HD for 6 years does not make urine . 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 Patient always admitted with hypertensive urgency so i feel patient is noncompliant with his meds . If he misses his clonidine 1 or 2 doses he will have severe rebound hypertension which may be happening in this patent's case. I would try to switch him from oral clonidine to clonidine patch which may keep his Bp under better control. Will continue with nicardipine gtt with parameters. Psych issues, anger issues, anxiety and depression continue home meds. CHIVO DOUGHERTY OMS-3 Jan 05, 2019 17:49 ARMANI SHIN MD Jan 05, 2019 23:24
[2019-01-05] MEDS: EXCEDRIN MIGRAINE TABLET PO PRN (19:34)
[2019-01-05] MEDS: niCARdipine IV 40 MG in APPROPRIATE DILUENT 1 EA IV SCH ×2 (19:44→22:09)
[2019-01-05] MEDS: DIVALPROEX 500 MG TAB PO SCH (20:10)
[2019-01-05] MEDS: METOPROLOL TART 50 MG TAB PO SCH (20:10)
[2019-01-05] MEDS: MINOXIDIL 10 MG TAB PO SCH (20:10)
[2019-01-05] MEDS: LOSARTAN 50 MG TAB PO SCH (20:11)
[2019-01-05] MEDS: HEPARIN SOD (PORCINE) 5000 UNITS/ML VIAL SC SCH (22:09)
[2019-01-06] VITALS (38 sets, daily range): BP systolic 127–181; BP diastolic 59–94
[2019-01-06] MEDS: cloNIDine 0.1 MG TAB PO SCH ×3 (05:10→21:12)
[2019-01-06] MEDS: HEPARIN SOD (PORCINE) 5000 UNITS/ML VIAL SC SCH ×3 (05:10→21:13)
[2019-01-06 05:20] LABS: HEMATOCRIT 30.5 % (42.0-52.0); HEMOGLOBIN 10.5 g/dl (13.5-17.5); MEAN CORPUSCULAR HEMOGLOBIN 30.3 pg (27.0-33.0); MEAN CORPUSCULAR HGB CONC 34.4 g/dl (32.0-36.5); MEAN CORPUSCULAR VOLUME 87.9 fl (80.0-96.0); PLATELET COUNT, AUTOMATED 103 10^3/uL (150-450); RED BLOOD COUNT 3.47 10^6/uL (4.30-6.10); WHITE BLOOD COUNT 5.7 10^3/uL (4.0-10.0)
[2019-01-06 05:46] LABS: CALCIUM LEVEL 8.5 MG/DL (8.5-10.1); CREATININE FOR GFR 10.3 MG/DL (0.70-1.30); GLOMERULAR FILTRATION RATE 6.4 (>60); POTASSIUM SERUM 4.5 MEQ/L (3.5-5.1)
[2019-01-06] MEDS: niCARdipine IV 40 MG in APPROPRIATE DILUENT 1 EA IV SCH (06:18)
[2019-01-06] MEDS ORDERED: niCARdipine IV 40 MG in APPROPRIATE DILUENT 1 EA IV SCH (08:00)
[2019-01-06] MEDS: MINOXIDIL 10 MG TAB PO SCH ×2 (08:03→20:14)
[2019-01-06] MEDS: VITAMIN D 1,000 INTERNATIONAL UNITS TABLET PO SCH (08:03)
[2019-01-06] MEDS: METOPROLOL TART 50 MG TAB PO SCH ×2 (08:04→20:15)
[2019-01-06] MEDS: amLODIPine 10 MG TAB PO SCH (08:04)
[2019-01-06] MEDS: DIVALPROEX 500 MG TAB PO SCH ×2 (08:05→20:14)
--- NOTE | 2019-01-06 08:58 | IPNPDOC ---
Date Seen The patient was seen on 01/06/19. Progress Note SUBJECTIVE: Mr. Bentley, a 28-year-old male who presented to the ER yesterday with headache and hypertensive urgency, was seen this morning sitting in bed. He states that his headache has improved since yesterday, currently rating the pain as a 3/10 that comes and goes about every hour and is located on his left evangelical with no radiation. He states that the throbbing pain of his migraine headache is resolved today. He denies nausea and vomiting. He reports improved blood pressure and reduced lower extremity swelling, especially in his right leg. He denies current photophobia, paresthesia, chest pain, shortness of breath, abdominal pain, change in bowel habits, dizziness, and blurry vision. OBJECTIVE PHYSICAL EXAMINATION: VITAL SIGNS: Please see below. GENERAL APPEARANCE: Patient examined sitting in bed, no acute distress, pleasant, AAOx3 HEENT: Poor dental hygiene, NC, AT, moist mucous membranes CARDIOVASCULAR: 3/6 pansystolic murmur heard most prominently at Left 2nd ICS, regular rate and rhythm, no gallops or rubs appreciated LUNGS: faint bibasilar rales heard bilaterally in lower lobes, improved from yesterday ABDOMEN: soft, nontender to palpation, normal bowel sounds, no rebound, rigidity or guarding, no masses or hepatosplenomegaly appreciated MUSCULOSKELETAL: no tenderness to palpation of calves EXTREMITIES: 1+ edema noted b/l lower extremities with right is greater than left and is improved from yesterday, no cyanosis or rash noted. 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 IMAGING: -Chest X-ray 01/05/19: Cardiomegaly vascular congestion and cephalization. Interstitial pulmonary edema. Echocardiogram: Pending DVT prophylaxis ordered?: Heparin ASSESSMENT AND PLAN: Patient is a 28 year old male with a past medical history of seizures, congestive heart failure, hypertension, migraine headaches and ESRD on hemodialysis who presented to the ER with hypertensive urgency and a migraine headache. PROBLEMS: 1. Hypertensive urgency -patient was given IV nicardipine in ER; d/c nicardipine, c/w patient's antihypertensive home medications with increased frequency -Patient's SBP was reported to be 269 yesterday morning in dialysis; current blood pressure is 159/78 -Started Clonidine patch today to better control fluctuations in blood pressure and to assist compliance -There was a discrepancy in Minoxidil prescription and what the patient was taking at home. He previously was taking a full tablet 10 mg of Minoxidil twice a day however he states that the new instructions from the pharmacy were to take half a tablet of Minoxidil twice a day. Will continue with Minoxidil, a full tablet 10mg bid. 2. Headache likely 2/2 hypertensive urgency. -patient given IV toradol and dexamethasone in ED -c/w Excedrin prn for pain -Continue with blood pressure control and monitoring 3. Thrombocytopenia -Thrombocytopenia noted on lab work from the past 6 months -Possibly due to medication side effect, Depakote was started 1 year ago due to a seizure -Patient currently on Minoxidil which can cause thrombocytopenia however he has been on this for many years without decreasing platelet counts -Will monitor as outpatient, need to rule out drug interaction/side effect -If thrombocytopenia persists, plan to follow up with Hematology -He is currently asymptomatic with no signs of bleeding 3. ESRD -Patient did not complete dialysis yesterday morning; had one hour left when he decided to stop due to headache -Will have hemodialysis today -Consult nephrology, appreciate their help 4. Decompensated CHF -Echocardiogram pending -c/w strict I/Os, fluid restriction, daily weighs, and bed elevation -HD will help symptoms of fluid overload -patient currently on room air with improvements in breathing from yesterday 5. Seizure -c/w valproic acid 6. DVT prophylaxis -Heparin DISPOSITION: Patient is clinically improving. His pain is controlled and he only reports pain in his left evangelical rated 3/10 that comes and goes about every hour. C/w pain control and blood pressure monitoring. Transitioned to Clonidine patch today and will c/w Minoxidil 1 tablet of 10 mg twice a day. d/c nicardipine. Echocardiogram pending. Will receive hemodialysis today. Thrombocytopenia has been noted on lab work for the past 6 months, possibly due to Depakote which was initiated a year ago after a seizure. Labs will be monitored as outpatient, rule out drug interaction as an etiology. If it persists, plan to follow up with Hematology. VS, I&O, 24H, Fishbone Vital Signs/I&O Vital Signs Date Time Temp Pulse Resp B/P (MAP) Pulse Ox O2 Delivery O2 Flow Rate FiO2 7/16/19 08:53 159/78 01/06/19 08:04 53 01/06/19 08:00 2.0 01/06/19 08:00 18 96 01/06/19 07:00 97.5 01/05/19 16:45 Nasal Cannula I&O- Last 24 Hours up to 6 AM 01/06/19 06:00 Intake Total 1160.55 ml Output Total 0 ml Balance 1160.55 ml Laboratory Data 24H LABS Laboratory Tests 2 01/05/19 11:42: Immature Granulocyte % (Auto) 0.4, White Blood Count 5.5, Red Blood Count 3.42L, Hemoglobin 10.3L, Hematocrit 30.2L, Mean Corpuscular Volume 88.3, Mean Corpuscular Hemoglobin 30.1, Mean Corpuscular Hemoglobin Concent 34.1, Red Cell Distribution Width 12.9, Platelet Count 94L, Neutrophils (%) (Auto) 77.3H, Lymphocytes (%) (Auto) 15.4L, Monocytes (%) (Auto) 5.3H, Eosinophils (%) (Auto) 1.1, Basophils (%) (Auto) 0.5, Neutrophils # (Auto) 4.3, Lymphocytes # (Auto) 0.9L, Monocytes # (Auto) 0.3, Eosinophils # (Auto) 0.1, Basophils # (Auto) 0.0, Nucleated Red Blood Cells % (auto) 0.0, Immature Platelet Fraction 2.2, Anion Gap 9, Glomerular Filtration Rate 9.1L, Blood Urea Nitrogen 27H, Creatinine 7.59H, Sodium Level 141, Potassium Level 3.8, Chloride Level 103, Carbon Dioxide Level 29, Calcium Level 8.6, Magnesium Level 2.2 01/06/19 04:43: Nucleated Red Blood Cells % (auto) 0.0, Anion Gap 9, Glomerular Filtration Rate 6.4L, Blood Urea Nitrogen 43#H, Creatinine 10.30*H, Sodium Level 138, Potassium Level 4.5, Chloride Level 101, Carbon Dioxide Level 28, Calcium Level 8.5 CBC/BMP Laboratory Tests 01/05/19 11:42 Red Blood Count 3.42 L, Mean Corpuscular Volume 88.3, Mean Corpuscular Hemoglobin 30.1, Mean Corpuscular Hemoglobin Concent 34.1, Red Cell Distribution Width 12.9, Neutrophils (%) (Auto) 77.3 H, Lymphocytes (%) (Auto) 15.4 L, Monocytes (%) (Auto) 5.3 H, Eosinophils (%) (Auto) 1.1, Basophils (%) (Auto) 0.5, Neutrophils # (Auto) 4.3, Lymphocytes # (Auto) 0.9 L, Monocytes # (Auto) 0.3, Eosinophils # (Auto) 0.1, Basophils # (Auto) 0.0, Calcium Level 8.6 01/06/19 04:43 Red Blood Count 3.47 L, Mean Corpuscular Volume 87.9, Mean Corpuscular Hemoglobin 30.3, Mean Corpuscular Hemoglobin Concent 34.4, Red Cell Distribution Width 12.9, Calcium Level 8.5 Attending Note Attending Note I have personally seen and examined the patient this am. I agree with the finding and the plan of care as documented above resident's/ medical student's note with the following addendum/ amendment. I believe he was having hypertensive Emergency as he was in congestive heart failure with hypoxia, bilateral basal crackles and bipedal edema. With the control of his blood pressure his edema is better and his basal crackles and his hypoxia has resolved even without HD. He probably was having flash pulmonary edema when he came in due to his uncontrolled BP. HD later today. Thrombocytopenia new for the past six months . Seems to have started after he was put on valproate for seizure from Apr 2018. Minoxidil also causes thrombocytopenia but he has been on it for many years without issues. If continues to be low would consider changing valproate to an alternate seizure medication and monitor. Bp better controlled have changed clonidine tabs to patch to see if this will control the bp better. Off nicardipine GTT for now. TWAN SIN OMS-3 Jan 06, 2019 08:58 ARMANI SHIN MD Jan 06, 2019 13:31
[2019-01-06] MEDS ORDERED: cloNIDine HCL 0.2 MG/24 HR PATCH TOP SCH (09:00)
[2019-01-06] MEDS ORDERED: CLON0.2D6 TOP (10:38)
--- NOTE | 2019-01-06 13:48 | CR ---
DATE OF CONSULTATION: 01/06/2019 REQUESTING PHYSICIAN: Dr. Pippa Irwin REASON FOR CONSULTATION: Management of end-stage renal disease on hemodialysis. HISTORY OF PRESENT ILLNESS: Yves Bentley is well known to me, he is a 28-year-old male with a past medical history of known end-stage renal disease, hypertension, seizure disorder hyperparathyroidism, and diastolic congestive heart failure. The patient states he was in his usual state of health but did run out of his minoxidil over the weekend. On Saturday night he started having migraine symptoms with intense headache, nausea and vomiting and photophobia. His headache worsened during his dialysis treatment and his of blood pressures were significantly uncontrolled. The patient stopped his treatment was a little less than an hour to go and subsequently presented to the emergency room (ER) for further evaluation. He had not taken any of his oral antihypertensives on Saturday prior to coming to his outpatient dialysis treatment. In the emergency room his blood pressure was 244/131 on arrival and the patient was noted to be mildly hypervolemic. He was started on IV nicardipine infusion and his home medications oral and hypertensives were resumed as well. His blood pressure did improve nicely and his headache resolved. His nicardipine infusion was down titrated. The patient was seen and examined this morning at the bedside in the intensive care unit reports he feels much better and no longer is having any headache symptoms, blood pressure is well-controlled with his oral antihypertensive regimen. He is pending extra dialysis treatment this afternoon. PAST MEDICAL HISTORY: Hypertension, end-stage renal disease secondary to vesicoureteral reflux, history of seizure disorder, history of depression and anxiety, history of diastolic congestive heart failure secondary hyperparathyroidism of renal origin, anemia of chronic kidney disease. PAST SURGICAL HISTORY: Is significant for AV fistula, hemodialysis catheter, peritoneal dialysis catheter placement and removal, thyroid nodule removal, bilateral wrist surgery, ankle surgery and fractures due to fall. FAMILY HISTORY: Is significant for hypertension but no family history of end-stage renal disease. PERSONAL AND SOCIAL HISTORY: He denies any drug or alcohol use. He is a chronic active smoker. Lives with a roommate. ALLERGIES: No known drug allergies. HOME MEDICATIONS: Are reviewed and include vitamin D3, clonidine 0.2 mg by mouth three times a day, Depakote 500 mg by mouth twice a day, lanthanum 1500 mg by mouth with meal, losartan 100 mg by mouth at bedtime, metoprolol 50 mg by mouth twice a day, minoxidil 10 mg by mouth twice a day. REVIEW OF SYSTEMS: CONSTITUTIONAL: He denies fevers or chills. EYES: He had a photophobia with his migraines, this is now resolved. Denies any hearing or visual changes. ENT: Denies tinnitus or rhinorrhea. CARDIAC: Denies chest pain or palpitations or leg edema. RESPIRATORY: Denies shortness of breath or cough. GASTROINTESTINAL: Reports nausea and vomiting that was associated with the migraine and that has since resolved. Denies diarrhea. MUSCULOSKELETAL: Denies any new myalgias or arthralgias. ENDOCRINE: Reports secondary hyperparathyroidism of renal origin. Denies diabetes. HEMATOLOGIC: Denies easy bruising or bleeding. NEUROLOGIC: Has a history of seizure and migraine headache. SKIN: Denies any new rashes or ulcers or pruritus. Remainder of review of systems is negative or as per history of present illness. VITAL SIGNS: Temperature 97.6, pulse 52, respiratory rate 18, blood pressure 161/77, saturating 99% on room air. Weight in the bed scale today is 88.2 kg. GENERAL: The patient is seen in the intensive care unit (ICU) sitting in a darkened room, a young male, awake, alert and oriented and cooperative, in no acute distress. Extraocular muscles are intact. Tongue is moist. NECK: Is supple. There is no jugular venous distension. CARDIAC: S1-S2 regular rate and rhythm. Systolic murmur. At most trace edema in the feet and ankles. LUNGS: Symmetric air entry bilaterally. No crackle, rale or rhonchus. ABDOMEN: Is soft and nontender. There are bowel sounds. The right upper extremity fistula is patent with thrill and bruit. The lower extremities have no clubbing or cyanosis. NEUROLOGIC: Oriented times three, no focal deficits, at baseline mentation. LABORATORY DATA: White count 5.7, hemoglobin 10.5, platelet 103, sodium 138, potassium 4.5. Chest x-ray January 05 - vascular congestion and interstitial pulmonary edema. No pleural effusions. INPATIENT MEDICATIONS: Reviewed by myself, his nicardipine drip is presently held, he is on amlodipine 10 mg by mouth daily, clonidine 0.2 mg patch, Depakote 500 mg by mouth twice a day, heparin 5000 units subcu every 8-hours, losartan 100 mg by mouth at bedtime, metoprolol 50 mg by mouth twice a day, minoxidil 10 mg by mouth twice a day, vitamin D 5000 units by mouth daily. PROBLEMS: 1. Status post hypertensive urgency. It was likely multifactorial and due to the patient running at of his minoxidil over the weekend, mild hypervolemia, and migraine headache. He was treated with IV nicardipine and nicardipine drip has been titrated off as the patient's blood pressures have improved with resumption of his usual home antihypertensive regimen. He will be dialyzed today with goal fluid removal of 2-3 liters as tolerated which should help with his blood pressure as well. He had not taken any of his medications on Saturday when he subsequently arrived to the ER with significantly uncontrolled blood pressures. 2. End-stage renal disease on hemodialysis on Saturday, Saturday, Saturday schedule. He did not complete Saturday's treatment due to the severe migraine headache. There is mild hypervolemia chest x-ray is noted. He will be dialyzed this afternoon with 2-3 liters of fluid removed as tolerated and then he will be dialyzed again on Saturday to return back to his usual maintenance schedule. His electrolytes are acceptable and his fistula is in good use. 3. Grade 1 diastolic congestive heart failure. There is mild hypervolemia. Blood pressures were also uncontrolled. He did not complete his treatment on Saturday, he will be dialyzed again today with 2-3 liters of fluid to be removed and then he will be dialyzed again on Saturday. Thank you for involving me in the care of Mr. Bentley, I will be happy to follow him along with you.
[2019-01-06] MEDS: LOSARTAN 50 MG TAB PO SCH (20:15)
[2019-01-06] MEDS: EXCEDRIN MIGRAINE TABLET PO PRN (20:20)
--- NOTE | 2019-01-06 21:42 | IPNPDOC ---
Text Note Date of Service The patient was seen on 01/06/19. NOTE temporary night coverage note: Patient has been off cardene drip since 0800. Will transfer out of ICU to PCU PRN po hydralazine ordered betablocker held x 2 earlier today because of bradycardia VS,Fishbone, I+O VS, Fishbone, I+O Laboratory Tests 01/06/19 04:43 Red Blood Count 3.47 L, Mean Corpuscular Volume 87.9, Mean Corpuscular Hemoglobin 30.3, Mean Corpuscular Hemoglobin Concent 34.4, Red Cell Distribution Width 12.9, Calcium Level 8.5 Vital Signs Date Time Temp Pulse Resp B/P (MAP) Pulse Ox O2 Delivery O2 Flow Rate FiO2 01/06/19 21:12 160/76 01/06/19 21:11 57 01/06/19 20:00 97.0 18 100 01/06/19 16:00 2.0 01/05/19 16:45 Nasal Cannula I&O- Last 24 Hours up to 6 AM 01/06/19 06:00 Intake Total 1160.55 ml Output Total 0 ml Balance 1160.55 ml FANTASMA GONZALEZ DO Jan 06, 2019 21:42
[2019-01-06] MEDS: **hydrALAZINE** 10 MG TAB PO SCH (21:55)
--- NOTE | 2019-01-06 23:28 | ECHO ---
DATE OF PROCEDURE: 01/06/2019 DATE OF : 1990 AGE: 28 REFERRING PROVIDER: Dr. Pippa Irwin PATIENT LOCATION: Room 3205 REASON FOR THE ECHOCARDIOGRAM: Heart murmur. 2D MEASUREMENTS: IVS: 1.4 cm LV: 5.5 cm LVPW: 1.5 cm LA: 5.6 cm Aorta: 2.5 cm IVC: 2.5 cm DOPPLER MEASUREMENTS: Peak velocity across the aortic valve: 1.9 m/s Peak velocity across the LVOT: 1.6 m/s Peak gradient across the aortic valve: 15 mmHg Mean gradient across the aortic valve: 9 mmHg Mitral E: 1.0, Mitral A: 0.6 with a ratio of 1.5 Maximum tricuspid valve velocity: 3.0 m/s 2D COMMENTS: 1. Borderline enlarged left ventricle with mildly increased left ventricular wall thickness and a normal global left ventricular systolic function. The estimated left ventricular systolic ejection fraction is 60-65%. 2. Moderately enlarged left atrium. Normal right atrium and right ventricle. 3. The atrial septum appeared to be normal without evidence of defect or shunt. 4. Normal aortic root. 5. A small pericardial effusion was noted, no evidence of cardiac tamponade. 6. Mildly calcified aortic valve with minimally restricted leaflet motion. Mildly calcified mitral annulus with normal anterior mitral valve leaflet motion. Normal tricuspid valve and pulmonic valve. The proximal pulmonary artery branches also appear to be normal. 7. The inferior vena cava is dilated, central venous pressure is most likely elevated. DOPPLER: It detects mild mitral regurgitation, mild tricuspid regurgitation, and trace pulmonic regurgitation. The calculated pulmonary artery systolic pressure varies between 40-50 mmHg. Abnormal relaxation pattern was noted across the mitral valve annulus consistent with a pseudo-normal pattern, left ventricular end-diastolic pressure might be elevated. IMPRESSION: 1. Normal global left ventricular systolic function with borderline eccentric left ventricular hypertrophy and mild concentric left ventricular hypertrophy. There are features of left ventricular diastolic dysfunction as mentioned above, grade 2. 2. Aortic valve sclerosis with trivial aortic stenosis but no aortic regurgitation. 3. Moderately enlarged left atrium with mitral annulus calcification and mild mitral regurgitation. 4. Mild tricuspid regurgitation with moderate pulmonary hypertension. 5. Trace pericardial effusion. 6. A small pericardial effusion was noted, no evidence of cardiac tamponade.
[2019-01-07] MEDS: **hydrALAZINE** 10 MG TAB PO SCH ×3 (02:32→09:10)
[2019-01-07 04:00] VITALS: BP 150/78
[2019-01-07] MEDS: HEPARIN SOD (PORCINE) 5000 UNITS/ML VIAL SC SCH ×2 (05:42→05:47)
[2019-01-07] MEDS: cloNIDine 0.1 MG TAB PO SCH (05:42)
[2019-01-07 06:11] LABS: HEMATOCRIT 30.2 % (42.0-52.0); HEMOGLOBIN 10.2 g/dl (13.5-17.5); MEAN CORPUSCULAR HEMOGLOBIN 30.8 pg (27.0-33.0); MEAN CORPUSCULAR HGB CONC 33.8 g/dl (32.0-36.5); MEAN CORPUSCULAR VOLUME 91.2 fl (80.0-96.0); RED BLOOD COUNT 3.31 10^6/uL (4.30-6.10); WHITE BLOOD COUNT 4.3 10^3/uL (4.0-10.0)
[2019-01-07 06:17] LABS: PLATELET COUNT, AUTOMATED 97 10^3/uL (150-450)
[2019-01-07 06:30] LABS: CALCIUM LEVEL 8.4 MG/DL (8.5-10.1); CREATININE FOR GFR 7.7 MG/DL (0.70-1.30); GLOMERULAR FILTRATION RATE 8.9 (>60); POTASSIUM SERUM 4.4 MEQ/L (3.5-5.1)
--- NOTE | 2019-01-07 07:40 | IPNPDOC ---
Date Seen The patient was seen on 01/07/19. Progress Note SUBJECTIVE: Mr. Bentley was seen this morning laying in bed. He states that his headache is improved from yesterday, currently rating the pain as a 3/10 that comes and goes and located on his right mormon with no radiation. He reports hemodialysis went well yesterday and that his lower extremity edema has improved. His only complaint is that he woke up with sweats last night which have resolved since getting a fan in his room. He denies chest pain, shortness of breath, nausea, vomiting, change in bowel habits, abdominal pain, dizziness, and blurry vision. OBJECTIVE PHYSICAL EXAMINATION: VITAL SIGNS: Please see below. GENERAL APPEARANCE: Patient examined laying in bed, no acute distress, pleasant, AAOx3 HEENT: Poor dental hygiene, NC, AT, moist mucous membranes CARDIOVASCULAR: 3/6 pansystolic murmur heard most prominently at Left 2nd ICS, regular rate and rhythm, no gallops or rubs appreciated LUNGS: Clear to auscultation bilaterally, no wheezing, rhonchi or rales appreciated ABDOMEN: soft, nontender to palpation, normal bowel sounds, no rebound, rigidity or guarding, no masses or hepatosplenomegaly appreciated MUSCULOSKELETAL: no tenderness to palpation of calves EXTREMITIES: 1+ edema noted b/l lower extremities with right is greater than left and is improved from yesterday, no cyanosis or rash noted. 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 IMAGING: -Chest X-ray 01/05/19: Cardiomegaly vascular congestion and cephalization. Interstitial pulmonary edema. Echocardiogram: 1. Normal global left ventricular systolic function with borderline eccentric left ventricular hypertrophy and mild concentric left ventricular hypertrophy. There are features of left ventricular diastolic dysfunction as mentioned above, grade 2. 2. Aortic valve sclerosis with trivial aortic stenosis but no aortic regurgitation. 3. Moderately enlarged left atrium with mitral annulus calcification and mild mitral regurgitation. 4. Mild tricuspid regurgitation with moderate pulmonary hypertension. 5. Trace pericardial effusion. 6. A small pericardial effusion was noted, no evidence of cardiac tamponade. DVT prophylaxis ordered?: Heparin ASSESSMENT AND PLAN: Patient is a 28 year old male with a past medical history of seizures, congestive heart failure, hypertension, migraine headaches and ESRD on hemodialysis who presented to the ER with hypertensive urgency and a migraine headache. PROBLEMS: 1. Hypertensive urgency -patient was given IV nicardipine in ER; d/c nicardipine, c/w patient's antihypertensive home medications with increased frequency -Patient's SBP was reported to be 269 yesterday morning in dialysis; current blood pressure is 142/67 -Started Clonidine patch yesterday to better control fluctuations in blood pressure and to assist compliance -There was a discrepancy in Minoxidil prescription and what the patient was taking at home. He previously was taking a full tablet 10 mg of Minoxidil twice a day however he states that the new instructions from the pharmacy were to take half a tablet of Minoxidil twice a day. Will continue with Minoxidil, a full tablet 10mg bid. -Beta blockers were held x2 yesterday due to bradycardia and prn PO hydralazine was ordered -Patient was downgraded from ICU to PCU 2. Headache likely 2/2 hypertensive urgency. -patient given IV toradol and dexamethasone in ED -c/w Excedrin prn for pain -Continue with blood pressure control and monitoring 3. Thrombocytopenia -Thrombocytopenia noted on lab work from the past 6 months -Possibly due to medication side effect, Depakote was started 1 year ago due to a seizure -Patient currently on Minoxidil which can cause thrombocytopenia however he has been on this for many years without decreasing platelet counts -Will monitor as outpatient, need to rule out drug interaction/side effect -If thrombocytopenia persists, plan to follow up with Hematology -He is currently asymptomatic with no signs of bleeding 3. ESRD on HD ([facility]) -Patient did not complete dialysis the day of admission; had one hour left when he decided to stop due to headache -HD yesterday, plan to set up outpatient dialysis today since it is his regularly scheduled day -Consult nephrology, appreciate their help 4. Decompensated CHF -Echocardiogram shows features of left ventricular diastolic dysfunction, grade 2; results detailed above -c/w strict I/Os, fluid restriction, daily weighs, and bed elevation -HD has improved symptoms of fluid overload -patient currently on room air with improvements in breathing from yesterday 5. Seizure -c/w valproic acid 6. DVT prophylaxis -Heparin DISPOSITION: Patient is clinically improving. His blood pressure has been well controlled and his migraine headache symptoms have Patient is clinically improving. His pain is controlled and he only reports pain in his left mormon rated 3/10 that comes and goes about every hour. C/w pain control and blood pressure monitoring. Transitioned to Clonidine patch today and will c/w Minoxidil 1 tablet of 10 mg twice a day. d/c nicardipine. Echocardiogram pending. Will receive hemodialysis today. Thrombocytopenia has been noted on lab work for the past 6 months, possibly due to Depakote which was initiated a year ago after a seizure. Labs will be monitored as outpatient, rule out drug interaction as an etiology. If it persists, plan to follow up with Hematology. VS, I&O, 24H, Fishbone Vital Signs/I&O Vital Signs Date Time Temp Pulse Resp B/P (MAP) Pulse Ox O2 Delivery O2 Flow Rate FiO2 01/07/19 05:41 136/65 01/07/19 04:00 97.8 56 18 97 01/06/19 16:00 2.0 01/05/19 16:45 Nasal Cannula I&O- Last 24 Hours up to 6 AM 01/07/19 06:00 Intake Total 920 ml Output Total 3000 ml Balance -2080 ml Laboratory Data 24H LABS Laboratory Tests 2 01/07/19 05:49: Nucleated Red Blood Cells % (auto) 0.0, Immature Platelet Fraction 3.2, Anion Ga p 6L, Glomerular Filtration Rate 8.9L, Blood Urea Nitrogen 33H, Creatinine 7.70H, Sodium Level 138, Potassium Level 4.4, Chloride Level 101, Carbon Dioxide Level 31, Calcium Level 8.4L CBC/BMP Laboratory Tests 01/07/19 05:49 Red Blood Count 3.31 L, Mean Corpuscular Volume 91.2, Mean Corpuscular Hemoglobin 30.8, Mean Corpuscular Hemoglobin Concent 33.8, Red Cell Distribution Width 13.1, Calcium Level 8.4 L JANUARYTWAN HUGO S-3 Jan 07, 2019 07:40
[2019-01-07 08:21] VITALS: BP 142/67
[2019-01-07] MEDS ORDERED: AMLO10TA5 PO (08:53)
[2019-01-07] MEDS: METOPROLOL TART 50 MG TAB PO SCH (09:00)
--- NOTE | 2019-01-07 09:06 | DS.PDOC ---
Discharge Summary General Date of Admission Jan 05, 2019 at 14:08 Date of Discharge Jan 07, 2019 Attending Physician: ARMANI SHIN MD Specialist/Consultants Involve: LAUREN CARTAGENA DO Discharge Summary PROCEDURES PERFORMED DURING STAY: 1. Hemodialysis on 01/06 2. 2D Echo 01/05: -Normal global left ventricular systolic function with borderline eccentric left ventricular hypertrophy and mild concentric left ventricular hypertrophy. There are features of left ventricular diastolic dysfunction as mentioned above, grade 2. -Aortic valve sclerosis with trivial aortic stenosis but no aortic regurgitation. -Moderately enlarged left atrium with mitral annulus calcification and mild mitral regurgitation. -Mild tricuspid regurgitation with moderate pulmonary hypertension. -Trace pericardial effusion. -A small pericardial effusion was noted, no evidence of cardiac tamponade. ADMITTING DIAGNOSES: 1. Hypertensive Urgency with associated migraine headache DISCHARGE DIAGNOSES: 1. Hypertensive Emergency 2. ESRD on hemodialysis (MWF) 3. Thrombocytopenia, likely secondary to Depakote 4. Diastolic CHF exacerbation 5. Anxiety and depression 6. Migraine headaches 7. Seizures COMPLICATIONS/CHIEF COMPLAINT: Esrd On Dialysis, Hypertensive Urgency. HISTORY OF PRESENT ILLNESS: Mr. Bentley, a 28-year-old male with a past medical history of ESRD on hemodialysis (MWF), congestive heart failure, hypertension, seizures and migraine headache, presented to the ER with symptoms of a migraine headache and hypertensive urgency which started during outpatient dialysis. He states that he woke up at 11:30 at night due to nausea which was followed by several episodes of vomiting. A few hours after waking, he reported experiencing an intense bilateral headache that was rated as a 10/10 which began behind his eyes associated with aura which he described as flashing lights. The pain extended into his jaw, neck, and shoulders. He has had 3 migraines previously with similar symptoms to his presentation and stated that his past migraines have been associated with episodes of hypertension. He took four tablets of Tylenol when the pain started, which usually provides relief for his headaches, however he had no relief. He reported feeling as if he was going to pass out due to pain and chose to stop dialysis and present to the ER. He had one hour left of dialysis to complete before he decided to stop. Patient's systolic blood pressure was reported to be 269 during dialysis and blood pressure was 244/131 on admission. He states that the headache was accompanied by feelings of anxiety, chest tightness, and shortness of breath. He had signs of fluid overload on admission (crackles at bilateral lung bases and 1+ pitting edema in b/l lower extremities). When examined in the ER, he reported 5/10 throbbing pain bilaterally after he was started on pain medication and nausea which resolved after he received Reglan. He denied photophobia, numbness, paresthesia, chest pain, shortness of breath, vomiting, change in bowel habits, seizures, fever, chills, or abdominal pain. He was started on 2L of oxygen via nasal cannula. He received Benadryl, Dexamethasone, Reglan, and Toradol in the ER and was started on a nicardipine drip along with his home blood pressure medications. Patient was admitted under the hospitalist service for blood pressure control and management of migraine headache pain as well as his comorbidities. HOSPITAL COURSE: After admission, patient was continued on a nicardipine drip to control his blood pressure and was continued on his home blood pressure medications at an increased frequency. Once blood pressure was controlled, nicardipine trip was tapered and discontinued. Patient was started on a Clonidine patch to better control fluctuations in his blood pressure. He stated that there was a discrepancy in Minoxidil prescription and what the patient has been taking at home. He previously was taking a full tablet 10mg bid, however, he states that the new instructions from his pharmacy were to take half a tablet bid. He was continued on Minoxidil, a full tablet, 10 mg bid. Excedrin was given prn for migraine headache pain control. Patient was noted to have thrombocytopenia on lab work which started 6 months ago. The etiology of his thrombocytopenia is unclear at this time but is possibly due to medication side effect, considering Depakote was started 1 year ago due to seizure. The patient is also currently on Minoxidil which has been shown to cause thrombocytopenia however he has been on this medication for many years without any abnormalities in his labs. He is currently asymptomatic and has no signs of bleeding. Plan is to monitor as an outpatient, rule out drug interaction/side effect. If the thrombocytopenia persists, plan to follow up for Hematology evaluation. Patient received a 2D Echocardiogram on 01/05 which was suggestive of left ventricular diastolic dysfunction as mentioned above, grade 2. He received hemodialysis on 01/06 and signs and symptoms of fluid overload were improved. Patient was noted to be bradycardic last night and his beta blockers were held twice due to this. His blood pressure has been stabilized and monitored throughout his admission and his migraine pain has been adequately controlled. DISCHARGE MEDICATIONS: Please see below. ALLERGIES: Please see below. PHYSICAL EXAMINATION ON DISCHARGE: VITAL SIGNS: Please see below. GENERAL APPEARANCE: Patient examined laying in bed, no acute distress, pleasant, AAOx3 HEENT: Poor dental hygiene, NC, AT, moist mucous membranes CARDIOVASCULAR: 3/6 pansystolic murmur heard most prominently at Left 2nd ICS, regular rate and rhythm, no gallops or rubs appreciated LUNGS: Clear to auscultation bilaterally, no wheezing, rhonchi or rales appreciated ABDOMEN: soft, nontender to palpation, normal bowel sounds, no rebound, rigidity or guarding, no masses or hepatosplenomegaly appreciated MUSCULOSKELETAL: no tenderness to palpation of calves EXTREMITIES: 1+ edema noted b/l lower extremities right>left and is improved from yesterday, no cyanosis or rash noted. 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 IMAGING: -Chest X-ray 01/05/19: Cardiomegaly vascular congestion and cephalization. Interstitial pulmonary edema. Echocardiogram: 1. Normal global left ventricular systolic function with borderline eccentric left ventricular hypertrophy and mild concentric left ventricular hypertrophy. There are features of left ventricular diastolic dysfunction as mentioned above, grade 2. 2. Aortic valve sclerosis with trivial aortic stenosis but no aortic regurgitation. 3. Moderately enlarged left atrium with mitral annulus calcification and mild mitral regurgitation. 4. Mild tricuspid regurgitation with moderate pulmonary hypertension. 5. Trace pericardial effusion. 6. A small pericardial effusion was noted, no evidence of cardiac tamponade. PROGNOSIS: Guarded. Patient has had several episodes of hypertensive urgency in the past with associated migraine headaches and seizures. Echocardiogram performed during admission is suggestive of grade 2 left ventricular diastolic dysfunction. 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 Patient has been found to have thrombocytopenia on laboratory testing for the last 6 months; etiology is unclear at the current time but will require follow-up monitoring outpatient as well as workup to rule out medication induced thrombocytopenia. If thrombocytopenia is persistent, will need follow up with Hematology. He is currently asymptomatic and having no signs of active bleeding. ACTIVITY: As tolerated. DIET: As prior to admission. DISCHARGE PLAN: 1. Return to Emergency Room if any problems occur 2. Follow up with Nephrology, continue with Saturday, Saturday, Saturday dialysis schedule, received dialysis today outpatient 3. Continue with home blood pressure meds, Clonidine patch and Amlodipine 4. Follow up with PCP in 7-10 days from discharge DISPOSITION: Patient is clinically improving. His blood pressure has been well controlled and his migraine headache symptoms have been reduced. He states that he is feeling better today and is eager to go home. He is agreeable to his new medication regimen to control blood pressure as well as receiving outpatient hemodialysis today. He is continuing to have thrombocytopenia, which has been a new laboratory finding over the past 6 months, plan is to follow up outpatient and rule out medication as the etiology. Likely due to Depakote since it was started 1 year ago due to a seizure. If thrombocytopenia persists, plan is to follow-up with Hematology outpatient. DISCHARGE CONDITION: Stable and improving. TIME SPENT ON DISCHARGE: Greater than 35 minutes. Vital Signs/I&Os Vital Signs Date Time Temp Pulse Resp B/P (MAP) Pulse Ox O2 Delivery O2 Flow Rate FiO2 01/07/19 09:00 48 01/07/19 08:21 96.6 19 142/67 (92) 99 01/06/19 16:00 2.0 01/05/19 16:45 Nasal Cannula I&O- Last 24 Hours up to 6 AM 01/07/19 06:00 Intake Total 920 ml Output Total 3000 ml Balance -2080 ml Laboratory Data Labs 24H Laboratory Tests 2 01/07/19 05:49: Nucleated Red Blood Cells % (auto) 0.0, Immature Platelet Fraction 3.2, Anion Gap 6L, Glomerular Filtration Rate 8.9L, Blood Urea Nitrogen 33H, Creatinine 7.70H, Sodium Level 138, Potassium Level 4.4, Chloride Level 101, Carbon Dioxide Level 31, Calcium Level 8.4L CBC/BMP Laboratory Tests 01/07/19 05:49 Red Blood Count 3.31 L, Mean Corpuscular Volume 91.2, Mean Corpuscular Hemoglobin 30.8, Mean Corpuscular Hemoglobin Concent 33.8, Red Cell Distribution Width 13.1, Calcium Level 8.4 L Discharge Medications Scheduled Amlodipine Besylate (Amlodipine Besylate) 10 Mg Tablet, 10 MG PO DAILY Cholecalciferol (Vitamin D3) (Vitamin D3) 5,000 Unit Cap, 5,000 UNIT PO DAILY, (Reported) Clonidine (Clonidine) 0.2 Mg Patch.tdwk, 1 EA TOP Tu@09 Divalproex Sodium (Divalproex Sodium) 500 Mg Tablet.dr, 500 MG PO BID, (Reported) Lanthanum Carbonate (Lanthanum Carbonate) 500 Mg Chw, 1,500 MG PO WM, (Reported) Losartan Potassium (Losartan Potassium) 100 Mg Tab, 100 MG PO QHS, (Reported) Metoprolol Tartrate (Metoprolol Tartrate) 50 Mg Tab, 50 MG PO BID, (Reported) Minoxidil (Minoxidil) 10 Mg Tablet, 10 MG PO BID, (Reported) Scheduled PRN Acetaminophen (Acetaminophen) 500 Mg Tablet, 1,000 MG PO Q6H PRN for PAIN, (Reported) Hydroxyzine HCl (Hydroxyzine HCl) 25 Mg Tab, 25 MG PO BID PRN for ANXIETY, (Reported) COULD TAKE UP TO 50MG BID Allergies Coded Allergies: No Known Allergies (Unverified , 10/09/18) Attending Note Attending Note I saw and examined the patient. I agree with the finding and the plan of care as documented in the resident's note. I spent 35 mins in counselling the patient and coordinating the discharge. I have changed his clonidine tabs to clonidine patch chapo hoping this will give better outpatient bp control. He will go directly to his HD unit to get his HD TWAN SIN-3 Jan 07, 2019 09:06 ARMANI SHIN MD Jan 07, 2019 21:43
[2019-01-07 09:10] VITALS: BP 142/67
[2019-01-07] MEDS: amLODIPine 10 MG TAB PO SCH (09:10)
[2019-01-07] MEDS: MINOXIDIL 10 MG TAB PO SCH (09:10)
[2019-01-07] MEDS: VITAMIN D 1,000 INTERNATIONAL UNITS TABLET PO SCH (09:10)
--- NOTE | 2019-01-07 16:34 | IPN ---
DATE: 01/07/2019 SUBJECTIVE: Patient was seen and examined this morning. He currently denies any migraine. He states that he is feeling better. His blood pressures have been adequate overnight since starting his blood pressure medications. Plan has been to discharge patient with hemodialysis this evening. Patient states that he is feeling better and that he has his medications ordered at the pharmacy for pickup today. OBJECTIVE: VITAL SIGNS: Temperature 96.6, pulse 52, respiratory rate 19, blood pressure 142/67, pulse oximetry 99% on room air. GENERAL: Patient is seen at bedside. He is awake, alert and oriented. He appears in no acute distress. He is conversive and cooperative. NECK: Supple. No jugular venous distention. Trachea is midline. CARDIAC: Normal S1, S2. Regular rate and rhythm. No clicks or rubs. He has a 2/6 systolic murmur. He seems to have trace edema in the feet and ankles. PULMONARY: Clear vesicular lungs sounds bilaterally. No wheezes, rhonchi or rales. Good air entry bilaterally. ABDOMEN: Abdomen is soft, nontender to palpation, nondistended. There are positive bowel sounds in throughout all four quadrants. EXTREMITIES: Patient has trace bilateral edema in the feet and ankles. He has no clubbing or cyanosis. There is a left upper extremity fistula that is patent. NEUROLOGIC: He is oriented times three. There is no focal deficit. PSYCHIATRIC: Mood and affect appear appropriate. LABORATORY DATA: Hematology: White blood cells 4.3, hemoglobin 10.2, hematocrit 30.2, platelet count 97. Chemistry: Sodium 138, potassium 4.4, chloride 101, carbon dioxide 31, BUN 33, creatinine 7.7, glucose 83, calcium 8.4. ASSESSMENT AND PLAN: 1. Status post hypertensive urgency: Patient presented with hypertensive urgency and migraine. He had run out of his minoxidil over the weekend, had mild hypervolemia, as well as a migraine headache, which likely contributed to his hypertension. The patient was originally started on intravenous (IV) nicardipine in the intensive care unit (ICU). He was titrated off of that yesterday. He had received a clonidine patch as well. His blood pressure has normalized as of today. He did receive dialysis yesterday with removal of 2-3 liters. Plan is to have him dialyzed again today as an outpatient upon discharge. He is to report to dialysis center after discharge today. 2. End-stage renal disease on hemodialysis on Saturday, Saturday, Saturday schedule: Patient received dialysis yesterday. He will receive dialysis again today as an outpatient. He will likely have 2-3 liters of fluid removed. His electrolytes are in good use. His fistula present in the left upper extremity is in good use as well. 3. Grade 1 diastolic congestive heart failure: Patient continues with mild hypervolemia. His blood pressures have been uncontrolled likely for some time now. His congestive heart failure is likely secondary to hypertensive heart disease. He will be continued on his normal Saturday, Saturday, Saturday dialysis schedule with removal of fluid as needed. CHAYITO
== END 2019-01-07 11:20 | disposition home or self-care (01) | DRG 304 ==
LOC: M ED 10:30 → M ED INP 14:08 → M ICU 17:06 → M PCU 01-06 22:50
PROVIDERS: ADMIT Internal Medicine Nephrology; ATTEND Internal Medicine Nephrology
PROC: 5A1D70Z Performance of Urinary Filtration, Intermittent, Less than 6 Hours Per Day (ICD-10-PCS; principal; 2019-01-06)
DX: I16.0 Hypertensive urgency (principal); N18.6 End stage renal disease; I50.31 Acute diastolic (congestive) heart failure; I16.1 Hypertensive emergency; N25.81 Secondary hyperparathyroidism of renal origin; G43.909 Migraine, unspecified, not intractable, without status migrainosus; D69.6 Thrombocytopenia, unspecified; F41.9 Anxiety disorder, unspecified; F32.9 Major depressive disorder, single episode, unspecified; I27.20 Pulmonary hypertension, unspecified; I08.2 Rheumatic disorders of both aortic and tricuspid valves; G40.909 Epilepsy, unspecified, not intractable, without status epilepticus; Z79.899 Other long term (current) drug therapy; Z88.8 Allergy status to other drugs, medicaments and biological substances; F17.210 Nicotine dependence, cigarettes, uncomplicated; D63.1 Anemia in chronic kidney disease

== ENCOUNTER 2019-01-10 11:34 | Emergency (ER) | payer MEDICARE, MEDICAID ==
[~2019-01-10] VITALS: Ht 188 cm; Wt 85.0 kg
[~2019-01-10 11:34] MED LIST changes: +ACET-683 PO; +AMLO10TA5 PO; +CLON0.2D6 TOP
[2019-01-10] MEDS ORDERED: METOCLOPRAMIDE INJ 10MG/2ML VIAL (J2765) IV ONE (12:15)
[2019-01-10] MEDS ORDERED: ACETAMINOPHEN 500 MG TAB PO ONE (12:15)
[2019-01-10 12:29] LABS: BASO % 0.5 % (0.0-1.0); EOS # 0.1 10^3/uL (0.0-0.50); EOS % 1.9 % (0.0-3.0); HEMATOCRIT 29.6 % (42.0-52.0); HEMOGLOBIN 10.2 g/dl (13.5-17.5); LYMPH # 0.8 10^3/uL (1.5-6.5); LYMPH % 19.4 % (24.0-44.0); MEAN CORPUSCULAR HEMOGLOBIN 31.2 pg (27.0-33.0); MEAN CORPUSCULAR HGB CONC 34.5 g/dl (32.0-36.5); MEAN CORPUSCULAR VOLUME 90.5 fl (80.0-96.0); MONO # 0.5 10^3/uL (0.0-0.8); MONO % 10.8 % (0.0-5.0); NEUTROPHILS # 2.8 10^3/uL (1.8-7.7); NEUTROPHILS % 66.7 % (36.0-66.0); PLATELET COUNT, AUTOMATED 120 10^3/uL (150-450); RED BLOOD COUNT 3.27 10^6/uL (4.30-6.10); WHITE BLOOD COUNT 4.2 10^3/uL (4.0-10.0)
[2019-01-10 12:55] LABS: ALBUMIN 3.4 GM/DL (3.2-5.2); ALT/SGPT 14 U/L (12-78); BILIRUBIN,TOTAL 0.4 MG/DL (0.2-1.0); BLOOD UREA NITROGEN 45 MG/DL (7-18); CALCIUM LEVEL 8.4 MG/DL (8.5-10.1); CARBON DIOXIDE LEVEL 28 MEQ/L (21-32); CHLORIDE LEVEL 101 MEQ/L (98-107); CK-MB VALUE MASS < 1.0 NG/ML (<3.6); CPK CREATINE PHOSPHOKINASE 45 U/L (39-308); CREATININE FOR GFR 7.74 MG/DL (0.70-1.30); GLOMERULAR FILTRATION RATE 8.9 (>60); GLUCOSE, FASTING 84 MG/DL (70-100); MAGNESIUM LEVEL 2.2 MG/DL (1.8-2.4); MB/CK RELATIVE INDEX 2.22 (< OR =4); POTASSIUM SERUM 4.4 MEQ/L (3.5-5.1); SODIUM LEVEL 138 MEQ/L (136-145); TOTAL PROTEIN 6.1 GM/DL (6.4-8.2); TROPONIN I 0.06 NG/ML (< 0.10); VALPROIC ACID (DEPAKOTE) 8.7 UG/ML (50.0-100.0)
[2019-01-10 13:30] VITALS: BP 161/84
--- NOTE | 2019-01-10 13:47 | REP ---
CT BRAIN WITHOUT IV CONTRAST: CT brain performed without IV contrast. The ventricles are normal in size and position with no midline shift or mass effect. Blood-white differentiation is well maintained. There is no intracranial hemorrhage or extra-axial fluid collection. The visualized paranasal sinuses are clear. IMPRESSION: Negative noncontrast CT brain. Electronically Signed by Robin Blood MD 01/11/2019 09:49 P
[2019-01-10] MEDS ORDERED: METO10TA2 PO (13:48)
[2019-01-10] MEDS ORDERED: DIVA500T94 PO (13:48)
--- NOTE | 2019-01-10 19:22 | ECGEPIP ---
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
== END 2019-01-10 14:49 | disposition home or self-care (01) ==
LOC: M ED 12:17
DX: G43.909 Migraine, unspecified, not intractable, without status migrainosus (principal); R06.02 Shortness of breath; I50.9 Heart failure, unspecified; I10 Essential (primary) hypertension; N18.6 End stage renal disease; R56.9 Unspecified convulsions; Z72.0 Tobacco use; Z99.2 Dependence on renal dialysis; Z79.899 Other long term (current) drug therapy
CPT/HCPCS: 70450; 80053; 80164; 82550; 82553; 83735; 84484; 85025; 86140; 93005; 93041; 96374; 99284; J2765

== ENCOUNTER → 2019-02-09 | Outpatient (REF) | payer MEDICARE, MEDICAID ==
[~2019-02-09] MED LIST changes: +METO10TA2 PO
[2019-02-09 18:33] LABS: BASO % 0.3 % (0.0-1.0); EOS # 0.1 10^3/uL (0.0-0.50); EOS % 2.9 % (0.0-3.0); HEMATOCRIT 30.9 % (42.0-52.0); HEMOGLOBIN 10.6 g/dl (13.5-17.5); LYMPH # 0.6 10^3/uL (1.5-6.5); LYMPH % 19.6 % (24.0-44.0); MEAN CORPUSCULAR HEMOGLOBIN 30.9 pg (27.0-33.0); MEAN CORPUSCULAR HGB CONC 34.3 g/dl (32.0-36.5); MEAN CORPUSCULAR VOLUME 90.1 fl (80.0-96.0); MONO # 0.2 10^3/uL (0.0-0.8); MONO % 5.8 % (0.0-5.0); NEUTROPHILS # 2.2 10^3/uL (1.8-7.7); NEUTROPHILS % 70.1 % (36.0-66.0); PLATELET COUNT, AUTOMATED 164 10^3/uL (150-450); RED BLOOD COUNT 3.43 10^6/uL (4.30-6.10); WHITE BLOOD COUNT 3.1 10^3/uL (4.0-10.0)
[2019-02-09 18:46] LABS: ALBUMIN 4.2 GM/DL (3.2-5.2); BILIRUBIN,TOTAL 0.4 MG/DL (0.2-1.0); CALCIUM LEVEL 9.2 MG/DL (8.5-10.1); CHOLESTEROL RISK RATIO 3.058 (<5); CREATININE FOR GFR 6.06 MG/DL (0.70-1.30); FREE T4 0.91 NG/DL (0.76-1.46); GLOMERULAR FILTRATION RATE 11.8 (>60); POTASSIUM SERUM 4.1 MEQ/L (3.5-5.1); THYROID STIMULATING HORMONE 2.87 uIU/ML (0.358-3.740); TOTAL PROTEIN 7.2 GM/DL (6.4-8.2)
[2019-02-09 18:48] LABS: TOTAL 25(OH) VITAMIN D 52.7 NG/ML (30.0-100.0)
[2019-02-09 19:25] LABS: HEMOGLOBIN A1c 4.4 %
[2019-02-12 00:06] LABS: Lyme Disease IgG/IgM Antibodie <0.91 ISR (0.00-0.90); Lyme Disease IgM Ab Quantitati <0.80 index (0.00-0.79)
== END ==
LOC: M LAB REF 17:11
PROVIDERS: ATTEND Family Medicine
DX: Z13.228 Encounter for screening for other metabolic disorders (principal); I50.32 Chronic diastolic (congestive) heart failure; N18.5 Chronic kidney disease, stage 5; R53.83 Other fatigue

== ENCOUNTER 2019-03-18 12:04 | Emergency (ER) | payer MEDICARE, MEDICAID ==
[~2019-03-18] VITALS: Ht 188 cm; Wt 90.2 kg
--- NOTE | 2019-03-18 13:14 | REP ---
PA and lateral chest: Comparison is 01/05/2019. The previous interstitial infiltrates have resolved. There are no pleural effusions. There is cardiomegaly, unchanged. The rose, mediastinum, skeletal structures are unremarkable. Impression: Cardiomegaly. The interstitial infiltrates identified on the comparison study have resolved. Electronically Signed by Robin Oneill MD 03/18/2019 01:06 P
[2019-03-18 13:50] LABS: INFLUENZA A AMPLIFICATION NEGATIVE (NEGATIVE); INFLUENZA B AMPLIFICATION NEGATIVE (NEGATIVE)
[2019-03-18 14:20] VITALS: BP 179/86
== END 2019-03-18 14:27 | disposition home or self-care (01) ==
LOC: M ED 12:04
DX: J06.9 Acute upper respiratory infection, unspecified (principal); Z87.891 Personal history of nicotine dependence; Z79.899 Other long term (current) drug therapy; Z90.89 Acquired absence of other organs; Z95.828 Presence of other vascular implants and grafts

== ENCOUNTER 2019-06-18 14:59 | Inpatient (IN) | payer MEDICARE, MEDICAID ==
[~2019-06-18] VITALS: Ht 188 cm; Wt 90.9 kg
[2019-06-18] VITALS (26 sets, daily range): BP systolic 117–222; BP diastolic 56–108; PULSE 103
[~2019-06-18 14:59] MED LIST changes: +FLUO10CA15 PO; -FLUO10CA8 PO; +OMEP-172 PO; -OMEP20CA4 PO; -OMEP40CA2 PO; +OMEP40CA97 PO; -SERT-155 PO; +SERT50TA29 PO
[2019-06-18] MEDS ORDERED: VELP5CHW PO (15:12)
[2019-06-18 15:38] LABS: BASO % 0.6 % (0.0-1.0); EOS # 0.1 10^3/uL (0.0-0.5); EOS % 2.2 % (0.0-3.0); HEMATOCRIT 32.7 % (42.0-52.0); HEMOGLOBIN 10.9 g/dl (13.5-17.5); LYMPH # 0.8 10^3/uL (1.5-5.0); LYMPH % 16.4 % (24.0-44.0); MEAN CORPUSCULAR HEMOGLOBIN 29.6 pg (27.0-33.0); MEAN CORPUSCULAR HGB CONC 33.3 g/dl (32.0-36.5); MEAN CORPUSCULAR VOLUME 88.9 fl (80.0-96.0); MONO # 0.3 10^3/uL (0.0-0.8); MONO % 5.1 % (0.0-5.0); NEUTROPHILS # 3.7 10^3/uL (1.5-8.5); NEUTROPHILS % 75.3 % (36.0-66.0); PLATELET COUNT, AUTOMATED 153 10^3/uL (150-450); RED BLOOD COUNT 3.68 10^6/uL (4.30-6.10); WHITE BLOOD COUNT 4.9 10^3/uL (4.0-10.0)
--- NOTE | 2019-06-18 15:47 | REP ---
Clinical: Chest pain. Comparison: 03/18/2019. Findings: Stable cardiomegaly. Pulmonary vascular congestion and early interstitial edema cannot be excluded. No focal consolidation. No effusion. No pneumothorax. Skeletal structures intact. Impression: Cardiomegaly. Early pulmonary vascular congestion/interstitial edema cannot be excluded. No focal consolidation or effusion. Electronically Signed by Renny Zaragoza MD 06/18/2019 03:39 P
[2019-06-18 16:22] LABS: ALBUMIN 3.9 GM/DL (3.2-5.2); BILIRUBIN,DIRECT 0.1 MG/DL (0.0-0.2); BILIRUBIN,TOTAL 0.5 MG/DL (0.2-1.0); CALCIUM LEVEL 8.2 MG/DL (8.5-10.1); CK-MB VALUE MASS 1.6 NG/ML (<3.6); CREATININE FOR GFR 13.1 MG/DL (0.70-1.30); GLOMERULAR FILTRATION RATE 4.8 (>60); MAGNESIUM LEVEL 2.2 MG/DL (1.8-2.4); MB/CK RELATIVE INDEX 1.29 (< OR =4); PHOSPHORUS LEVEL 7.3 MG/DL (2.5-4.9); POTASSIUM SERUM 5.4 MEQ/L (3.5-5.1); THYROID STIMULATING HORMONE 1.88 uIU/ML (0.358-3.740); TOTAL PROTEIN 6.7 GM/DL (6.4-8.2); TROPONIN I 0.02 NG/ML (< 0.10)
[2019-06-18] MEDS ORDERED: niCARdipine IV 40 MG in IV 1 EA IV SCH ×2 (17:30→19:00)
[2019-06-18] MEDS ORDERED: VITA500079 PO (17:32)
[2019-06-18] MEDS ORDERED: CLON0.2D6 TOP (17:32)
[2019-06-18] MEDS ORDERED: MAALOX 30 ML SUSP *UDC PO PRN (18:15)
[2019-06-18] MEDS ORDERED: MOM 30ML SUSPENSION UDC PO PRN (18:15)
[2019-06-18] MEDS ORDERED: hydrOXYzine 25 MG TAB PO PRN (18:15)
--- NOTE | 2019-06-18 18:21 | HPEPDOC ---
General Date of Admission 06/18/19 Date of Service: Jun 18, 2019 Chief Complaint The patient is a 28-year-old male admitted with a reason for visit of Chest Pain/Sob. Source: Patient Exam Limitations: No limitations Timing/Duration: Other Severity: Moderate (since this afternoon) Associated Symptoms: Chest Pain (, shortness of breath and chest pain and headache), Headaches, Shortness of breath, Other History of Present Illness This is a 28 years old, obese, white male with past medical history of end-stage renal disease on hemodialysis since last 8 years, hypertension, congestive heart failure, seizure disorder, migraine headache gets his hemodialysis every Saturday, Saturday and Saturday, but due to the holiday schedule. He was changed to Saturday, Saturday. When patient tried this take a nap this afternoon he developed increasing shortness of breath along with a generalized chest pain all over her chest and headache. Chest pain was generalized in nature, nonradiating started w ith when he tried to lie down increasing and lying position. Decreased insect not no relief with meds, associated with shortness of breath and headache and patient decided to come to ER. He is being admitted with uncontrolled hypertension/emergent hypertension and pulmonary edema. Home Medications Scheduled Cholecalciferol (Vitamin D3) (Vitamin D3) 5,000 Unit Tab.rapdis, 5,000 UNIT PO DAILY, (Reported) Clonidine (Clonidine) 0.2 Mg Patch.tdwk, 0.2 MG TOP QWEEK, (Reported) TUESDAYS - CURRENTLY APPLIED TO LEFT ARM Lanthanum Carbonate (Lanthanum Carbonate) 500 Mg Chw, 1,000 MG PO WM, (Reported) Losartan Potassium (Losartan Potassium) 100 Mg Tab, 100 MG PO DAILY, (Reported) Minoxidil (Minoxidil) 10 Mg Tablet, 5 MG PO BID, (Reported) Sucroferric Oxyhydroxide (Velphoro) 500 Mg Tab.chew, 500 MG PO WM, (Reported) Scheduled PRN Acetaminophen (Acetaminophen) 500 Mg Tablet, 1,000 MG PO Q6H PRN for PAIN, (Reported) Hydroxyzine HCl (Hydroxyzine HCl) 25 Mg Tab, 25 MG PO BID PRN for ANXIETY, (Reported) COULD TAKE UP TO 50MG BID Allergies Coded Allergies: No Known Allergies (Unverified , 06/18/19) Past Medical History Medical History Ancillary renal disease on hemodialysis, hypertension, congestive heart failure, seizure disorder, migraine Surgical History Cholecystectomy, left AV fistula. Parathyroidectomy catheter insertion for peritoneal dialysis Family History Father and mother both had hypertension Social History * Smoker: current smoker Alcohol: Denies Drugs: denies A-FIB/CHADSVASC A-FIB History Current/History of A-Fib/PAF?: No Review of Systems Constitutional: Denies: Chills, Fever, Malaise, Night Sweats, Weakness, Fatigue, Weight Loss, Lethargy, Other Eyes: Denies: Pain, Vision change, Conjunctivae inflammation, Eyelid inflammation, Redness, Other ENT: Denies: Head Aches, Ear Pain, Dysphagia, Sinus Congestion, Post Nasal Drip, Sore Throat, Epistaxis, Other Symptoms Skin: Denies: Rash, Lesions, Jaundice, Bruising, Itching, Dry, Breakdown, Nail Changes, Other Pulmonary: Reports: Dyspnea Cardiovascular: Reports: Chest Pain Gastrointestinal: Denies: Nausea, Vomiting, Abdominal Pain, Diarrhea, Constipation, Melena, Hematochezia, Other Symptoms Genitourinary: Denies: Dysuria, Frequency, Incontinence, Hematuria, Retention, Other Symptoms Hematologic: Denies: Bruising, Bleeding Excessively, Petecchia, Purpura, Enlarged Lymph Nodes, Other Hematologic Endocrine: Denies: Polydipsia, Polyphagia, Polyuria, Heat Intolerance, Cold Intolerance, Other Endocrine Sx Musculoskeletal: Denies: Neck Pain, Back Pain, Shoulder Pain, Arm Pain, Hand Pain, Leg Pain, Foot Pain, Joint Pain, Muscle Pain, Spasms, Other Symptoms Neurological: Denies: Weakness, Numbness, Incoordination, Change in speech, Confusion, Seizures, Other Symptoms Psych: Denies: Mood Normal, Anxiety, Depression, Memory Issues, Thoughts of Self Harm, Anger, Thoughts of Harming Other, Other Psych Physical Examination General Exam: Negative: Alert, Cooperative, No Acute Distress, Mild Distress, Moderate Distress, Severe Distress, Other Eye Exam: Negative: PERRLA, Conjunctiva & lids normal, EOMI, Sclera icteric, Pt osis, Other Eye Symptoms ENT Exam: Negative: Atraumatic, Mucous membr. moist/pink, Pharynx Normal, Tongue Midline, Pharyngeal Edema, Nares Patent, Tympanic Membranes Normal, Ext Auditory Canal Nml, Pinna Normal, Other ENT Neck Exam: Negative: Supple, JVD, thyromegaly, +2 carotid pulse wo bruit, Lymphadenopathy, Other Chest Exam: Positive: Rales (. Bilateral rales audible. No wheezing) Heart Exam: Negative: Rate Normal, Tachycardic, Bradycardic, Regular Rhythm, Irregular Rhythm, Normal S1, Normal S2, Gallops, Murmurs, Rubs, Other Telemetry: Negative: No significant arrhythmia, Sinus, Atrial fibrillation, Tachycardia, Bradycardia, AV Block, Pause, SV Tach, PVCs, PACs, Asystole, Other Telemetry: Abdomen Exam: Negative: Normal bowel sounds, BS Hyperactive, BS Hypoactive, Soft, Tenderness, Hepatospenomegaly, Mass, Hernia, Other Extremity Exam: Positive: Normal pulses Skin Exam: Negative: Nl turgor and temperature, Rash, Breakdown, Lesion, Pruritus, Other skin issue Neuro Exam: Negative: Normal Gait, Normal Speech, Strength at 5/5 X4 ext, Normal Tone, Sensation Intact, Cranial Nerves 3-12 NL, Reflexes 2+, Other Psych Exam: Negative: Mental status NL, Mood NL, Anxiety, Memory Intact, Oriented x 3, Other Vital Signs Vital Signs Date Time Temp Pulse Resp B/P (MAP) Pulse Ox O2 Delivery O2 Flow Rate FiO2 06/18/19 15:44 67 96 06/18/19 15:28 202/118 (146) 06/18/19 15:16 Room Air 06/18/19 15:00 98.0 19 Laboratory Data Labs 24H Laboratory Tests 2 06/18/19 15:19: Immature Granulocyte % (Auto) 0.4, Neutrophils (%) (Auto) 75.3H, Lymphocytes (%) (Auto) 16.4L, Monocytes (%) (Auto) 5.1H, Eosinophils (%) (Auto) 2.2, Basophils (%) (Auto) 0.6, Neutrophils # (Auto) 3.7, Lymphocytes # (Auto) 0.8L, Monocytes # (Auto) 0.3, Eosinophils # (Auto) 0.1, Basophils # (Auto) 0.0, Nucleated Red Blood Cells % (auto) 0.0, Anion Gap 14, Glomerular Filtration Rate 4.8L, Calcium Level 8.2L, Phosphorus Level 7.3H, Magnesium Level 2.2, Total Bilirubin 0.5, Direct Bilirubin 0.1, Aspartate Amino Transf (AST/SGOT) 12, Alanine Aminotransferase (ALT/SGPT) 16, Alkaline Phosphatase 85, Total Creatine Kinase 124, Creatine Kinase MB 1.6, Creatine Kinase MB Relative Index 1.29, Troponin I 0.02, Total Protein 6.7, Albumin 3.9, Albumin/Globulin Ratio 1.39, Lipase 268, Thyroid Stimulating Hormone (TSH) 1.880, Free Thyroxine 1.00 CBC/BMP Laboratory Tests 06/18/19 15:19 Problems (1) Pulmonary edema Status: Acute Problem Text: 28 years old, obese, white male with past medical history of end- stage renal disease on dialysis, hypertension, congestive heart failure, seizure disorder, migraine headache, double up shortness of breath and chest pain and headache since he tried to lie down this afternoon. He is his chest pain is pretty much resolved but he still complaining of increasing shortness of breath and has difficulty breathing. During examination in ED, he was found to have a emergent hypertension with his blood pressure of 202 118. And his heart rate was 67 and he is been started on the nicardipine drip with some improvement in his blood pressure. Shows EKG shows normal sinus rhythm, no acute ST-T changes. Chest x-ray shows early pulmonary vascular congestion CBC, CMP are essentially normal with a BUN of 69, creatinine of 13.10 and potassium of 5.4 Admit patient to ICU for further observation Continue the nicardipine to maintain systolic blood pressure less than 150 Patient does not make any urine, so diureticW. Kay, patient will be scheduled for dialysis in first thing in the morning. Continue all home medications including antihypertensive meds Serial troponins have been ordered DVT prophylaxis with bilateral SCDs Renal diet Activity is bed rest except bathroom privileges Per nephrology recommendation (2) Hypertensive urgency Status: Acute Problem Text: Hypertensive emergency secondary to volume overload Actually patient will need hemodialysis to extract extra volume Continue nicardipine drip in the mean time (3) ESRD (end stage renal disease) on dialysis Status: Chronic Problem Text: Nephrology consult was called Plan / VTE VTE Prophylaxis Ordered?: Yes ALBINO TALBOT MD Jun 18, 2019 18:21
[2019-06-18] MEDS ORDERED: MORPHINE 2 MG/ML 1ML VIAL (J2270) As Ordered ONE (19:21)
[2019-06-18] MEDS ORDERED: MORPHINE 2 MG/ML 1ML VIAL (J2270) IV ONE (19:30)
[2019-06-18] MEDS ORDERED: LABETALOL HCL 100 MG/20 ML VIAL As Ordered ONE (19:38)
[2019-06-18] MEDS ORDERED: LABETALOL HCL 100 MG/20 ML VIAL IV STA ×2 (19:44→19:54)
[2019-06-18] MEDS ORDERED: ONDANSETRON 4MG/2ML VIAL (J2405) IV PRN (19:45)
[2019-06-18] MEDS ORDERED: cloNIDine 0.1 MG TAB PO ONE (20:00)
[2019-06-18] MEDS: DOCUSATE SODIUM 100 MG CAP PO SCH (20:43)
[2019-06-18] MEDS: MINOXIDIL 2.5 MG TAB PO SCH (20:43)
[2019-06-18] MEDS: MORPHINE 2 MG/ML 1ML VIAL (J2270) IV PRN (20:44)
--- NOTE | 2019-06-18 21:06 | ECGEPIP ---
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
[2019-06-19] VITALS (46 sets, daily range): BP systolic 115–187; BP diastolic 50–90
[2019-06-19] MEDS: MORPHINE 2 MG/ML 1ML VIAL (J2270) IV PRN (05:00)
[2019-06-19 05:05] LABS: HEMATOCRIT 31.4 % (42.0-52.0); HEMOGLOBIN 10.1 g/dl (13.5-17.5); MEAN CORPUSCULAR HEMOGLOBIN 28.7 pg (27.0-33.0); MEAN CORPUSCULAR HGB CONC 32.2 g/dl (32.0-36.5); MEAN CORPUSCULAR VOLUME 89.2 fl (80.0-96.0); PLATELET COUNT, AUTOMATED 115 10^3/uL (150-450); RED BLOOD COUNT 3.52 10^6/uL (4.30-6.10); WHITE BLOOD COUNT 4.2 10^3/uL (4.0-10.0)
[2019-06-19 05:39] LABS: ALBUMIN 3.3 GM/DL (3.2-5.2); ALT/SGPT 13 U/L (12-78); BILIRUBIN,TOTAL 0.5 MG/DL (0.2-1.0); BLOOD UREA NITROGEN 74 MG/DL (7-18); CALCIUM LEVEL 7.6 MG/DL (8.5-10.1); CARBON DIOXIDE LEVEL 19 MEQ/L (21-32); CHLORIDE LEVEL 102 MEQ/L (98-107); GLOMERULAR FILTRATION RATE 4.4 (>60); GLUCOSE, FASTING 77 MG/DL (70-100); MAGNESIUM LEVEL 2.3 MG/DL (1.8-2.4); POTASSIUM SERUM 6.2 MEQ/L (3.5-5.1); SODIUM LEVEL 135 MEQ/L (136-145); TOTAL PROTEIN 6.4 GM/DL (6.4-8.2); TROPONIN I < 0.02 NG/ML (< 0.10)
[2019-06-19] MEDS: SUCROFERRIC OXYHYDROXIDE 500MG CHEW TAB (VELPHORO) PO SCH ×3 (07:46→17:47)
[2019-06-19] MEDS: LANTHANUM CARBONATE 500 MG CHEW TABLET PO SCH ×3 (07:46→17:47)
[2019-06-19] MEDS: MINOXIDIL 2.5 MG TAB PO SCH ×2 (07:49→20:15)
[2019-06-19] MEDS: DOCUSATE SODIUM 100 MG CAP PO SCH ×2 (07:51→20:14)
[2019-06-19] MEDS ORDERED: cloNIDine HCL 0.3 MG/24 HR PATCH TOP SCH (09:00)
[2019-06-19] MEDS ORDERED: amLODIPine 5 MG TAB PO SCH (09:00)
[2019-06-19] MEDS: LOSARTAN 50 MG TAB PO SCH (12:03)
--- NOTE | 2019-06-19 12:23 | IPNPDOC ---
Subjective Date Seen The patient was seen on 06/19/19. Subjective Chief Complaint/HPI Patient is getting a hemodialysis today at bedside, offers no new complaints. Feels much better General: Denies: ROS Unobtainable, Chills, Night Sweats, Fatigue, Malaise, Normal Appetite, Other Symptoms Constitutional: Denies: Chills, Fever, Malaise, Night Sweats, Weakness, Fatigue, Weight Loss, Lethargy, Other Eyes: Denies: Pain, Vision change, Conjunctivae inflammation, Eyelid inflammation, Redness, Other ENT: Denies: Head Aches, Ear Pain, Dysphagia, Sinus Congestion, Post Nasal Drip, Sore Throat, Epistaxis, Other Symptoms Skin: Denies: Rash, Lesions, Jaundice, Bruising, Itching, Dry, Breakdown, Nail Changes, Other Pulmonary: Denies: Dyspnea, Cough, Pleuritic Chest Pain, Other Symptoms Cardiovascular: Denies: Chest Pain, Palpitations, Orthopnea, Paroxysmal Noc. Dyspnea, Edema, Lt Headedness, Other Symptoms Gastrointestinal: Denies: Nausea, Vomiting, Abdominal Pain, Diarrhea, Constipation, Melena, Hematochezia, Other Symptoms Genitourinary: Denies: Dysuria, Frequency, Incontinence, Hematuria, Retention, Other Symptoms Endocrine: Denies: Polydipsia, Polyphagia, Polyuria, Heat Intolerance, Cold Intolerance, Other Endocrine Sx Musculoskeletal: Denies: Neck Pain, Back Pain, Shoulder Pain, Arm Pain, Hand Pain, Leg Pain, Foot Pain, Joint Pain, Muscle Pain, Spasms, Other Symptoms Neurological: Denies: Weakness, Numbness, Incoordination, Change in speech, Confusion, Seizures, Other Symptoms Psych: Denies: Mood Normal, Anxiety, Depression, Memory Issues, Thoughts of Self Harm, Anger, Thoughts of Harming Other, Other Psych Objective Physical Examination General Exam: Negative: Alert, Cooperative, No Acute Distress, Mild Distress, Moderate Distress, Severe Distress, Other Eye Exam: Negative: PERRLA, Conjunctiva & lids normal, EOMI, Sclera icteric, Ptosis, Other Eye Symptoms ENT Exam: Negative: Atraumatic, Mucous membr. moist/pink, Pharynx Normal, Tongue Midline, Pharyngeal Edema, Nares Patent, Tympanic Membranes Normal, Ext Auditory Canal Nml, Pinna Normal, Other ENT Neck Exam: Negative: Supple, JVD, thyromegaly, +2 carotid pulse wo bruit, Lymphadenopathy, Other Chest Exam: Positive: Rales (decreased rales bilaterally) Heart Exam: Negative: Rate Normal, Tachycardic, Bradycardic, Regular Rhythm, Irregular Rhythm, Normal S1, Normal S2, Gallops, Murmurs, Rubs, Other Telemetry: Negative: No significant arrhythmia, Sinus, Atrial fibrillation, Tachycardia, Bradycardia, AV Block, Pause, SV Tach, PVCs, PACs, Asystole, Other Telemetry: Abdomen Exam: Negative: Normal bowel sounds, BS Hyperactive, BS Hypoactive, Soft, Tenderness, Hepatospenomegaly, Mass, Hernia, Other Extremity Exam: Positive: Normal pulses Skin Exam: Negative: Nl turgor and temperature, Rash, Breakdown, Lesion, Pruritus, Other skin issue Neuro Exam: Negative: Normal Gait, Normal Speech, Strength at 5/5 X4 ext, Normal Tone, Sensation Intact, Cranial Nerves 3-12 NL, Reflexes 2+, Other Psych Exam: Negative: Mental status NL, Mood NL, Anxiety, Memory Intact, Oriented x 3, Other Assessment /Plan Problems (1) Pulmonary edema Status: Acute Problem Text: 28 years old, obese, white male with past medical history of end-stage renal disease on dialysis, hypertension, congestive heart failure, seizure disorder, migraine headache, double up shortness of breath and chest pain and headache since he tried to lie down this afternoon. He is his chest pain is pretty much resolved but he still complaining of increasing shortness of breath and has difficulty breathing. During examination in ED, he was found to have a emergent hypertension with his blood pressure of 202 118. And his heart rate was 67 and he is been started on the nicardipine drip with some improvement in his blood pressure. Shows EKG shows normal sinus rhythm, no acute ST-T changes. Chest x-ray shows early pulmonary vascular congestion CBC, CMP are essentially normal with a BUN of 69, creatinine of 13.10 and potassium of 5.4 Patient was admitted to ICU on the nicardipine drip His blood pressure is under well control Is currently getting his hemodialysis done If the patient continues to improve after hemodialysis and he doesn't require the Klonopin to control his blood pressure , Then he can possibly be discharged home on all his home medication and continue hemodialysis as an outpatient (2) Hypertensive urgency Status: Acute Problem Text: Hypertensive emergency secondary to volume overload Patient is still on the Klonopin drip which slowly will be tapered off Hypertensive emergency secondary to volume overload and patient had a hemodialysis done this morning (3) ESRD (end stage renal disease) on dialysis Status: Chronic Problem Text: Patient had a hemodialysis done this morning Further, as per nephrology Plan/VTE VTE Prophylaxis Ordered?: Yes VS, I&O, 24H, Fishbone Vital Signs/I&O Vital Signs Date Time Temp Pulse Resp B/P (MAP) Pulse Ox O2 Delivery O2 Flow Rate FiO2 06/19/19 08:15 58 133/70 (91) 100 Nasal Cannula 2.0 06/19/19 08:00 98.9 18 I&O- Last 24 Hours up to 6 AM 06/19/19 06:00 Intake Total 755 ml Output Total 0 ml Balance 755 ml Laboratory Data 24H LABS Laboratory Tests 2 06/18/19 15:19: Immature Granulocyte % (Auto) 0.4, Neutrophils (%) (Auto) 75.3H, Lymphocytes (%) (Auto) 16.4L, Monocytes (%) (Auto) 5.1H, Eosinophils (%) (Auto) 2.2, Basophils (%) (Auto) 0.6, Neutrophils # (Auto) 3.7, Lymphocytes # (Auto) 0.8L, Monocytes # (Auto) 0.3, Eosinophils # (Auto) 0.1, Basophils # (Auto) 0.0, Nucleated Red Blood Cells % (auto) 0.0, Anion Gap 14, Glomerular Filtration Rate 4.8L, Calcium Level 8.2L, Phosphorus Level 7.3H, Magnesium Level 2.2, Total Bilirubin 0.5, Direct Bilirubin 0.1, Aspartate Amino Transf (AST/SGOT) 12, Alanine Aminotransferase (ALT/SGPT) 16, Alkaline Phosphatase 85, Total Creatine Kinase 124, Creatine Kinase MB 1.6, Creatine Kinase MB Relative Index 1.29, Troponin I 0.02, Total Protein 6.7, Albumin 3.9, Albumin/Globulin Ratio 1.39, Lipase 268, Thyroid Stimulating Hormone (TSH) 1.880, Free Thyroxine 1.00 06/18/19 22:41: Troponin I 0.03# 06/19/19 04:53: Nucleated Red Blood Cells % (auto) 0.0, Anion Gap 14, Glomerular Filtration Rate 4.4L, Calcium Level 7.6L, Magnesium Level 2.3, Total Bilirubin 0.5, Aspartate Amino Transf (AST/SGOT) 9, Alanine Aminotransferase (ALT/SGPT) 13, Alkaline Phosphatase 82, Troponin I < 0.02#, Total Protein 6.4, Albumin 3.3, Albumin/Globulin Ratio 1.06 CBC/BMP Laboratory Tests 06/18/19 15:19 06/19/19 04:53 ALBINO TALBOT MD Jun 19, 2019 12:23
[2019-06-19] MEDS: ACETAMINOPHEN TAB 650MG DOSE (2X325MG) PO PRN ×2 (12:35→20:15)
--- NOTE | 2019-06-19 12:46 | CR ---
DATE OF CONSULTATION: 06/19/2019 CONSULTATION REPORT FOR: Dr. Moraes CONSULTING PHYSICIAN: Dr. Villanueva REASON FOR CONSULTATION: Management of end-stage renal disease on hemodialysis. HISTORY OF PRESENT ILLNESS: Yves Bentley is well-known to me. He is a 28-year-old male with a past medical history of end-stage renal disease on hemodialysis on a Saturday, Saturday, Saturday schedule, hypertension, history of congestive heart failure, seizure disorder, migraine headaches and other comorbid conditions mentioned below. The patient's dialysis schedule has recently been changed because of the holiday schedule. He received dialysis on Saturday, Saturday, and then was due to get dialysis again on Saturday. However, on , he became short of breath and had non-radiating chest pain and headache and subsequently came to the emergency room where he was found to have hypertensive emergency with pulmonary edema. He was admitted to the intensive care unit and started on a nicardipine drip. Chest x-ray showed pulmonary vascular congestion and laboratories revealed hyperkalemia. Nephrology was requested for management of the patient's hemodialysis treatments. PAST MEDICAL HISTORY: 1. Hypertension. 2. End-stage renal disease secondary to vesicoureteral reflux. 3. History of seizure disorder. 4. History of depression and anxiety. 5. History of diastolic congestive heart failure. 6. History of secondary hyperparathyroidism of renal origin. 7. Anemia of chronic kidney disease. PAST SURGICAL HISTORY: Significant for: 1. Arteriovenous (AV) fistula hemodialysis catheter. 2. Peritoneal dialysis catheter placement and removal. 3. Thyroid nodule removal. 4. Bilateral wrist surgery. 5. Ankle surgery and fractures due to fall. FAMILY HISTORY: Significant for hypertension but no family history of end-stage renal disease. PERSONAL AND SOCIAL HISTORY: He denies any drugs or alcohol use. He is a chronic, active smoker. Lives with a roommate. ALLERGIES: No known drug allergies. HOME MEDICATIONS: Reviewed and include: - Tylenol as needed - vitamin D3 5000 units by mouth daily - clonidine patch - hydroxyzine as needed - lanthanum carbonate 1 gram by mouth with meal - losartan 100 mg by mouth daily - minoxidil 5 mg by mouth twice a day - Velphoro 500 mg by mouth with meal REVIEW OF SYSTEMS: CONSTITUTIONAL: He denies fevers or chills. EYES: He denies visual changes or tearing. EARS, NOSE AND THROAT (ENT): Denies odynophagia or rhinorrhea. CARDIAC: He has a history of diastolic congestive heart failure. He reports chest pain that has resolved. He denies leg edema. RESPIRATORY: He reports shortness of breath that has improved. He denies cough or hemoptysis. GASTROINTESTINAL: He denies nausea, vomiting, diarrhea. GENITOURINARY: He denies dysuria or hematuria. MUSCULOSKELETAL: He denies any acute myalgias or arthralgias. ENDOCRINE: He reports secondary hyperparathyroidism of renal origin. He denies diabetes. HEMATOLOGIC: He reports anemia of chronic kidney disease. He denies easy bleeding or bruising. NEUROLOGIC: He has a history of migraines and a history of seizure disorder. PSYCHIATRIC: He has a history of anxiety. SKIN: He denies any new rashes or ulcers. Remainder of review of systems is negative or as per history of present illness (HPI). VITAL SIGNS: Temperature 98.9, pulse 63, respiratory rate 18, blood pressure 145/80, saturating 100% on two liters nasal cannula. Intake yesterday was 620, goal dialysis removal today is 4 kg. GENERAL: The patient is seen in the intensive care unit (ICU) receiving his hemodialysis treatment, awake, alert, oriented times three, comfortable, in no acute distress, young male, well-nourished, well-built. Extraocular muscles are intact. The pupils are round and reactive to light. Tongue is moist. Mucous membranes are unremarkable. The jugular veins are only mildly elevated. Heart sounds are regular, S1, S2. There is no edema in the peripheries. Lungs are clear to auscultation bilaterally. No crackle, rale or rhonchus. Abdomen is soft and nontender to examination. There are bowel sounds. The fistula is presently in use. Extremities are negative for clubbing, cyanosis or edema. NEUROLOGIC: Oriented times three. No focal deficits. PSYCHIATRIC: Appropriate mood and affect. LABORATORY DATA: White count 4.2, hemoglobin 10.1, platelets 115. Sodium 135, potassium 6.2, bicarbonate 19, magnesium 2.3, troponin negative. Chest x-ray with pulmonary vascular congestion. INPATIENT MEDICATIONS: Reviewed by myself. He is status post nicardipine infusion. He is ordered for: - Mylanta as needed - clonidine patch - docusate 100 mg by mouth twice a day - hydroxyzine as needed - he has received two doses of labetalol 20 mg IV - Fosrenol 1 gram by mouth with meal - losartan 100 mg by mouth daily - minoxidil 5 mg by mouth twice a day - Velphoro 500 mg by mouth with meal PROBLEMS: 1. End-stage renal disease on hemodialysis, usually on a Saturday, Saturday, Saturday maintenance schedule. However, because of the holiday, he was dialyzed on Saturday and Saturday and then was next due for dialysis on Saturday. However, by , the patient was short of breath and having chest pain. He was admitted for a hypertensive emergency with pulmonary vascular congestion. He is dialyzed today. He is having a four-hour treatment with a low dialysate potassium concentration (1.0 mEq) with goal fluid removal of 4 kg. He is advised to closely follow potassium restriction and fluid restriction as an outpatient. His next hemodialysis treatment will be on Saturday (because of the holiday). 2. Status post hypertensive emergency due to fluid overload and history of hypertension. The patient is status post nicardipine infusion and his blood pressures have nicely improved. He is being transitioned to his home antihypertensive regimen including clonidine, losartan and minoxidil. Four kg of fluid was removed with dialysis today which will also help considerably with his blood pressure. 3. Hyperkalemia, managed with dialysis and he was dialyzed with a low potassium bath. Continue renal diet. 4. History of diastolic congestive heart failure. The patient has pulmonary vascular congestion on imaging and his volume status is principally regulated via dialysis. He had a four-hour treatment with 4 kg of fluid removed today.
[2019-06-19] MEDS: hydrALAZINE INJ 20 MG/ML VIAL IV PRN ×2 (14:57→21:41)
--- NOTE | 2019-06-19 15:10 | REP ---
Clinical: Pulmonary edema. Comparison: 06/18/2019. Findings: Stable cardiomegaly and evidence for pulmonary vascular congestion with interstitial edema. No consolidation. No effusion. No pneumothorax. Skeletal structures intact. Impression: Stable examination with cardiomegaly and pulmonary vascular congestion/interstitial edema. Electronically Signed by Renny Zaragoza MD 06/19/2019 03:03 P
[2019-06-20] VITALS (11 sets, daily range): BP systolic 144–178; BP diastolic 40–77
[2019-06-20 00:13] LABS: CALCIUM LEVEL 8.3 MG/DL (8.5-10.1); CREATININE FOR GFR 9.26 MG/DL (0.70-1.30); GLOMERULAR FILTRATION RATE 7.2 (>60); POTASSIUM SERUM 4.3 MEQ/L (3.5-5.1)
[2019-06-20 04:12] LABS: BASO % 0.3 % (0.0-1.0); EOS # 0.1 10^3/uL (0.0-0.5); EOS % 2.6 % (0.0-3.0); HEMATOCRIT 31.5 % (42.0-52.0); HEMOGLOBIN 10.4 g/dl (13.5-17.5); LYMPH # 0.6 10^3/uL (1.5-5.0); LYMPH % 15.7 % (24.0-44.0); MEAN CORPUSCULAR HEMOGLOBIN 29.1 pg (27.0-33.0); MONO # 0.4 10^3/uL (0.0-0.8); MONO % 9.9 % (0.0-5.0); NEUTROPHILS # 2.7 10^3/uL (1.5-8.5); PLATELET COUNT, AUTOMATED 125 10^3/uL (150-450); RED BLOOD COUNT 3.58 10^6/uL (4.30-6.10); WHITE BLOOD COUNT 3.8 10^3/uL (4.0-10.0)
[2019-06-20 04:47] LABS: ALBUMIN 3.3 GM/DL (3.2-5.2); BILIRUBIN,TOTAL 0.6 MG/DL (0.2-1.0); CALCIUM LEVEL 8.2 MG/DL (8.5-10.1); CREATININE FOR GFR 9.74 MG/DL (0.70-1.30); GLOMERULAR FILTRATION RATE 6.8 (>60); POTASSIUM SERUM 4.5 MEQ/L (3.5-5.1); TOTAL PROTEIN 6.4 GM/DL (6.4-8.2)
[2019-06-20] MEDS: hydrALAZINE INJ 20 MG/ML VIAL IV PRN ×2 (05:50→13:31)
[2019-06-20] MEDS: SUCROFERRIC OXYHYDROXIDE 500MG CHEW TAB (VELPHORO) PO SCH ×3 (08:30→17:20)
[2019-06-20] MEDS: LANTHANUM CARBONATE 500 MG CHEW TABLET PO SCH ×3 (08:31→17:20)
[2019-06-20] MEDS: DOCUSATE SODIUM 100 MG CAP PO SCH ×2 (08:32→19:54)
[2019-06-20] MEDS: MINOXIDIL 2.5 MG TAB PO SCH (08:32)
[2019-06-20] MEDS: LOSARTAN 50 MG TAB PO SCH (08:32)
--- NOTE | 2019-06-20 09:41 | IPNPDOC ---
Subjective Date Seen The patient was seen on 06/20/19. Subjective Chief Complaint/HPI Patient is comfortable in no distress. Offers no new complaints. No shortness of breath General: Denies: ROS Unobtainable, Chills, Night Sweats, Fatigue, Malaise, Normal Appetite, Other Symptoms Constitutional: Denies: Chills, Fever, Malaise, Night Sweats, Weakness, Fatigue, Weight Loss, Lethargy, Other Pulmonary: Denies: Dyspnea, Cough, Pleuritic Chest Pain, Other Symptoms Cardiovascular: Denies: Chest Pain, Palpitations, Orthopnea, Paroxysmal Noc. Dy spnea, Edema, Lt Headedness, Other Symptoms Gastrointestinal: Denies: Nausea, Vomiting, Abdominal Pain, Diarrhea, Constipation, Melena, Hematochezia, Other Symptoms Musculoskeletal: Denies: Neck Pain, Back Pain, Shoulder Pain, Arm Pain, Hand Pain, Leg Pain, Foot Pain, Joint Pain, Muscle Pain, Spasms, Other Symptoms Neurological: Denies: Weakness, Numbness, Incoordination, Change in speech, Confusion, Seizures, Other Symptoms Objective Physical Examination General Exam: Negative: Alert, Cooperative, No Acute Distress, Mild Distress, Moderate Distress, Severe Distress, Other Eye Exam: Negative: PERRLA, Conjunctiva & lids normal, EOMI, Sclera icteric, Ptosis, Other Eye Symptoms ENT Exam: Negative: Atraumatic, Mucous membr. moist/pink, Pharynx Normal, Tongue Midline, Pharyngeal Edema, Nares Patent, Tympanic Membranes Normal, Ext Auditory Canal Nml, Pinna Normal, Other ENT Neck Exam: Negative: Supple, JVD, thyromegaly, +2 carotid pulse wo bruit, Lymphadenopathy, Other Chest Exam: Positive: Rales (decreased rales bilaterally) Heart Exam: Negative: Rate Normal, Tachycardic, Bradycardic, Regular Rhythm, Irregular Rhythm, Normal S1, Normal S2, Gallops, Murmurs, Rubs, Other Telemetry: Negative: No significant arrhythmia, Sinus, Atrial fibrillation, Tachycardia, Bradycardia, AV Block, Pause, SV Tach, PVCs, PACs, Asystole, Other Telemetry: Abdomen Exam: Negative: Normal bowel sounds, BS Hyperactive, BS Hypoactive, Soft, Tenderness, Hepatospenomegaly, Mass, Hernia, Other Extremity Exam: Positive: Normal pulses Skin Exam: Negative: Nl turgor and temperature, Rash, Breakdown, Lesion, Pruritus, Other skin issue Neuro Exam: Negative: Normal Gait, Normal Speech, Strength at 5/5 X4 ext, Normal Tone, Sensation Intact, Cranial Nerves 3-12 NL, Reflexes 2+, Other Psych Exam: Negative: Mental status NL, Mood NL, Anxiety, Memory Intact, Or iented x 3, Other Assessment /Plan Problems (1) Pulmonary edema Status: Acute Problem Text: 28 years old, obese, white male with past medical history of end-stage renal disease on dialysis, hypertension, congestive heart failure, seizure disorder, migraine headache, double up shortness of breath and chest pain and headache since he tried to lie down this afternoon. He is his chest pain is pretty much resolved but he still complaining of increasing shortness of breath and has difficulty breathing. During examination in ED, he was found to have a emergent hypertension with his blood pressure of 202 118. And his heart rate was 67 and he is been started on the nicardipine drip with some improvement in his blood pressure. Shows EKG shows normal sinus rhythm, no acute ST-T changes. Chest x-ray shows early pulmonary vascular congestion CBC, CMP are essentially normal with a BUN of 69, creatinine of 13.10 and potassium of 5.4 Pulmonary edema has resolved with dialysis Scheduled for dialysis tomorrow Hospital discharge after HD in a.m. if blood pressure is under control (2) Hypertensive urgency Status: Acute Problem Text: Patient. Blood pressure is still high. His systolic is 172/64 today Clonidine was increased to 0.3 mg per 24 hours Increase his minoxidil to 10 mg by mouth twice a day Patient is going to schedule for a second dialysis tomorrow If the blood pressure is under control. He can be discharged home tomorrow (3) ESRD (end stage renal disease) on dialysis Status: Chronic Problem Text: Patient had a hemodialysis done this morning Further, as per nephrology Plan/VTE VTE Prophylaxis Ordered?: Yes VS, I&O, 24H, Fishbone Vital Signs/I&O Vital Signs Date Time Temp Pulse Resp B/P (MAP) Pulse Ox O2 Delivery O2 Flow Rate FiO2 06/20/19 08:32 168/77 06/20/19 08:00 98.4 96 18 96 Room Air 06/19/19 08:15 2.0 I&O- Last 24 Hours up to 6 AM 06/20/19 05:59 Intake Total 1080 ml Output Total 4000 ml Balance -2920 ml Laboratory Data 24H LABS Laboratory Tests 2 06/19/19 23:11: Anion Gap 11, Glomerular Filtration Rate 7.2L, Calcium Level 8.3L 06/20/19 03:45: Anion Gap 9, Glomerular Filtration Rate 6.8L, Calcium Level 8.2L, Immature Granulocyte % (Auto) 0.5, Neutrophils (%) (Auto) 71.0H, Lymphocytes (%) (Auto) 15.7L, Monocytes (%) (Auto) 9.9H, Eosinophils (%) (Auto) 2.6, Basophils (%) (Auto) 0.3, Neutrophils # (Auto) 2.7, Lymphocytes # (Auto) 0.6L, Monocytes # (Auto) 0.4, Eosinophils # (Auto) 0.1, Basophils # (Auto) 0.0, Nucleated Red Blood Cells % (auto) 0.0, Total Bilirubin 0.6, Aspartate Amino Transf (AST/SGOT) 9, Alanine Aminotransferase (ALT/SGPT) 12, Alkaline Phosphatase 85, Total Prot ein 6.4, Albumin 3.3, Albumin/Globulin Ratio 1.06 CBC/BMP Laboratory Tests 06/19/19 23:11 06/20/19 03:45 ALBINO TALBOT MD Jun 20, 2019 09:41
[2019-06-20] MEDS ORDERED: SLF 3 ML SYR IV PRN (13:00)
[2019-06-20] MEDS: SLF 3 ML SYR IV SCH ×2 (14:12→19:57)
[2019-06-20] MEDS: amLODIPine 5 MG TAB PO SCH ×2 (14:34→19:54)
[2019-06-20] MEDS: ACETAMINOPHEN TAB 650MG DOSE (2X325MG) PO PRN ×2 (15:50→19:54)
[2019-06-20] MEDS: MORPHINE 2 MG/ML 1ML VIAL (J2270) IV PRN (19:18)
[2019-06-20] MEDS: MINOXIDIL 10 MG TAB PO SCH (19:54)
[2019-06-20] MEDS ORDERED: METOCLOPRAMIDE INJ 10MG/2ML VIAL (J2765) IV ONE (21:30)
[2019-06-21 04:00] VITALS: BP 164/76
[2019-06-21] MEDS: ACETAMINOPHEN TAB 650MG DOSE (2X325MG) PO PRN (04:27)
[2019-06-21] MEDS: SLF 3 ML SYR IV SCH (04:27)
[2019-06-21 04:39] LABS: HEMATOCRIT 30.7 % (42.0-52.0); HEMOGLOBIN 10.1 g/dl (13.5-17.5); MEAN CORPUSCULAR HEMOGLOBIN 29.4 pg (27.0-33.0); MEAN CORPUSCULAR HGB CONC 32.9 g/dl (32.0-36.5); MEAN CORPUSCULAR VOLUME 89.5 fl (80.0-96.0); PLATELET COUNT, AUTOMATED 124 10^3/uL (150-450); RED BLOOD COUNT 3.43 10^6/uL (4.30-6.10); WHITE BLOOD COUNT 2.8 10^3/uL (4.0-10.0)
[2019-06-21 05:09] LABS: CALCIUM LEVEL 8.3 MG/DL (8.5-10.1); CREATININE FOR GFR 8.4 MG/DL (0.70-1.30); GLOMERULAR FILTRATION RATE 8.1 (>60); POTASSIUM SERUM 4.5 MEQ/L (3.5-5.1)
[2019-06-21 08:00] VITALS: BP 152/72
[2019-06-21] MEDS: LANTHANUM CARBONATE 500 MG CHEW TABLET PO SCH (08:00)
[2019-06-21] MEDS: SUCROFERRIC OXYHYDROXIDE 500MG CHEW TAB (VELPHORO) PO SCH (08:00)
--- NOTE | 2019-06-21 08:24 | IPN ---
DATE: 06/20/2019 SUBJECTIVE: Yves was seen and examined this morning in the hemodialysis unit, receiving his treatment. This is an extra treatment for him in view of fluid overload and uncontrolled blood pressures yesterday. 4 kg of fluid were removed and today 3 kg are removed and the patient denies any new complaints or issues. Blood pressures continued to remain poorly controlled. He tells me he is likely discharge pending tomorrow. Vital signs: Temperature 98.4, pulse 89, respiratory rate 18, blood pressure 178/62, saturating 96% on room air. Intake yesterday was 1 liter, dialysis removed 4 liters net negative 3 liters and dialysis again today removed 3 liters. General: The patient is seen in the hemodialysis unit receiving his treatment awake, alert, oriented, comfortable in no acute distress, young man well built. Extraocular muscles are intact. Pupils are round and reactive to light. Tongue is moist. Neck is supple. Jugular veins are mildly elevated. Mucous membranes are unremarkable. Heart sounds are regular S1-S2. There is no edema in the peripheries. Lungs are clear to auscultation bilaterally. No crackle, rale or rhonchus. Abdomen is soft and nontender to exam. There are bowel sounds. His fistula is presently in use. Extremities are negative for clubbing, cyanosis or edema. Neurologic: Oriented x3. No focal deficits. Psychiatric: Appropriate mood and effect. LABORATORY: White count 3.8, hemoglobin 10.4, potassium 4.5, bicarbonate 27, IMAGING STUDIES: Chest x-ray with ongoing interstitial edema pattern June 19. INPATIENT MEDICATIONS: I started the patient on amlodipine 5 mg twice daily, his clonidine patch was increased to 0.3 per the primary team. He has received four doses of IV hydralazine thus far which is a as needed medication. His minoxidil was increased to 10 mg by mouth twice daily. Remainder of medications are unchanged from prior. PROBLEMS: 1. Diastolic congestive heart failure decompensated. Echocardiogram December 2018 reviewed with grade 2 diastolic dysfunction. The patient has ongoing interstitial edema and fluid overload. His volume status is principally regulated via dialysis. We removed 4 liters yesterday. He had an extra treatment today with a further 3 liters of fluid removed. He is appropriately fluid restricting. He will be dialyzed again on Saturday likely to be done as an outpatient for a total of three hemodialysis treatments [id number] for optimization of his volume status. 2. Hypertensive emergency improved, but not optimize. He is status post nicardipine drip, he is status post aggressive dialysis and fluid removal total of 7 liters all-in-all in past 2 days. His systolic today is ranging from 140s-170s. He is on a clonidine patch the dose of which has been increased by the primary team. He is on maximum dose of losartan and minoxidil as well. He previously used to be on metoprolol at home. However, given the bradycardia that he had yesterday, I am not going to resume metoprolol, instead I have put him on amlodipine 5 mg twice daily, which he used to take in the past. 3. End-stage renal disease on hemodialysis on a Saturday, Saturday, Saturday schedule. The patient was off his usual dialysis schedule because of the holiday and he will continue to be off of his schedule next week as well because of the holiday. This past week he was dialyzed Saturday, Saturday, Saturday and now today, Saturday and he will be dialyzed again tomorrow Saturday. His electrolytes are acceptable. His volume status is improving, but not yet optimized. Continue with fluid restriction and low sodium intake.
[2019-06-21] MEDS: DOCUSATE SODIUM 100 MG CAP PO SCH (08:30)
[2019-06-21] MEDS: amLODIPine 5 MG TAB PO SCH (08:39)
[2019-06-21] MEDS: MINOXIDIL 10 MG TAB PO SCH (08:39)
[2019-06-21] MEDS: LOSARTAN 50 MG TAB PO SCH (08:39)
[2019-06-21] MEDS ORDERED: MINO10TA PO (08:55)
[2019-06-21] MEDS ORDERED: CLON0.3D8 TOP (08:55)
[2019-06-21] MEDS ORDERED: AMLO5TAB6 PO (08:55)
--- NOTE | 2019-06-21 10:01 | DS.PDOC ---
Discharge Summary General Date of Admission Jun 18, 2019 at 18:03 Date of Discharge 06/21/19 Discharge Summary PROCEDURES PERFORMED DURING STAY: None. ADMITTING DIAGNOSES: 1. Acute pulmonary edema, and emergent hypertension. DISCHARGE DIAGNOSES: 1. Acute pulmonary edema, emergent hypertension, end-stage renal disease, on HD. COMPLICATIONS/CHIEF COMPLAINT: Hypertensive Urgencey,Pulmonary Edema. HISTORY OF PRESENT ILLNESS: This is a 28 years old, obese, white male with past medical history of end-stage renal disease on hemodialysis since last 8 years, hypertension, congestive heart failure, seizure disorder, migraine headache gets his hemodialysis every Saturday, Saturday and Saturday, but due to the holiday schedule. He was changed to Saturday, Saturday. When patient tried this take a nap this afternoon he developed increasing shortness of breath along with a generalized chest pain all over her chest and headache. Chest pain was generalized in nature, nonradiating started with when he tried to lie down increasing and lying position. Decreased insect not no relief with meds, associated with shortness of breath and headache and patient decided to come to ER. He is being admitted with uncontrolled hypertension/emergent hypertension and pulmonary edema.. HOSPITAL COURSE: 28 years old, obese, white male with past medical history of end-stage renal disease on dialysis, hypertension, congestive heart failure, seizure disorder, migraine headache, double up shortness of breath and chest pain and headache since he tried to lie down this afternoon. He is his chest pain is pretty much resolved but he still complaining of increasing shortness of breath and has difficulty breathing. During examination in ED, he was found to have a emergent hypertension with his blood pressure of 202 118. And his heart rate was 67 and he is been started on the nicardipine drip with some improvement in his blood pressure. Shows EKG shows normal sinus rhythm, no acute ST-T changes. Chest x-ray shows early pulmonary vascular congestion CBC, CMP are essentially normal with a BUN of 69, creatinine of 13.10 and potassium of 5.4 Patient was admitted to ICU and was continued on nicardipine drip , which she responded very well. His blood pressure remained under control as well as his pulmonary edema has resolved with hemodialysis while he was in ICU. Next day. Patient had a hemodialysis done at bedside with removal of 4 L of fluid. Patient's blood pressure still remained high. Hence, patient was transferred to PCU. Patient's clonidine was increased to 0.3 mg patch and also minoxidil was also increased to 10 mg by mouth twice a day, and patient also has been added on Norvasc 5 mg by mouth daily Pts' blood pressure is under control, it's between 145 and 150. He is a sched uled for hemodialysis today as an outpatient since his blood pressure is under control with new regimen of meds He will be discharged to hemodialysis outpatient Center from here and he will follow with Dr. Villanueva as an outpatient for his further care . DISCHARGE MEDICATIONS: Please see below. ALLERGIES: Please see below. PHYSICAL EXAMINATION ON DISCHARGE: VITAL SIGNS: Please see below. GENERAL: Within normal limits HEENT: PERRLA, extra ocular muscles intact NECK: Supple CARDIOVASCULAR EXAMINATION: S1, S2, regular RESPIRATORY EXAMINATION: Clear to A&P ABDOMINAL EXAMINATION: , Soft, nontender, bowel sounds present EXTREMITIES: No clubbing, cyanosis, edema SKIN: Normal NEUROLOGICAL EXAMINATION: . No focal motor sensory deficits PSYCHIATRIC EXAMINATION: Normal LABORATORY DATA: Please see below. IMAGING: Chest x-ray: On 06/19 Impression: Stable examination with cardiomegaly and pulmonary vascular congestion/interstitial edema. PROGNOSIS: Good ACTIVITY: As tolerated. DIET: Renal diet DISCHARGE PLAN: Follow with Dr. Villanueva as an outpatient DISPOSITION: 01 Home, Self-Care. DISCHARGE INSTRUCTIONS: 1. As per discharge instructions. ITEMS TO FOLLOWUP ON ON OUTPATIENT: 1. Follow with Dr. Villanueva as an outpatient. DISCHARGE CONDITION: Stable. TIME SPENT ON DISCHARGE: 42 minutes. Vital Signs/I&Os Vital Signs Date Time Temp Pulse Resp B/P (MAP) Pulse Ox O2 Delivery O2 Flow Rate FiO2 06/21/19 08:00 97.1 72 18 152/72 (98) 96 Room Air 06/19/19 08:15 2.0 I&O- Last 24 Hours up to 6 AM 06/21/19 06:00 Intake Total 840 ml Output Total 3000 ml Balance -2160 ml Laboratory Data Labs 24H Laboratory Tests 2 06/21/19 04:27: Nucleated Red Blood Cells % (auto) 0.0, Anion Gap 10, Glomerular Filtration Rate 8.1L, Calcium Level 8.3L CBC/BMP Laboratory Tests 06/21/19 04:27 Discharge Medications Scheduled Amlodipine Besylate (Amlodipine Besylate) 5 Mg Tablet, 5 MG PO BID Cholecalciferol (Vitamin D3) (Vitamin D3) 5,000 Unit Tab.rapdis, 5,000 UNIT PO DAILY, (Reported) Clonidine (Clonidine) 0.3 Mg Patch.tdwk, 0.3 EA TOP Q7D Lanthanum Carbonate (Lanthanum Carbonate) 500 Mg Chw, 1,000 MG PO WM, (Reported) Losartan Potassium (Losartan Potassium) 100 Mg Tab, 100 MG PO DAILY, (Reported) Minoxidil (Minoxidil) 10 Mg Tablet, 10 MG PO BID Sucroferric Oxyhydroxide (Velphoro) 500 Mg Tab.chew, 500 MG PO WM, (Reported) Scheduled PRN Acetaminophen (Acetaminophen) 500 Mg Tablet, 1,000 MG PO Q6H PRN for PAIN, (Reported) Hydroxyzine HCl (Hydroxyzine HCl) 25 Mg Tab, 25 MG PO BID PRN for ANXIETY, (Reported) COULD TAKE UP TO 50MG BID Allergies Coded Allergies: No Known Allergies (Unverified , 06/18/19) ALBINO TALBOT MD Jun 21, 2019 10:01
--- NOTE | 2019-06-22 00:03 | ECGEPIP ---
[facility] Test Date: 2019-06-19 Pat Name: MIRZA GRUBER Department: Room: [place] [address] Gender: Male [employer]: CAROLYN : 1990 Requested By: THALIA KOVACS Order Number: [id number] Reading MD: Huy Mendoza Measurements Intervals [place] Rate: 96 P: 61 MD: 199 QRS: -10 QRSD: 93 T: 109 QT: 372 QTc: 470 Interpretive Statements SINUS RHYTHM Prolonged QTc interval prolonged from tracing done 06-18-19 Delayed anterior R wave progression LEFT ATRIAL ENLARGEMENT Left ventricular hypertrophy by aVL criteria Electronically Signed on 06-22-2019 0:03:29 EST by Huy Mendoza
[2019-06-23] MEDS ORDERED: cloNIDine HCL 0.2 MG/24 HR PATCH TOP SCH (09:00)
== END 2019-06-21 09:54 | disposition home or self-care (01) | DRG 189 ==
LOC: M ED 14:59 → M ED INP 18:03 → M ICU 18:53 → M PCU 06-19 21:21
PROVIDERS: ADMIT Internal Medicine; ATTEND Internal Medicine
PROC: 5A1D70Z Performance of Urinary Filtration, Intermittent, Less than 6 Hours Per Day (ICD-10-PCS; principal; 2019-06-19)
DX: J81.0 Acute pulmonary edema (principal); N18.6 End stage renal disease; N25.81 Secondary hyperparathyroidism of renal origin; I16.1 Hypertensive emergency; I13.2 Hypertensive heart and chronic kidney disease with heart failure and with stage 5 chronic kidney disease, or end stage renal disease; E66.9 Obesity, unspecified; I50.32 Chronic diastolic (congestive) heart failure; G40.909 Epilepsy, unspecified, not intractable, without status epilepticus; G43.909 Migraine, unspecified, not intractable, without status migrainosus; Z79.899 Other long term (current) drug therapy; F41.9 Anxiety disorder, unspecified; F32.9 Major depressive disorder, single episode, unspecified; D63.1 Anemia in chronic kidney disease; F17.200 Nicotine dependence, unspecified, uncomplicated; E87.5 Hyperkalemia

== ENCOUNTER → 2019-08-13 | Outpatient (REF) | payer MEDICARE, MEDICAID ==
[~2019-08-13] MED LIST changes: +AMLO5TAB6 PO; +CLON0.3D8 TOP; -OMEP-172 PO; +OMEP1CAP73 PO; +VELP5CHW PO; +VITA500079 PO
[2019-08-13 14:00] LABS: BASO % 0.8 % (0.0-1.0); EOS # 0.1 10^3/uL (0.0-0.5); EOS % 2.5 % (0.0-3.0); HEMATOCRIT 25.6 % (42.0-52.0); HEMOGLOBIN 8.6 g/dl (13.5-17.5); LYMPH # 0.6 10^3/uL (1.5-5.0); LYMPH % 23.3 % (24.0-44.0); MEAN CORPUSCULAR HEMOGLOBIN 29.2 pg (27.0-33.0); MEAN CORPUSCULAR HGB CONC 33.6 g/dl (32.0-36.5); MEAN CORPUSCULAR VOLUME 86.8 fl (80.0-96.0); MONO # 0.3 10^3/uL (0.0-0.8); NEUTROPHILS # 1.5 10^3/uL (1.5-8.5); PLATELET COUNT, AUTOMATED 103 10^3/uL (150-450); RED BLOOD COUNT 2.95 10^6/uL (4.30-6.10); WHITE BLOOD COUNT 2.4 10^3/uL (4.0-10.0)
[2019-08-13 15:07] LABS: ALBUMIN 4.5 GM/DL (3.2-5.2); BILIRUBIN,TOTAL 0.8 MG/DL (0.2-1.0); CALCIUM LEVEL 8.7 MG/DL (8.5-10.1); CREATININE FOR GFR 8.46 MG/DL (0.70-1.30); GLOMERULAR FILTRATION RATE 7.9 (>60); POTASSIUM SERUM 4.1 MEQ/L (3.5-5.1); TOTAL PROTEIN 7.2 GM/DL (6.4-8.2)
== END ==
LOC: M LAB REF 13:09
PROVIDERS: ATTEND Family Medicine
DX: N18.5 Chronic kidney disease, stage 5 (principal)

== ENCOUNTER → 2019-09-29 | Outpatient (CLI) | payer MEDICARE, MEDICAID ==
[~2019-09-29] MED LIST changes: +ISOVUE-300 61% 50ML VIAL (Q9967) As Ordered ONE; +LIDOCAINE 1% MDV 20ML VIAL As Ordered ONE; +MIDAZOLAM INJ 2 MG/2 ML VIAL (J2250) As Ordered ONE; +fentaNYL 100 MCG/2 ML INJECTION (J3010) As Ordered ONE
--- NOTE | 2019-09-29 16:32 | ROOPDOC ---
[facility] Report Of Operation Report of Operation DATE OF PROCEDURE: 09/29/19 PREPROCEDURE DIAGNOSES: End-stage renal disease with poorly functioning left upper extremity radiocephalic AV fistula and increased bleeding times after dialysis POSTPROCEDURE DIAGNOSES: Same PROCEDURE: 1. Ultrasound examination of AV anastomosis a left radiocephalic fistula and ultrasound-guided access left cephalic vein 2. Left upper extremity fistulogram 3. Angioplasty cephalic vein with a 7 x 40 Holland balloon, 7 x 20 cutting balloon, 8 x 20 cutting balloon, and 8 x 200 Holland balloon 4. Completion venograms SURGEON: Darlin Reynolds MD ANESTHESIA: Local anesthesia 9 mL lidocaine. Moderate intravenous conscious sedation was supervised by Dr. Reynolds. The patient was independently monitored by a registered nurse assigned to the Department of radiology using automated blood pressure, EKG, and pulse oximetry. The details sedation record is permanently stored in the hospital information system. The following is the brief sedation record: Start time 15:12, stop time 16:03, Versed 2 mg IV, fentanyl 100 g IV. CONTRAST: 32 mL Isovue-300 INDICATION FOR PROCEDURE: This is a very pleasant 29-year-old gentleman who is been dialyzing successfully with a left Shemar fistula for 4 years, but lately he has had increasing bleeding times after procedures, poor clearances, increase d venous pressures. Risks benefits and alternatives to a fistulogram potential intervention were explained to the patient needs agreeable to proceed. Informed consent was obtained. INTERPRETATION: 1. Under ultrasound guidance we examined the left radiocephalic anastomosis and found to be widely patent. There is excellent inflow into the fistula. 2. 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 Proximal to this in the forearm, there is another area of 20-30% stenosis in the cephalic vein in the mid forearm, but proximal to that there is widely patent outflow through the rest of the upper arm. 3. After angioplasty between the aneurysms and in the mid forearm with a 7 x 40 Holland balloon, there was almost no change in luminal diameter. After sequential angioplasty with first a 7 mm cutting balloon and then an 8 mm cutting balloon, there was improvement, but still I felt we could improve further. After angioplasty with an 8 x 200 Holland balloon, there was widely patent flow through both of the stenotic areas, and I estimate post angioplasty diameter to be about 7 mm. No extravasation or embolization were noted. REPORT OF OPERATION: The patient was brought the angiographic suite in stable condition. His left upper extremity was prepped and draped in a sterile fashion. A timeout was performed. Local anesthesia was administered to the skin and subcutaneous tissue over the cephalic vein near the AV anastomosis. A microneedle was used to access the vein under ultrasound guidance after examining the fistula with ultrasound. A wire was passed through this access under fluoroscopic guidance and a 4 Colombian sheath was placed and flushed with saline. A fistulogram of the left upper extremity was performed, please see interpretation above. It was challenging to navigate a Glidewire out of the first aneurysm into the very narrow segment between the 2 aneurysms. Eventually, we were able to navigate the wire through the stenotic aspect of the vein between the aneurysms and then into the central system. We then exchange the sheath for a 6 Colombian sheath and flushed the sheath was saline, and we began first within angioplasty with a 7 x 40 Holland balloon between the aneurysms and in the mid forearm. Following three-minute inflations, there was not much improvement in luminal diameter. We therefore exchange the sheath for 7 Colombian sheath and flushed the sheath was saline. We then exchange the balloon for a 7 x 20 cutting balloon and did multiple inflations along the stenotic area between the aneurysms and the area in the mid forearm. Following this, there was some improvement on venogram, but I definitely felt further improvement was needed. We then exchange the balloon for an 8 x 20 cutting balloon and multiple inflations along each stenotic area were performed again. Following this, there was even more improvement, but still I felt further improvement was needed. We then passed an 8 x 20 cutting balloon across both areas of stenosis and a three- minute inflations was performed. We still saw waist on the balloon between the 2 aneurysms, and I felt an additional 3 minute inflation would be necessary to help open this up. Following angioplasty, there was dramatic improvement inflow between the aneurysms. I estimate the post angioplasty diameter to be 6-7 mm, which is much improved from 2 mm diameter I estimate prior to angioplasty. In the mid forearm the vessel is widely patent. There is a dramatic improvement in thrill in the fistula, and I'm hoping this will decrease the patient's bleeding time and help with his clearances. We placed additional local anesthesia over the cephalic vein under ultrasound guidance in the mid forearm as the patient says he has sensitivity from a nerve in this area, and he said that helped a lot. We also placed additional local anesthesia around the sheath. A Prolene suture in a [id number] pattern was placed around the sheath and the sheath was removed. Pressure was held for 5 minutes and Steri-Strips were placed and a sterile dressing was applied. The patient was taken to recovery in stable condition. We will remove the suture prior to discharge. He tolerated the procedure and the sedation well. ESTIMATED BLOOD LOSS: Approximately 2 mL. COMPLICATIONS: None. PLAN: It is okay to continue to use the fistula for dialysis. Eventually, we may need to give the patient a new access, possibly a brachiocephalic on the ipsilateral arm. We also could consider a new access on the contralateral arm and continue to use the left upper extremity access until it is mature. There is no urgency to this at this point, but this may become necessary over the next year or 2. The patient is agreeable. It is okay to resume his home diet medications. We appreciate the opportunity to participate in the care of this patient. DARLIN REYNOLDS MD Sep 29, 2019 16:32
[2019-09-29 17:19] VITALS: BP 181/86
== END ==
LOC: M IRPRO 13:32
PROVIDERS: ATTEND Surgery Vascular Surgery
DX: T82.590A Other mechanical complication of surgically created arteriovenous fistula, initial encounter (principal); N18.6 End stage renal disease; X58.XXXA Exposure to other specified factors, initial encounter; Y93.9 Activity, unspecified; Y92.9 Unspecified place or not applicable; Y99.9 Unspecified external cause status

== ENCOUNTER → 2019-10-01 | Outpatient (CLI) | payer MEDICARE, MEDICAID ==
[~2019-10-01] MED LIST changes: -ISOVUE-300 61% 50ML VIAL (Q9967) As Ordered ONE; -LIDOCAINE 1% MDV 20ML VIAL As Ordered ONE; -MIDAZOLAM INJ 2 MG/2 ML VIAL (J2250) As Ordered ONE; -fentaNYL 100 MCG/2 ML INJECTION (J3010) As Ordered ONE
--- NOTE | 2019-10-01 16:36 | REP ---
BILATERAL UPPER EXTREMITY DUPLEX DOPPLER VENOUS AND ARTERIAL ULTRASOUND FOR AV FISTULA MAPPING: Real-time ultrasound evaluation and duplex Doppler interrogation of bilateral upper extremity arterial and venous systems performed for AV fistula mapping. No deep vein thrombosis is seen bilaterally. On the right, basilic vein measures 5 mm at the upper humerus, 3 mm at the lower humerus, 1 mm in the upper forearm and is not visualized in the distal forearm and wrist. Median cubital vein measures 2 mm. The cephalic vein measures 2 mm at the upper humerus, 3 mm at the lower humerus and upper forearm and 2 mm in the lower forearm and wrist. Right upper extremity arterial structures demonstrate normal flow velocities with triphasic waveforms. Axillary artery measures 6 mm, brachial artery 5 mm, radial artery 4 mm and ulnar artery 3 mm. On the left, there is a patent radial to cephalic AV fistula with increased peak systolic velocity of 547 cm/s at the anastomosis. Cephalic vein is dilated at the anastomosis. Left basilic vein measures 7 mm at the level of the humerus, 2 mm in the upper forearm and 1 mm in the lower forearm and wrist. Median cubital vein measures 4 mm. Left cephalic vein measures 2 mm at the upper humerus, 3 mm at the lower humerus, 6 mm in the upper forearm and 17 mm in the lower forearm and wrist. Left upper extremity arterial structures demonstrate mildly increased peak systolic velocity in the axillary artery at 171 cm/s and brachial artery 175 cm/s. There are diffuse monophasic waveforms. The left axillary artery measures 8 mm, brachial artery 6 mm, radial artery 4 mm and ulnar artery 5 mm. Electronically Signed by Robin Blood MD 10/02/2019 09:31 A
== END ==
LOC: M RAD 11:56
PROVIDERS: ATTEND Physician Assistant
DX: N18.6 End stage renal disease (principal); Z79.899 Other long term (current) drug therapy

== ENCOUNTER → 2019-11-03 | Outpatient (CLI) | payer MEDICARE, MEDICAID ==
[~2019-11-03] MED LIST changes: +ISOVUE-300 61% 50ML VIAL As Ordered ONE; +LIDOCAINE 1% MDV 20ML VIAL As Ordered ONE; +MIDAZOLAM INJ 2MG/2ML VIAL (J2250 PER 1MG) As Ordered ONE; +ONDANSETRON 4MG/2ML VIAL As Ordered ONE; +fentaNYL 100 MCG/2 ML INJECTION (J3010) As Ordered ONE
--- NOTE | 2019-11-03 12:04 | ROOPDOC ---
[facility] Report Of Operation Report of Operation DATE OF PROCEDURE: 11/03/19 PREPROCEDURE DIAGNOSES: End-stage renal disease with pain left Shemar fistula with dialysis cannulation POSTPROCEDURE DIAGNOSES: Same PROCEDURE: 1. Ultrasound-guided access left Shemar fistula 2. Left upper extremity fistulogram and central venogram SURGEON: Darlin Reynolds MD ANESTHESIA: Local anesthesia 9 mL lidocaine. Moderate intravenous conscious sedation was administered by Dr. Reynolds. The patient was independently monitored by a registered nurse assigned to the Department of radiology using automated blood pressure, EKG, and pulse oximetry. The detailed sedation record is probably stored in the hospital information system the following is a brief sedation record: Start time 11:29, stop time 11:38, Versed 1 mg IV, fentanyl 50 g IV, Zofran 4 mg IV. INDICATION FOR PROCEDURE: This is a very pleasant 29-year-old patient with end- stage renal disease currently dialyzing with a left Shemar fistula. We brought the patient in for a fistulogram recently, and dilated up a narrow area between his 2 aneurysmal aspects of the cephalic vein on the left, with good flows postangioplasty. However, the patient return to clinic last week complaining of ongoing pain with cannulation. He was concerned there was still some issue with his fistula that we might be able to make better with repeat intervention. Risks benefits and alternatives were explained to the patient and he was agreeable to proceed with fistulogram potential intervention. Informed consent was obtained. 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 Reportedly, this pain is never resolved. Even light touch produces significant pain for the patient. Unfortunately, I'm not sure any intervention I can provide within the fistula is going to change his pain profile. We discussed with him before that we have an option to proximalize his fistula to either the left brachiocephalic arm brachiobasilic, but there was no urgency since his fistula was running well. He says it is still running well, but he can't tolerate the pain. This may move up her timeline for creating a new fistula. We will see what we find on fistulogram today. INTERPRETATION: 1. The AV anastomosis is widely patent on ultrasound. No stenosis is noted. 2. There are 2 aneurysmal portions of the fistula proximal to the AV anastomosis at the wrist from areas of frequent access. Between these 2 aneurysms, there is a small bridge of vein that initially was very stenotic, but is still widely patent after recent angioplasty. No intervention needed today. The cephalic vein is widely patent over the forearm, and then there is widely patent cephalic vein runoff over the biceps as well as basilic vein runoff through the upper arm as well. Both of these have widely patent flow back to the central system with no obvious stenosis noted. REPORT OF OPERATION: The patient was brought to the angiographic suite in stable condition. His left upper extremity is prepped and draped in sterile fashion. A timeout was performed. Local anesthesia was administered to the skin and subcutaneous tissue over the left cephalic vein near the AV anastomosis. We also administered local anesthesia over the fistula more proximally on the arm towar ds the antecubital crease to help with the patient's neuropathic pain. As didn't significantly diminish his pain response to light and deep touch over his forearm, similar to his relief with his last procedure when we anesthetized the area. Unfortunately, this local anesthesia does not last very long. Ultrasound was used to examine the HV anastomosis and it was found to be widely patent without stenosis. There is an excellent thrill the fistula. Inflow appears to be intact. We then utilized ultrasound to access the left cephalic vein near the AV anastomosis and a wire was passed through this access and the needle was removed and a 4 Mongolian sheath was placed and flushed with saline. Through the sheath, we performed left upper extremity fistulogram and central venogram. Please see interpretation above. Since no intervention was needed, local anesthesia was again placed around the sheath and then a [id number] Prolene suture was placed and secured. The sheath was removed and Steri-Strips were placed over the suture. The suture will be removed prior to discharge. The patient did have some nausea and small emesis at the end of the procedure, which resolved with administration of Zofran. By the time he was taken to recovery was in stable condition and his nausea had resolved. We will monitor the patient in recovery for 30-60 minutes postprocedure. ESTIMATED BLOOD LOSS: Approximately 2 mL. COMPLICATIONS: None. PLAN: Our plan will be to see the patient back in clinic to discuss options for new fistula creation. Like to bring him to interventional radiology in a few weeks to place a PermCath, and followed closely by and or procedure to place a new left brachiocephalic AV fistula and ligate his Shemar fistula. Not sure if ligating the Shemar fistula will help resolve his neurogenic pain over his forearm, but I'm hopeful it will help. In the meantime, I have encouraged the patient to try a topical lidocaine prior to access to see if this helps with this pain. He is agreeable to this plan and will discuss that with Dr. Villanueva. It is okay to continue using his left Shemar fistula for dialysis until we are able to place a PermCath in a new fistula. We appreciate the opportunity to participate in the care of this patient. DARLIN REYNOLDS MD November 03, 2019 12:04
[2019-11-03 12:43] VITALS: BP 177/88
== END ==
LOC: M IRPRO 10:32
PROVIDERS: ATTEND Surgery Vascular Surgery
DX: T82.590A Other mechanical complication of surgically created arteriovenous fistula, initial encounter (principal); N18.6 End stage renal disease; I12.0 Hypertensive chronic kidney disease with stage 5 chronic kidney disease or end stage renal disease; X58.XXXA Exposure to other specified factors, initial encounter; Z79.899 Other long term (current) drug therapy; Z99.2 Dependence on renal dialysis
CPT/HCPCS: 36901; 99152; C1769; C1894; J1644; J2250; J2405; J3010; Q9967

== ENCOUNTER → 2019-11-24 | Outpatient (CLI) | payer MEDICARE, MEDICAID ==
[~2019-11-24] MED LIST changes: +ARIP1TAB PO; +CLON0.3D8; -ISOVUE-300 61% 50ML VIAL As Ordered ONE; -LIDOCAINE 1% MDV 20ML VIAL As Ordered ONE; -MIDAZOLAM INJ 2MG/2ML VIAL (J2250 PER 1MG) As Ordered ONE; -ONDANSETRON 4MG/2ML VIAL As Ordered ONE; +TRAZ-257; -fentaNYL 100 MCG/2 ML INJECTION (J3010) As Ordered ONE
--- NOTE | 2019-11-25 07:44 | ECGEPIP ---
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 Isolated PAC LA conduction disturbance? Leftward axis Prominent voltage with strain pattern in keeping with LVH Repolarization abnormalities less marked with slower rate from 06/19/19. Electronically Signed on 11-25-2019 7:43:42 EDT by Varun Subramanian
== END ==
LOC: M EKG 09:09
PROVIDERS: ATTEND Anesthesiology
DX: Z01.818 Encounter for other preprocedural examination (principal); R03.0 Elevated blood-pressure reading, without diagnosis of hypertension; K21.9 Gastro-esophageal reflux disease without esophagitis

== ENCOUNTER → 2019-11-27 | Outpatient (CLI) | payer MEDICARE, MEDICAID ==
[~2019-11-27] MED LIST changes: +LIDOCAINE 1% MDV 20ML VIAL As Ordered ONE; +LIDOCAINE W/EPINEPHRINE 1% 20ML VIAL As Ordered ONE; +MIDAZOLAM INJ 2MG/2ML VIAL (J2250 PER 1MG) As Ordered ONE; +ceFAZolin 2 GM/D5W 50 ML IV BAG (J0690 PER 500MG) As Ordered ONE; +fentaNYL 100 MCG/2 ML INJECTION (J3010) As Ordered ONE
[2019-11-27 16:52] VITALS: BP 189/85
--- NOTE | 2019-11-27 16:55 | ROOPDOC ---
[facility] Report Of Operation Report of Operation DATE OF PROCEDURE: 11/27/19 PREPROCEDURE DIAGNOSES: End-stage renal disease with failing left upper extremity Shemar fistula POSTPROCEDURE DIAGNOSES: Same PROCEDURE: 1. Ultrasound-guided access right internal jugular vein 2. Placement of a 23 cm tunneled dual-lumen PermCath right IJ SURGEON: Darlin Reynolds MD ANESTHESIA: Local anesthesia 20 mL lidocaine. Moderate intravenous conscious sedation was supervised by Dr. Reynolds. The patient was independently monitored by registered nurse assigned to the Department of radiology using automated blood pressure, EKG, and pulse oximetry. The details sedation record is probably start in the hospital information system. The following is a brief sedation record: Start time 16:25, stop time 16:46, Versed 1.5 mg IV fentanyl 75 g IV. INDICATION FOR PROCEDURE: Mr. Bentley is a very pleasant 29-year-old gentleman with end-stage renal disease currently dialyzing with failing left upper extremity AV access. His Shemar fistula is no longer working well, and we discussed the risk benefits alternatives to moving the fistula to the brachiocephalic and ipsilateral arm. He is agreeable to this, but in the interim, while the fistula is healing and maturing, we would like to place a PermCath for dialysis access. Risk benefits and alternatives to PermCath placement were also explained and the patient was agreeable to proceed. Informed consent was obtained. INTERPRETATION: The catheter is in good position tunneled from the right chest to the right IJ with the tips freely mobile at the right atrial SVC junction. There are no kinks in the catheter. There is no pneumothorax. REPORT OF OPERATION: The patient was brought to the angiographic suite in stable condition. His right neck and chest were prepped and draped in a sterile fashion. A timeout was performed. Sedation was administered without complication. Local anesthesia was administered to the skin and subcutaneous tissue over the right neck and a microneedle was used to access the jugular vein under ultrasound guidance. A wire was passed through this access into the central system under fluoroscopic guidance. The needle was removed. A micro- sheath was placed over the wire and through this access the wire was exchanged for a J-wire into the central system under fluoroscopic guidance. Local anesthesia was a snailer to the right chest up over the clavicle to the jugular access site. A small incision was made in the right chest laterally just distal to the clavicle. 2370 m PermCath was tunneled from the right chest to the jugular access site until the cuff was within the subcutaneous tissue. We then performed 2 serial dilations over the wire using a Seldinger technique and then placed the peel-away sheath over the wire. The inner cannula and wire were removed and the tips of the catheter were advanced through the sheath into the central system in the peel-away sheath was removed. Both ports wicho back and flushed easily and were heparin locked. Appropriate caps were placed. Final imaging showed the catheter to be in good position, no kinks in the catheter, nor pneumothorax, the tips were freely mobile and the right atrial SVC junction. The catheter is okay to use for dialysis. We irrigated both incisions with saline and the jugular access site incision was closed with interrupted deep and superficial dermal Monocryl sutures. The skin was sealed with Dermabond. At the exit site on the right chest, Prolene sutures were used medially and laterally to close the skin around the catheter. Good hemostasis was noted. We then secure the catheter to the chest wall in 2 additional sutures and sterile dressings were applied. The patient was then taken back to recovery in stable condition. He tolerated the procedure and the sedation well. ESTIMATED BLOOD LOSS: Approximately 3 mL. COMPLICATIONS: None. PLAN: It is okay to use the PermCath for dialysis. We plan to see the patient back next week for ligation of his radiocephalic fistula and creation of a brachiocephalic fistula. It is okay for him to resume his home diet medications. We appreciate the opportunity to participate in the care of this patient. DARLIN REYNLODS MD Nov 27, 2019 16:55
== END ==
LOC: M IRPRO 13:18
PROVIDERS: ATTEND Surgery Vascular Surgery
DX: N18.6 End stage renal disease (principal); T82.590A Other mechanical complication of surgically created arteriovenous fistula, initial encounter; X58.XXXA Exposure to other specified factors, initial encounter
CPT/HCPCS: 36558; 99152; C1750; C1894; J0690; J1644; J2250; J3010

== ENCOUNTER 2019-11-28 09:08 | Emergency (ER) | payer MEDICARE, MEDICAID ==
[~2019-11-28] VITALS: Ht 188 cm; Wt 88.6 kg
[~2019-11-28 09:08] MED LIST changes: -AMLO10TA5 PO; +AMLO1TAB24 PO; +AMLO1TAB25 PO; -AMLO5TAB6 PO; -ARIP1TAB PO; -CLON0.3D8; -FLUO10CA15 PO; +FLUO10CA16 PO; -LIDOCAINE 1% MDV 20ML VIAL As Ordered ONE; -LIDOCAINE W/EPINEPHRINE 1% 20ML VIAL As Ordered ONE; -MIDAZOLAM INJ 2MG/2ML VIAL (J2250 PER 1MG) As Ordered ONE; -TRAZ-257; -ceFAZolin 2 GM/D5W 50 ML IV BAG (J0690 PER 500MG) As Ordered ONE; -fentaNYL 100 MCG/2 ML INJECTION (J3010) As Ordered ONE
[2019-11-28] MEDS ORDERED: CLON0.3D8 (09:19)
[2019-11-28] MEDS ORDERED: TRAZ-257 PO (09:19)
[2019-11-28] MEDS ORDERED: ARIP1TAB PO (09:19)
[2019-11-28] MEDS ORDERED: traMADol 50 MG TAB PO ONE (10:30)
[2019-11-28 10:41] VITALS: BP 199/107
--- NOTE | 2019-11-28 10:54 | CR.PDOC ---
General Date of Consultation: Nov 28, 2019 Consultation REASON FOR CONSULTATION/CHIEF COMPLAINT: Mild bleeding status post a right IJ PermCath placement yesterday Patient briefly seen and examined in the ER today. He had a right IJ PermCath placed yesterday. This morning, the patient was forcibly coughing and this Valsalva resulted in some mild bleeding around the catheter. He came to the emergency room for evaluation. I removed the dressing and there was a small amount of thrombosed blood around the distal edge of the catheter, but no significant bleeding and no active bleeding noted. This was cleaned with ChloraPrep and new sterile dressings were applied. I discussed with the patient that it is important for at least 24-48 hours after PermCath placement to avoid strenuous exercise, avoid bending over at the waist, rated sleep and a slightly elevated position to decrease venous pressures, and if he is coughing very forcibly, it may be beneficial to hold a little pressure over the right neck while coughing. After 24-48 hours, a fibrin sheath well formed around the catheter and help diminish the risk of bleeding, and he is agreeable. I also encouraged him to use a little ice over the area if he is having any discomfort and he is agreeable to this as well. We plan to see him next week for his new AV access placement. Okay to discharge from a vascular standpoint. We appreciate the opportunity to participate in the care of this patient. Vital Signs/I&O Vital Signs Date Time Temp Pulse Resp B/P (MAP) Pulse Ox O2 Delivery O2 Flow Rate FiO2 11/28/19 10:41 97.3 72 16 199/107 (137) 98 Room Air Allergies Coded Allergies: No Known Allergies (Unverified , 06/18/19) Home Medications Scheduled Amlodipine Besylate (Amlodipine Besylate) 5 Mg Tablet, 5 MG PO BID, #60 Aripiprazole (Aripiprazole) 10 Mg Tablet, 1 TAB PO QHS, (Reported) Cholecalciferol (Vitamin D3) (Vitamin D3) 5,000 Unit Tab.rapdis, 5,000 UNIT PO DAILY, (Reported) Minoxidil (Minoxidil) 10 Mg Tablet, 10 MG PO BID, #60 Sucroferric Oxyhydroxide (Velphoro) 500 Mg Tab.chew, 500 MG PO WM, (Reported) Scheduled PRN Acetaminophen (Acetaminophen) 500 Mg Tablet, 1,000 MG PO Q6H PRN for PAIN, (Reported) Hydroxyzine HCl (Hydroxyzine HCl) 25 Mg Tab, 25 MG PO BID PRN for ANXIETY, (Reported) COULD TAKE UP TO 50MG BID Miscellaneous Medications Clonidine (Clonidine) 0.3 Mg Patch.tdwk, (Reported) Trazodone HCl (Trazodone HCl) 100 Mg Tablet, (Reported) DARLIN CARMONA MD Nov 28, 2019 10:54
[2020-06-20] MEDS ORDERED: HYDR-3910 PO (13:23)
[2020-06-20] MEDS ORDERED: OMEP1CAP73 PO (13:23)
[2020-06-20] MEDS ORDERED: ABIL20TA5 PO (13:23)
== END 2019-11-28 10:43 | disposition home or self-care (01) ==
LOC: M ED 09:08
DX: L76.22 Postprocedural hemorrhage of skin and subcutaneous tissue following other procedure (principal); N18.6 End stage renal disease

== ENCOUNTER → 2019-11-30 | Outpatient (CLI) | payer MEDICARE, MEDICAID ==
[~2019-11-30] MED LIST changes: +ABIL10TA9; +AMLO10TA5; +AMLO10TA5 PO; -AMLO1TAB24 PO; -AMLO1TAB25 PO; +AMLO5TAB6 PO; +ARIP1TAB PO; +CLON0.3D8; +FLUO10CA15 PO; -FLUO10CA16 PO; +NORC1TAB5 PO; +TRAZ-257
== END ==
LOC: M LABSMTC 11:10
PROVIDERS: ATTEND Anesthesiology
DX: Z03.818 Encounter for observation for suspected exposure to other biological agents ruled out (principal); Z11.59 Encounter for screening for other viral diseases
CPT/HCPCS: C9803; U0003

== ENCOUNTER 2019-12-03 10:21 | Day surgery (SDC) | payer MEDICARE, MEDICAID ==
[~2019-12-03] VITALS: Ht 188 cm; Wt 87.5 kg
[~2019-12-03 10:21] MED LIST changes: -ABIL10TA9; -AMLO10TA5; +D5W/0.2% SODIUM CHLORIDE 1,000 ML IV ONE; -NORC1TAB5 PO; +ceFAZolin SOD 2 GM in IV 1 EA IV ONE
[2019-12-03] MEDS ORDERED: EPINEPHrine INJ 1 MG/ML 1ML AMP ONE (10:22)
[2019-12-03] MEDS ORDERED: ROPIvacaine 0.5% 30ML INJECTION (J2795 PER 1MG) ONE (10:22)
[2019-12-03] MEDS ORDERED: LIDOCAINE 1% SDV 30ML VIAL As Ordered ONE (10:24)
[2019-12-03] MEDS ORDERED: BUPIVACAINE/EPIN 0.5% 30 ML VIAL As Ordered ONE (10:25)
[2019-12-03] MEDS ORDERED: ISOVUE-300 61% 50ML VIAL As Ordered ONE (10:25)
[2019-12-03] MEDS ORDERED: HEPARIN SOD (PORCINE) 5000UNITS/ML VIAL (J1644 PER 1000UNITS) As Ordered ONE ×3 (10:25→10:45)
[2019-12-03] MEDS ORDERED: MIDAZOLAM INJ 2MG/2ML VIAL (J2250 PER 1MG) As Ordered ONE ×2 (10:43→11:05)
[2019-12-03] MEDS ORDERED: propofoL 200 MG/20 ML VIAL As Ordered ONE ×4 (10:43→13:35)
[2019-12-03] MEDS ORDERED: fentaNYL 100 MCG/2 ML INJECTION (J3010) As Ordered ONE ×2 (10:43→11:05)
[2019-12-03] MEDS ORDERED: LIDOCAINE 2% 100MG/5ML SDV (FOR ANES.) As Ordered ONE (10:44)
[2019-12-03] MEDS ORDERED: ONDANSETRON 4MG/2ML VIAL As Ordered ONE (10:44)
[2019-12-03] MEDS ORDERED: MIDAZOLAM INJ 2MG/2ML VIAL (J2250 PER 1MG) IV ONE (11:45)
[2019-12-03] MEDS ORDERED: fentaNYL 100 MCG/2 ML INJECTION (J3010) IV ONE (11:45)
--- NOTE | 2019-12-03 14:13 | ROOPDOC ---
[facility] Report Of Operation Report of Operation DATE OF PROCEDURE: 12/03/19 PREPROCEDURE DIAGNOSES: End-stage renal disease with severe pain during cannulation and dialysis with left Shemar fistula POSTPROCEDURE DIAGNOSES: Same. PROCEDURE: 1. Ligation left Shemar fistula 2. Left brachiocephalic AV fistula creation SURGEON: Darlin Reynolds MD ANESTHESIA: Monitored anesthesia care, left scalene nerve block, local anesthesia INDICATION FOR PROCEDURE: This is a very pleasant 29-year-old patient with end- stage renal disease who is been dialyzing with the left upper extremity Shemar fistula. Unfortunately, the patient has very sensitive neuropathic complaints throughout his body, especially in the left upper extremity after fistula creation. He does not feel like he can tolerate ongoing dialysis with this fistula. I discussed with him the risks benefits and alternatives to ligation of the fistula and creation of a new brachiocephalic AV fistula in the ipsilateral arm. The cephalic vein is already enlarged due to more distal fistula, and should mature quickly but a PermCath was placed preop to facilitate dialysis after fistula ligation. I did discuss with the patient that it is possible he will have the exact same pain with this fistula as he did with the other, but this is the only option I have for him. If that is the case, he may need to discuss with someone in pain management the way to manage his neuropathic pain. Risks benefits and alternatives to fistula ligation and placement were discussed and the patient was agreeable to proceed. Informed consent was obtained. REPORT OF OPERATION: The patient was brought to the OR in stable condition and placed supine on the OR table after a left scalene nerve block was placed by our anesthesia colleagues and preop holding. Anesthesia and antibiotics were administered without complication. Left upper extremity was prepped and draped in a sterile fashion. A timeout was performed. An incision was made over the previous incision for Shemar fistula creation. This was carried down to the subcutaneous tissue with Bovie cautery and the superficial cephalic fistula was quickly encountered. This was skeletonized proximally and distally within the small incision and we were able to gain circumferential control and to silk sutures were placed around the vessel. The sutures were secured and we confirmed that there was no flow through the fistula beyond the sutures with Doppler. The wound was irrigated with saline. The deep tissues were approximated with running Vicryl suture. The skin was closed with a running subcuticular Monocryl suture. Mastisol and Steri-Strips were placed the length of the wound and a 2 x 2 and Tegaderm were placed as a final dressing. We then temporarily wrapped the hand and the forearm with a Coban to exsanguinate the aneurysmal portions of his fistula. Next a transverse incision was made over the brachial artery pulse in the cephalic vein just distal to the antecubital crease. This was carried down to the subcutaneous tissue with Bovie cautery. The cephalic and basilic veins were encountered and skeletonized proximally and distally within the incision. T here are many small branches which were suture ligated and divided. Larger branches were also suture ligated and divided. Once we had a long portion of cephalic vein for anastomosis, we dissected down to the brachial artery. This was skeletonized proximally and distally in Vesseloops were placed. We then transected the cephalic vein for anastomosis, and due to some branches at the area where we tied the vein off, we encountered some mild bleeding. This was controlled with a stick-tie suture ligation. Once hemostasis was achieved, we irrigated with saline, and the bulldog clamp was placed on the cephalic vein proximally and we secured the Vesseloops on the brachial artery proximally distally. A 5 mm arteriotomy was made and the vein was anastomosed to the artery and an end-to-side fashion using 6-0 Prolene suture. Before the final sutures were placed, we flushed inflow in the outflow of the artery as well as the vein and irrigated with heparinized saline. Final sutures were placed. We restarted flow first to the vein and noticed a little bit of tension on the anastomosis. Therefore, we dissected a little more proximally on the cephalic vein to free it up and manage tension. We also further dissected the brachial artery proximally and distally in this release the tension on the anastomosis and there was an excellent thrill in the fistula. Surgicel and gentle pressure were used for 2 minutes for good hemostasis. We irrigated with copious amounts of saline. Following this, we close the deep tissues with interrupted ieekcz-[id number]-tjqiy Vicryl sutures and the dermal layer was closed with a running Vicryl suture. The skin was closed with a running subcuticular Monocryl suture. Mastisol and Steri- Strips were used to dress the wound. A 4 x 4 and Tegaderm were placed as a final dressing. We then removed the Coban and replaced it with a 4 inch Nikko wrap from the hand over the forearm and stopped just distal to our new anastomosis for AV fistula. I'm hopeful that this will help compress his aneurysmal segments which are still receiving some inflow from branches in the forearm, but have limited outflow. With compression, I am hopeful that the old fistula well thrombose and close. The patient was allowed to awaken from anesthesia was taken to recovery in stable condition. He tolerated the anesthesia the procedure well. ESTIMATED BLOOD LOSS: Approximately 100 mL. COMPLICATIONS: None. PLAN: Okay to resume home diet medications. Would like to see the patient back in a week to check his incisions and see how he is doing. Over the next week, the patient should take it easy with no strenuous exercise with the left upper extremity and no lifting greater than 5 pounds with the left upper extremity for 1 week. The Steri-Strips should remain in place for 7 days, the Tegaderm and gauze can come off after 48 hours if desired. If the arm gets wet, pat dry. Do not submerge arm in a bathtub or swimming pool. Elevate the arm to diminish swelling. Tried to leave Nikko wrap intact on the forearm for at least 3 days to help compress the aneurysmal segments of the old fistula. Prescription for Percocet given. No refills. We appreciate the opportunity to participate in the care of this patient. DARLIN REYNOLDS MD Dec 03, 2019 14:13
[2019-12-03] MEDS ORDERED: OXYC1TAB23 PO (14:18)
[2019-12-03 14:35] VITALS: BP 162/89
[2019-12-07] MEDS ORDERED: AMLO10TA5 (11:15)
== END 2019-12-03 14:06 | disposition home or self-care (01) ==
LOC: M SDC 10:21
PROVIDERS: ATTEND Surgery Vascular Surgery
DX: N18.6 End stage renal disease (principal); I12.0 Hypertensive chronic kidney disease with stage 5 chronic kidney disease or end stage renal disease; K21.9 Gastro-esophageal reflux disease without esophagitis; D63.1 Anemia in chronic kidney disease; M12.9 Arthropathy, unspecified; F41.9 Anxiety disorder, unspecified; F32.9 Major depressive disorder, single episode, unspecified; G43.909 Migraine, unspecified, not intractable, without status migrainosus; R56.9 Unspecified convulsions; R06.83 Snoring; Z79.899 Other long term (current) drug therapy; Z87.891 Personal history of nicotine dependence; Z99.2 Dependence on renal dialysis
CPT/HCPCS: 36415; 36821; 37607; 64415; 84132; J0171; J0690; J1644; J2250; J2405; J2795; J3010

== ENCOUNTER 2019-12-07 11:08 | Emergency (ER) | payer MEDICARE, MEDICAID ==
[~2019-12-07] VITALS: Ht 188 cm; Wt 86.5 kg
[~2019-12-07 11:08] MED LIST changes: -AMLO10TA5 PO; +AMLO1TAB24 PO; +AMLO1TAB25 PO; -AMLO5TAB6 PO; -D5W/0.2% SODIUM CHLORIDE 1,000 ML IV ONE; -FLUO10CA15 PO; +FLUO10CA16 PO; -ceFAZolin SOD 2 GM in IV 1 EA IV ONE
[2019-12-07] MEDS ORDERED: ABIL10TA9 (11:15)
[2019-12-07] MEDS ORDERED: AMLO1TAB25 (11:15)
[2019-12-07 12:08] LABS: BASO % 0.7 % (0.0-1.0); EOS # 0.1 10^3/uL (0.0-0.5); HEMATOCRIT 35.3 % (42.0-52.0); HEMOGLOBIN 11.9 g/dl (13.5-17.5); LYMPH # 0.5 10^3/uL (1.5-5.0); LYMPH % 11.7 % (24.0-44.0); MEAN CORPUSCULAR HEMOGLOBIN 28.3 pg (27.0-33.0); MEAN CORPUSCULAR HGB CONC 33.7 g/dl (32.0-36.5); MONO # 0.2 10^3/uL (0.0-0.8); MONO % 4.6 % (0.0-5.0); NEUTROPHILS # 3.7 10^3/uL (1.5-8.5); NEUTROPHILS % 80.6 % (36.0-66.0); PLATELET COUNT, AUTOMATED 141 10^3/uL (150-450); WHITE BLOOD COUNT 4.6 10^3/uL (4.0-10.0)
[2019-12-07 12:34] LABS: ALBUMIN 4.4 GM/DL (3.2-5.2); BILIRUBIN,DIRECT 0.3 MG/DL (0.0-0.2); BILIRUBIN,TOTAL 0.9 MG/DL (0.2-1.0)
[2019-12-07] MEDS ORDERED: NS 500 ML IV ONE (13:30)
[2019-12-07 14:49] LABS: BILIRUBIN, URINE MANUAL OBSCURED (NEGATIVE); GLUCOSE, URINE (UA) MANUAL 1+(100 MG/DL) mg/dL (NEGATIVE); KETONE, URINE MANUAL OBSCURED mg/dL (NEGATIVE); UROBILINOGEN, URINE MANUAL OBSCURED mg/dl (NORMAL)
[2019-12-07 14:50] LABS: RBC, URINE TNTC /hpf (0-3); SQUAMOUS EPITHELIAL CELL URINE SMALL AMOUNT /hpf (SMALL AMT)
[2019-12-07 14:51] VITALS: BP 174/83
[2019-12-07 14:51] LABS: BACTERIA, URINE NONE SEEN; HYALINE CAST, URINE NONE SEEN /lpf (0-1)
[2019-12-07] MEDS ORDERED: NORC1TAB5 PO (14:58)
--- NOTE | 2019-12-07 15:12 | REP ---
REASON FOR EXAM: Left flank pain and hematuria. Latest prior for comparison is a contrast enhanced examination of 06/01/2018. There is marked bilateral renal atrophy/hyperplasia. This appears stable. The hemorrhage seen previously on the right has abated. Limited evaluation of the solid intra-abdominal organs show no gross abnormalities or significant changes from the prior exam. Patient is status post cholecystectomy. Limited evaluation of the pancreas and the adrenal glands show no gross abnormalities or significant changes from the prior exam. There is no free fluid or free air in the abdomen. There are a few mildly dilated gas and fluid-filled small bowel loops in the abdomen representing a change in the prior exam. There is a trace amount of free pelvic fluid. The pelvic bowel loops and their mesenteries are within normal limits. There is no evidence of an intra-abdominal or intrapelvic mass or adenopathy. Bone window technique throughout the examination shows no significant change in the appearance of the osseous structures. The lung bases are clear and unchanged. IMPRESSION: There is evidence to suggest an mild small bowel ileus. Limited exam shows no evidence of any significant changes or evidence of acute disease. There are other findings and chronic changes as described above. Electronically Signed by Robert Roque DO 12/07/2019 04:13 P
== END 2019-12-07 15:10 | disposition home or self-care (01) ==
LOC: M ED 11:08
DX: N18.6 End stage renal disease (principal); I11.0 Hypertensive heart disease with heart failure; I50.32 Chronic diastolic (congestive) heart failure; K27.9 Peptic ulcer, site unspecified, unspecified as acute or chronic, without hemorrhage or perforation; K80.20 Calculus of gallbladder without cholecystitis without obstruction; K85.90 Acute pancreatitis without necrosis or infection, unspecified; Z79.891 Long term (current) use of opiate analgesic; Z79.899 Other long term (current) drug therapy; Z99.2 Dependence on renal dialysis; R31.9 Hematuria, unspecified

== ENCOUNTER → 2020-02-16 | Outpatient (CLI) | payer MEDICARE, MEDICAID ==
[~2020-02-16] MED LIST changes: +ABIL10TA9; +AMLO1TAB25; +ISOVUE-300 61% 50ML VIAL As Ordered ONE; +LIDOCAINE 1% MDV 20ML VIAL As Ordered ONE; +METOPROLOL 5 MG/5 ML VIAL As Ordered ONE; +MIDAZOLAM INJ 2MG/2ML VIAL (J2250 PER 1MG) As Ordered ONE; +NORC1TAB5 PO; +NORC1TAB7 PO; +ONDANSETRON 4 MG ORAL DISINTEGRATING TAB As Ordered ONE; +ONDANSETRON 4MG/2ML VIAL As Ordered ONE; +VANC125C3 PO; +fentaNYL 100 MCG/2 ML INJECTION (J3010) As Ordered ONE; +hydrALAZINE 20MG/ML 1ML VIAL (J0360 PER 20MG) As Ordered ONE
[2020-02-16 18:05] VITALS: BP 148/60
--- NOTE | 2020-02-16 19:36 | ROOPDOC ---
[facility] Report Of Operation Report of Operation DATE OF PROCEDURE: 02/16/20 PREPROCEDURE DIAGNOSES: End-stage renal disease with weak thrill left brachiocephalic AV fistula POSTPROCEDURE DIAGNOSES: Same PROCEDURE: 1. Ultrasound-guided access left cephalic vein 2. Left upper extremity fistulogram 3. Coiling large branch cephalic vein proximal to AV anastomosis with 8 mm Justyn coil and 4 x 3 mm Tornado coil 4. Completion venogram SURGEON: Darlin Reynolds MD ANESTHESIA: Local anesthesia 3 mL lidocaine. Moderate intravenous conscious sedation was administered by Dr. Reynolds. The patient was independently monitored by registered nurse assigned to the Department of radiology using automated blood pressure, EKG, and pulse oximetry. The detailed sedation record is permanently stored in the hospital information system. The following is a brief sedation record: Start time 15:15, stop time 15:40, Versed 1 mg IV, fentanyl 50 g IV. CONTRAST: 12 mL Isovue-300 INDICATION FOR PROCEDURE: This is a very pleasant 29-year-old gentleman with end-stage renal disease now status post ligation of his left Shemar fistula and creation of a new left brachiocephalic AV fistula. He has a weak thrill in the fistula proximal to a large branch that appears to be stealing blood back down to the forearm. Proximal to this the thrill is excellent. We discussed the risks benefits and alternatives to a fistulogram and potential coiling of this branch. The patient is agreeable to proceed. Informed consent was obtained. INTERPRETATION: 1. The AV anastomosis and cephalic vein were examined on ultrasound. The AV anastomosis is widely patent in the cephalic vein is widely patent on the arm. The large branch stealing blood from the fistula is marked on the skin as a reference. 2. After coiling the cephalic branch with an 8 mm coil and a 4 x 3 mm coil, there initially was still a fair amount of flow through the branch. However, after a few minutes, there was little to no flow through the branch and a marked improvement in the thrill over the cephalic vein proximally. This dramatically improved flow through the fistula. REPORT OF OPERATION: The patient was brought to the angiographic suite in stable condition. His left upper extremity was prepped and draped in a sterile fashion. A timeout was performed. Local anesthesia was administered to the skin and subcutaneous tissue over the cephalic vein. Ultrasound was used to examine the AV anastomosis and the fistula. Both were seen to be widely patent. A microneedle was used to access the vein under ultrasound guidance. A wire was passed through this access and the needle was removed. A 4 Libyan sheath was placed and flushed with saline. Sedation was administered without complication. A fistulogram was performed. Please interpretation above. We then advanced a Glidewire through the access and try to use a glide cath to access the branch, but there was not an acute enough angle, so we replaced the catheter with an Omni Flush catheter which allowed a retrograde access into the branch. We were able to navigate the wire distally in the branch and advance the catheter over the wire a few centimeters into the branch. Contrast injection confirmed we were in the branch. We then deployed an 8 mm coil followed by 4 x 3 mm coil, both deployed successfully. Initially, there was still a little bit of flow through the branch despite coiling, and we considered placing a third coil, but after a moment there was very little flow through the branch and it appeared to be mostly thrombosed. The thrill in the fistula had markedly improved. This concluded the procedure. We then placed a [id number] Prolene suture around the 4 Libyan sheath and remove the sheath and pressure was held for 5 minutes for good hemostasis and sterile dressings were applied. We marked the fistula on the skin with a skin marker using ultrasound. The patient was about to be transferred out of the angiographic suite when he became acutely nauseated. He then began to vomit, but unfortunately we no longer had IV access to administer IV Zofran. After he finished vomiting, we gave him Zofran sublingual and the patient said this helped. He said that he thought he got a little too warm and it made him nauseous. We then transferred and to recovery in stable condition, but his first blood pressure check in recovery was over 200 systolic blood pressure, over 130 diastolic blood pressure. His heart rate was also greater than 100. This resulted in an acute rapid bleed from his access site over the bicep. We were with the patient at the time that this occurred and immediately work to rectify it. Pressure was held immediately and maintained for 30 minutes while we gave IV medications to get the reduce blood pressure. First, an IV was placed by our nurse and recovery, and then hydralazine 30 mg IV, metoprolol 10 mg IV were given over the next 30 minutes until blood pressure was 148/70 and heart rate was less than 90. Once his blood pressure was controlled, there was no expanding hematoma noted. The patient does have some swelling over the bicep from the acute bleed, but no active bleeding noted. We then monitor the patient for an hour and a half to make sure he did not have any repeat bleeding and his blood pressure remained stable. As needed blood pressure medications were given to maintain systolic blood pressure less than 160 and heart rate less than 90. An hour after the procedure, the patient ate a regular diet and tolerated that well. We had placed ice over the bicep, which diminished the swelling and discomfort for the patient. Although the arm looks much better at the time of discharge, I discussed with him that I do not want the nurses to use it for dial ysis until all the swelling resolves. He may have significant bruising, we will have to see, but I like that to resolve prior to accessing the fistula. I think we will likely wait a couple weeks. Otherwise, the fistula looks great and will be ready to use once the swelling resolves. ESTIMATED BLOOD LOSS: Approximately 5 mL. COMPLICATIONS: None. PLAN: I will see the patient back to check his arm and likely will have to remark it for dialysis access in 2 weeks. I like him to continue use the PermCath for now. However, I'm very pleased with the maturation of the fistula and it hasn't excellent thrill and should provide an excellent dialysis access for the patient. We appreciate the opportunity to participate in the care of this patient. DARLIN REYNOLDS MD Feb 16, 2020 19:36
== END ==
LOC: M IRPRO 13:03
PROVIDERS: ATTEND Surgery Vascular Surgery
DX: N18.6 End stage renal disease (principal); T82.590A Other mechanical complication of surgically created arteriovenous fistula, initial encounter; X58.XXXA Exposure to other specified factors, initial encounter
CPT/HCPCS: 36901; 36909; 99152; 99153; C1769; C1887; C1894; J0360; J1644; J2250; J2405; J3010; Q0162; Q9967

== ENCOUNTER 2020-03-29 15:16 | Emergency (ER) | payer MEDICARE, MEDICAID ==
[~2020-03-29] VITALS: Ht 188 cm; Wt 84.8 kg
[~2020-03-29 15:16] MED LIST changes: -ISOVUE-300 61% 50ML VIAL As Ordered ONE; -LIDOCAINE 1% MDV 20ML VIAL As Ordered ONE; -METOPROLOL 5 MG/5 ML VIAL As Ordered ONE; -MIDAZOLAM INJ 2MG/2ML VIAL (J2250 PER 1MG) As Ordered ONE; -NORC1TAB7 PO; -ONDANSETRON 4 MG ORAL DISINTEGRATING TAB As Ordered ONE; -ONDANSETRON 4MG/2ML VIAL As Ordered ONE; -VANC125C3 PO; -fentaNYL 100 MCG/2 ML INJECTION (J3010) As Ordered ONE; -hydrALAZINE 20MG/ML 1ML VIAL (J0360 PER 20MG) As Ordered ONE
[2020-03-29 16:45] LABS: BASO % 0.5 % (0.0-1.0); EOS # 0.1 10^3/uL (0.0-0.5); HEMATOCRIT 30.2 % (42.0-52.0); LYMPH # 0.6 10^3/uL (1.5-5.0); MEAN CORPUSCULAR HEMOGLOBIN 29.3 pg (27.0-33.0); MEAN CORPUSCULAR HGB CONC 33.1 g/dl (32.0-36.5); MEAN CORPUSCULAR VOLUME 88.6 fl (80.0-96.0); MONO # 0.3 10^3/uL (0.0-0.8); MONO % 8.6 % (0.0-5.0); NEUTROPHILS # 2.9 10^3/uL (1.5-8.5); NEUTROPHILS % 72.6 % (36.0-66.0); PLATELET COUNT, AUTOMATED 117 10^3/uL (150-450); RED BLOOD COUNT 3.41 10^6/uL (4.30-6.10); WHITE BLOOD COUNT 3.9 10^3/uL (4.0-10.0)
[2020-03-29] MEDS: MORPHINE 2 MG/ML 1ML VIAL (J2270) IV PRN ×2 (17:18→19:42)
--- NOTE | 2020-03-29 17:28 | REPVR ---
PROCEDURE INFORMATION: Exam: XR Chest, 1 View Exam date and time: 03/29/2020 5:12 PM Age: 29 years old Clinical indication: Chest pain; Additional info: Abd pain TECHNIQUE: Imaging protocol: XR of the chest Views: 1 view. COMPARISON: CR Chest, 1 view 06/19/2019 2:50 PM FINDINGS: Tubes, catheters and devices: Comparison to the previous chest radiograph from 06/19/2019 shows interval placement of a right internal jugular dialysis catheter with the distal tip the catheter in the right atrium. Lungs: Borderline cardiomegaly is again seen with a normal pulmonary vasculature. Pleural space: No pneumothorax or pleural effusion. Both lungs appear well-aerated. Heart/Mediastinum: Unremarkable. No cardiomegaly. Bones/joints: Unremarkable. IMPRESSION: 1. Comparison to the previous chest radiograph from 06/19/2019 shows interval placement of a right internal jugular dialysis catheter with the distal tip the catheter in the right atrium. 2. No pneumothorax or pleural effusion. Both lungs appear well-aerated. 3. Borderline cardiomegaly is again seen with a normal pulmonary vasculature. Electronically signed by: Juan Carlos Ladd On 03/29/2020 17:27:41 PM
[2020-03-29 17:35] LABS: ALBUMIN 4.3 GM/DL (3.2-5.2); ALT/SGPT 15 U/L (12-78); BILIRUBIN,DIRECT 0.2 MG/DL (0.0-0.2); BILIRUBIN,TOTAL 0.6 MG/DL (0.2-1.0); BLOOD UREA NITROGEN 59 MG/DL (7-18); CALCIUM LEVEL 7.7 MG/DL (8.5-10.1); CARBON DIOXIDE LEVEL 22 MEQ/L (21-32); CHLORIDE LEVEL 100 MEQ/L (98-107); CPK CREATINE PHOSPHOKINASE 1081 U/L (39-308); GLUCOSE, FASTING 93 MG/DL (70-100); LIPASE 84 U/L (73-393); MB/CK RELATIVE INDEX 0.09 (< OR =4); POTASSIUM SERUM 4.4 MEQ/L (3.5-5.1); SODIUM LEVEL 133 MEQ/L (136-145); TOTAL PROTEIN 7.6 GM/DL (6.4-8.2); TROPONIN I < 0.02 NG/ML (< 0.10)
[2020-03-29] MEDS ORDERED: AMLO1TAB25 PO (17:41)
--- NOTE | 2020-03-29 18:43 | REPVR ---
PROCEDURE INFORMATION: Exam: CT Abdomen And Pelvis Without Contrast Exam date and time: 03/29/2020 6:04 PM Age: 29 years old Clinical indication: Abdominal pain; Additional info: Pain/diarrhea TECHNIQUE: Imaging protocol: Computed tomography of the abdomen and pelvis without contrast. Radiation optimization: All CT scans at this facility use at least one of these dose optimization techniques: automated exposure control; mA and/or kV adjustment per patient size (includes targeted exams where dose is matched to clinical indication); or iterative reconstruction. COMPARISON: CT ABD PELVIS W/O CONTRAST 12/07/2019 1:28 PM FINDINGS: Liver: Normal. No mass. Gallbladder and bile ducts: Prior cholecystectomy. The biliary ducts appear normal. Pancreas: Normal. No ductal dilation. Spleen: Normal. No splenomegaly. Adrenals: Normal. No mass. Kidneys and ureters: Severe bilateral renal atrophy is present, unchanged since the previous CT abdomen and pelvis study from 12/07/2019. Stomach and bowel: There is excessive fluid present throughout most of the small bowel with liquid stool in the large bowel to a significant degree suggestive of an acute enteritis with a diarrheal component versus an enterocolitis. No evidence of bowel obstruction or severe ileus. No free intraperitoneal air or free fluid. Appendix: No evidence of appendicitis. Vasculature: Unremarkable. No abdominal aortic aneurysm. Lymph nodes: Unremarkable. No enlarged lymph nodes. Urinary bladder: Unremarkable as visualized. Reproductive: Unremarkable as visualized. Bones/joints: Unremarkable. No acute fracture. Soft tissues: Unremarkable. IMPRESSION: 1. There is excessive fluid present throughout most of the small bowel with liquid stool in the large bowel to a significant degree suggestive of an acute enteritis with a diarrheal component versus an enterocolitis. No evidence of bowel obstruction or severe ileus. No free intraperitoneal air or free fluid. 2. Severe bilateral renal atrophy is present, unchanged since the previous CT abdomen and pelvis study from 12/07/2019. 3. Prior cholecystectomy. The biliary ducts appear normal. Electronically signed by: Juan Carlos Ladd On 03/29/2020 18:42:47 PM
[2020-03-29] MEDS ORDERED: VANCOMYCIN ORAL SOL 250MG/5ML ORAL SYRINGE PO ONE (19:15)
[2020-03-29] MEDS ORDERED: ONDA4TAB6 PO (19:25)
[2020-03-29] MEDS ORDERED: VANC125C3 PO (19:25)
[2020-03-29] MEDS ORDERED: NORC1TAB7 PO (19:25)
[2020-03-29 19:52] VITALS: BP 145/83
--- NOTE | 2020-03-30 08:31 | ECGEPIP ---
[facility] - ED Test Date: 2020-03-29 Pat Name: MIRZA GRUBER Department: Room: - Gender: Male [employer]: EZRA : 1990 Requested By: VALDO Darnell Order Number: [id number] Reading MD: Camilla Ervin Measurements Intervals [place] Rate: 58 P: 47 KS: 208 QRS: -7 QRSD: 98 T: 68 QT: 432 QTc: 426 Interpretive Statements SINUS BRADYCARDIA WITH OCCASIONAL SUPRAVENTRICULAR PREMATURE COMPLEXES POSSIBLE LEFT VENTRICULAR HYPERTROPHY NONSPECIFIC T-WAVE ABNORMALITY LAE DECREASED RATE 11/24/19 Electronically Signed on 03-30-2020 8:30:42 EDT by Camilla Ervin
== END 2020-03-29 19:50 | disposition home or self-care (01) ==
LOC: M ED 15:16
DX: A04.72 Enterocolitis due to Clostridium difficile, not specified as recurrent (principal); R94.31 Abnormal electrocardiogram [ECG] [EKG]; N18.6 End stage renal disease; Z99.2 Dependence on renal dialysis; I13.2 Hypertensive heart and chronic kidney disease with heart failure and with stage 5 chronic kidney disease, or end stage renal disease; Z79.899 Other long term (current) drug therapy
CPT/HCPCS: 36415; 71045; 74176; 80048; 80076; 82550; 82553; 83605; 83690; 84484; 85025; 87507; 93005; 93041; 96374; 99284; J2270

== ENCOUNTER → 2020-04-19 | Outpatient (CLI) | payer MEDICARE, MEDICAID ==
[~2020-04-19] MED LIST changes: +LIDOCAINE W/EPINEPHRINE 1% 20ML VIAL As Ordered ONE; +NORC1TAB7 PO; +VANC125C3 PO
--- NOTE | 2020-04-19 09:59 | ROOPDOC ---
[facility] Report Of Operation Report of Operation DATE OF PROCEDURE: 04/19/20 PREPROCEDURE DIAGNOSES: End-stage renal disease no longer requiring PermCath for dialysis access POSTPROCEDURE DIAGNOSES: Same PROCEDURE: Removal right IJ PermCath SURGEON: Darlin Reynolds MD ANESTHESIA: Local anesthesia of 5 mL lidocaine with epinephrine INDICATION FOR PROCEDURE: This is a very pleasant 29-year-old gentleman who is now successfully using his fistula for dialysis no longer requires his PermCath for dialysis. Risks benefits alternatives were explained agreeable to proceed. Informed consent was obtained. REPORT OF OPERATION: The patient's right neck and chest including his PermCath were prepped and draped in a sterile fashion. A timeout was performed. Local anesthesia was administered to the skin and subcutaneous tissue around the exit site and the cuff on the right chest new the clavicle. The sutures were ligated and removed. The cuff was loosened from the subcutaneous tissue with blunt dissection. Pressure was held at the jugular access site and the catheter was removed. The catheter was inspected and found to be completely intact, no portion was left behind. Pressure was held for 10 minutes without a bit elevated and sterile dressings were applied. The patient was monitored for 30 minutes postprocedure and discharged home in stable condition. ESTIMATED BLOOD LOSS: Negligible. COMPLICATIONS: None. PLAN: Keep head up greater than 45 for the rest of the day. Avoid trying to lay flat or bend over at the waist to minimize risk of bruising or bleeding at the right neck. Okay to resume diet medications. Okay to continue dialysis with fistula. We appreciate the opportunity to participate in care of this patient. DARLIN REYNOLDS MD Apr 19, 2020 09:59
[2020-04-19 10:35] VITALS: BP 158/77
== END ==
LOC: M IRPRO 07:42
PROVIDERS: ATTEND Surgery Vascular Surgery
DX: Z45.2 Encounter for adjustment and management of vascular access device (principal); N18.6 End stage renal disease; I10 Essential (primary) hypertension; Z79.899 Other long term (current) drug therapy; Z87.891 Personal history of nicotine dependence; Z99.2 Dependence on renal dialysis

== ENCOUNTER → 2020-07-19 | Outpatient (CLI) | payer MEDICARE, MEDICAID ==
[~2020-07-19] MED LIST changes: +ABIL20TA5 PO; +HYDR-3910 PO; +ISOVUE-300 61% 50ML VIAL As Ordered ONE; +LIDOCAINE 1% MDV 20ML VIAL As Ordered ONE; -LIDOCAINE W/EPINEPHRINE 1% 20ML VIAL As Ordered ONE; +ONDANSETRON 4MG/2ML VIAL As Ordered ONE; -TRAZ-257; +TRAZ-257 PO
--- NOTE | 2020-07-19 13:17 | ROOPDOC ---
[facility] Report Of Operation Report of Operation DATE OF PROCEDURE: 07/19/20 PREPROCEDURE DIAGNOSES: End-stage renal disease with difficulty with cannulation left brachial cephalic AV fistula POSTPROCEDURE DIAGNOSES: Same PROCEDURE: 1. Ultrasound-guided access left cephalic vein 2. Left upper extremity fistulogram and central venogram 3. Angioplasty left cephalic vein and subclavian vein with 8 x 100 [place] balloon 4. Completion venogram SURGEON: Ramona Reynolds MD ANESTHESIA: Local anesthesia only, 4 mL lidocaine CONTRAST: 24 mL Isovue-300 INDICATION FOR PROCEDURE: This is a very pleasant 29-year-old patient with a left brachiocephalic AV fistula. The dialysis nurses are having difficulty with cannulation and he has had a few infiltrations. Risks benefits and alternatives to a fistulogram and potential intervention were explained to the patient. He is agreeable to proceed. Informed consent was obtained. The patient wished to proceed without any sedation today. INTERPRETATION: 1. The AV anastomosis is widely patent on ultrasound and color flow images were saved. 2. The cephalic vein in the upper extremity over the bicep is mildly tortuous but widely patent, I estimate 10 mm diameter, and towards the shoulder there is a focal area that appears to narrow 20-30%, then it is widely patent until the last few centimeters before the subclavian junction where there are several focal stenoses of 50-60%. The subclavian vein junction with the cephalic vein has a 40% stenosis, but otherwise the subclavian vein and central veins are widely patent. 3. After 2 angioplasty of the proximal cephalic vein into the subclavian vein for three-minute inflation, there is widely patent flow with no significant residual stenosis. No extravasation noted. 4. After angioplasty the cephalic vein in the upper arm, there is widely patent flow with no extravasation. No residual stenoses noted. REPORT OF OPERATION: The patient was brought to the angiographic suite in stable condition. His left upper extremity was prepped and draped in a sterile fashion. A timeout was performed. Local anesthesia was administered to the skin and sub cutaneous tissue over the cephalic vein near the AV anastomosis. Ultrasound was used to examine the AV anastomosis color-flow Doppler and it was noted to be widely patent. We then accessed the vein with a microneedle under ultrasound guidance. A wire was passed through this access needle was removed and a 4 Estonian sheath was placed and flushed with saline. A fistulogram and central venogram were performed. Please see interpretation above. We advanced Glidewire into the central system under fluoroscopic guidance. The sheath was exchanged for 6 Estonian sheath and flushed with saline. An 8 x 100 [place] balloon was advanced first across the proximal cephalic vein in the subclavian vein. Three- minute inflation was performed. We then retracted the balloon slightly towards the shoulder and another three-minute inflation was performed. Following this there is widely patent flow with no significant residual stenoses. We then retracted the balloon in the upper arm and is three-minute inflation was performed. Following this was no residual stenosis. No extravasation after any of the angioplastied was noted. The patient tolerated this well and he had excellent thrill and the fistula. We then utilized ultrasound and a marking pen to luciano the fistula on the skin. We then placed additional local anesthesia around the sheath in a [id number] Prolene suture was placed around the sheath and the sheath was removed. The suture was secured in good hemostasis was noted. Sterile dressings were applied and the patient was taken to recovery in stable condition. He tolerated the procedure well with no sedation. ESTIMATED BLOOD LOSS: Approximately 5 mL. COMPLICATIONS: None. PLAN: It is okay to use the AV fistula for dialysis. It is okay to resume home diet and medications. We appreciate the opportunity to participate in the care of this patient. RAMONA REYNOLDS MD Jul 19, 2020 13:17
[2020-07-19 13:40] VITALS: BP 168/81
== END ==
LOC: M IRPRO 11:33
PROVIDERS: ATTEND Surgery Vascular Surgery
DX: T82.590A Other mechanical complication of surgically created arteriovenous fistula, initial encounter (principal); N18.6 End stage renal disease; X58.XXXA Exposure to other specified factors, initial encounter; I10 Essential (primary) hypertension; Z87.891 Personal history of nicotine dependence; Z99.2 Dependence on renal dialysis
CPT/HCPCS: 36902; C1725; C1769; C1894; J1644; J2405; Q9967

== ENCOUNTER 2020-12-06 11:39 | Emergency (ER) | payer MEDICARE, MEDICAID ==
[~2020-12-06] VITALS: Ht 188 cm; Wt 88.3 kg
[~2020-12-06 11:39] MED LIST changes: +ASPI-569 PO; -ASPI81TAEC PO; -ISOVUE-300 61% 50ML VIAL As Ordered ONE; -LIDOCAINE 1% MDV 20ML VIAL As Ordered ONE; -ONDANSETRON 4MG/2ML VIAL As Ordered ONE
[2020-12-06] MEDS ORDERED: traMADol 50 MG TAB PO ONE (13:35)
[2020-12-06] MEDS ORDERED: ACETAMINOPHEN TAB 650MG DOSE (2X325MG) PO ONE (13:35)
--- NOTE | 2020-12-06 14:20 | REP ---
INDICATION: left arm pain COMPARISON: None. TECHNIQUE: Real time compression and duplex Doppler evaluation of the Left upper extremity deep venous system is performed. FINDINGS: The Left subclavian, jugular, axillary, brachial, basilic and cephalic veins are fully compressible where accessible with transducer pressure, and demonstrate no intraluminal thrombus and normal venous waveforms. There is no evidence of deep venous thrombosis.The Right subclavian vein is fully compressible where accessible with transducer pressure, and demonstrates no intraluminal thrombus and normal venous waveforms. IMPRESSION: No evidence of deep venous thrombosis of the Left upper extremity deep vein system. <Electronically signed by Robin Blood > 12/06/20 1223
[2020-12-06] MEDS ORDERED: ULTR50TA8 PO (14:50)
[2020-12-06 15:00] VITALS: BP 160/81
== END 2020-12-06 15:02 | disposition home or self-care (01) ==
LOC: M ED 11:39
DX: S46.312A Strain of muscle, fascia and tendon of triceps, left arm, initial encounter (principal); X50.0XXA Overexertion from strenuous movement or load, initial encounter; Y92.9 Unspecified place or not applicable; Y93.11 Activity, swimming; Y99.9 Unspecified external cause status; N18.6 End stage renal disease; Z99.2 Dependence on renal dialysis; Z79.899 Other long term (current) drug therapy

== ENCOUNTER 2021-01-02 12:20 | Emergency (ER) | payer MEDICARE, MEDICAID ==
[~2021-01-02] VITALS: Ht 188 cm; Wt 83.9 kg
[~2021-01-02 12:20] MED LIST changes: +ARIP10TA32 PO; -ARIP1TAB PO; -FLUO10CA16 PO; +FLUO10CA18 PO; +LOSA100T45 PO; -LOSA100T50 PO; +LOSA50TA28; +LOSA50TA28 PO; -LOSA50TA88; -LOSA50TA88 PO; -OMEP-221; +OMEP40CA4 PO; +OMEP40CA5; -OMEP40CA97 PO; +ULTR50TA8 PO
[2021-01-02] MEDS ORDERED: ALBUTEROL 90 MCG/ACT 8GM HFA INHALER INH ONE (15:25)
[2021-01-02 16:47] LABS: RSV AMPLIFICATION NEGATIVE (NEGATIVE)
[2021-01-02] MEDS ORDERED: BENZ200C70 PO (17:13)
[2021-01-02] MEDS ORDERED: DOXY-443 PO (17:13)
[2021-01-02] MEDS ORDERED: VENTAER INH (17:13)
[2021-01-02] MEDS ORDERED: PRED20TA PO (17:13)
[2021-01-02 17:41] VITALS: BP 185/95
== END 2021-01-02 17:49 | disposition home or self-care (01) ==
LOC: M ED 12:20
DX: J20.9 Acute bronchitis, unspecified (principal); N18.6 End stage renal disease; Z99.2 Dependence on renal dialysis; I51.7 Cardiomegaly; F17.200 Nicotine dependence, unspecified, uncomplicated; Z79.899 Other long term (current) drug therapy

== ENCOUNTER 2021-07-01 04:50 | Emergency (ER) | payer MEDICARE, MEDICAID ==
[~2021-07-01] VITALS: Ht 188 cm; Wt 82.3 kg
[~2021-07-01 04:50] MED LIST changes: +BENZ200C70 PO; +DOXY-443 PO; +OMEP-221; -OMEP40CA5; +VENTAER INH
[2021-07-01] MEDS ORDERED: GI COCKTAIL 50ML BTL(HYOSCYAMINE/MAALOX/LIDOCAINE VISCOUS)(1:3:1) PO ONE (08:25)
[2021-07-01] MEDS ORDERED: MAGIC MOUTHWASH *ED ONLY* 5ML ORAL SYRINGE SS ONE (09:35)
[2021-07-01] MEDS ORDERED: predniSONE 20 MG TAB PO ONE (09:35)
[2021-07-01] MEDS ORDERED: NS 1,000 ML IV ONE (10:15)
[2021-07-01] MEDS ORDERED: KETOROLAC 30 MG/ML 1ML VIAL IV ONE (10:15)
[2021-07-01 10:44] LABS: BASO % 0.5 % (0.0-1.0); EOS # 0.1 10^3/uL (0.0-0.5); EOS % 1.4 % (0.0-3.0); HEMATOCRIT 25.3 % (42.0-52.0); HEMOGLOBIN 8.6 g/dl (13.5-17.5); LYMPH # 0.5 10^3/uL (1.5-5.0); LYMPH % 11.5 % (24.0-44.0); MEAN CORPUSCULAR HEMOGLOBIN 30.3 pg (27.0-33.0); MEAN CORPUSCULAR VOLUME 89.1 fl (80.0-96.0); MONO # 0.6 10^3/uL (0.0-0.8); MONO % 13.4 % (2.0-8.0); NEUTROPHILS % 72.5 % (36.0-66.0); PLATELET COUNT, AUTOMATED 142 10^3/uL (150-450); RED BLOOD COUNT 2.84 10^6/uL (4.30-6.10); WHITE BLOOD COUNT 4.2 10^3/uL (4.0-10.0)
[2021-07-01 11:02] LABS: ERYTHROCYTE SEDIMENTATION RATE 34 mm/hr (0-15)
[2021-07-01 11:20] LABS: C REACTIVE PROTEIN QUANTITATIV 1.57 MG/DL (0.00-0.30); CALCIUM LEVEL 7.3 MG/DL (8.5-10.1); CREATININE FOR GFR 16.9 MG/DL (0.70-1.30); GLOMERULAR FILTRATION RATE 3.6 (>60); POTASSIUM SERUM 3.7 MEQ/L (3.5-5.1)
[2021-07-01] MEDS ORDERED: PRED20TA PO (12:48)
[2021-07-01] MEDS ORDERED: MAGICMW SSP (12:48)
[2021-07-01 13:30] VITALS: BP 178/78
== END 2021-07-01 13:37 | disposition home or self-care (01) ==
LOC: M ED 04:50
DX: U07.1 COVID-19 (principal); R13.10 Dysphagia, unspecified; F17.200 Nicotine dependence, unspecified, uncomplicated; G43.909 Migraine, unspecified, not intractable, without status migrainosus; Z95.828 Presence of other vascular implants and grafts; Z87.19 Personal history of other diseases of the digestive system; Z79.899 Other long term (current) drug therapy
CPT/HCPCS: 36415; 70360; 71046; 80048; 85025; 85652; 86140; 87430; 87798; 99284; J7512

== ENCOUNTER → 2021-07-19 | Outpatient (CLI) | payer MEDICARE, MEDICAID ==
[~2021-07-19] MED LIST changes: +MAGICMW SSP; -OMEP-221; +OMEP40CA5
[2021-07-19 09:49] LABS: HEMATOCRIT 25.5 % (42.0-52.0); HEMOGLOBIN 8.3 g/dl (13.5-17.5); MEAN CORPUSCULAR HEMOGLOBIN 30.3 pg (27.0-33.0); MEAN CORPUSCULAR HGB CONC 32.5 g/dl (32.0-36.5); MEAN CORPUSCULAR VOLUME 93.1 fl (80.0-96.0); PLATELET COUNT, AUTOMATED 121 10^3/uL (150-450); RED BLOOD COUNT 2.74 10^6/uL (4.30-6.10); WHITE BLOOD COUNT 5.2 10^3/uL (4.0-10.0)
[2021-07-19 10:54] LABS: ALBUMIN 3.6 GM/DL (3.2-5.2); BILIRUBIN,TOTAL 0.4 MG/DL (0.2-1.0); CHOLESTEROL RISK RATIO 2.45 (<5); CREATININE FOR GFR 11.1 MG/DL (0.70-1.30); FREE T4 1.03 NG/DL (0.76-1.46); GLOMERULAR FILTRATION RATE 5.8 (>60); POTASSIUM SERUM 4.8 MEQ/L (3.5-5.1); THYROID STIMULATING HORMONE 1.37 uIU/ML (0.358-3.740); TOTAL PROTEIN 6.5 GM/DL (6.4-8.2)
== END ==
LOC: M LAB 09:14
PROVIDERS: ATTEND Physician Assistant
DX: Z13.220 Encounter for screening for lipoid disorders (principal); Z13.29 Encounter for screening for other suspected endocrine disorder; I50.32 Chronic diastolic (congestive) heart failure

== ENCOUNTER → 2021-07-29 | Outpatient (CLI) | payer MEDICARE, MEDICAID ==
[2021-07-29 10:01] LABS: HEMATOCRIT 27.2 % (42.0-52.0); HEMOGLOBIN 8.8 g/dl (13.5-17.5); MEAN CORPUSCULAR HEMOGLOBIN 30.3 pg (27.0-33.0); MEAN CORPUSCULAR HGB CONC 32.4 g/dl (32.0-36.5); MEAN CORPUSCULAR VOLUME 93.8 fl (80.0-96.0); PLATELET COUNT, AUTOMATED 190 10^3/uL (150-450); WHITE BLOOD COUNT 4.4 10^3/uL (4.0-10.0)
[2021-07-29 10:51] LABS: ALBUMIN 3.6 GM/DL (3.2-5.2); BILIRUBIN,TOTAL 0.4 MG/DL (0.2-1.0); CALCIUM LEVEL 8.2 MG/DL (8.5-10.1); CHOLESTEROL RISK RATIO 2.585 (<5); CREATININE FOR GFR 7.6 MG/DL (0.70-1.30); GLOMERULAR FILTRATION RATE 8.9 (>60); POTASSIUM SERUM 4.3 MEQ/L (3.5-5.1); THYROID STIMULATING HORMONE 0.98 uIU/ML (0.358-3.740); TOTAL PROTEIN 6.4 GM/DL (6.4-8.2)
== END ==
LOC: M LAB 09:36
PROVIDERS: ATTEND Physician Assistant
DX: Z13.220 Encounter for screening for lipoid disorders (principal); Z13.29 Encounter for screening for other suspected endocrine disorder; I50.32 Chronic diastolic (congestive) heart failure

== ENCOUNTER 2022-02-25 08:19 | Emergency (ER) | payer MEDICARE, MEDICAID ==
[~2022-02-25] VITALS: Ht 188 cm; Wt 89.8 kg
[~2022-02-25 08:19] MED LIST changes: +ALBU2.5V10 NEB; -ALBU83IN NEB
[2022-02-25 08:21] VITALS: BP_DIAS 87
[2022-02-25] MEDS ORDERED: NS 1,000 ML IV ONE (08:45)
[2022-02-25 09:58] LABS: CALCIUM LEVEL 8.8 MG/DL (8.5-10.1); CREATININE FOR GFR 10.8 MG/DL (0.70-1.30); GLOMERULAR FILTRATION RATE 5.9 (>60); POTASSIUM SERUM 4.1 MEQ/L (3.5-5.1)
[2022-02-25] MEDS ORDERED: NORCO, ANEXSIA 5/325MG TABLET (HYDROcodone/ACETAMINOPHEN) PO ONE (10:10)
[2022-02-25] MEDS ORDERED: PRED20TA PO (10:24)
[2022-02-25] MEDS ORDERED: HYDR-3713 PO (10:26)
[2022-02-25] MEDS ORDERED: ERYT5OIN25 OS (10:27)
[2022-02-25 11:03] VITALS: BP_SYST 90
== END 2022-02-25 11:07 | disposition home or self-care (01) ==
LOC: M ED 08:19
DX: G51.0 Bell's palsy (principal); I13.11 Hypertensive heart and chronic kidney disease without heart failure, with stage 5 chronic kidney disease, or end stage renal disease; N18.6 End stage renal disease; Z99.2 Dependence on renal dialysis; Z87.891 Personal history of nicotine dependence; Z79.51 Long term (current) use of inhaled steroids; Z79.899 Other long term (current) drug therapy

== ENCOUNTER 2022-03-15 09:18 | Inpatient (IN) | payer MEDICARE, MEDICAID ==
[~2022-03-15] VITALS: Ht 188 cm; Wt 90.2 kg
[~2022-03-15 09:18] MED LIST changes: +ERYT5OIN25 OS; +HYDR-3713 PO
[2022-03-15] MEDS ORDERED: VELP5CHW PO (09:27)
[2022-03-15] MEDS ORDERED: LORazepam 2 MG TAB PO STA (10:01)
[2022-03-15 10:36] LABS: HEMATOCRIT 32.1 % (42.0-52.0); HEMOGLOBIN 10.8 g/dl (13.5-17.5); MEAN CORPUSCULAR HEMOGLOBIN 29.8 pg (27.0-33.0); MEAN CORPUSCULAR HGB CONC 33.6 g/dl (32.0-36.5); MEAN CORPUSCULAR VOLUME 88.7 fl (80.0-96.0); RED BLOOD COUNT 3.62 10^6/uL (4.30-6.10); WHITE BLOOD COUNT 6.5 10^3/uL (4.0-10.0)
[2022-03-15 11:07] LABS: RSV AMPLIFICATION NEGATIVE (NEGATIVE)
[2022-03-15 11:17] LABS: PLATELET COUNT, AUTOMATED 93 10^3/uL (150-450)
[2022-03-15 11:21] LABS: ACETAMINOPHEN LEVEL < 2.0 UG/ML (10.0-30.0); ALBUMIN 4.1 GM/DL (3.2-5.2); ALT/SGPT 22 U/L (12-78); BILIRUBIN,DIRECT 0.3 MG/DL (0.0-0.2); BILIRUBIN,TOTAL 1.1 MG/DL (0.2-1.0); BLOOD UREA NITROGEN 30 MG/DL (7-18); CALCIUM LEVEL 8.6 MG/DL (8.5-10.1); CARBON DIOXIDE LEVEL 24 MEQ/L (21-32); CHLORIDE LEVEL 96 MEQ/L (98-107); ETHYL ALCOHOL (ETHANOL) < 0.003 % (0.000-0.010); GLOMERULAR FILTRATION RATE 8.7 (>60); GLUCOSE, FASTING 89 MG/DL (70-100); POTASSIUM SERUM 4.1 MEQ/L (3.5-5.1); SALICYLATE LEVEL < 1.7 MG/DL (5.0-30.0); SODIUM LEVEL 133 MEQ/L (136-145); TOTAL PROTEIN 7.4 GM/DL (6.4-8.2)
[2022-03-15] MEDS ORDERED: VITA500030 PO (11:49)
[2022-03-15] MEDS ORDERED: MINO10TA PO (11:49)
[2022-03-15] MEDS ORDERED: HYDR-3910 PO (11:49)
[2022-03-15] MEDS ORDERED: HOME MED LIST COMPLETE! XX SCH (11:50)
[2022-03-15] MEDS ORDERED: OMEPRAZOLE 20MG CAP PO PRN ×3 (16:10→18:35)
[2022-03-15] MEDS ORDERED: SUCROFERRIC OXYHYDROXIDE 500MG CHEW TAB (VELPHORO) PO SCH (18:30)
[2022-03-15] MEDS ORDERED: MAALOX 30 ML SUSP *UDC PO PRN (18:35)
[2022-03-15] MEDS ORDERED: MOM 30ML SUSPENSION UDC PO PRN (18:35)
[2022-03-15] MEDS ORDERED: LORazepam 2 MG TAB PO PRN (18:35)
[2022-03-15] MEDS ORDERED: **hydrALAZINE HCL** 25 MG TAB PO SCH ×2 (21:00)
[2022-03-15] MEDS: GABAPENTIN 100 MG CAP PO SCH (21:07)
[2022-03-16] VITALS (7 sets, daily range): BP systolic 160–240; BP diastolic 72–110
[2022-03-16] MEDS: traZODone 50 MG TAB PO PRN ×2 (01:13→20:17)
[2022-03-16] MEDS ORDERED: **hydrALAZINE** 50 MG TAB PO ONE (02:00)
[2022-03-16] MEDS ORDERED: cloNIDine 0.2 MG TAB PO ONE (03:00)
[2022-03-16] MEDS ORDERED: LABETALOL 100MG TAB PO ONE (03:00)
[2022-03-16] MEDS ORDERED: LORazepam 1 MG TAB PO ONE (03:00)
[2022-03-16] MEDS ORDERED: DOXAZOSIN MESYLATE 1 MG TAB PO ONE (05:00)
[2022-03-16] MEDS: **hydrALAZINE** 50 MG TAB PO SCH ×3 (05:39→20:17)
[2022-03-16] MEDS ORDERED: LIDOCAINE 1% SDV 5ML VIAL SC PRN (06:00)
[2022-03-16] MEDS ORDERED: SODIUM CHLORIDE 0.9% 1000ML IV PRN (06:00)
[2022-03-16] MEDS: SUCROFERRIC OXYHYDROXIDE 500MG CHEW TAB (VELPHORO) PO SCH ×3 (07:34→17:52)
[2022-03-16] MEDS: GABAPENTIN 100 MG CAP PO SCH (20:17)
[2022-03-16] MEDS ORDERED: ARIPiprazole 2 MG TAB PO SCH (21:00)
[2022-03-17 06:43] VITALS: BP 168/98
[2022-03-17] MEDS: SUCROFERRIC OXYHYDROXIDE 500MG CHEW TAB (VELPHORO) PO SCH ×3 (08:28→17:18)
[2022-03-17] MEDS: **hydrALAZINE** 50 MG TAB PO SCH ×3 (08:28→20:09)
[2022-03-17 18:26] VITALS: BP 189/91
[2022-03-17] MEDS: GABAPENTIN 100 MG CAP PO SCH (20:08)
[2022-03-17] MEDS: ARIPiprazole 10 MG TAB PO SCH (20:08)
[2022-03-17] MEDS ORDERED: MIRTAZAPINE 7.5MG PER 1/2 TABLET PO SCH (21:00)
[2022-03-18] MEDS: **hydrALAZINE** 50 MG TAB PO SCH ×3 (08:13→21:21)
[2022-03-18] MEDS: SUCROFERRIC OXYHYDROXIDE 500MG CHEW TAB (VELPHORO) PO SCH ×3 (08:14→17:56)
[2022-03-18] MEDS: ACETAMINOPHEN TAB 650MG DOSE (2X325MG) PO PRN (10:59)
[2022-03-18] MEDS ORDERED: MIRTAZAPINE 7.5MG PER 1/2 TABLET PO PRN (12:50)
[2022-03-18] MEDS: GABAPENTIN 100 MG CAP PO SCH ×2 (15:17→21:21)
[2022-03-18 18:24] VITALS: BP 168/92
[2022-03-18] MEDS: ARIPiprazole 10 MG TAB PO SCH (21:20)
[2022-03-19 06:24] VITALS: BP 174/86
[2022-03-19] MEDS ORDERED: LIDOCAINE 1% SDV 5ML VIAL SC PRN (06:30)
[2022-03-19] MEDS ORDERED: SODIUM CHLORIDE 0.9% 1000ML IV PRN (06:30)
[2022-03-19] MEDS: GABAPENTIN 100 MG CAP PO SCH ×2 (07:45→20:12)
[2022-03-19] MEDS: SUCROFERRIC OXYHYDROXIDE 500MG CHEW TAB (VELPHORO) PO SCH ×3 (07:45→17:42)
[2022-03-19] MEDS: **hydrALAZINE** 50 MG TAB PO SCH ×3 (09:00→20:12)
[2022-03-19 09:14] LABS: HEMATOCRIT 30.2 % (42.0-52.0); HEMOGLOBIN 10.1 g/dl (13.5-17.5); MEAN CORPUSCULAR HEMOGLOBIN 29.4 pg (27.0-33.0); MEAN CORPUSCULAR HGB CONC 33.4 g/dl (32.0-36.5); PLATELET COUNT, AUTOMATED 119 10^3/uL (150-450); RED BLOOD COUNT 3.43 10^6/uL (4.30-6.10); WHITE BLOOD COUNT 7.2 10^3/uL (4.0-10.0)
[2022-03-19 10:02] LABS: ALBUMIN 3.6 GM/DL (3.2-5.2); CALCIUM LEVEL 8.6 MG/DL (8.5-10.1); GLOMERULAR FILTRATION RATE 4.8 (>60); PHOSPHORUS LEVEL 5.3 MG/DL (2.5-4.9)
[2022-03-19] MEDS ORDERED: MIRTAZAPINE 15 MG TAB PO PRN (12:20)
[2022-03-19 17:09] VITALS: BP 164/72
[2022-03-19] MEDS: ACETAMINOPHEN TAB 650MG DOSE (2X325MG) PO PRN (18:11)
[2022-03-19] MEDS ORDERED: MIRTAZAPINE 7.5MG PER 1/2 TABLET PO PRN (19:50)
[2022-03-19] MEDS: ARIPiprazole 10 MG TAB PO SCH (20:12)
[2022-03-20 06:19] VITALS: BP 182/92
[2022-03-20] MEDS: GABAPENTIN 100 MG CAP PO SCH (07:59)
[2022-03-20] MEDS: **hydrALAZINE** 50 MG TAB PO SCH ×2 (07:59→15:22)
[2022-03-20] MEDS: SUCROFERRIC OXYHYDROXIDE 500MG CHEW TAB (VELPHORO) PO SCH ×2 (07:59→12:44)
[2022-03-20 08:34] LABS: ALBUMIN 3.5 GM/DL (3.2-5.2); CALCIUM LEVEL 8.8 MG/DL (8.5-10.1); CREATININE FOR GFR 8.62 MG/DL (0.70-1.30); GLOMERULAR FILTRATION RATE 7.7 (>60); PHOSPHORUS LEVEL 4.3 MG/DL (2.5-4.9); POTASSIUM SERUM 4.6 MEQ/L (3.5-5.1)
[2022-03-20] MEDS ORDERED: ABIL10TA9 PO (12:49)
[2022-03-20] MEDS ORDERED: VELP5CHW PO (12:49)
[2022-03-20] MEDS ORDERED: HYDR50TA PO (12:49)
[2022-03-20] MEDS ORDERED: MINO10TA PO (12:49)
[2022-03-20] MEDS ORDERED: LISI20TA33 PO (12:49)
[2022-03-20] MEDS ORDERED: OMEP-173 PO (12:49)
[2022-03-20] MEDS ORDERED: AMLO1TAB25 PO (12:49)
[2022-03-20] MEDS ORDERED: MIRT-10 PO (12:49)
[2022-03-20] MEDS ORDERED: GABA-1171 PO (14:06)
[2022-03-20 15:22] VITALS: BP 172/64
== END 2022-03-20 15:41 | disposition home or self-care (01) | DRG 885 ==
LOC: M ED 09:18 → M ED INP 18:31 → M PSY 03-16 00:45
PROVIDERS: ADMIT Student in an Organized Health Care Education/Training Program; ATTEND Student in an Organized Health Care Education/Training Program
DX: F31.9 Bipolar disorder, unspecified (principal); N18.6 End stage renal disease; R45.851 Suicidal ideations; I50.32 Chronic diastolic (congestive) heart failure; N25.81 Secondary hyperparathyroidism of renal origin; I13.2 Hypertensive heart and chronic kidney disease with heart failure and with stage 5 chronic kidney disease, or end stage renal disease; E87.1 Hypo-osmolality and hyponatremia; Z79.899 Other long term (current) drug therapy; F41.0 Panic disorder [episodic paroxysmal anxiety]; G40.909 Epilepsy, unspecified, not intractable, without status epilepticus; D63.1 Anemia in chronic kidney disease; Z91.11 Patient's noncompliance with dietary regimen; G50.0 Trigeminal neuralgia

== ENCOUNTER 2022-05-12 17:24 | Inpatient (IN) | payer MEDICARE, MEDICAID ==
[~2022-05-12] VITALS: Ht 188 cm; Wt 86.4 kg
[~2022-05-12 17:24] MED LIST changes: +ABIL10TA9 PO; +GABA-1171 PO; +HYDR50TA PO; +LISI20TA33 PO; +MIRT-10 PO; +OMEP-173 PO; +VITA500030 PO
[2022-05-12 19:42] LABS: BASO % 0.4 % (0.0-1.0); EOS # 0.1 10^3/uL (0.0-0.5); EOS % 0.9 % (0.0-3.0); HEMOGLOBIN 9.4 g/dl (13.5-17.5); LYMPH # 0.7 10^3/uL (1.5-5.0); LYMPH % 9.5 % (24.0-44.0); MEAN CORPUSCULAR HEMOGLOBIN 29.7 pg (27.0-33.0); MEAN CORPUSCULAR HGB CONC 32.4 g/dl (32.0-36.5); MEAN CORPUSCULAR VOLUME 91.8 fl (80.0-96.0); MONO # 0.4 10^3/uL (0.0-0.8); MONO % 5.1 % (2.0-8.0); NEUTROPHILS # 5.7 10^3/uL (1.5-8.5); NEUTROPHILS % 83.5 % (36.0-66.0); PLATELET COUNT, AUTOMATED 110 10^3/uL (150-450); RED BLOOD COUNT 3.16 10^6/uL (4.30-6.10); WHITE BLOOD COUNT 6.8 10^3/uL (4.0-10.0)
[2022-05-12 19:54] LABS: INR 1.2; PROTHROMBIN TIME 15.4 SECONDS (12.5-14.5)
[2022-05-12 19:55] LABS: PARTIAL THROMBOPLASTIN TIME 36.2 SECONDS (24.8-34.2)
[2022-05-12 20:23] LABS: BILIRUBIN,DIRECT 0.3 MG/DL (<0.4); BILIRUBIN,TOTAL 0.5 MG/DL (0.3-1.2); CK-MB VALUE MASS 1.5 NG/ML (<3.6); CREATININE FOR GFR 13.66 MG/DL (0.70-1.30); FREE T4 1.25 NG/DL (0.89-1.76); GLOMERULAR FILTRATION RATE 4.5 (>60); MB/CK RELATIVE INDEX 0.56 (< OR =4); THYROID STIMULATING HORMONE 0.988 uIU/ML (0.55-4.78); TOTAL PROTEIN 6.6 G/DL (5.7-8.2)
[2022-05-12] MEDS ORDERED: OMEPRAZOLE 20MG CAP PO SCH (21:00)
[2022-05-12] MEDS ORDERED: ARIPiprazole 10 MG TAB PO SCH (21:00)
[2022-05-12] MEDS ORDERED: ONDANSETRON 4MG 2ML VIAL IV ONE (21:30)
[2022-05-12] MEDS ORDERED: VELP5CHW PO (21:52)
[2022-05-12] MEDS ORDERED: ABIL10TA9 PO (21:52)
[2022-05-12] MEDS ORDERED: HYDR50TA70 PO (21:52)
[2022-05-12] MEDS ORDERED: LISI20TA33 PO (21:52)
[2022-05-12] MEDS ORDERED: MIRT1TAB15 PO (21:52)
[2022-05-12] MEDS ORDERED: HYDR-3911 PO (21:52)
[2022-05-12] MEDS ORDERED: MINO10TA PO (21:52)
[2022-05-12] MEDS ORDERED: OMEP-173 PO (21:52)
[2022-05-12] MEDS ORDERED: HOME MED LIST COMPLETE! XX SCH (21:55)
[2022-05-12 21:59] LABS: CK-MB VALUE MASS 1.5 NG/ML (<3.6); MB/CK RELATIVE INDEX 0.61 (< OR =4)
[2022-05-12 22:01] LABS: ABG BASE EXCESS -2.3 (-2.0-2.0); ABG HCO3 22.4 MEQ/L (22.0-26.0); ABG O2 SATURATION 97.2 % (95.0-99.0); ABG PARTIAL PRESSURE CO2 38.3 mmHg (35.0-45.0); ABG STANDARD HCO3 22.5 MEQ/L (22.0-26.0); ABG TOTAL CO2 23.6 MEQ/L (22.0-29.0); ABG pH (ARTERIAL) 7.385 UNITS (7.350-7.450)
[2022-05-12] MEDS ORDERED: ACETAMINOPHEN TAB 650MG DOSE (2X325MG) PO PRN (22:30)
[2022-05-12 23:07] LABS: PHOSPHORUS LEVEL 6.7 MG/DL (2.5-4.9)
[2022-05-13] MEDS ORDERED: NITROGLYCERIN 0.4 MG SUBL TABLET SL STA (01:01)
[2022-05-13] MEDS ORDERED: ONDANSETRON 4MG 2ML VIAL IV PRN (01:10)
[2022-05-13] MEDS ORDERED: PIPERACILLIN/TAZOBACTAM SOD 2.25 GM in D5W MINI-BAG PLUS 50 ML IV SCH (03:00)
[2022-05-13] MEDS: **hydrALAZINE** 50 MG TAB PO SCH ×3 (03:01→14:59)
[2022-05-13] MEDS: hydrOXYzine 50 MG TAB PO SCH ×3 (03:02→15:00)
[2022-05-13] MEDS ORDERED: LIDOCAINE 1% SDV 5ML VIAL SC PRN (06:15)
[2022-05-13] MEDS ORDERED: HEPARIN SOD (PORCINE) 5000UNITS/ML 1ML VIAL/SYRINGE SC SCH (09:00)
[2022-05-13] MEDS ORDERED: METOPROLOL TART 50 MG TAB PO ONE (16:00)
[2022-05-13 16:11] VITALS: BP 180/90
[2022-05-13 17:15] VITALS: BP 160/90
== END 2022-05-13 12:26 | disposition home or self-care (01) | DRG 189 ==
LOC: M ED 17:24 → M ED INP 05-13 05:39
PROVIDERS: ADMIT Internal Medicine; ATTEND Internal Medicine
DX: J81.0 Acute pulmonary edema (principal); N18.6 End stage renal disease; I13.2 Hypertensive heart and chronic kidney disease with heart failure and with stage 5 chronic kidney disease, or end stage renal disease; I16.1 Hypertensive emergency; I50.32 Chronic diastolic (congestive) heart failure; I16.0 Hypertensive urgency; Z99.2 Dependence on renal dialysis; Z87.891 Personal history of nicotine dependence; D63.1 Anemia in chronic kidney disease; D69.6 Thrombocytopenia, unspecified; Z79.899 Other long term (current) drug therapy; Z91.15 Patient's noncompliance with renal dialysis

== ENCOUNTER 2022-05-21 22:35 | Inpatient (IN) | payer MEDICARE, MEDICAID ==
[~2022-05-21] VITALS: Ht 188 cm; Wt 86.4 kg
[~2022-05-21 22:35] MED LIST changes: +HYDR-3911 PO; +HYDR50TA70 PO; +MIRT1TAB15 PO
[2022-05-22] VITALS (12 sets, daily range): BP systolic 174–214; BP diastolic 73–107
[2022-05-22] MEDS ORDERED: IPRATROPIUM 0.5MG/ALBUTEROL 2.5MG INH SOL UD 3ML (DUONEB) NEB ONE (00:05)
[2022-05-22 00:53] LABS: BASO % 0.5 % (0.0-1.0); EOS # 0.1 10^3/uL (0.0-0.5); HEMATOCRIT 25.2 % (42.0-52.0); HEMOGLOBIN 8.4 g/dl (13.5-17.5); LYMPH # 0.9 10^3/uL (1.5-5.0); LYMPH % 13.2 % (24.0-44.0); MEAN CORPUSCULAR HEMOGLOBIN 29.9 pg (27.0-33.0); MEAN CORPUSCULAR HGB CONC 33.3 g/dl (32.0-36.5); MEAN CORPUSCULAR VOLUME 89.7 fl (80.0-96.0); MONO # 0.5 10^3/uL (0.0-0.8); NEUTROPHILS % 76.8 % (36.0-66.0); PLATELET COUNT, AUTOMATED 143 10^3/uL (150-450); RED BLOOD COUNT 2.81 10^6/uL (4.30-6.10); WHITE BLOOD COUNT 6.5 10^3/uL (4.0-10.0)
[2022-05-22 00:57] LABS: VENOUS BASE EXCESS 2.2 (-2.0-2.0); VENOUS O2 SATURATION 85.8 % (60.0-80.0); VENOUS PARTIAL PRESSURE O2 51.4 mmHg (30.0-50.0); VENOUS PH 7.416 UNITS (7.330-7.430); VENOUS STANDARD HCO3 26.3 MEQ/L; VENOUS TOTAL CO2 28.3 MEQ/L (24.0-28.0)
[2022-05-22 01:16] LABS: POTASSIUM SERUM 3.5 MMOL/L (3.5-5.1)
[2022-05-22 01:17] LABS: ALBUMIN 3.6 G/DL (3.2-5.2)
[2022-05-22 01:22] LABS: CALCIUM LEVEL 8.4 MG/DL (8.5-10.1)
[2022-05-22 01:23] LABS: CK-MB VALUE MASS 1.4 NG/ML (<3.6)
[2022-05-22 01:24] LABS: BILIRUBIN,DIRECT 0.2 MG/DL (<0.4); BILIRUBIN,TOTAL 0.5 MG/DL (0.3-1.2); MB/CK RELATIVE INDEX 0.54 (< OR =4); TOTAL PROTEIN 6.3 G/DL (5.7-8.2)
[2022-05-22 01:44] LABS: CREATININE FOR GFR 8.03 MG/DL (0.70-1.30); GLOMERULAR FILTRATION RATE 8.3 (>60)
[2022-05-22] MEDS ORDERED: MIRT-10 PO (02:56)
[2022-05-22] MEDS ORDERED: HOME MED LIST COMPLETE! XX SCH (03:00)
[2022-05-22] MEDS ORDERED: OMEPRAZOLE 20MG CAP PO PRN (03:35)
[2022-05-22] MEDS ORDERED: hydrALAZINE 20MG/ML 1ML VIAL IV PRN (03:35)
[2022-05-22] MEDS: MIRTAZAPINE 15 MG TAB PO SCH ×2 (04:28→20:43)
[2022-05-22] MEDS: ARIPiprazole 10 MG TAB PO SCH ×2 (04:28→20:41)
[2022-05-22] MEDS: ACETAMINOPHEN TAB 650MG DOSE (2X325MG) PO PRN (04:45)
[2022-05-22] MEDS: HEPARIN SOD (PORCINE) 5000UNITS/ML 1ML VIAL/SYRINGE SC SCH ×3 (05:09→22:12)
[2022-05-22] MEDS: **hydrALAZINE** 50 MG TAB PO SCH ×2 (07:36→15:52)
[2022-05-22 07:41] LABS: HEMATOCRIT 27.4 % (42.0-52.0); HEMOGLOBIN 9.1 g/dl (13.5-17.5); MEAN CORPUSCULAR HEMOGLOBIN 29.8 pg (27.0-33.0); MEAN CORPUSCULAR HGB CONC 33.2 g/dl (32.0-36.5); MEAN CORPUSCULAR VOLUME 89.8 fl (80.0-96.0); PLATELET COUNT, AUTOMATED 147 10^3/uL (150-450); RED BLOOD COUNT 3.05 10^6/uL (4.30-6.10); WHITE BLOOD COUNT 6.9 10^3/uL (4.0-10.0)
[2022-05-22] MEDS ORDERED: SUCROFERRIC OXYHYDROXIDE 500MG CHEW TAB (VELPHORO) PO SCH (08:00)
[2022-05-22 08:06] LABS: POTASSIUM SERUM 4.1 MMOL/L (3.5-5.1)
[2022-05-22 08:12] LABS: CALCIUM LEVEL 8.4 MG/DL (8.5-10.1); MAGNESIUM LEVEL 1.9 MG/DL (1.8-2.4)
[2022-05-22 08:13] LABS: CPK CREATINE PHOSPHOKINASE 243 U/L (46-171)
[2022-05-22 08:14] LABS: CK-MB VALUE MASS < 1.0 NG/ML (<3.6); MB/CK RELATIVE INDEX 0.41 (< OR =4)
[2022-05-22 08:19] LABS: CREATININE FOR GFR 8.94 MG/DL (0.70-1.30); GLOMERULAR FILTRATION RATE 7.4 (>60)
[2022-05-22] MEDS ORDERED: SODIUM CHLORIDE 0.9% 1000ML IV PRN (08:25)
[2022-05-22] MEDS ORDERED: HEPARIN 1,000UNITS/ML 10ML VIAL (FOR RADIOLOGY & DIALYSIS ONLY) IV PRN (08:25)
[2022-05-22] MEDS ORDERED: HEPARIN 1,000UNITS/ML 10ML VIAL (FOR RADIOLOGY & DIALYSIS ONLY) XX SCH (08:25)
[2022-05-22] MEDS ORDERED: LIDOCAINE 1% SDV 5ML VIAL SC PRN (08:25)
[2022-05-22] MEDS ORDERED: hydrOXYzine 50 MG TAB PO SCH (09:00)
[2022-05-22] MEDS ORDERED: VITAMIN D 1,000 INTERNATIONAL UNITS TABLET PO SCH (09:00)
[2022-05-22] MEDS ORDERED: NITROGLYCERIN 2% OINT 1 GM *U/D* PKT TOP ONE (12:15)
[2022-05-22] MEDS: SUCROFERRIC OXYHYDROXIDE 500MG CHEW TAB (VELPHORO) PO SCH ×2 (12:18→18:12)
[2022-05-22] MEDS: hydrOXYzine 50 MG TAB PO SCH ×2 (15:51→20:42)
[2022-05-22] MEDS: **hydrALAZINE HCL** 25 MG TAB PO SCH (20:42)
[2022-05-22] MEDS ORDERED: PROMETHAZINE 25MG/ML 1ML VIAL IV ONE (22:05)
[2022-05-23] VITALS (8 sets, daily range): BP systolic 165–182; BP diastolic 72–85
[2022-05-23 05:04] LABS: HEMATOCRIT 27.5 % (42.0-52.0); HEMOGLOBIN 8.8 g/dl (13.5-17.5)
[2022-05-23 05:23] LABS: POTASSIUM SERUM 4.1 MMOL/L (3.5-5.1)
[2022-05-23 05:28] LABS: CALCIUM LEVEL 8.4 MG/DL (8.5-10.1)
[2022-05-23 05:34] LABS: CREATININE FOR GFR 11.31 MG/DL (0.70-1.30); GLOMERULAR FILTRATION RATE 5.6 (>60)
[2022-05-23] MEDS: SUCROFERRIC OXYHYDROXIDE 500MG CHEW TAB (VELPHORO) PO SCH ×3 (05:59→17:50)
[2022-05-23] MEDS: HEPARIN SOD (PORCINE) 5000UNITS/ML 1ML VIAL/SYRINGE SC SCH ×3 (05:59→21:14)
[2022-05-23] MEDS: hydrOXYzine 50 MG TAB PO SCH ×3 (06:00→20:06)
[2022-05-23] MEDS: **hydrALAZINE HCL** 25 MG TAB PO SCH (06:00)
[2022-05-23] MEDS ORDERED: SODIUM CHLORIDE 0.9% 1000ML IV PRN (08:40)
[2022-05-23] MEDS ORDERED: HEPARIN 1,000UNITS/ML 10ML VIAL (FOR RADIOLOGY & DIALYSIS ONLY) IV PRN (08:40)
[2022-05-23] MEDS ORDERED: HEPARIN 1,000UNITS/ML 10ML VIAL (FOR RADIOLOGY & DIALYSIS ONLY) XX SCH (08:40)
[2022-05-23] MEDS ORDERED: LIDOCAINE 1% SDV 5ML VIAL SC PRN (08:40)
[2022-05-23] MEDS ORDERED: ISOVUE-370 76% 100ML VIAL As Ordered ONE ×2 (08:43→09:08)
[2022-05-23] MEDS ORDERED: PILL CUTTER 1 EACH XX PRN (08:50)
[2022-05-23] MEDS ORDERED: METOCLOPRAMIDE INJ 10MG/2ML VIAL IV ONE (09:55)
[2022-05-23 11:27] LABS: ABG BASE EXCESS 1.4 (-2.0-2.0); ABG HCO3 25.2 MEQ/L (22.0-26.0); ABG O2 SATURATION 95.7 % (95.0-99.0); ABG PARTIAL PRESSURE CO2 36.9 mmHg (35.0-45.0); ABG PARTIAL PRESSURE O2 76.5 mmHg (75.0-100.0); ABG STANDARD HCO3 25.7 MEQ/L (22.0-26.0); ABG TOTAL CO2 26.4 MEQ/L (22.0-29.0); ABG pH (ARTERIAL) 7.453 UNITS (7.350-7.450)
[2022-05-23 11:46] LABS: CK-MB VALUE MASS 1.3 NG/ML (<3.6)
[2022-05-23 11:49] LABS: MB/CK RELATIVE INDEX 0.71 (< OR =4)
[2022-05-23] MEDS: IPRATROPIUM 0.02% SOLN 0.5MG 2.5ML NEB INH SCH ×2 (15:15→23:15)
[2022-05-23] MEDS: **hydrALAZINE** 50 MG TAB PO SCH ×2 (16:13→20:08)
[2022-05-23] MEDS: ACETAMINOPHEN TAB 650MG DOSE (2X325MG) PO PRN ×2 (19:18→23:19)
[2022-05-23] MEDS: MIRTAZAPINE 15 MG TAB PO SCH (20:05)
[2022-05-23] MEDS: ARIPiprazole 10 MG TAB PO SCH (20:08)
[2022-05-23 20:40] LABS: CK-MB VALUE MASS 1.2 NG/ML (<3.6)
[2022-05-23 20:41] LABS: MB/CK RELATIVE INDEX 0.71 (< OR =4)
[2022-05-23] MEDS ORDERED: diphenhydrAMINE 50MG/ML VIAL IV ONE (21:05)
[2022-05-23] MEDS ORDERED: PROMETHAZINE 25MG/ML 1ML VIAL IV ONE (23:05)
[2022-05-24] VITALS (8 sets, daily range): BP systolic 129–174; BP diastolic 58–77; O2SAT 96
[2022-05-24 00:32] LABS: CK-MB VALUE MASS < 1.0 NG/ML (<3.6)
[2022-05-24 00:33] LABS: CPK CREATINE PHOSPHOKINASE 172 U/L (46-171); MB/CK RELATIVE INDEX 0.58 (< OR =4)
[2022-05-24 05:17] LABS: BASO % 0.3 % (0.0-1.0); EOS # 0.1 10^3/uL (0.0-0.5); EOS % 1.4 % (0.0-3.0); HEMATOCRIT 24.9 % (42.0-52.0); HEMOGLOBIN 8.2 g/dl (13.5-17.5); LYMPH # 0.7 10^3/uL (1.5-5.0); LYMPH % 9.3 % (24.0-44.0); MEAN CORPUSCULAR HGB CONC 32.9 g/dl (32.0-36.5); MEAN CORPUSCULAR VOLUME 91.2 fl (80.0-96.0); MONO # 0.6 10^3/uL (0.0-0.8); MONO % 7.8 % (2.0-8.0); NEUTROPHILS # 6.2 10^3/uL (1.5-8.5); NEUTROPHILS % 80.7 % (36.0-66.0); PLATELET COUNT, AUTOMATED 177 10^3/uL (150-450); RED BLOOD COUNT 2.73 10^6/uL (4.30-6.10); WHITE BLOOD COUNT 7.7 10^3/uL (4.0-10.0)
[2022-05-24 05:50] LABS: CALCIUM LEVEL 8.6 MG/DL (8.5-10.1); CREATININE FOR GFR 8.16 MG/DL (0.70-1.30); GLOMERULAR FILTRATION RATE 8.2 (>60); POTASSIUM SERUM 4.1 MMOL/L (3.5-5.1)
[2022-05-24] MEDS: HEPARIN SOD (PORCINE) 5000UNITS/ML 1ML VIAL/SYRINGE SC SCH ×3 (05:54→21:05)
[2022-05-24] MEDS: IPRATROPIUM 0.02% SOLN 0.5MG 2.5ML NEB INH SCH ×2 (07:26→16:04)
[2022-05-24] MEDS: SUCROFERRIC OXYHYDROXIDE 500MG CHEW TAB (VELPHORO) PO SCH ×3 (08:22→18:36)
[2022-05-24] MEDS: **hydrALAZINE** 50 MG TAB PO SCH ×3 (08:22→20:32)
[2022-05-24] MEDS: hydrOXYzine 50 MG TAB PO SCH ×3 (08:24→20:32)
[2022-05-24] MEDS ORDERED: SODIUM CHLORIDE NASAL 0.65% SPRAY BTL (OCEAN) PRN (08:25)
[2022-05-24] MEDS ORDERED: METOCLOPRAMIDE INJ 10MG/2ML VIAL IV ONE (10:15)
[2022-05-24] MEDS ORDERED: ISOVUE-370 76% 100ML VIAL As Ordered ONE (10:40)
[2022-05-24] MEDS ORDERED: ONDANSETRON 4MG 2ML VIAL IV PRN (13:35)
[2022-05-24] MEDS: ACETAMINOPHEN TAB 650MG DOSE (2X325MG) PO PRN ×2 (13:58→20:33)
[2022-05-24] MEDS ORDERED: DOCUSATE SODIUM 100MG CAPSULE PO PRN (14:20)
[2022-05-24] MEDS ORDERED: IBUPROFEN 400MG TAB PO ONE (14:55)
[2022-05-24] MEDS: MIRTAZAPINE 15 MG TAB PO SCH (20:32)
[2022-05-24] MEDS: ARIPiprazole 10 MG TAB PO SCH (20:32)
[2022-05-25] VITALS: BP 130/59
[2022-05-25] MEDS: ACETAMINOPHEN TAB 650MG DOSE (2X325MG) PO PRN ×2 (00:19→08:12)
[2022-05-25] MEDS ORDERED: diphenhydrAMINE 50MG/ML VIAL IV STA (02:35)
[2022-05-25] MEDS ORDERED: LIDOCAINE 5% (LIDODERM) PATCH TD ONE ×2 (03:00→15:00)
[2022-05-25 04:00] VITALS: BP 135/58
[2022-05-25] MEDS: IPRATROPIUM 0.02% SOLN 0.5MG 2.5ML NEB INH SCH ×3 (04:00→15:50)
[2022-05-25 04:16] LABS: BASO # 0.1 10^3/uL (0.0-0.2); BASO % 0.8 % (0.0-1.0); EOS # 0.1 10^3/uL (0.0-0.5); HEMATOCRIT 24.7 % (42.0-52.0); HEMOGLOBIN 7.9 g/dl (13.5-17.5); LYMPH # 0.7 10^3/uL (1.5-5.0); LYMPH % 11.7 % (24.0-44.0); MEAN CORPUSCULAR HEMOGLOBIN 29.6 pg (27.0-33.0); MEAN CORPUSCULAR VOLUME 92.5 fl (80.0-96.0); MONO # 0.6 10^3/uL (0.0-0.8); MONO % 9.2 % (2.0-8.0); NEUTROPHILS # 4.6 10^3/uL (1.5-8.5); NEUTROPHILS % 75.8 % (36.0-66.0); PLATELET COUNT, AUTOMATED 197 10^3/uL (150-450); RED BLOOD COUNT 2.67 10^6/uL (4.30-6.10); WHITE BLOOD COUNT 6.1 10^3/uL (4.0-10.0)
[2022-05-25 04:54] LABS: CALCIUM LEVEL 8.5 MG/DL (8.5-10.1); CREATININE FOR GFR 10.87 MG/DL (0.70-1.30); GLOMERULAR FILTRATION RATE 5.9 (>60); POTASSIUM SERUM 4.3 MMOL/L (3.5-5.1)
[2022-05-25] MEDS: HEPARIN SOD (PORCINE) 5000UNITS/ML 1ML VIAL/SYRINGE SC SCH ×2 (05:43→14:00)
[2022-05-25] MEDS: **hydrALAZINE** 50 MG TAB PO SCH ×2 (05:43→16:23)
[2022-05-25] MEDS: hydrOXYzine 50 MG TAB PO SCH ×2 (05:44→16:22)
[2022-05-25] MEDS ORDERED: HEPARIN 1,000UNITS/ML 10ML VIAL (FOR RADIOLOGY & DIALYSIS ONLY) XX SCH (06:00)
[2022-05-25] MEDS ORDERED: HEPARIN 1,000UNITS/ML 10ML VIAL (FOR RADIOLOGY & DIALYSIS ONLY) IV PRN (06:00)
[2022-05-25] MEDS ORDERED: LIDOCAINE 1% SDV 5ML VIAL SC PRN (06:00)
[2022-05-25] MEDS ORDERED: SODIUM CHLORIDE 0.9% 1000ML IV PRN (06:00)
[2022-05-25] MEDS: SUCROFERRIC OXYHYDROXIDE 500MG CHEW TAB (VELPHORO) PO SCH ×2 (08:00→12:30)
[2022-05-25 08:12] VITALS: BP 162/72
[2022-05-25] MEDS ORDERED: LISI20TA33 PO ×2 (09:17→11:29)
[2022-05-25] MEDS ORDERED: HYDR50TA70 PO (09:17)
[2022-05-25] MEDS ORDERED: HYDR-3911 PO ×2 (09:17→11:29)
[2022-05-25] MEDS ORDERED: MINO10TA PO ×2 (09:17→11:29)
[2022-05-25 16:08] VITALS: BP 174/77
== END 2022-05-25 16:38 | disposition home or self-care (01) | DRG 304 ==
LOC: M ED 22:35 → M ED INP 05-22 03:34 → ENRESERV 05-22 03:57 → M ICU 05-22 04:35
PROVIDERS: ADMIT Family Medicine; ATTEND Internal Medicine
DX: I16.0 Hypertensive urgency (principal); N18.6 End stage renal disease; J96.01 Acute respiratory failure with hypoxia; J81.0 Acute pulmonary edema; I50.32 Chronic diastolic (congestive) heart failure; J81.1 Chronic pulmonary edema; I24.8 Other forms of acute ischemic heart disease; J98.11 Atelectasis; J90 Pleural effusion, not elsewhere classified; I16.1 Hypertensive emergency; I13.2 Hypertensive heart and chronic kidney disease with heart failure and with stage 5 chronic kidney disease, or end stage renal disease; K21.9 Gastro-esophageal reflux disease without esophagitis; E21.0 Primary hyperparathyroidism; Z91.119 Patient's noncompliance with dietary regimen due to unspecified reason; D63.1 Anemia in chronic kidney disease; D69.6 Thrombocytopenia, unspecified; F31.9 Bipolar disorder, unspecified; Z79.899 Other long term (current) drug therapy; Z91.15 Patient's noncompliance with renal dialysis; M19.90 Unspecified osteoarthritis, unspecified site; Z87.891 Personal history of nicotine dependence

== ENCOUNTER → 2022-05-29 | Outpatient (CLI) | payer MEDICARE, MEDICAID | LOC: M RAD 17:03 | PROVIDERS: ATTEND Nurse Practitioner Family | DX: J81.1 Chronic pulmonary edema (principal) ==

== ENCOUNTER 2022-06-03 03:10 | Emergency (ER) | payer MEDICARE, MEDICAID ==
[~2022-06-03] VITALS: Ht 188 cm; Wt 86.4 kg
[2022-06-03 06:30] VITALS: BP 188/92
== END 2022-06-03 06:59 | disposition home or self-care (01) ==
LOC: M ED 03:10
DX: R06.02 Shortness of breath (principal); F41.9 Anxiety disorder, unspecified; I10 Essential (primary) hypertension; K21.9 Gastro-esophageal reflux disease without esophagitis; N18.9 Chronic kidney disease, unspecified; F17.200 Nicotine dependence, unspecified, uncomplicated; Z86.79 Personal history of other diseases of the circulatory system; Z79.811 Long term (current) use of aromatase inhibitors; Z79.899 Other long term (current) drug therapy

== ENCOUNTER 2022-06-03 20:58 | Emergency (ER) | payer MEDICARE, MEDICAID ==
[~2022-06-03] VITALS: Ht 188 cm; Wt 86.4 kg
[2022-06-03 21:09] VITALS: BP 180/110
== END 2022-06-04 00:03 | disposition left against medical advice (07) ==
LOC: M ED 20:58 → EDBD 20:58 → M ED 06-04 00:03
DX: Z53.21 Procedure and treatment not carried out due to patient leaving prior to being seen by health care provider (principal)

== ENCOUNTER 2022-06-05 19:18 | Inpatient (IN) | payer MEDICARE, MEDICAID ==
[~2022-06-05] VITALS: Ht 188 cm; Wt 87.6 kg
[2022-06-06] MEDS ORDERED: IPRATROPIUM 0.5MG/ALBUTEROL 2.5MG INH SOL UD 3ML (DUONEB) NEB ONE ×2 (00:30→01:20)
[2022-06-06 00:42] LABS: BASO # 0.1 10^3/uL (0.0-0.2); BASO % 0.5 % (0.0-1.0); EOS % 0.4 % (0.0-3.0); HEMATOCRIT 27.2 % (42.0-52.0); HEMOGLOBIN 8.9 g/dl (13.5-17.5); LYMPH # 0.6 10^3/uL (1.5-5.0); LYMPH % 5.6 % (24.0-44.0); MEAN CORPUSCULAR HEMOGLOBIN 30.1 pg (27.0-33.0); MEAN CORPUSCULAR HGB CONC 32.7 g/dl (32.0-36.5); MEAN CORPUSCULAR VOLUME 91.9 fl (80.0-96.0); MONO # 0.5 10^3/uL (0.0-0.8); MONO % 4.6 % (2.0-8.0); NEUTROPHILS # 9.1 10^3/uL (1.5-8.5); NEUTROPHILS % 88.4 % (36.0-66.0); PLATELET COUNT, AUTOMATED 149 10^3/uL (150-450); RED BLOOD COUNT 2.96 10^6/uL (4.30-6.10); WHITE BLOOD COUNT 10.3 10^3/uL (4.0-10.0)
[2022-06-06 00:56] LABS: INR 1.23; PROTHROMBIN TIME 15.8 SECONDS (12.5-14.5)
[2022-06-06 00:57] LABS: PARTIAL THROMBOPLASTIN TIME 39.6 SECONDS (24.8-34.2)
[2022-06-06 00:59] LABS: D-DIMER QUANT 1024.82 ng/ml (<500)
[2022-06-06 01:11] LABS: CK-MB VALUE MASS < 1.0 NG/ML (<3.6)
[2022-06-06 01:12] LABS: ALBUMIN 3.2 G/DL (3.2-5.2); ALKALINE PHOSPHATASE 86 U/L (46-116); ALT/SGPT 13 U/L (7.0-40); AST/SGOT 14 U/L (<34); BILIRUBIN,DIRECT 0.3 MG/DL (<0.4); BILIRUBIN,TOTAL 0.8 MG/DL (0.3-1.2); CPK CREATINE PHOSPHOKINASE 139 U/L (46-171); MB/CK RELATIVE INDEX 0.71 (< OR =4); TOTAL PROTEIN 6.5 G/DL (5.7-8.2)
[2022-06-06] MEDS ORDERED: LORazepam 2 MG/ML VIAL IV STA ×2 (01:15→04:45)
[2022-06-06 01:21] LABS: RSV AMPLIFICATION NEGATIVE (NEGATIVE)
[2022-06-06] MEDS ORDERED: HYDR50TA70 PO (02:02)
[2022-06-06] MEDS ORDERED: HYDR50TA PO (02:02)
[2022-06-06] MEDS ORDERED: LISI20TA33 PO (02:02)
[2022-06-06] MEDS ORDERED: MINO10TA PO (02:02)
[2022-06-06] MEDS ORDERED: HOME MED LIST COMPLETE! XX SCH (02:05)
[2022-06-06] MEDS ORDERED: hydrOXYzine 50 MG TAB PO PRN (02:25)
[2022-06-06] MEDS ORDERED: OMEPRAZOLE 20MG CAP PO PRN (02:25)
[2022-06-06] MEDS ORDERED: PILL CUTTER 1 EACH XX PRN (02:45)
[2022-06-06] MEDS: ARIPiprazole 10 MG TAB PO SCH ×2 (02:58→20:03)
[2022-06-06] MEDS: MIRTAZAPINE 15 MG TAB PO SCH ×2 (02:59→20:04)
[2022-06-06] MEDS ORDERED: MORPHINE 2 MG/ML 1ML VIAL IV ONE (03:55)
[2022-06-06 04:32] LABS: ABG HCO3 27.3 MEQ/L (22.0-26.0); ABG PARTIAL PRESSURE CO2 40.4 mmHg (35.0-45.0); ABG PARTIAL PRESSURE O2 82.6 mmHg (75.0-100.0); ABG STANDARD HCO3 27.1 MEQ/L (22.0-26.0); ABG TOTAL CO2 28.5 MEQ/L (22.0-29.0); ABG pH (ARTERIAL) 7.447 UNITS (7.350-7.450)
[2022-06-06 05:01] LABS: CK-MB VALUE MASS 1.4 NG/ML (<3.6)
[2022-06-06 05:05] LABS: MB/CK RELATIVE INDEX 0.85 (< OR =4)
[2022-06-06 06:28] LABS: BASO # 0.1 10^3/uL (0.0-0.2); BASO % 0.5 % (0.0-1.0); EOS % 0.1 % (0.0-3.0); HEMOGLOBIN 9.2 g/dl (13.5-17.5); LYMPH # 0.5 10^3/uL (1.5-5.0); LYMPH % 3.4 % (24.0-44.0); MEAN CORPUSCULAR HEMOGLOBIN 30.6 pg (27.0-33.0); MEAN CORPUSCULAR HGB CONC 32.9 g/dl (32.0-36.5); MONO # 0.5 10^3/uL (0.0-0.8); MONO % 3.5 % (2.0-8.0); NEUTROPHILS # 12.2 10^3/uL (1.5-8.5); NEUTROPHILS % 91.5 % (36.0-66.0); PLATELET COUNT, AUTOMATED 163 10^3/uL (150-450); RED BLOOD COUNT 3.01 10^6/uL (4.30-6.10); WHITE BLOOD COUNT 13.4 10^3/uL (4.0-10.0)
[2022-06-06 06:50] LABS: ALBUMIN 3.3 G/DL (3.2-5.2); BILIRUBIN,TOTAL 0.6 MG/DL (0.3-1.2); CALCIUM LEVEL 8.5 MG/DL (8.5-10.1); CREATININE FOR GFR 10.11 MG/DL (0.70-1.30); GLOMERULAR FILTRATION RATE 6.4 (>60); POTASSIUM SERUM 4.1 MMOL/L (3.5-5.1); TOTAL PROTEIN 6.5 G/DL (5.7-8.2)
[2022-06-06] MEDS: **hydrALAZINE** 50 MG TAB PO SCH ×3 (07:51→20:03)
[2022-06-06] MEDS: HEPARIN SOD (PORCINE) 5000UNITS/ML 1ML VIAL/SYRINGE SC SCH ×3 (07:52→21:23)
[2022-06-06] MEDS: SUCROFERRIC OXYHYDROXIDE 500MG CHEW TAB (VELPHORO) PO SCH ×3 (08:00→18:32)
[2022-06-06] MEDS ORDERED: HEPARIN 1,000UNITS/ML 10ML VIAL (FOR RADIOLOGY & DIALYSIS ONLY) IV PRN (08:10)
[2022-06-06] MEDS ORDERED: HEPARIN 1,000UNITS/ML 10ML VIAL (FOR RADIOLOGY & DIALYSIS ONLY) XX SCH (08:10)
[2022-06-06] MEDS ORDERED: SODIUM CHLORIDE 0.9% 1000ML IV PRN (08:10)
[2022-06-06] MEDS ORDERED: LIDOCAINE 1% SDV 5ML VIAL SC PRN (08:10)
[2022-06-06 08:30] VITALS: BP 175/94
[2022-06-06] MEDS ORDERED: **hydrALAZINE** 50 MG TAB PO SCH (09:00)
[2022-06-06] MEDS: LORazepam 1 MG TAB PO PRN ×2 (10:56→20:03)
[2022-06-06 12:00] VITALS: BP 164/82
[2022-06-06 16:00] VITALS: BP 154/76
[2022-06-06] MEDS ORDERED: ONDANSETRON 4MG 2ML VIAL IV PRN (17:00)
[2022-06-06 18:31] VITALS: BP 159/83
[2022-06-06] MEDS: ACETAMINOPHEN TAB 650MG DOSE (2X325MG) PO PRN (18:32)
[2022-06-06 20:00] VITALS: BP 182/87
[2022-06-07 00:12] VITALS: BP 152/70
[2022-06-07 04:32] VITALS: BP 145/66
[2022-06-07] MEDS: HEPARIN SOD (PORCINE) 5000UNITS/ML 1ML VIAL/SYRINGE SC SCH ×3 (06:19→20:46)
[2022-06-07 07:43] VITALS: BP 133/60
[2022-06-07] MEDS: SUCROFERRIC OXYHYDROXIDE 500MG CHEW TAB (VELPHORO) PO SCH ×3 (08:00→17:55)
[2022-06-07] MEDS: **hydrALAZINE** 50 MG TAB PO SCH ×3 (08:04→20:48)
[2022-06-07 08:07] LABS: MEAN CORPUSCULAR HEMOGLOBIN 29.8 pg (27.0-33.0); MEAN CORPUSCULAR HGB CONC 32.1 g/dl (32.0-36.5); MEAN CORPUSCULAR VOLUME 92.7 fl (80.0-96.0); PLATELET COUNT, AUTOMATED 179 10^3/uL (150-450); RED BLOOD COUNT 3.02 10^6/uL (4.30-6.10); WHITE BLOOD COUNT 6.6 10^3/uL (4.0-10.0)
[2022-06-07 08:24] LABS: CALCIUM LEVEL 8.4 MG/DL (8.5-10.1); CREATININE FOR GFR 7.53 MG/DL (0.70-1.30); POTASSIUM SERUM 3.7 MMOL/L (3.5-5.1)
[2022-06-07] MEDS: LORazepam 1 MG TAB PO PRN (11:56)
[2022-06-07 12:10] VITALS: BP 138/61
[2022-06-07] MEDS: ACETAMINOPHEN TAB 650MG DOSE (2X325MG) PO PRN (16:20)
[2022-06-07 20:13] VITALS: BP 129/59
[2022-06-07] MEDS: ARIPiprazole 10 MG TAB PO SCH (20:46)
[2022-06-07] MEDS: MIRTAZAPINE 15 MG TAB PO SCH (20:48)
[2022-06-08 04:51] VITALS: BP 113/53
[2022-06-08] MEDS ORDERED: HEPARIN 1,000UNITS/ML 10ML VIAL (FOR RADIOLOGY & DIALYSIS ONLY) IV PRN (06:00)
[2022-06-08] MEDS ORDERED: HEPARIN 1,000UNITS/ML 10ML VIAL (FOR RADIOLOGY & DIALYSIS ONLY) XX SCH (06:00)
[2022-06-08] MEDS ORDERED: SODIUM CHLORIDE 0.9% 1000ML IV PRN (06:00)
[2022-06-08] MEDS: HEPARIN SOD (PORCINE) 5000UNITS/ML 1ML VIAL/SYRINGE SC SCH ×3 (06:38→20:07)
[2022-06-08 07:36] VITALS: BP 160/50
[2022-06-08] MEDS: SUCROFERRIC OXYHYDROXIDE 500MG CHEW TAB (VELPHORO) PO SCH ×3 (07:36→17:15)
[2022-06-08] MEDS: **hydrALAZINE** 50 MG TAB PO SCH ×3 (12:10→20:09)
[2022-06-08] MEDS: ACETAMINOPHEN TAB 650MG DOSE (2X325MG) PO PRN ×2 (12:12→16:34)
[2022-06-08 12:16] VITALS: BP 156/70
[2022-06-08 13:55] VITALS: BP 146/54
[2022-06-08] MEDS ORDERED: traMADol 50 MG TAB PO PRN (18:05)
[2022-06-08] MEDS ORDERED: FIORICET TAB PO ONE (19:40)
[2022-06-08] MEDS ORDERED: MORPHINE 2 MG/ML 1ML VIAL IV PRN (19:40)
[2022-06-08 20:00] VITALS: BP 140/50
[2022-06-08] MEDS: MIRTAZAPINE 15 MG TAB PO SCH (20:08)
[2022-06-08] MEDS: ARIPiprazole 10 MG TAB PO SCH (20:10)
[2022-06-09] MEDS: HEPARIN SOD (PORCINE) 5000UNITS/ML 1ML VIAL/SYRINGE SC SCH ×2 (05:37→14:00)
[2022-06-09 06:00] VITALS: BP 128/43
[2022-06-09 06:23] LABS: HEMATOCRIT 26.6 % (42.0-52.0); HEMOGLOBIN 8.5 g/dl (13.5-17.5); MEAN CORPUSCULAR HEMOGLOBIN 29.9 pg (27.0-33.0); MEAN CORPUSCULAR VOLUME 93.7 fl (80.0-96.0); PLATELET COUNT, AUTOMATED 230 10^3/uL (150-450); RED BLOOD COUNT 2.84 10^6/uL (4.30-6.10); WHITE BLOOD COUNT 4.3 10^3/uL (4.0-10.0)
[2022-06-09 06:46] LABS: CALCIUM LEVEL 8.7 MG/DL (8.5-10.1); CREATININE FOR GFR 7.89 MG/DL (0.70-1.30); GLOMERULAR FILTRATION RATE 8.5 (>60); POTASSIUM SERUM 3.5 MMOL/L (3.5-5.1)
[2022-06-09] MEDS: SUCROFERRIC OXYHYDROXIDE 500MG CHEW TAB (VELPHORO) PO SCH ×2 (08:00→13:04)
[2022-06-09 08:46] VITALS: BP 150/67
[2022-06-09] MEDS: **hydrALAZINE** 50 MG TAB PO SCH ×2 (08:46→16:42)
[2022-06-09 14:35] VITALS: BP 153/65
[2022-06-09] MEDS ORDERED: HYDR50TA PO (16:30)
== END 2022-06-09 17:12 | disposition home or self-care (01) | DRG 189 ==
LOC: M ED 19:18 → M ED INP 06-06 02:25 → ENRESERV 06-06 08:14 → M ICU 06-06 08:30 → M PCU 06-07 → M MSPAV 06-08 13:46
PROVIDERS: ADMIT Family Medicine; ATTEND Family Medicine
PROC: 5A1D70Z Performance of Urinary Filtration, Intermittent, Less than 6 Hours Per Day (ICD-10-PCS; principal; 2022-06-07)
DX: J81.0 Acute pulmonary edema (principal); N18.6 End stage renal disease; I13.2 Hypertensive heart and chronic kidney disease with heart failure and with stage 5 chronic kidney disease, or end stage renal disease; I16.1 Hypertensive emergency; I50.32 Chronic diastolic (congestive) heart failure; K21.9 Gastro-esophageal reflux disease without esophagitis; G47.00 Insomnia, unspecified; Z72.0 Tobacco use; E21.1 Secondary hyperparathyroidism, not elsewhere classified; I27.20 Pulmonary hypertension, unspecified; I08.0 Rheumatic disorders of both mitral and aortic valves; D69.6 Thrombocytopenia, unspecified; Z79.899 Other long term (current) drug therapy; F41.9 Anxiety disorder, unspecified; D63.1 Anemia in chronic kidney disease

== ENCOUNTER 2022-08-25 14:36 | Emergency (ER) | payer MEDICARE, MEDICAID ==
[~2022-08-25] VITALS: Ht 185.4 cm; Wt 82.7 kg
[2022-08-25 15:41] LABS: BASO % 0.3 % (0.0-1.0); EOS # 0.3 10^3/uL (0.0-0.5); EOS % 4.1 % (0.0-3.0); HEMATOCRIT 21.8 % (42.0-52.0); LYMPH # 0.7 10^3/uL (1.5-5.0); LYMPH % 8.4 % (24.0-44.0); MEAN CORPUSCULAR HEMOGLOBIN 29.6 pg (27.0-33.0); MEAN CORPUSCULAR HGB CONC 31.7 g/dl (32.0-36.5); MEAN CORPUSCULAR VOLUME 93.6 fl (80.0-96.0); MONO # 0.9 10^3/uL (0.0-0.8); MONO % 11.3 % (2.0-8.0); NEUTROPHILS # 5.9 10^3/uL (1.5-8.5); NEUTROPHILS % 74.5 % (36.0-66.0); PLATELET COUNT, AUTOMATED 299 10^3/uL (150-450); RED BLOOD COUNT 2.33 10^6/uL (4.30-6.10); WHITE BLOOD COUNT 7.9 10^3/uL (4.0-10.0)
[2022-08-25 15:48] LABS: HEMOGLOBIN 6.9 g/dl (13.5-17.5)
[2022-08-25 15:55] LABS: INR 1.47; PROTHROMBIN TIME 18.1 SECONDS (12.5-14.5)
[2022-08-25 15:56] LABS: PARTIAL THROMBOPLASTIN TIME 47.7 SECONDS (24.8-34.2)
[2022-08-25 16:04] LABS: CK-MB VALUE MASS < 1.0 NG/ML (<3.6)
[2022-08-25 16:06] LABS: ALKALINE PHOSPHATASE 271 U/L (46-116); ALT/SGPT 15 U/L (7.0-40); AST/SGOT 33 U/L (<34); BILIRUBIN,DIRECT 0.2 MG/DL (<0.4); BILIRUBIN,TOTAL 0.2 MG/DL (0.3-1.2); BLOOD UREA NITROGEN 39 MG/DL (9-23); CALCIUM LEVEL 8.3 MG/DL (8.5-10.1); CARBON DIOXIDE LEVEL 29 MMOL/L (20-31); CHLORIDE LEVEL 96 MMOL/L (98-107); CREATININE FOR GFR 7.62 MG/DL (0.70-1.30); GLOMERULAR FILTRATION RATE 8.8 (>60); GLUCOSE, FASTING 95 MG/DL (60-100); POTASSIUM SERUM 4.7 MMOL/L (3.5-5.1); SODIUM LEVEL 135 MMOL/L (136-145); TOTAL PROTEIN 6.5 G/DL (5.7-8.2)
[2022-08-25 16:07] LABS: THYROID STIMULATING HORMONE 4.556 uIU/ML (0.55-4.78)
[2022-08-25 16:08] LABS: FREE T4 1.05 NG/DL (0.89-1.76)
[2022-08-25] MEDS ORDERED: MORPHINE 4 MG/ML 1ML VIAL IV ONE (16:15)
[2022-08-25 16:16] LABS: CPK CREATINE PHOSPHOKINASE 72 U/L (46-171); MB/CK RELATIVE INDEX 1.38 (< OR =4)
[2022-08-25 16:26] LABS: RSV AMPLIFICATION NEGATIVE (NEGATIVE)
[2022-08-25 17:14] LABS: CK-MB VALUE MASS < 1.0 NG/ML (<3.6)
[2022-08-25 17:16] LABS: CPK CREATINE PHOSPHOKINASE 73 U/L (46-171); MB/CK RELATIVE INDEX 1.36 (< OR =4)
[2022-08-25 19:05] VITALS: BP 166/73
== END 2022-08-25 19:20 | disposition short-term general hospital (02) ==
LOC: M ED 14:36
DX: I21.4 Non-ST elevation (NSTEMI) myocardial infarction (principal); I44.0 Atrioventricular block, first degree; D64.9 Anemia, unspecified; I10 Essential (primary) hypertension; K21.9 Gastro-esophageal reflux disease without esophagitis; F31.9 Bipolar disorder, unspecified; F41.9 Anxiety disorder, unspecified; F32.A Depression, unspecified; N18.9 Chronic kidney disease, unspecified; Z86.79 Personal history of other diseases of the circulatory system; Z87.891 Personal history of nicotine dependence; Z95.4 Presence of other heart-valve replacement; Z79.811 Long term (current) use of aromatase inhibitors; Z79.899 Other long term (current) drug therapy
CPT/HCPCS: 71046; 80048; 80076; 82550; 82553; 83880; 84439; 84443; 84484; 85025; 85610; 85730; 86850; 86900; 86901; 87631; 93005; 93041; 94760; 96374; 99285; J2270

== ENCOUNTER 2022-08-29 20:23 | Inpatient (IN) | payer MEDICARE, MEDICAID ==
[~2022-08-29] VITALS: Ht 188 cm; Wt 81.5 kg
[2022-08-29 20:59] LABS: BASO # 0.1 10^3/uL (0.0-0.2); BASO % 0.6 % (0.0-1.0); EOS # 0.5 10^3/uL (0.0-0.5); EOS % 5.5 % (0.0-3.0); HEMATOCRIT 23.8 % (42.0-52.0); HEMOGLOBIN 7.7 g/dl (13.5-17.5); LYMPH # 0.7 10^3/uL (1.5-5.0); LYMPH % 7.3 % (24.0-44.0); MEAN CORPUSCULAR HEMOGLOBIN 29.5 pg (27.0-33.0); MEAN CORPUSCULAR HGB CONC 32.4 g/dl (32.0-36.5); MEAN CORPUSCULAR VOLUME 91.2 fl (80.0-96.0); MONO # 0.5 10^3/uL (0.0-0.8); MONO % 5.6 % (2.0-8.0); NEUTROPHILS # 7.7 10^3/uL (1.5-8.5); NEUTROPHILS % 80.1 % (36.0-66.0); PLATELET COUNT, AUTOMATED 359 10^3/uL (150-450); RED BLOOD COUNT 2.61 10^6/uL (4.30-6.10); WHITE BLOOD COUNT 9.7 10^3/uL (4.0-10.0)
[2022-08-29 21:23] LABS: INR 1.25
[2022-08-29] MEDS ORDERED: ISOVUE-370 76% 100ML VIAL As Ordered ONE (21:40)
[2022-08-29] MEDS ORDERED: diphenhydrAMINE 50MG/ML VIAL IV STA (21:57)
[2022-08-29] MEDS ORDERED: diphenhydrAMINE 50MG/ML VIAL As Ordered ONE (21:58)
[2022-08-29] MEDS ORDERED: EPINEPHrine INJ 1 MG/ML 1ML AMP As Ordered ONE (21:58)
[2022-08-29 22:03] LABS: ALBUMIN 2.8 G/DL (3.2-5.2)
[2022-08-29 22:29] LABS: BILIRUBIN,DIRECT 0.1 MG/DL (<0.4); BILIRUBIN,TOTAL 0.3 MG/DL (0.3-1.2); CALCIUM LEVEL 8.5 MG/DL (8.5-10.1); CK-MB VALUE MASS 1.6 NG/ML (<3.6); CREATININE FOR GFR 4.65 MG/DL (0.70-1.30); GLOMERULAR FILTRATION RATE 15.5 (>60); MB/CK RELATIVE INDEX 3.07 (< OR =4); THYROID STIMULATING HORMONE 7.248 uIU/ML (0.55-4.78)
[2022-08-29 22:37] LABS: ABG BASE EXCESS -18.5 (-2.0-2.0); ABG HCO3 14.4 MEQ/L (22.0-26.0); ABG O2 SATURATION 98.6 % (95.0-99.0); ABG PARTIAL PRESSURE O2 195.9 mmHg (75.0-100.0); ABG STANDARD HCO3 10.8 MEQ/L (22.0-26.0); ABG TOTAL CO2 16.6 MEQ/L (22.0-29.0)
[2022-08-29 22:40] LABS: ABG pH (ARTERIAL) 6.926 UNITS (7.350-7.450)
[2022-08-29] MEDS ORDERED: PROPOFOL 1,000 MG/100 ML VIAL As Ordered ONE (22:44)
[2022-08-29] MEDS ORDERED: propofoL 1,000 MG in IV 1 EA IV SCH (22:45)
[2022-08-29] MEDS ORDERED: MIDAZOLAM INJ 2MG/2ML VIAL IV STA (23:01)
[2022-08-29] MEDS: ROCURONIUM BROMIDE 50MG/5ML VIAL IV PRN (23:27)
[2022-08-29] MEDS ORDERED: MIDAZOLAM 100MG/100ML-0.9%NACL 100 MG in IV 1 EA IV SCH (23:35)
[2022-08-29 23:41] LABS: TOTAL PROTEIN 6.5 G/DL (5.7-8.2)
[2022-08-29 23:56] LABS: ABG BASE EXCESS -6.5 (-2.0-2.0); ABG HCO3 19.6 MEQ/L (22.0-26.0); ABG O2 SATURATION 98.7 % (95.0-99.0); ABG PARTIAL PRESSURE CO2 41.7 mmHg (35.0-45.0); ABG PARTIAL PRESSURE O2 151.4 mmHg (75.0-100.0); ABG STANDARD HCO3 19.1 MEQ/L (22.0-26.0); ABG TOTAL CO2 20.9 MEQ/L (22.0-29.0); ABG pH (ARTERIAL) 7.291 UNITS (7.350-7.450)
[2022-08-30] VITALS (31 sets, daily range): BP systolic 89–170; BP diastolic 46–98
[2022-08-30] MEDS ORDERED: NS 500 ML IV ONE (00:25)
[2022-08-30] MEDS: MIDAZOLAM 100MG/100ML-0.9%NACL 100 MG in IV 1 EA IV SCH ×3 (00:30→13:52)
[2022-08-30] MEDS: ROCURONIUM BROMIDE 50MG/5ML VIAL IV PRN ×2 (00:34→01:59)
[2022-08-30] MEDS ORDERED: fentaNYL 100 MCG/2 ML INJECTION IV ONE (00:50)
[2022-08-30 00:59] LABS: ABG BASE EXCESS -2.7 (-2.0-2.0); ABG HCO3 21.8 MEQ/L (22.0-26.0); ABG O2 SATURATION 99.2 % (95.0-99.0); ABG PARTIAL PRESSURE CO2 36.6 mmHg (35.0-45.0); ABG PARTIAL PRESSURE O2 172.6 mmHg (75.0-100.0); ABG STANDARD HCO3 22.2 MEQ/L (22.0-26.0); ABG TOTAL CO2 22.9 MEQ/L (22.0-29.0); ABG pH (ARTERIAL) 7.392 UNITS (7.350-7.450)
[2022-08-30] MEDS ORDERED: FENTANYL DRIP LOCK BOX KEY 1 EACH XX PRN ×2 (01:05→01:40)
[2022-08-30] MEDS ORDERED: fentaNYL CITRATE/NaCl 1,000 MCG in IV 1 EA IV SCH (01:05)
[2022-08-30] MEDS: fentaNYL CITRATE/NaCl 1,000 MCG in IV 1 EA IV SCH ×2 (01:30→09:58)
[2022-08-30] MEDS ORDERED: ALBUTEROL SULFATE 2.5MG/0.5ML INH NEB SOLN NEB PRN (01:40)
[2022-08-30] MEDS ORDERED: LR 1,000 ML IV SCH (01:55)
[2022-08-30] MEDS ORDERED: PIPERACILLIN/TAZOBACTAM SOD 4.5 GM in D5W MINI-BAG PLUS 50 ML IV SCH (03:00)
[2022-08-30] MEDS: MIDAZOLAM INJ 2MG/2ML VIAL IV PRN ×2 (03:00→04:48)
[2022-08-30] MEDS: PIPERACILLIN/TAZOBACTAM SOD 2.25 GM in D5W MINI-BAG PLUS 50 ML IV SCH ×2 (03:09→12:06)
[2022-08-30] MEDS ORDERED: VANCOMYCIN HCL 1,000 MG, VIAL MATE ADAPTER 1 EACH in NS 250 ML IV ONE (04:00)
[2022-08-30 04:13] LABS: HEMATOCRIT 32.3 % (42.0-52.0); MEAN CORPUSCULAR HEMOGLOBIN 29.2 pg (27.0-33.0); MEAN CORPUSCULAR HGB CONC 31.6 g/dl (32.0-36.5); MEAN CORPUSCULAR VOLUME 92.6 fl (80.0-96.0); RED BLOOD COUNT 3.49 10^6/uL (4.30-6.10)
[2022-08-30 04:21] LABS: HEMOGLOBIN 10.2 g/dl (13.5-17.5); PLATELET COUNT, AUTOMATED 523 10^3/uL (150-450); WHITE BLOOD COUNT 41.6 10^3/uL (4.0-10.0)
[2022-08-30 04:22] LABS: INR 1.72; PROTHROMBIN TIME 20.5 SECONDS (12.5-14.5)
[2022-08-30 04:23] LABS: PARTIAL THROMBOPLASTIN TIME 39.8 SECONDS (24.8-34.2)
[2022-08-30 04:28] LABS: ABG BASE EXCESS -0.5 (-2.0-2.0); ABG HCO3 23.8 MEQ/L (22.0-26.0); ABG O2 SATURATION 98.5 % (95.0-99.0); ABG PARTIAL PRESSURE CO2 37.8 mmHg (35.0-45.0); ABG PARTIAL PRESSURE O2 131.5 mmHg (75.0-100.0); ABG STANDARD HCO3 24.1 MEQ/L (22.0-26.0); ABG pH (ARTERIAL) 7.417 UNITS (7.350-7.450)
[2022-08-30 04:52] LABS: ALBUMIN 2.6 G/DL (3.2-5.2); BILIRUBIN,TOTAL 0.5 MG/DL (0.3-1.2); CALCIUM LEVEL 8.1 MG/DL (8.5-10.1); CREATININE FOR GFR 5.42 MG/DL (0.70-1.30); MAGNESIUM LEVEL 1.8 MG/DL (1.8-2.4); PHOSPHORUS LEVEL 3.8 MG/DL (2.5-4.9); POTASSIUM SERUM 4.2 MMOL/L (3.5-5.1)
[2022-08-30 05:06] LABS: TOTAL PROTEIN 6.1 G/DL (5.7-8.2)
[2022-08-30] MEDS ORDERED: MIDAZOLAM INJ 2MG/2ML VIAL IV STA ×2 (05:37→05:41)
[2022-08-30] MEDS ORDERED: HEPARIN SOD (PORCINE) 5000UNITS/ML 1ML VIAL/SYRINGE SC SCH (06:00)
[2022-08-30] MEDS ORDERED: VANCOMYCIN HCL 1,000 MG, VIAL MATE ADAPTER 1 EACH in D5W 250 ML IV SCH (06:00)
[2022-08-30] MEDS ORDERED: MORPHINE 2 MG/ML 1ML VIAL IV ONE (06:00)
[2022-08-30] MEDS: CISATRACURIUM 200 MG in NS 480 ML IV SCH ×2 (06:07→14:26)
[2022-08-30 08:31] LABS: ABG BASE EXCESS -1.9 (-2.0-2.0); ABG O2 SATURATION 98.7 % (95.0-99.0); ABG PARTIAL PRESSURE CO2 30.1 mmHg (35.0-45.0); ABG PARTIAL PRESSURE O2 134.6 mmHg (75.0-100.0); ABG STANDARD HCO3 22.9 MEQ/L (22.0-26.0); ABG TOTAL CO2 21.9 MEQ/L (22.0-29.0); ABG pH (ARTERIAL) 7.462 UNITS (7.350-7.450)
[2022-08-30] MEDS ORDERED: CHLORHEXIDINE GLUCONATE 0.12 % 15ML UDC (PERIDEX ORAL RINSE) MT SCH (09:00)
[2022-08-30] MEDS ORDERED: PANTOPRAZOLE 40MG VIAL IV SCH (09:00)
[2022-08-30 09:09] LABS: HEMATOCRIT 32.8 % (42.0-52.0); HEMOGLOBIN 10.1 g/dl (13.5-17.5); MEAN CORPUSCULAR HEMOGLOBIN 29.4 pg (27.0-33.0); MEAN CORPUSCULAR HGB CONC 30.8 g/dl (32.0-36.5); MEAN CORPUSCULAR VOLUME 95.3 fl (80.0-96.0); PLATELET COUNT, AUTOMATED 450 10^3/uL (150-450); RED BLOOD COUNT 3.44 10^6/uL (4.30-6.10)
[2022-08-30 09:16] LABS: WHITE BLOOD COUNT 44.6 10^3/uL (4.0-10.0)
[2022-08-30 09:23] LABS: VANCOMYCIN RANDOM 18.9 UG/ML
[2022-08-30 09:30] LABS: BILIRUBIN,TOTAL 0.5 MG/DL (0.3-1.2); CALCIUM LEVEL 8.5 MG/DL (8.5-10.1); CREATININE FOR GFR 5.51 MG/DL (0.70-1.30); GLOMERULAR FILTRATION RATE 12.8 (>60); PHOSPHORUS LEVEL 5.3 MG/DL (2.5-4.9); POTASSIUM SERUM 4.7 MMOL/L (3.5-5.1); TOTAL PROTEIN 6.8 G/DL (5.7-8.2)
[2022-08-30 09:37] LABS: INR 1.48; PROTHROMBIN TIME 18.2 SECONDS (12.5-14.5)
[2022-08-30 09:38] LABS: PARTIAL THROMBOPLASTIN TIME 33.5 SECONDS (24.8-34.2)
[2022-08-30] MEDS ORDERED: HEPARIN SOD (PORCINE) 5000UNITS/ML 1ML VIAL/SYRINGE IV PRN (10:45)
[2022-08-30] MEDS ORDERED: HEPARIN DRIP 25,000 UNITS in IV 1 EA IV SCH (10:45)
[2022-08-30] MEDS ORDERED: HEPARIN SOD (PORCINE) 5000UNITS/ML 1ML VIAL/SYRINGE IV ONE (10:45)
[2022-08-30] MEDS ORDERED: methylPREDNISolone 40MG 1ML VIAL IV SCH (11:00)
[2022-08-30 12:25] LABS: ABG BASE EXCESS -2.5 (-2.0-2.0); ABG HCO3 21.2 MEQ/L (22.0-26.0); ABG O2 SATURATION 98.7 % (95.0-99.0); ABG PARTIAL PRESSURE CO2 32.7 mmHg (35.0-45.0); ABG PARTIAL PRESSURE O2 122.3 mmHg (75.0-100.0); ABG STANDARD HCO3 22.4 MEQ/L (22.0-26.0); ABG TOTAL CO2 22.2 MEQ/L (22.0-29.0); ABG pH (ARTERIAL) 7.429 UNITS (7.350-7.450)
[2022-08-30 13:39] LABS: HEMATOCRIT 27.4 % (42.0-52.0); HEMOGLOBIN 8.5 g/dl (13.5-17.5); MEAN CORPUSCULAR HEMOGLOBIN 29.3 pg (27.0-33.0); MEAN CORPUSCULAR VOLUME 94.5 fl (80.0-96.0)
[2022-08-30 13:47] LABS: PLATELET COUNT, AUTOMATED 319 10^3/uL (150-450); WHITE BLOOD COUNT 38.2 10^3/uL (4.0-10.0)
[2022-08-30 13:53] LABS: INR 1.22; PROTHROMBIN TIME 15.7 SECONDS (12.5-14.5)
[2022-08-30] MEDS ORDERED: VANCOMYCIN HCL 500 MG in D5W MINI-BAG PLUS 100 ML IV ONE (14:00)
[2022-08-30 14:09] LABS: ALBUMIN 2.6 G/DL (3.2-5.2); BILIRUBIN,TOTAL 0.4 MG/DL (0.3-1.2); CALCIUM LEVEL 8.3 MG/DL (8.5-10.1); CREATININE FOR GFR 5.83 MG/DL (0.70-1.30); POTASSIUM SERUM 4.9 MMOL/L (3.5-5.1)
[2022-08-30] MEDS ORDERED: WARF4TAB51 PO (14:47)
[2022-08-30] MEDS ORDERED: ROCA0.25 PO (14:47)
[2022-08-30] MEDS ORDERED: AMIO200T49 PO (14:47)
[2022-08-30] MEDS ORDERED: TERA1CAP3 PO (14:47)
[2022-08-30] MEDS ORDERED: METO50TA7 PO (14:47)
[2022-08-30] MEDS ORDERED: VENO20IN5 IV (14:47)
[2022-08-30] MEDS ORDERED: TUMS500C PO (14:47)
[2022-08-30] MEDS ORDERED: OXYC1TAB23 PO (14:47)
[2022-08-30] MEDS ORDERED: ASPI81TA26 PO (14:47)
[2022-08-30] MEDS ORDERED: SENN18TA PO (14:47)
[2022-08-30] MEDS ORDERED: APAP325T4 PO (14:47)
[2022-08-30] MEDS ORDERED: DOCU100C16 PO (14:47)
[2022-08-30] MEDS ORDERED: HOME MED LIST COMPLETE! XX SCH (14:50)
[2022-08-30] MEDS ORDERED: ETOMIDATE INJ 20MG/10ML VIAL ONE (15:01)
[2022-08-30] MEDS ORDERED: EPINEPHrine 1MG/10ML SYRINGE 1.5IN ONE (15:34)
[2022-08-30] MEDS ORDERED: DOPamine 400 MG/500 ML BAG IN D5W (800MCG/ML) ONE (15:34)
[2022-08-30] MEDS ORDERED: ATROPINE SULF 1MG/10ML SYRINGE ONE (15:34)
[2022-08-30] MEDS ORDERED: LACRILUBE (AKWA TEARS) OPHTH OINT 3.5GM OU SCH (16:00)
== END 2022-08-30 15:35 | disposition short-term general hospital (02) | DRG 296 ==
LOC: EDBD 20:23 → M ED 20:23 → M ED INP 08-30 01:39 → M ICU 08-30 02:40
PROVIDERS: ADMIT Internal Medicine Pulmonary Disease; ATTEND Internal Medicine Pulmonary Disease
PROC: 5A1935Z Respiratory Ventilation, Less than 24 Consecutive Hours (ICD-10-PCS; 2022-08-29)
PROC: 0BH17EZ Insertion of Endotracheal Airway into Trachea, Via Natural or Artificial Opening (ICD-10-PCS; 2022-08-29)
PROC: B246ZZZ Ultrasonography of Right and Left Heart (ICD-10-PCS; principal; 2022-08-30)
DX: I46.9 Cardiac arrest, cause unspecified (principal); N18.6 End stage renal disease; J96.01 Acute respiratory failure with hypoxia; J96.02 Acute respiratory failure with hypercapnia; J69.0 Pneumonitis due to inhalation of food and vomit; I13.2 Hypertensive heart and chronic kidney disease with heart failure and with stage 5 chronic kidney disease, or end stage renal disease; I50.32 Chronic diastolic (congestive) heart failure; E87.20 Acidosis, unspecified; J90 Pleural effusion, not elsewhere classified; I24.9 Acute ischemic heart disease, unspecified; I48.92 Unspecified atrial flutter; I27.20 Pulmonary hypertension, unspecified; I48.91 Unspecified atrial fibrillation; I95.9 Hypotension, unspecified; G31.9 Degenerative disease of nervous system, unspecified; F31.9 Bipolar disorder, unspecified; D72.829 Elevated white blood cell count, unspecified; F41.8 Other specified anxiety disorders; G40.909 Epilepsy, unspecified, not intractable, without status epilepticus; G43.909 Migraine, unspecified, not intractable, without status migrainosus; M19.90 Unspecified osteoarthritis, unspecified site; K21.9 Gastro-esophageal reflux disease without esophagitis; D63.8 Anemia in other chronic diseases classified elsewhere; E21.0 Primary hyperparathyroidism; Z99.2 Dependence on renal dialysis; Z95.2 Presence of prosthetic heart valve; Z90.49 Acquired absence of other specified parts of digestive tract; Z79.899 Other long term (current) drug therapy; Z20.822 Contact with and (suspected) exposure to COVID-19; Z91.041 Radiographic dye allergy status; Z88.8 Allergy status to other drugs, medicaments and biological substances; Z87.891 Personal history of nicotine dependence